=== PATIENT | male | born 1940 | race Caucasian/White ===

== ENCOUNTER 2018-06-17 12:37 | Emergency (ER) | payer OTHER ==
[~2018-06-17] VITALS: Ht 185.4 cm; Wt 68.9 kg
[~2018-06-17 12:37] MED LIST: ADVAIR 250-501 EACH INH; AMIODARONE HCL200 MG PO; CALCIUM 500+D1 EACH PO; CEFUROXIME250 MG PO; CENTRUM SILVER1 EAC3 PO; CIPRO500 MG PO; COUMADIN5 MG PO; IPRAT-ALBUT 0.5-3 ML INH; IPRATROPIU0.2 MG/1 M NEB; LEVAQUIN500 MG PO; LISINOPRIL10 MG PO; METOPROLOL SUCC50 MG PO; NORCO 10-325 T1 EACH; POTASSIUM GLUCO90 MG PO; PREDNISONE10 MG PO; SIMVASTATIN20 MG PO; TOPROL XL100 MG PO; TRAZODONE HCL50 MG PO; VASOTEC10 M1 PO; XARELTO20 MG PO; XOPENEX HFA15 GM INH
[2018-06-17] MEDS ORDERED: IBUPROFEN 600 MG TAB PO STA (13:07)
--- NOTE | 2018-06-17 14:14 | Diagnostic Imaging Report ---
Radiographs of the lumbar spine - 3 views HISTORY: Pain. Fall. COMPARISON: None available. FINDINGS: Bones: No acute displaced fracture. Mild scoliosis concave to the left centered at L3. Joints: Scattered degenerative change most pronounced at the lower lumbar spine. Soft tissues: The soft tissues appear unremarkable. IMPRESSION: Scattered degenerative change most pronounced at the lower lumbar spine. Signed by: Dr. Jose Cordova M.D. on 06/17/2018 2:11 PM
--- NOTE | 2018-06-17 14:18 | Diagnostic Imaging Report ---
EXAMINATION: Head and cervical spine CT without contrast. HISTORY: Status post fall, trauma, head and neck pain COMPARISON: None. TECHNIQUE: Multidetector axial images were obtained without contrast from the foramen magnum to the vertex and through the cervical spine. The images were reconstructed using brain and bone algorithms. Thin section brain images were reformatted into coronal and sagittal planes. Dose modulation, iterative reconstruction, and/or weight based adjustment of the mA/kV was utilized to reduce the radiation dose to as low as reasonably achievable. HEAD CT FINDINGS: Skull: No lytic or blastic lesions. No fractures. Parenchyma: A few scattered white matter hypodensities, most likely age appropriate minimal chronic microvascular ischemic changes. No mass, hemorrhage or CT evidence of acute vascular insult. Brain volume: Normal for age. Ventricles: No hydrocephalus or displacement. Arteries: No density suggestive of thrombus. Dural sinuses: No abnormal density. Extra-axial spaces: No abnormal density. Foramen magnum: No mass, Chiari malformation, or basilar invagination. Sella: No obvious mass. Paranasal/mastoid sinuses: Imaged portions unremarkable. CERVICAL SPINE CT FINDINGS: Alignment:Normal lordosis. Subtle right-sided curvature. Soft tissues: Normal. Vertebrae: Acute not significantly displaced transverse fracture line through the base of the dens extending to the right body of the C2 (type III). Degenerative changes: C1-C2: Degenerative changes without stenoses C2-C3: Uncovertebral and facet arthrosis without significant stenoses C3-C4: Disc osteophyte compresses formation, uncovertebral and facet arthrosis. Moderate spinal canal and foraminal stenoses worst on the right. C4-C5: Disc osteophyte complex formation, bilateral uncovertebral and facet arthrosis. Moderate spinal canal and severe left foraminal stenosis. C5-C6: Disc osteophyte compresses formation, uncovertebral and facet arthrosis. Moderately severe foraminal stenosis worst on the left. Moderately severe spinal canal stenosis C6-C7: Disc osteophyte complex formation, uncovertebral and facet arthroses. Mild spinal canal and moderate foraminal stenoses. C7-T1: Mild facet arthrosis is minimal right without stenosis Incidental findings: Prominent degenerative changes of the bilateral TMJs. IMPRESSION: Head CT: 1. No acute postraumatic intracranial hemorrhage. 2. Mild chronic microvascular ischemic changes. Cervical spine CT: 1. Acute nondisplaced fracture through the base of the dens extending to the right body of C2 (type III). 2. Chronic degenerative changes as described. Note: Acute post traumatic spinal cord, vascular or ligamentous injury cannot adequately be assessed with CT. The findings were discussed with the [facility] PUBLICITY DIRECTOR Britni Wray on 06/17/18 at 2:10 PM Signed by: Dr. Juanita King M.D. on 06/17/2018 2:14 PM
[2018-06-17 17:07] LABS: BASOPHILS # (AUTO) 0.1 (0.0-0.1); BASOPHILS % 1.4 % (0.0-1.0); EOSINOPHILS # (AUTO) 0.2 (0.0-0.4); EOSINOPHILS % 2.8 % (0.0-6.0); HEMATOCRIT 33.3 % (38.2-49.6); HEMOGLOBIN 10.4 g/dL (14.0-18.0); LYMPHOCYTES % 17.5 % (18.0-39.1); MEAN CORPUSCULAR HEMOGLOBIN 29.7 pg (28-32); MEAN CORPUSCULAR HGB CONC 31.2 g/dL (31-35); MEAN CORPUSCULAR VOLUME 95.1 fL (81-99); MONOCYTES # (AUTO) 0.6 (0.2-0.8); MONOCYTES % 10.3 % (4.4-11.3); NEUTROPHILS # (AUTO) 3.8 (2.1-6.9); NEUTROPHILS % 67.8 % (38.7-80.0); PLATELET COUNT 155 x10e3/uL (140-360); RED CELL DISTRIBUTION WIDTH 17.5 % (11.7-14.4)
[2018-06-17 17:20] LABS: INR 1.01; PROTHROMBIN TIME 14.2 seconds (11.9-14.5)
[2018-06-17 17:21] LABS: PARTIAL THROMBOPLASTIN TIME 34.9 seconds (23.8-35.5)
[2018-06-17 17:28] LABS: ANION GAP 14.9 mmol/L (8-16); CALCIUM 9.2 mg/dL (8.4-10.2); CREATININE, SERUM 1.22 mg/dL (0.72-1.25); POTASSIUM 3.9 mmol/L (3.5-5.1)
[2018-06-17 19:37] VITALS: BP 134/91
--- OUTSIDE RECORDS SUMMARY | 2018-06-24 12:21 | XMS REPORT | Continuity of Care Document ---
Author Author Lina card [facility] Interface Address Unknown Phone Unavailable Problems Problem Status Onset Date Classification Date Reported Comments Source Acute head trauma 02/06/2018 02/09/2018 [facility] Elevated INR 02/06/2018 02/09/2018 [facility] Accidental fall 02/06/2018 02/09/2018 [facility] FALL Active 02/06/2018 [facility] ATRIAL FIBRILLATION Active 01/08/2018 [facility] WATCHMAN Active 01/07/2018 [facility] PREADMIT/WATCHMAN/GA-DAISHA CLOSURE/ VIVIAN Active 01/03/2018 [facility] SOB Active 09/01/2017 [facility] ACUTE EXACERBATION OF CHRONIC OBSTRUCTIV Active 09/01/2017 [facility] CHF Active 08/04/2017 [facility] DX: AFIB Active 07/16/2017 [facility] PRE ADMIT/GENERAL ANESTHESIA/TAVR CASE/* Active 04/12/2017 [facility] AORTIC STENOSIS Active 04/12/2017 [facility] COPD WITH ACUTE EXACERBATION, HYPOXIA, A Active 04/07/2017 [facility] Z01.808 / I35.0 Active 03/20/2017 [facility] SEVERE AORTIC STENOSIS Active 03/13/2017 [facility] CCL/R Active 03/11/2017 [facility] PNEUMONIA, COPD WITH ACUTE EXACERBATION Active 09/27/2016 [facility] CHEST PAIN Active 10/09/2015 [facility] J44.1 - CHRONIC OBSTRUCTIVE PULMONARY Active 07/05/2015 [facility] Afib [facility] HT - Hypertension Active Problem 02/09[facility]F - Congestive heart failure Active Problem 02/28/2018 [facility] COPD Active Problem 02/28/2018 [facility] HT - Hypertension Active Problem 02/28/2018 [facility] Afib Active Problem 08/31/2017 [facility] [place] CHF - Congestive heart failure Active Problem 08/31/2017 [facility] [place] COPD Active Problem 08/31/2017 [facility] [place] HT - Hypertension Active Problem 08/31/2017 [facility] [place] Unspecified atrial fibrillation 01/17/2018 [facility] Chronic diastolic heart failure 01/17/2018 [facility] Presence of prosthetic heart valve 01/17/2018 [facility] Chronic obstructive pulmonary disease, unspecified 01/17/2018 [facility] Dependence on supplemental oxygen 01/17/2018 [facility] Encounter for examination for normal comparison and control in clinical research program 01/17/2018 [facility] Peripheral vascular disease, unspecified 01/17/2018 [facility] Occlusion and stenosis of unspecified carotid artery 01/17/2018 [facility] Hypertensive heart disease with heart failure 01/17/2018 [facility] Hyperlipidemia, unspecified 01/17/2018 [facility] Nicotine dependence, cigarettes, uncomplicated 01/17/2018 [facility] Gastro-esophageal reflux disease without esophagitis 01/17/2018 [facility] 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 01/17/2018 [facility] 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 01/17/2018 [facility] Presence of unspecified artificial knee joint 01/17/2018 [facility] PNEUMONIA, UNSPECIFIED ORGANISM Active [facility] CHRONIC OBSTRUCTIVE PULMONARY DISEASE W Active [place] HYPOXEMIA Active [facility] HEART FAILURE, UNSPECIFIED Active [facility] CHEST PAIN, UNSPECIFIED Active [facility] Medications Medication Details Route Status Patient Instructions Ordering Provider Order Date Source Vitamin K1 5 mg, Route: IVPB, ONCE, Dosing Weight 75, kg, Start date: 02/06/18 14:14:00 CDT, Stop date: 02/06/18 14:14:00 CDT Inactive 02/06/2018 [facility] Saline Flush 0.9% 10 mL, Route: IVP, Drug Form: INJ, Dosing Weight 75, kg, PRN, PRN Line Flush, Start date: 02/06/18 11:31:00 CDT, Duration: 30 day, Stop date: 03/08/18 11:30:00 CDTNotes: (Same as: BD Posiflush) Inactive 02/06/2018 [facility] tramadol hydrochloride 50 MG Oral Tablet 50 mg=1 tab, PO, Q6H, PRN Pain, X 10 day, # 40 tab, 0 Refill(s) Active 01/08/2018 [facility] Aspirin 81 MG Enteric Coated Tablet 81 mg=1 tab, PO, Daily, # 30 tab, 3 Refill(s), Pharmacy: [facility] [id number] Active 01/08/2018 [facility] warfarin 5 mg oral tablet 5 mg=1 tab, PO, Daily, # 30 tab, 1 Refill(s), Pharmacy: [facility] [id number] Active 01/08/2018 [facility] Warfarin 5 mg, 1 tab, Route: PO, Drug form: TAB, ONCE, Dosing Weight 75.455, kg, Start date: 01/08/18 17:15:00 CDT, Stop date: 01/08/18 17:15:00 CDTNotes: Nurse to ensure documentation of patient education per a nticoagulation policy. Avoid large intake of vitamin-K containing foods diet. WASTE: F/P - P Waste Black; E - P Waste Black (Same As: Coumadin) Inactive 01/08/2018 [facility] Centrum Silver Men's 1 tab, Route: PO, Drug Form: TAB, Dosing Weight 75.455, kg, Daily, Start date: 01/08/18 9:00:00 CDT, Duration: 30 day, Stop date: 02/06/18 9:00:00 CDTNotes: (Same as:Thera-M, Theragran-M) WASTE: F/P - Black; E - Municipal Trash Bin Give with food. Inactive 01/08/2018 [facility] Prednisone 10 mg, 1 tab, Route: PO, Drug form: TAB, Daily, Dosing Weight 75.455, kg, Start date: 01/08/18 9:00:00 CDT, Duration: 30 day, Stop date: 02/06/18 9:00:00 CDTNotes: (Same as: PredniSONE) Take with food. Inactive 01/08/2018 [facility] Amiodarone 200 mg, 1 tab, Route: PO, Drug form: TAB, Daily, Dosing Weight 75.455, kg, Start date: 01/08/18 9:00:00 CDT, Duration: 30 day, Stop date: 02/06/18 9:00:00 CDTNotes: (Same as: Cordarone) Inactive 01/08/2018 [facility] Aspirin 81 MG Enteric Coated Tablet 81 mg, 1 tab, Route: PO, Drug form: ECTAB, Daily, Dosing Weight 75.455, kg, Start date: 01/08/18 9:00:00 CDT, Duration: 30 day, Stop date: 02/06/18 9:00:00 CDTNotes: Do not crush or chew. (Same As: Ecotrin) Inactive 01/08/2018 [facility] Vitamin D3 2,000 IntlUnit, 1 tab, Route: PO, Drug form: TAB, Daily, Dosing Weight 75.455, kg, Start date: 01/08/18 9:00:00 CDT, Duration: 30 day, Stop date: 02/06/18 9:00:00 CDTNotes: (Same as: Vitamin D3) Inactive 01/08/2018 [facility] Lisinopril 40 mg, 2 tab, Route: PO, Drug form: TAB, Daily, Dosing Weight 75.455, kg, Start date: 01/08/18 9:00:00 CDT, Duration: 30 day, Stop date: 02/06/18 9:00:00 CDTNotes: (Same as: Prinivil, Zestril) Inactive 01/08/2018 [facility] tiotropium 0.018 MG/ACTUAT Inhalant Powder [Spiriva] 18 microgram, 1 inhalation, Route: INHALATION, Drug form: CAP, RDaily, Dosing Weight 75.455, kg, Start date: 01/08/18 8:00:00 CDT, Duration: 30 day, Stop date: 02/06/18 8:00:00 CDTNotes: (Same As: Spiriva) Inactive 01/08/2018 [facility] torsemide 20 mg, 1 tab, Route: PO, Drug form: TAB, Daily, Dosing Weight 75.455, kg, Priority: NOW, Start date: 01/08/18 5:33:00 CDT, Duration: 30 day, Stop date: 02/06/18 9:00:00 CDTNotes: (Same As: Demadex) Inactive 01/08/2018 [facility] 24 HR Metoprolol Tartrate 100 MG Extended Release Tablet [Toprol] 100 mg, 1 tab, Route: PO, Drug form: ERTAB, Daily, Priority: NOW, Start date: 01/08/18 5:33:00 CDT, Duration: 30 day, Stop date: 02/06/18 9:00:00 CDTNotes: (Same as: Toprol XL) May split tab, but do not crush. Inactive 01/08/2018 [facility] Simvastatin 20 mg, 1 tab, Route: PO, Drug form: TAB, Bedtime, Dosing Weight 75.455, kg, Start date: 01/07/18 21:00:00 CDT, Duration: 30 day, Stop date: 02/05/18 21:00:00 CDTNotes: (Same as: Zocor) No Longer Active 01/08/2018 [facility] heparin 5,000 unit, 1 mL, Route: SUB-Q, Drug form: INJ, Q12H, Dosing Weight 75.455, kg, Start date: 01/07/18 21:00:00 CDT, Duration: 30 day, Stop date: 02/06/18 9:00:00 CDTNotes: porcine heparin Inactive 01/08/2018 [facility] Tylenol 650 mg, 2 tab, Route: PO, Drug form: TAB, Q6H, Dosing Weight 75.455, kg, PRN Pain Score 1-3, Start date: 01/07/18 20:03:00 CDT, Duration: 30 day, Stop date: 02/06/18 20:02:00 CDTNotes: Do not exceed 4 gm/day. (Same as: Tylenol) No Longer Active 01/08/2018 [facility] Warfarin 5 mg, 1 tab, Route: PO, Drug form: TAB, ONCE, Dosing Weight 75.455, kg, Start date: 01/07/18 19:47:00 CDT, Stop date: 01/07/18 19:47:00 CDTNotes: Nurse to ensure documentation of patient education per a nticoagulation policy. Avoid large intake of vitamin-K containing foods diet. WASTE: F/P - P Waste Black; E - P Waste Black (Same As: Coumadin) Inactive 01/08/2018 [facility] rivaroxaban 20 mg, 1 tab, Route: PO, Drug form: TAB, QPM, Dosing Weight 75.455, kg, Start date: 01/07/18 17:00:00 CDT, Duration: 30 day, Stop date: 02/05/18 17:00:00 CDTNotes: (Same as: Xarelto) Administer with food Inactive 01/07/2018 [facility] Bupropion 150 mg, 1 tab, Route: PO, Drug form: ERTAB, BID, Dosing Weight 75.455, kg, Start date: 01/07/18 17:00:00 CDT, Duration: 30 day, Stop date: 02/06/18 9:00:00 CDTNotes: (Same as: Wellbutrin XL) "Do Not Crush" No Longer Active 01/07/2018 [facility] Symbicort 160/4.5 inhalation aerosol with adapter 2 inhalation, Route: INHALER, Drug Form: AERO/A, Dosing Weight 75.455, kg, RBID, Start date: 01/07/18 13:24:00 CDT, Duration: 30 day, Stop date: 02/06/18 8:00:00 CDTNotes: (Same as: Symbicort) WASTE: Aerosol - Return to Pharmacy No Longer Active 01/07/2018 [facility] Potassium Chloride 20 mEq, 1 tab, Route: PO, Drug form: ERTAB, PRN, Dosing Weight 75.455, kg, PRN Abnormal Lab Result, For NON-ICU Patients Only, Start date: 01/07/18 12:48:00 CDT, Duration: 30 day, Stop date: 02/06/18 12:47:00 CDTNotes: (Same as: K-Dur 20) "Do Not Crush" For patients unable to swallow tablet, dissolve in one half glass of water. Allow about 2 minutes for the tablets to disintegrate. Stir before giving to prepare slurry and administer. Please exclude Patients with feeding tube less than 14 Sami (Dobhoff, J-tube etc) and pediatric and patients. With food and full glass of water No Longer Active 01/07/2018 [facility] potassium phosphate 15 mmol, 5 mL, Route: IVPB, PRN, Dosing Weight 75.455, kg, PRN Abnormal Lab Result, For NON-ICU Patients Only., Start date: 01/07/18 12:48:00 CDT, Duration: 30 day, Stop date: 02/06/18 12:47:00 CDTNotes: (Same as: K Phosphate.) 1 mMol phoshate has 1.47 mEq potassium Infuse over 4 hours No Longer Active 01/07/2018 [facility] potassium phosphate-sodium phosphate 250 mg-280 mg-160 mg oral powder for reconstitution 2 pkt, Route: PO, Drug Form: PDR/REC, Dosing Weight 75.455, kg, PRN, PRN Abnormal Lab Result, For NON-ICU Patients Only, Start date: 01/07/18 12:48:00 CDT, Duration: 30 day, Stop date: 02/06/18 12:47:00 CDTNotes: (Same as: Phos-NaK) Each 1.5 gm pkt has 250mg phosphorous. Mix w/2.5oz water and stir. No Longer Active 01/07/2018 [facility] Magnesium Sulfate 2 gm, 50 mL, Route: IVPB, Drug form: INJ, PRN, Dosing Weight 75.455, kg, PRN Abnormal Lab Result, For NON-ICU Patients Only., Start date: 01/07/18 12:48:00 CDT, Duration: 30 day, Stop date: 02/06/18 12:47:00 CDTNotes: WASTE: F/P - Sink; E - Municipal Trash Bin No Longer Active 01/07/2018 [facility] Magnesium Oxide 800 mg, 2 tab, Route: PO, Drug form: TAB, PRN, Dosing Weight 75.455, kg, PRN Abnormal Lab Result, For NON-ICU Patients Only., Start date: 01/07/18 12:48:00 CDT, Duration: 30 day, Stop date: 02/06/18 12:47:00 CDTNotes: (Same as: Mag-Ox 400) Magnesium oxide [id number] elemental magnesium Dose=____mg magnesium oxide (___mg elemental magnesium) No Longer Active 01/07/2018 [facility] sodium phosphate 30 mmol, 10 mL, Route: IVPB, PRN, Dosing Weight 75.455, kg, PRN Abnormal Lab Result, For NON-ICU Patients Only., Start date: 01/07/18 12:48:00 CDT, Duration: 30 day, Stop date: 02/06/18 12:47:00 CDT No Longer Active 01/07/2018 [facility] Calcium Gluconate 3 gm, 30 mL, Route: IVPB, PRN, Dosing Weight 75.455, kg, PRN Abnormal Lab Result, For NON-ICU Patients Only., Start date: 01/07/18 12:48:00 CDT, Duration: 30 day, Stop date: 02/06/18 12:47:00 CDTNotes: WASTE: F/P - Sink; E - Municipal Trash Bin No Longer Active 01/07/2018 [facility] Albuterol 0.833 MG/ML / Ipratropium [place] 0.167 MG/ML Inhalant Solution [DuoNeb] 3 mL, Route: NEB, Drug Form: SOLN, Dosing Weight 75.455, kg, RQID, PRN Wheezing, Start date: 01/07/18 12:43:00 CDT, Duration: 30 day, Stop date: 02/06/18 12:42:00 CDTNotes: (Same as: Duoneb) No Longer Active 01/07/2018 [facility] ropinirole 0.25 mg, 1 tab, Route: PO, Drug form: TAB, Bedtime, Dosing Weight 75.455, kg, PRN Restlessness, Start date: 01/07/18 12:43:00 CDT, Duration: 30 day, Stop date: 02/06/18 12:42:00 CDTNotes: (Same as: Requip) No Longer Active 01/07/2018 [facility] Trazodone Hydrochloride 50 MG Oral Tablet 50 mg, 1 tab, Route: PO, Drug form: TAB, Bedtime, Dosing Weight 75.455, kg, PRN Insomnia, Start date: 01/07/18 12:43:00 CDT, Duration: 30 day, Stop date: 02/06/18 12:42:00 CDTNotes: (Same As: Desyrel) No Longer Active 01/07/2018 [facility] Naloxone 0.4 mg, 1 mL, Route: IVP, Drug form: INJ, Q2MIN, Dosing Weight 75.455, kg, PRN Narcotic Reversal, Start date: 01/07/18 9:30:00 CDT, Duration: 8 doses or times, Stop date: 01/07/18 17:00:00 CDTNotes: (Same as: Narcan) Inactive 01/07/2018 [facility] Ondansetron 4 mg, 2 mL, Route: IVP, Drug form: INJ, ONCE, Dosing Weight 75.455, kg, PRN Nausea & Vomiting, Start date: 01/07/18 9:30:00 CDTNotes: (Same as: Zofran) MEDICATION WASTE Product Size: 4 mg Product Wasted: ___ mg Inactive 01/07/2018 [facility] Flumazenil 0.2 mg, 2 mL, Route: IVP, Drug form: INJ, PRN, Dosing Weight 75.455, kg, PRN Benzodiazepine Reversal, Initial dose, Start date: 01/07/18 9:30:00 CDT, Duration: 30 day, Stop date: 02/06/18 9:29:00 CDT Notes: (Same as: Romazicon) Inactive 01/07/2018 [facility] Labetalol 10 mg, 2 mL, Route: IVP, Drug form: INJ, Q5Min, Dosing Weight 75.455, kg, PRN Elevated BP, Start date: 01/07/18 9:30:00 CDT, Duration: 5 doses or times, Stop date: 01/07/18 17:00:00 CDT Inactive 01/07/2018 [facility] Hydralazine 10 mg, 0.5 mL, Route: IVP, Drug form: INJ, Q20Min, Dosing Weight 75.455, kg, PRN Elevated BP, Start date: 01/07/18 9:30:00 CDT, Duration: 2 doses or times, Stop date: 01/07/18 17:00:00 CDTNotes: (Same as: Apresoline) Push over 5 minutes Inactive 01/07/2018 [facility] Fentanyl 25 microgram, 0.5 mL, Route: IVP, Drug form: INJ, Q5Min, Dosing Weight 75.455, kg, PRN Pain Score 4-6, Priority: Routine, Start date: 01/07/18 9:30:00 CDT, Duration: 4 doses or times, Stop date: 01/07/18 17:00:00 CDTNotes: (Same as: Sublimaze) Preservative free. Inactive 01/07/2018 [facility] pneumococcal capsular polysaccharide type 1 vaccine / pneumococcal capsular polysaccharide type 10A vaccine / pneumococcal capsular polysaccharide type 11A vaccine / pneumococcal capsular polysaccharide type 12F vaccine / pneumococcal capsular polysacchar 0.5 mL, Route: IM, Drug Form: INJ, ONCALL, Start date: 01/07/18 7:00:00 CDT, Duration: 1 doses or timesNotes: (Same as: Pneumovax 23) Refrigerate No Longer Active 01/07/2018 [facility] predniSONE 10 mg oral tablet 10 mg=1 tab, PO, Daily, # 30 tab, 3 Refill(s) Active 01/07/2018 [facility] Centrum Silver Men's 1 tab, PO, Daily, 0 Refill(s) Active 01/07/2018 [facility] torsemide 20 mg oral tablet 20 mg=1 tab, PO, Daily, # 30 tab, 1 Refill(s) Active 01/07/2018 [facility] buPROPion 150 mg/12 hours (SR) oral tablet, extended release 150 mg=1 tab, PO, BID, # 180 tab, 0 Refill(s) Active 01/07/2018 [facility] Cefazolin 2 gm, Route: IVPB, ONCALL, Dosing Weight 75.091, kg, Start date: 01/07/18 6:00:00 CDT, Duration: 1 doses or times, ABX Indication: Surgical ProphylaxisNotes: (Same As: AncSelma oquendozol) MEDICATIO N WASTE Product Size: 1000 mg Product Wasted: ___ mg Inactive 01/07/2018 [facility] Sodium Chloride 0.9% (Bolus) IV 250 mL, 250 ml/hr, Infuse Over: 1 hr, Route: IV, 250, Drug form: INJ, ONCALL, Priority: Routine, Dosing Weight 75.091 kg, Start date: 01/07/18 6:00:00 CDT, Duration: 1 doses or times Inactive 01/07/2018 [facility] Sodium Chloride 0.9% IV 750 mL 750 mL, Rate: 75 ml/hr, Infuse over: 10 hr, Route: IV, Dosing Weight 75.091 kg, Total Volume: 750, Start date: 01/07/18 5:54:00 CDT, Duration: 24 hr, Stop date: 01/08/18 5:53:00 CDT, 1.97, m2 Inactive 01/07/2018 [facility] Levofloxacin 750 MG Oral Tablet [Levaquin] 750 mg=1 tab, PO, Daily, X 5 day, # 5 tab, 0 Refill(s), Pharmacy: [facility] Active 09/02/2017 [facility] predniSONE 20 mg oral tablet See Special Instructions, PO, Daily, Day 1-4 - 40 mg (2 tab) daily Day 5-8 - 20 mg (1 tab) daily Day 9- 12 - 10 mg (1/2 tab), X 12 day, # 12 tab, 0 Refill(s), Pharmacy: [facility] Active 09/02/2017 [facility] Prednisone 60 mg, 3 tab, Route: PO, Drug form: TAB, Daily, Dosing Weight 75.091, kg, Start date: 09/02/17 9:00:00 VESSEL ORDINARY SEAMAN, Duration: 5 day, Stop date: 09/06/17 9:00:00 CSTNotes: Take with food. Inactive 09/02/2017 [facility] Azithromycin 500 mg, Route: IVPB, [id number], Dosing Weight 75.091, kg, Start date: 09/02/17 5:00:00 VESSEL ORDINARY SEAMAN, Duration: 3 day, Stop date: 09/04/17 5:00:00 VESSEL ORDINARY SEAMAN, ABX Indication: Non-PNA Respiratory Tract InfectionNotes: (Same As: Zithromax IV) Inactive 09/02/2017 [facility] Ceftriaxone 1 gm, Route: IV, [id number], Dosing Weight 75.091, kg, Start date: 09/02/17 4:00:00 VESSEL ORDINARY SEAMAN, Duration: 5 day, Stop date: 09/06/17 4:00:00 VESSEL ORDINARY SEAMAN, ABX Indication: Non-PNA Respiratory Tract InfectionNotes: (Same As: Rocephin). Use with 100 mL NS and infuse over 30 min MEDICATION WASTE Product Size: 1000 mg Product Wasted: ___ mg Inactive 09/02/2017 [facility] Albuterol 0.833 MG/ML / Ipratropium [place] 0.167 MG/ML Inhalant Solution [DuoNeb] 3 ml, Route: NEB, Drug Form: SOLN, Dosing Weight 75.091, kg, PRN, PRN Respiratory Protocol, Start date: 09/02/17 3:12:00 VESSEL ORDINARY SEAMAN, Duration: 30 day, Stop date: 10/02/17 3:11:00 CSTNotes: (Same as: Duoneb) Inactive 09/02/2017 [facility] Saline Flush 0.9% 10 mL, Route: IVP, Drug Form: INJ, Dosing Weight 71.818, kg, PRN, PRN Line Flush, Start date: 09/01/17 20:46:00 VESSEL ORDINARY SEAMAN, Duration: 30 day, Stop date: 10/01/17 20:45:00 CSTNotes: (Same as: BD Posiflush) No Longer Active 09/02/2017 [facility] rivaroxaban 20 mg, 1 tab, Route: PO, Drug form: TAB, QPM, Dosing Weight 71.818, kg, Start date: 08/12/17 17:00:00 VESSEL ORDINARY SEAMAN, Duration: 30 day, Stop date: 09/10/17 17:00:00 CSTNotes: (Same as: Xarelto) Administer with food Inactive 08/12/2017 [facility] simvastatin 20 mg oral tablet 20 mg=1 tab, PO, Bedtime, # 30 tab, 3 Refill(s) Active 08/12/2017 [facility] metoprolol 100 mg oral tablet, extended release 100 mg=1 tab, PO, Daily, # 30 tab, 3 Refill(s) Active 08/12/2017 [facility] lisinopril 20 mg oral tablet 40 mg=2 tab, PO, Daily, # 30 tab, 3 Refill(s) Active 08/12/2017 [facility] Symbicort 160/4.5 inhalation aerosol with adapter 2 inhalation, INHALER, RBID, # 3 ea, 3 Refill(s) Active 08/12/2017 [facility] aspirin 81 mg tablet, enteric coated 81 mg=1 tab, PO, Daily, # 100 tab, 3 Refill(s) Active 08/12/2017 [facility] AMIODarone 200 mg oral tablet 200 mg=1 tab, PO, Daily, # 30 tab, 3 Refill(s) Active 08/12/2017 [facility] tiotropium 0.018 MG/ACTUAT Inhalant Powder [Spiriva] 18 microgram=1 inhalation, INHALATION, Daily, # 30 cap, 0 Refill(s) Active 08/12/2017 [facility] rivaroxaban 20 mg oral tablet 20 mg=1 tab, PO, QPM, # 90 tab, 0 Refill(s) Active 08/12/2017 [facility] Albuterol 0.833 MG/ML / Ipratropium [place] 0.167 MG/ML Inhalant Solution [DuoNeb] 3 mL, NEB, QID, PRN Wheezing, # 90 mL, 0 Refill(s) Active 08/12/2017 [facility] Furosemide 40 MG Oral Tablet 40 mg=1 tab, PO, Daily, # 60 tab, 2 Refill(s) Active 08/12/2017 [facility] Sodium Chloride 0.9% (Bolus) IV 500 mL, 500 ml/hr, Infuse Over: 1 hr, Route: IV, 500, Drug form: INJ, ONCE, Priority: STAT, Dosing Weight 71.818 kg, Start date: 08/10/17 12:19:00 VESSEL ORDINARY SEAMAN, Stop date: 08/10/17 12:19:00 VESSEL ORDINARY SEAMAN Inactive 08/10/2017 [facility] tiotropium 0.018 MG/ACTUAT Inhalant Powder [Spiriva] 18 microgram, 1 inhalation, Route: INHALATION, Drug form: CAP, Daily, Dosing Weight 71.818, kg, Start date: 08/10/17 9:00:00 VESSEL ORDINARY SEAMAN, Duration: 30 day, Stop date: 09/08/17 9:00:00 CSTNotes: (Same As: Spiriva) No Longer Active 08/10/2017 [facility] heparin 5,000 unit, 1 mL, Route: SUB-Q, Drug form: INJ, Q8H, Dosing Weight 71.818, kg, Start date: 08/10/17 8:00:00 VESSEL ORDIN[employer] SEAMAN, Duration: 30 day, Stop date: 09/09/17 0:00:00 CSTNotes: porcine heparin No Longer Active 08/10/2017 [facility] Phenergan 12.5 mg, 0.5 mL, Route: IVPB, Drug form: INJ, ONCE, Dosing Weight 71.818, kg, PRN Nausea & Vomiting, Start date: 08/09/17 18:12:00 CSTNotes: Do not give IV push. (Same as: Phenergan) Inactive 08/10/2017 [facility] Phenergan 12.5 mg, 1 tab, Route: PO, Drug form: TAB, ONCE, Dosing Weight 71.818, kg, PRN Nausea & Vomiting, Start date: 08/09/17 16:19:00 CSTNotes: (Same as: Phenergan) Inactive 08/09/2017 [facility] multivitamin with iron 1 tab, Route: PO, Drug Form: TAB, Dosing Weight 71.818, kg, Daily, Start date: 08/09/17 10:30:00 [employer], Duration: 30 day, Stop date: 09/08/17 9:00:00 CSTNotes: Same as Iron/C/B12/FA/SA No Longer Active 08/09/2017 [facility] Acetazolamide 250 mg, 1 tab, Route: PO, Drug form: TAB, BID, Dosing Weight 71.818, kg, Start date: 08/08/17 17:00:00 [employer], Duration: 2 day, Stop date: 08/10/17 9:00:00 CSTNotes: (Same as: Diamox) No Longer Active 08/08/2017 [facility] Xarelto 20 mg, 1 tab, Route: PO, Drug form: TAB, QPM, Dosing Weight 71.818, kg, Start date: 08/08/17 17:00:00 [employer], Duration: 30 day, Stop date: 09/06/17 17:00:00 CSTNotes: (Same as: Xarelto) Administer with food Inactive 08/08/2017 [facility] tramadol hydrochloride 50 MG Oral Tablet 50 mg, 1 tab, Route: PO, Drug form: TAB, ONCE, Dosing Weight 71.818, kg, Start date: 08/08/17 8:03:00 [employer], Stop date: 08/08/17 8:03:00 CSTNotes: Not to exceed 400mg/day. (Same As: Ultram) Inactive 08/08/2017 [facility] Lasix 40 mg, 1 tab, Route: PO, Drug form: TAB, Daily, Dosing Weight 71.818, kg, Start date: 08/08/17 7:43:00 [employer], Duration: 30 day, Stop date: 09/06/17 9:00:00 CSTNotes: (Same as: Lasix) May cause GI upset. Give with food or milk. No Longer Active 08/08/2017 [facility] Acetaminophen 325 MG / Hydrocodone Bitartrate 10 MG Oral Tablet [[place] 10/325] 1 tab, Route: PO, Drug Form: TAB, Dosing Weight 71.818, kg, ONCE, Start date: 08/08/17 0:25:00 [employer], Stop date: 08/08/17 0:25:00 CSTNotes: Do not exceed 4gm/day of acetaminophen. (Same as: [place] 325/10) Inactive 08/08/2017 [facility] Lidocaine Hydrochloride 10 MG/ML Injectable Solution 10 mg, 1 ml, Route: SUB-Q, Drug Form: INJ, Dosing Weight 71.818, kg, ONCE, STAT, Start date: 08/07/17 14:36:00 [employer], Stop date: 08/07/17 14:36:00 CSTNotes: (Same as: Xylocaine) Inactive 08/07/2017 [facility] Albuterol 0.833 MG/ML / Ipratropium [place] 0.167 MG/ML Inhalant Solution [DuoNeb] 3 mL, Route: NEB, Drug Form: SOLN, Dosing Weight 71.818, kg, QID, PRN Wheezing, Start date: 08/07/17 11:39:00 [employer], Duration: 30 day, Stop date: 09/06/17 11:38:00 CSTNotes: (Same as: Duoneb) No Longer Active 08/07/2017 [facility] Lasix 40 mg, 4 mL, Route: IV, Drug form: INJ, ONCE, Dosing Weight 71.818, kg, Start date: 08/07/17 9:06:00 [employer], Stop date: 08/07/17 9:06:00 CSTNotes: (Same as: Lasix) Inactive 08/07/2017 [facility] Acetaminophen 325 MG / Hydrocodone Bitartrate 10 MG Oral Tablet [[place] 10/325] 0.5 tab, Route: PO, Drug Form: TAB, Dosing Weight 71.818, kg, ONCE, Start date: 08/06/17 22:16:00 [employer], Stop date: 08/06/17 22:16:00 CSTNotes: Do not exceed 4gm/day of acetaminophen. (Same as: [place] 325/10) Inactive 08/07/2017 [facility] Lasix 40 mg, 4 mL, Route: IV, Drug form: INJ, ONCE, Dosing Weight 71.818, kg, Start date: 08/06/17 7:54:00 [employer], Stop date: 08/06/17 7:54:00 CSTNotes: (Same as: Lasix) MEDICATION WASTE Product Size: 40 mg Product Wasted: ___ mg Inactive 08/06/2017 [facility] Albuterol 0.833 MG/ML / Ipratropium [place] 0.167 MG/ML Inhalant Solution [DuoNeb] 3 mL, Route: NEB, Drug Form: SOLN, Dosing Weight 71.818, kg, RQID, Start date: 08/06/17 7:53:00 [employer], Duration: 30 day, Stop date: 09/05/17 7:00:00 CSTNotes: (Same as: Duoneb) Inactive 08/06/2017 [facility] Lasix 40 mg, 4 mL, Route: IV, Drug form: INJ, Q6H, Dosing Weight 71.818, kg, Start date: 08/05/17 12:00:00 [employer], Duration: 2 doses or times, Stop date: 08/05/17 18:00:00 CSTNotes: (Same as: Lasix) MEDICATION WASTE Product Size: 40 mg Product Wasted: ___ mg Inactive 08/05/2017 [facility] Azithromycin 500 mg, 2 tab, Route: PO, Drug form: TAB, [id number], Dosing Weight 71.818, kg, Start date: 08/05/17 11:00:00 [employer], Duration: 3 day, Stop date: 08/07/17 11:00:00 [employer], ABX Indication: Other (specify in Comme nts)Notes: Take 1 hour before or 2 hours after meals. (Same As: Zithromax) No Longer Active 08/05/2017 [facility] Prednisone 40 mg, 2 tab, Route: PO, Drug form: TAB, Daily, Dosing Weight 71.818, kg, Start date: 08/05/17 10:05:00 [employer], Duration: 5 doses or times, Stop date: 08/09/17 9:00:00 CSTNotes: Take with food. No Longer Active 08/05/2017 [facility] Azithromycin 500 mg, Route: IVPB, Drug form: PDR/INJ, [id number], Dosing Weight 71.818, kg, Start date: 08/05/17 10:00:00 [employer], Duration: 3 day, Stop date: 08/07/17 10:00:00 [employer], ABX Indication: Other (specify in Com ments)Notes: (Same As: Zithromax IV) Inactive 08/05/2017 [facility] Nifedical XL 30 mg, 1 tab, Route: PO, Drug form: ERTAB, Daily, Dosing Weight 71.818, kg, Start date: 08/05/17 9:00:00 [employer], Stop date: 09/03/17 9:00:00 CSTNotes: (Same as: Adalat CC, Procardia XL) Give on empty s tomach. Take 1 hour before or 2 hours after meal; "Avoid grapefruit and grapefruit juice". Do not crush No Longer Active 08/05/2017 [facility] Amiodarone 200 mg, 1 tab, Route: PO, Drug form: TAB, Daily, Dosing Weight 71.818, kg, Start date: 08/05/17 9:00:00 [employer], Duration: 30 day, Stop date: 09/03/17 9:00:00 CSTNotes: (Same as: Cordarone) No Longer Active 08/05/2017 [facility] Lisinopril 40 mg, Route: PO, Drug form: TAB, Daily, Dosing Weight 71.818, kg, Start date: 08/05/17 9:00:00 [employer], Duration: 30 day, Stop date: 09/03/17 9:00:00 [employer] No Longer Active 08/05/2017 [facility] 24 HR Metoprolol Tartrate 100 MG Extended Release Tablet [Toprol] 100 mg, 1 tab, Route: PO, Drug form: ERTAB, Daily, Start date: 08/05/17 9:00:00 [employer], Duration: 30 day, Stop date: 09/03/17 9:00:00 CSTNotes: (Same as: Toprol XL) May split tab, but do not crush. No Longer Active 08/05/2017 [facility] NIFEdipine 30 mg oral tablet, extended release 30 mg, 1 tab, Route: PO, Drug form: ERTAB, Daily, Dosing Weight 71.818, kg, Start date: 08/05/17 9:00:00 [employer], Duration: 30 day, Stop date: 09/03/17 9:00:00 [employer] No Longer Active 08/05/2017 [facility] Lasix 40 mg, 4 mL, Route: IVP, Drug form: INJ, ONCE, Dosing Weight 71.818, kg, Start date: 08/05/17 9:00:00 [employer], Stop date: 08/05/17 9:00:00 CSTNotes: (Same as: Lasix) MEDICATION WASTE Product Size: 40 mg Product Wasted: _0_ mg Inactive 08/05/2017 [facility] Streptococcus pneumoniae serotype 1 capsular antigen diphtheria [id number] protein conjugate vaccine / Streptococcus pneumoniae serotype 14 capsular antigen diphtheria [id number] protein conjugate vaccine / Streptococcus pneumoniae serotype 18C capsular antigen d 0.5 mL, Route: IM, Drug Form: INJ, Daily, Start date: 08/05/17 9:00:00 [employer], Duration: 1 doses or times, Stop date: 08/05/17 9:00:00 CSTNotes: Shake well prior to use (Same as: Prevnar 13) Inactive 08/05/2017 [facility] Metoclopramide 10 MG Oral Tablet [Reglan] 10 mg, 1 tab, Route: PO, Drug form: TAB, ONCE, Dosing Weight 71.818, kg, Start date: 08/04/17 22:00:00 [employer], Stop date: 08/04/17 22:00:00 CSTNotes: (Same as: Reglan) Take 30 min before meals Inactive 08/05/2017 [facility] Simvastatin 20 mg, 1 tab, Route: PO, Drug form: TAB, Bedtime, Dosing Weight 71.818, kg, Start date: 08/04/17 21:00:00 [employer], Duration: 30 day, Stop date: 09/02/17 21:00:00 CSTNotes: (Same as: Zocor) No Longer Active 08/05/2017 [facility] Saline Flush 0.9% 10 ml, Route: IVP, Drug Form: INJ, Dosing Weight 71.818, kg, Q12H, Start date: 08/04/17 21:00:00 [employer], Duration: 30 day, Stop date: 09/03/17 9:00:00 CSTNotes: (Same as: BD Posiflush) No Longer Active 08/05/2017 [facility] sodium phosphate 30 mmol, 10 mL, Route: IVPB, PRN, Dosing Weight 71.818, kg, PRN Abnormal Lab Result, For NON-ICU Patients Only., Start date: 08/04/17 19:22:00 [employer], Duration: 30 day, Stop date: 09/03/17 19:21:00 [employer] No Longer Active 08/05/2017 [facility] Magnesium Sulfate 1 gm, 100 mL, Route: IVPB, Drug form: INJ, PRN, Dosing Weight 71.818, kg, PRN Abnormal Lab Result, For NON-ICU Patients Only., Start date: 08/04/17 19:22:00 [employer], Duration: 30 day, Stop date: 09/03/17 19:21:00 CSTNotes: WASTE: F/P - Sink; E - Municipal Trash Bin No Longer Active 08/05/2017 [facility] potassium phosphate 30 mmol, 10 mL, Route: IVPB, PRN, Dosing Weight 71.818, kg, PRN Abnormal Lab Result, For NON-ICU Patients Only., Start date: 08/04/17 19:22:00 [employer], Duration: 30 day, Stop date: 09/03/17 19:21:00 CSTN otes: (Same as: K Phosphate.) 1 mMol phoshate has 1.47 mEq potassium Infuse over 4 hours No Longer Active 08/05/2017 [facility] Potassium Chloride 20 mEq, 15 mL, Route: NJ, Drug form: LIQ, PRN, Dosing Weight 71.818, kg, PRN Abnormal Lab Result, For NON-ICU Patients Only, Start date: 08/04/17 19:22:00 [employer], Duration: 30 day, Stop date: 09/03/17 19:21:00 CSTNotes: (Same as: Potassium Chloride) No Longer Active 08/05/2017 [facility] potassium phosphate-sodium phosphate 250 mg-280 mg-160 mg oral powder for reconstitution 2 pkt, Route: PO, Drug Form: PDR/REC, Dosing Weight 71.818, kg, PRN, PRN Abnormal Lab Result, For NON-ICU Patients Only, Start date: 08/04/17 19:22:00 [employer], Duration: 30 day, Stop date: 09/03/17 19:21:00 CSTNotes: (Same as: Phos-NaK) Each 1.5 gm pkt has 250mg phosphorous. Mix w/2.5oz water and stir. No Longer Active 08/05/2017 [facility] Calcium Gluconate 3 gm, 30 mL, Route: IVPB, PRN, Dosing Weight 71.818, kg, PRN Abnormal Lab Result, For NON-ICU Patients Only., Start date: 08/04/17 19:22:00 [employer], Duration: 30 day, Stop date: 09/03/17 19:21:00 CSTNotes: WASTE: F/P - Sink; E - Municipal Trash Bin No Longer Active 08/05/2017 [facility] Magnesium Oxide 800 mg, 2 tab, Route: PO, Drug form: TAB, PRN, Dosing Weight 71.818, kg, PRN Abnormal Lab Result, For NON-ICU Patients Only., Start date: 08/04/17 19:22:00 [employer], Duration: 30 day, Stop date: 09/03/17 19:21:00 CSTNotes: (Same as: Mag-Ox 400) Magnesium oxide [id number] elemental magnesium Dose=____mg magnesium oxide (___mg elemental magnesium) No Longer Active 08/05/2017 [facility] ropinirole 0.25 mg, 1 tab, Route: PO, Drug form: TAB, Bedtime, Dosing Weight 71.818, kg, Start date: 08/04/17 18:00:00 [employer], Duration: 30 day, Stop date: 09/02/17 21:00:00 CSTNotes: (Same as: Requip) No Longer Active 08/05/2017 [facility] Docusate Sodium 50 MG / sennosides, PRISON 8.6 MG Oral Tablet 2 tab, Route: PO, Drug Form: TAB, Dosing Weight 71.818, kg, BID, Start date: 08/04/17 17:00:00 [employer], Duration: 30 day, Stop date: 09/03/17 9:00:00 CSTNotes: (Same as Senokot-S) Equiv. to Pascale-Colace. No Longer Active 08/04/2017 [facility] rivaroxaban 20 mg, 1 tab, Route: PO, Drug form: TAB, QPM, Dosing Weight 71.818, kg, Start date: 08/04/17 17:00:00 [employer], Duration: 30 day, Stop date: 09/02/17 17:00:00 CSTNotes: (Same as: Xarelto) Administer with food No Longer Active 08/04/2017 [facility] Lasix 40 mg, 4 mL, Route: IVP, Drug form: INJ, ONCE, Dosing Weight 71.818, kg, Start date: 08/04/17 17:00:00 [employer], Stop date: 08/04/17 17:00:00 CSTNotes: (Same as: Lasix) MEDICATION WASTE Product Size: 40 mg Product Wasted: ___ mg Inactive 08/04/2017 [facility] Albuterol 0.833 MG/ML / Ipratropium [place] 0.167 MG/ML Inhalant Solution [DuoNeb] 3 ml, Route: NEB, Drug Form: SOLN, Dosing Weight 71.818, kg, RTID, Start date: 08/04/17 15:12:00 [employer], Stop date: 09/03/17 20:00:00 CSTNotes: (Same as: Duoneb) No Longer Active 08/04/2017 [facility] NIFEdipine 30 mg oral tablet, extended release 30 mg, 1 tab, Route: PO, Drug form: ERTAB, Daily, Dosing Weight 71.818, kg, Start date: 08/04/17 13:15:00 [employer], Duration: 30 day, Stop date: 09/03/17 9:00:00 CSTNotes: (Same as: Adalat CC, Procardia XL) Give on empty stomach. Take 1 hour before or 2 hours after meal; "Avoid grapefruit and grapefruit juice". Do not crush No Longer Active 08/04/2017 [facility] Lisinopril 40 mg, 2 tab, Route: PO, Drug form: TAB, Daily, Dosing Weight 71.818, kg, Start date: 08/04/17 13:15:00 [employer], Duration: 30 day, Stop date: 09/03/17 9:00:00 CSTNotes: (Same as: Prinivil, Zestril) No Longer Active 08/04/2017 [facility] Acetaminophen 325 MG / Hydrocodone Bitartrate 10 MG Oral Tablet 0.5 tab, Route: PO, Drug Form: TAB, Dosing Weight 71.818, kg, Daily, PRN Pain Score 1-3, Start date: 08/04/17 13:08:00 [employer], Duration: 30 day, Stop date: 09/03/17 13:07:00 CSTNotes: Do not exceed 4gm/day of acetaminophen. (Same as: [place] 325/10) No Longer Active 08/04/2017 [facility] aspirin 81 mg tablet, enteric coated 81 mg, 1 tab, Route: PO, Drug form: ECTAB, Daily, Dosing Weight 71.818, kg, Start date: 08/04/17 13:08:00 [employer], Duration: 30 day, Stop date: 09/03/17 9:00:00 CSTNotes: Do not crush or chew. (Same As: Ecotrin) No Longer Active 08/04/2017 [facility] Symbicort 160/4.5 inhalation aerosol with adapter 2 inhalation, Route: INHALER, Drug Form: AERO/A, Dosing Weight 71.818, kg, RBID, Start date: 08/04/17 12:57:00 [employer], Duration: 30 day, Stop date: 09/03/17 8:00:00 CSTNotes: (Same as: Symbicort) WASTE: Aerosol - Return to Pharmacy No Longer Active 08/04/2017 [facility] Trazodone Hydrochloride 50 MG Oral Tablet 50 mg, 1 tab, Route: PO, Drug form: TAB, Bedtime, Dosing Weight 71.818, kg, PRN Insomnia, Start date: 08/04/17 12:57:00 [employer], Duration: 30 day, Stop date: 09/03/17 12:56:00 CSTNotes: (Same As: Desyrel) No Longer Active 08/04/2017 [facility] Saline Flush 0.9% 10 ml, Route: IVP, Drug Form: INJ, Dosing Weight 71.818, kg, PRN, PRN Line Flush, Start date: 08/04/17 12:53:00 [employer], Duration: 30 day, Stop date: 09/03/17 12:52:00 CSTNotes: (Same as: BD Posiflush) No Longer Active 08/04/2017 [facility] Acetaminophen 325 MG / Hydrocodone Bitartrate 10 MG Oral Tablet See Instructions, 0.5 tab PO Daily, 0 Refill(s) Active 08/04/2017 [facility] potassium gluconate 595 mg oral tablet PO, Daily, 1 tablet daily, 0 Refill(s) Active 08/04/2017 [facility] Vitamin D3 2,000 IntlUnit, PO, Daily, 0 Refill(s) Active 08/04/2017 [facility] Trazodone Hydrochloride 50 MG Oral Tablet 50 mg=1 tab, PO, Bedtime, PRN Insomnia, # 30 tab, 3 Refill(s) Active 04/18/2017 [facility] simvastatin 20 mg oral tablet 20 mg=1 tab, PO, Bedtime, # 30 tab, 3 Refill(s) Active 04/18/2017 [facility] rOPINIRole 0.25 mg oral tablet 0.25 mg=1 tab, PO, Bedtime, # 30 tab, 3 Refill(s) Active 04/18/2017 [facility] NIFEdipine 30 mg oral tablet, extended release 30 mg=1 tab, PO, Daily, # 30 tab, 3 Refill(s) Active 04/18/2017 [facility] metoprolol 100 mg oral tablet, extended release 100 mg=1 tab, PO, Daily, # 30 tab, 3 Refill(s) Active 04/18/2017 [facility] lisinopril 20 mg oral tablet 40 mg=2 tab, PO, Daily, # 30 tab, 3 Refill(s) Active 04/18/2017 [facility] levofloxacin 750 mg oral tablet 750 mg=1 tab, PO, [id number], # 14 tab, 0 Refill(s) Active 04/18/2017 [facility] edoxaban 60 mg oral tablet 60 mg=1 tab, PO, Daily, # 30 tab, 3 Refill(s) Active 04/18/2017 [facility] Vitamin D3 2000 intl units oral tablet 2,000 IntlUnit=1 tab, PO, Daily, # 100 tab, 3 Refill(s) Active 04/18/2017 [facility] Symbicort 160/4.5 inhalation aerosol with adapter 2 inhalation, INHALER, RBID, # 3 ea, 3 Refill(s) Active 04/18/2017 [facility] aspirin 81 mg tablet, enteric coated 81 mg=1 tab, PO, Daily, # 100 tab, 3 Refill(s) Active 04/18/2017 [facility] AMIODarone 200 mg oral tablet 200 mg=1 tab, PO, Daily, # 30 tab, 3 Refill(s) Active 04/18/2017 [facility] metoprolol 100 mg oral tablet, extended release 100 mg=1 tab, PO, Daily, 0 Refill(s) Inactive 04/18/2017 [facility] NIFEdipine 30 mg oral tablet, extended release 30 mg=1 tab, PO, Daily, 0 Refill(s) Inactive 04/18/2017 [facility] lisinopril 20 mg oral tablet 40 mg=2 tab, PO, Daily, 0 Refill(s) Inactive 04/18/2017 [facility] Vitamin D3 2000 intl units oral tablet 2,000 IntlUnit=1 tab, PO, Daily, 0 Refill(s) Inactive 04/18/2017 [facility] Symbicort 160/4.5 inhalation aerosol with adapter 2 inhalation, INHALER, RBID, 0 Refill(s) Inactive 04/18/2017 [facility] aspirin 81 mg tablet, enteric coated 81 mg=1 tab, PO, Daily, 0 Refill(s) Inactive 04/18/2017 [facility] edoxaban 60 mg oral tablet 60 mg=1 tab, PO, Daily, 0 Refill(s) Inactive 04/18/2017 [facility] Trazodone Hydrochloride 50 MG Oral Tablet 50 mg=1 tab, PO, Bedtime, PRN Insomnia, 0 Refill(s) Inactive 04/18/2017 [facility] levofloxacin 750 mg oral tablet 750 mg=1 tab, PO, [id number], 0 Refill(s) Inactive 04/18/2017 [facility] AMIODarone 200 mg oral tablet 200 mg=1 tab, PO, Daily, 0 Refill(s) Inactive 04/18/2017 [facility] rOPINIRole 0.25 mg oral tablet 0.25 mg=1 tab, PO, Bedtime, 0 Refill(s) Inactive 04/18/2017 [facility] simvastatin 20 mg oral tablet 20 mg=1 tab, PO, Bedtime, 0 Refill(s) Inactive 04/18/2017 [facility] Amiodarone 200 mg, 1 tab, Route: PO, Drug form: TAB, Daily, Dosing Weight 76.364, kg, Start date: 04/18/17 9:00:00 CDT, Duration: 30 day, Stop date: 05/17/17 9:00:00 CDTNotes: (Same as: Cordarone) Inactive 04/18/2017 [facility] Melatonin 3 mg, 1 tab, Route: PO, Drug form: TAB, ONCE, Dosing Weight 76.364, kg, Start date: 04/17/17 23:46:00 CDT, Stop date: 04/17/17 23:46:00 CDT, ..Notes: (Same as: Melatonin) Inactive 04/18/2017 [facility] Eliquis 5 mg, 1 tab, Route: PO, Drug form: TAB, Q12H, Dosing Weight 76.364, kg, Start date: 04/17/17 21:00:00 CDT, Duration: 30 day, Stop date: 05/17/17 9:00:00 CDTNotes: Same as: Eliquis Inactive 04/18/2017 [facility] NIFEdipine 30 mg oral tablet, extended release 30 mg, 1 tab, Route: PO, Drug form: ERTAB, Daily, Dosing Weight 76.364, kg, Start date: 04/17/17 20:45:00 CDT, Duration: 30 day, Stop date: 05/17/17 9:00:00 CDTNotes: (Same as: Adalat CC, Procardia XL) Give on empty stomach. Take 1 hour before or 2 hours after meal; "Avoid grapefruit and grapefruit juice". Do not crush No Longer Active 04/18/2017 [facility] Warfarin 5 mg, 1 tab, Route: PO, Drug form: TAB, Q5PM, Dosing Weight 76.364, kg, Start date: 04/17/17 17:00:00 CDT, Duration: 1 doses or times, Stop date: 04/17/17 17:00:00 CDTNotes: Nurse to ensure documentation of patient education per anticoagulation policy. Avoid large intake of vitamin-K containing foods diet. WASTE: F/P - P Waste Black; E - P Waste Black (Same As: Coumadin) Inactive 04/17/2017 [facility] INV edoxaban 60 mg TAB 60 mg, 1 tab, Route: PO, Drug form: TAB, Daily, Start date: 04/17/17 15:00:00 CDT, Duration: 30 day, Stop date: 05/17/17 9:00:00 CDT No Longer Active 04/17/2017 [facility] Levaquin 750 mg, 1 tab, Route: PO, Drug form: TAB, [id number], Dosing Weight 76.364, kg, Start date: 04/17/17 13:00:00 CDT, Duration: 14 day, Stop date: 04/30/17 13:00:00 CDT, ABX Indication: PneumoniaNotes: Do not give w/antacids, dairy pdt & minerals Take 1 hr before or 2 hr after dairy products No Longer Active 04/17/2017 [facility] cefepime 2 gm, Route: IVPB, Drug form: INJ, [id number], Dosing Weight 76.364, kg, (CrCl >/=50 ml/min, [employer]IAN infection or neutropenic fever), Start date: 04/17/17 10:00:00 CDT, Duration: 10 day, Stop date: 04/27/17 2:00:00 CDT, ABX Indication: PneumoniaNotes: (Same as: Maxipime) MEDICATION WASTE Product Size: 2000 mg Product Wasted: ___ mg Inactive 04/17/2017 [facility] Vitamin D3 2000 intl units oral tablet 2,000 IntlUnit, 1 tab, Route: PO, Drug form: TAB, Daily, Dosing Weight 76.364, kg, Start date: 04/17/17 9:00:00 CDT, Duration: 30 day, Stop date: 05/16/17 9:00:00 CDTNotes: (Same as: Vitamin D3) No Longer Active 04/17/2017 [facility] Lovenox 76.364 mg, 0.76 mL, Route: SUB-Q, Drug form: INJ, [id number], Dosing Weight 76.364, kg, Start date: 04/17/17 9:00:00 CDT, Duration: 30 day, Stop date: 05/16/17 21:00:00 CDTNotes: Nurse to ensure documentation of patient education per anticoagulation policy. (Same as: Lovenox) Inactive 04/17/2017 [facility] pantoprazole 40 mg, 1 tab, Route: PO, Drug form: ECTAB, Daily, Dosing Weight 76.364, kg, Start date: 04/17/17 9:00:00 CDT, Duration: 30 day, Stop date: 05/16/17 9:00:00 CDTNotes: Tablet should not be chewed or cr ushed. (Same as: Protonix) No Longer Active 04/17/2017 [facility] POLYETHYLENE GLYCOL 3350 17 gm, 1 pkt, Route: PO, Drug form: PWDR, Daily, Dosing Weight 76.364, kg, Start date: 04/17/17 9:00:00 CDT, Duration: 30 day, Stop date: 05/16/17 9:00:00 CDTNotes: Dissolve in 8 oz of water or juice. (Same as: Miralax) No Longer Active 04/17/2017 [facility] Lisinopril 40 mg, 2 tab, Route: PO, Drug form: TAB, Daily, Dosing Weight 76.364, kg, Start date: 04/17/17 9:00:00 CDT, Duration: 30 day, Stop date: 05/16/17 9:00:00 CDTNotes: (Same as: Prinivil, Zestril) No Longer Active 04/17/2017 [facility] Centrum Silver Men's 1 tab, Route: PO, Drug Form: TAB, Dosing Weight 76.364, kg, Daily, Start date: 04/17/17 9:00:00 CDT, Duration: 30 day, Stop date: 05/16/17 9:00:00 CDTNotes: (Same as:Thera-M, Theragran-M) WASTE: F/P - Black; E - Municipal Trash Bin Give with food. No Longer Active 04/17/2017 [facility] metoprolol extended release 100 mg, 1 tab, Route: PO, Drug form: ERTAB, Daily, Start date: 04/17/17 9:00:00 CDT, Duration: 30 day, Stop date: 05/16/17 9:00:00 CDTNotes: (Same as: Toprol XL) May split tab, but do not crush. No Longer Active 04/17/2017 [facility] metoprolol extended release 100 mg, 1 tab, Route: PO, Drug form: ERTAB, ONCE, Priority: NOW, Start date: 04/16/17 23:57:00 CDT, Stop date: 04/16/17 23:57:00 CDTNotes: (Same as: Toprol XL) May split tab, but do not crush. No Longer Active 04/17/2017 [facility] Tylenol 650 mg, 2 tab, Route: PO, Drug form: TAB, Q6H, Dosing Weight 76.364, kg, PRN Pain Score 1-3, Start date: 04/16/17 22:43:00 CDT, Duration: 30 day, Stop date: 05/16/17 22:42:00 CDTNotes: Do not exceed 4 gm/day. (Same as: Tylenol) No Longer Active 04/17/2017 [facility] Requip 0.25 mg, 1 tab, Route: PO, Drug form: TAB, Bedtime, Dosing Weight 76.364, kg, Start date: 04/16/17 21:00:00 CDT, Duration: 30 day, Stop date: 05/15/17 21:00:00 CDTNotes: (Same as: Requip) No Longer Active 04/17/2017 [facility] Docusate 100 mg, 1 cap, Route: PO, Drug form: CAP, Q12H, Dosing Weight 76.364, kg, Start date: 04/16/17 21:00:00 CDT, Duration: 30 day, Stop date: 05/16/17 9:00:00 CDTNotes: (Same as: Colace) (Do Not Crush) No Longer Active 04/17/2017 [facility] Simvastatin 20 mg, 1 tab, Route: PO, Drug form: TAB, Bedtime, Dosing Weight 76.364, kg, Start date: 04/16/17 21:00:00 CDT, Duration: 30 day, Stop date: 05/15/17 21:00:00 CDTNotes: (Same as: Zocor) No Longer Active 04/17/2017 [facility] heparin 5,000 unit, Route: SUB-Q, Q12H, Dosing Weight 76.364, kg, Start date: 04/16/17 21:00:00 CDT, Duration: 30 day, Stop date: 05/16/17 9:00:00 CDT Inactive 04/17/2017 [facility] Symbicort 160/4.5 inhalation aerosol with adapter 2 inhalation, Route: INHALER, Drug Form: AERO/A, Dosing Weight 76.364, kg, RBID, Start date: 04/16/17 20:00:00 CDT, Duration: 30 day, Stop date: 05/16/17 8:00:00 CDTNotes: (Same as: Symbicort) WASTE: Aerosol - Return to Pharmacy No Longer Active 04/17/2017 [facility] Warfarin 5 mg, 1 tab, Route: PO, Drug form: TAB, Q5PM, Dosing Weight 76.364, kg, Start date: 04/16/17 18:16:00 CDT, Duration: 1 doses or times, Stop date: 04/16/17 18:16:00 CDTNotes: Nurse to ensure documentation of patient education per anticoagulation policy. Avoid large intake of vitamin-K containing foods diet. WASTE: F/P - P Waste Black; E - P Waste Black (Same As: Coumadin) Inactive 04/16/2017 [facility] Amiodarone 200 mg, 1 tab, Route: PO, Drug form: TAB, BID, Dosing Weight 76.364, kg, Start date: 04/16/17 17:00:00 CDT, Duration: 30 day, Stop date: 05/16/17 9:00:00 CDTNotes: (Same as: Cordarone) No Longer Active 04/16/2017 [facility] Cefazolin 1 gm, Route: IVPB, Drug form: PDR/INJ, Q8H, Dosing Weight 76.364, kg, Start date: 04/16/17 16:00:00 CDT, Duration: 1 doses or times, Stop date: 04/16/17 16:00:00 CDT, ABX Indication: Surgical Prophylaxi sNotes: (Same As: Ancef Kefzol) MEDICATION WASTE Product Size: 1000 mg Product Wasted: ___ mg Inactive 04/16/2017 [facility] Blistex Lip [place] topical stick 1 appl, Route: TOP, 5X Day, Drug form: STIC, PRN Dry Lips, Start date: 04/16/17 14:49:00 CDT, Stop date: 05/16/17 14:48:00 CDT No Longer Active 04/16/2017 [facility] Trazodone Hydrochloride 50 MG Oral Tablet 50 mg, 1 tab, Route: PO, Drug form: TAB, Bedtime, Dosing Weight 76.364, kg, PRN Insomnia, Start date: 04/16/17 12:11:00 CDT, Duration: 30 day, Stop date: 05/16/17 12:10:00 CDTNotes: (Same As: Desyrel) No Longer Active 04/16/2017 [facility] aspirin 81 mg tablet, enteric coated 81 mg, 1 tab, Route: PO, Drug form: ECTAB, Daily, Dosing Weight 76.364, kg, Start date: 04/16/17 12:10:00 CDT, Duration: 30 day, Stop date: 05/16/17 9:00:00 CDTNotes: Do not crush or chew. (Same As: Ecotrin) No Longer Active 04/16/2017 [facility] sodium phosphate 45 mmol, 15 mL, Route: IVPB, PRN, Dosing Weight 76.364, kg, PRN Abnormal Lab Result, Start date: 04/16/17 12:09:00 CDT, Duration: 30 day, Stop date: 05/16/17 12:08:00 CDT, FOR ICU USE ONLY No Longer Active 04/16/2017 [facility] potassium phosphate 15 mmol, 5 mL, Route: IVPB, PRN, Dosing Weight 76.364, kg, PRN Abnormal Lab Result, Start date: 04/16/17 12:09:00 CDT, Duration: 30 day, Stop date: 05/16/17 12:08:00 CDT, FOR ICU USE ONLYNotes: (Same as: K Phosphate.) 1 mMol phoshate has 1.47 mEq potassium Infuse over 4 hours No Longer Active 04/16/2017 [facility] Potassium Chloride 20 mEq, 15 mL, Route: NJ, Drug form: LIQ, PRN, Dosing Weight 76.364, kg, PRN Abnormal Lab Result, Start date: 04/16/17 12:09:00 CDT, Duration: 30 day, Stop date: 05/16/17 12:08:00 CDT, FOR ICU USE ONLYNotes: (Same as: Potassium Chloride) No Longer Active 04/16/2017 [facility] potassium phosphate-sodium phosphate 250 mg-280 mg-160 mg oral powder for reconstitution 2 pkt, Route: PO, Drug Form: PDR/REC, Dosing Weight 76.364, kg, PRN, PRN Abnormal Lab Result, FOR ICU USE ONLY, Start date: 04/16/17 12:09:00 CDT, Duration: 30 day, Stop date: 05/16/17 12:08:00 CDTNotes: (Same as: Phos-NaK) Each 1.5 gm pkt has 250mg phosphorous. Mix w/2.5oz water and stir. No Longer Active 04/16/2017 [facility] Magnesium Sulfate 2 gm, 50 mL, Route: IVPB, Drug form: INJ, PRN, Dosing Weight 76.364, kg, PRN Abnormal Lab Result, Start date: 04/16/17 12:09:00 CDT, Duration: 30 day, Stop date: 05/16/17 12:08:00 CDT, FOR ICU USE ONLYNotes: WASTE: F/P - Sink; E - Municipal Trash Bin No Longer Active 04/16/2017 [facility] Magnesium Oxide 800 mg, 2 tab, Route: PO, Drug form: TAB, PRN, Dosing Weight 76.364, kg, PRN Abnormal Lab Result, FOR ICU USE ONLY, Start date: 04/16/17 12:09:00 CDT, Duration: 30 day, Stop date: 05/16/17 12:08:00 C DTNotes: (Same as: Mag-Ox 400) Magnesium oxide [id number] elemental magnesium Dose=____mg magnesium oxide (___mg elemental magnesium) No Longer Active 04/16/2017 [facility] Calcium Carbonate 500 MG Chewable Tablet 500 mg, 1 tab, Route: PO, Drug form: CHEWTAB, PRN, Dosing Weight 76.364, kg, PRN Abnormal Lab Result, FOR ICU USE ONLY, Start date: 04/16/17 12:09:00 CDT, Duration: 30 day, Stop date: 05/16/17 12:08:00 CDTNotes: (Same As: Nilson) Calcium Carbonate 500 sw=358 mg elemental calcium Dose= mg calcium carbonate ( mg elemental calcium) No Longer Active 04/16/2017 [facility] Calcium Gluconate 1 gm, 10 mL, Route: IVPB, PRN, Dosing Weight 76.364, kg, PRN Abnormal Lab Result, Start date: 04/16/17 12:09:00 CDT, Duration: 30 day, Stop date: 05/16/17 12:08:00 CDT, FOR ICU USE ONLYNotes: WASTE: F/P - Sink; E - Municipal Trash Bin No Longer Active 04/16/2017 [facility] Nicardipine 40 mg, 200 mL, Rate: Titrate, Start Dose: 5 mg/hr, Titration: 2mg every 15 minutes PRN, Goal(s): maintain MAP 75-85 mmHg, Max Dose: 15mg/hr, Route: IV, Dosing Weight 76.364 kg, Total Volume: 200, Start date: 04/16/17 10:31:00 CDT, Duration: 30 day, St...Notes: Same as: Cardene Concentration: (0.2 mg /1 ml ) No Longer Active 04/16/2017 [facility] Ondansetron 4 mg, 2 mL, Route: IVP, Drug form: INJ, Q8H, Dosing Weight 76.364, kg, PRN Nausea & Vomiting, Start date: 04/16/17 10:31:00 CDT, Duration: 30 day, Stop date: 05/16/17 10:30:00 CDTNotes: (Same as: Fili) MEDICATION WASTE Product Size: 4 mg Product Wasted: _0__ mg No Longer Active 04/16/2017 [facility] Acetaminophen 1,000 mg, 100 mL, Route: IVPB, Drug form: INJ, ONCE, Dosing Weight 76.364, kg, PRN Pain Score 1-3, Start date: 04/16/17 10:31:00 CDTNotes: Infuse over 15 minutes Do not exceed 4gm/day of acetaminoph en MEDICATION WASTE Product Size: 1000 mg Product Wasted: _0__ mg No Longer Active 04/16/2017 [facility] Sodium Chloride 0.9% (Bolus) IV 250 mL, 250 ml/hr, Infuse Over: 1 hr, Route: IV, 250, Drug form: INJ, ONCALL, Priority: Routine, Dosing Weight 79.091 kg, Start date: 04/16/17 6:00:00 CDT, Duration: 1 doses or times Inactive 04/16/2017 [facility] Exparel 20 mL, Route: InFILtration(local), Drug Form: INJ, Dosing Weight 79.091, kg, ONCALL, care information associate to labor delivery specialist, Start date: 04/16/17 6:00:00 CDT, Duration: 1 day, Stop date: 04/17/17 5:59:00 CDTNotes: (Same as: Exparel) NOT FOR IV use Postoperative analgesia: Infiltration (local): Dose is based on surgical site and volume required to cover the area (in general, the maximum total dose is 266 mg). Bunionectomy: 7 mL into the tissues surrounding the osteotomy and 1 mL into the subcutaneous tissue of the surgical site (total dose=8 mL [106 mg]) Hemorrhoidectomy: 30 mL (20 mL vial diluted with 10 mL NS) divided and administered as 6 injections of 5 mL each (total dose=30 mL [266 mg]) No Longer Active 04/16/2017 [facility] sodium chloride 0.9% INJ 250 mL 250 mL, Rate: call center dispatcher for use with blood product administration, Dosing Weight 79.091, kg, Route: IV, Total Volume: 250, Start Date: 04/16/17 5:46:00 CDT, Duration: 30 day, Stop date: 05/16/17 5:45:00 CDT, Replace Every: 24 hr No Longer Active 04/16/2017 [facility] sodium chloride 0.9% 1000 ml INJ 750 mL 750 mL, Rate: 75 ml/hr, Infuse over: 10 hr, Route: IV, Dosing Weight 79.091 kg, Total Volume: 750, Start date: 04/16/17 5:46:00 CDT, Duration: 24 hr, Stop date: 04/17/17 5:45:00 CDT No Longer Active 04/16/2017 [facility] 0.8 ML Enoxaparin sodium 100 MG/ML Prefilled Syringe [Lovenox] 80 mg, SUB-Q, Daily, Please stop the lovenox injections 3 days before your scheduled TAVR, X 7 day, # 7 ea, 0 Refill(s), Pharmacy: [facility] [id number] Active 04/11/2017 [facility] Amlodipine 5 mg, 1 tab, Route: PO, Drug form: TAB, Daily, Dosing Weight 79.091, kg, Start date: 04/11/17 9:00:00 CDT, Duration: 30 day, Stop date: 05/10/17 9:00:00 CDTNotes: (Same as: Norvasc) No Longer Active 04/11/2017 [facility] Enoxaparin 80 mg, 0.8 mL, Route: SUB-Q, Drug form: INJ, Q12H, Dosing Weight 79.091, kg, Start date: 04/10/17 22:00:00 CDT, Duration: 30 day, Stop date: 05/10/17 21:00:00 CDTNotes: Nurse to ensure documentation of patient education per anticoagulation policy. (Same as: Lovenox) Inactive 04/11/2017 [facility] heparin 5,000 unit, 1 mL, Route: SUB-Q, Drug form: INJ, Q12H, Dosing Weight 79.091, kg, Start date: 04/10/17 21:00:00 CDT, Duration: 30 day, Stop date: 05/10/17 9:00:00 CDTNotes: porcine heparin No Longer Active 04/11/2017 [facility] heparin additive 25,000 unit [14 unit/kg/hr] + Premix Diluent Dextrose 5% 500 mL 500 mL, Rate: 22.15 ml/hr, Infuse over: 22.6 hr, Route: IV, Dosing Weight 79.091 kg, Total Volume: 500 mL, Start date: 04/10/17 20:25:00 CDT, Duration: 30 day, Stop date: 05/10/17 20:24:00 CDT No Longer Active 04/11/2017 [facility] Amlodipine 5 mg, 1 tab, Route: PO, Drug form: TAB, Daily, Dosing Weight 79.091, kg, Start date: 04/10/17 10:19:00 CDT, Duration: 30 day, Stop date: 05/10/17 9:00:00 CDTNotes: (Same as: Norvasc) No Longer Active 04/10/2017 [facility] Trazodone Hydrochloride 50 MG Oral Tablet 50 mg, 1 tab, Route: PO, Drug form: TAB, Bedtime, Dosing Weight 81.818, kg, Start date: 04/09/17 21:00:00 CDT, Duration: 30 day, Stop date: 05/08/17 21:00:00 CDTNotes: (Same As: Desyrel) No Longer Active 04/10/2017 [facility] Simvastatin 20 mg, 1 tab, Route: PO, Drug form: TAB, Bedtime, Dosing Weight 81.818, kg, Start date: 04/09/17 21:00:00 CDT, Duration: 30 day, Stop date: 05/08/17 21:00:00 CDTNotes: (Same as: Zocor) No Longer Active 04/10/2017 [facility] Multiple Vitamins with Minerals oral tablet 1 tab, Route: PO, Drug Form: TAB, Dosing Weight 81.818, kg, Daily, Start date: 04/09/17 9:00:00 CDT, Duration: 30 day, Stop date: 05/08/17 9:00:00 CDTNotes: (Same as:Thera-M, Theragran-M) WASTE: F/P - Black; E - Municipal Trash Bin Give with food. No Longer Active 04/09/2017 [facility] Vitamin D3 2,000 IntlUnit, 2 tab, Route: PO, Drug form: TAB, Daily, Dosing Weight 81.818, kg, Start date: 04/09/17 9:00:00 CDT, Duration: 30 day, Stop date: 05/08/17 9:00:00 CDTNotes: Same as : Vitamin D3 No Longer Active 04/09/2017 [facility] metoprolol extended release 100 mg, 1 tab, Route: PO, Drug form: ERTAB, Daily, Start date: 04/09/17 9:00:00 CDT, Duration: 30 day, Stop date: 05/08/17 9:00:00 CDTNotes: (Same as: Toprol XL) May split tab, but do not crush. No Longer Active 04/09/2017 [facility] Lisinopril 40 mg, 2 tab, Route: PO, Drug form: TAB, Daily, Dosing Weight 81.818, kg, Start date: 04/09/17 9:00:00 CDT, Duration: 30 day, Stop date: 05/08/17 9:00:00 CDTNotes: (Same as: Prinivil Zestril) No Longer Active 04/09/2017 [facility] Vitamin D3 2000 intl units oral tablet 2,000 IntlUnit, 1 cap, Route: PO, Drug form: CAP, Daily, Dosing Weight 81.818, kg, Start date: 04/09/17 9:00:00 CDT, Stop date: 05/08/17 9:00:00 CDTNotes: Same as: Vitamin D3 No Longer Active 04/09/2017 [facility] Amiodarone 200 mg, 1 tab, Route: PO, Drug form: TAB, BID, Dosing Weight 81.818, kg, Start date: 04/09/17 9:00:00 CDT, Duration: 30 day, Stop date: 05/08/17 17:00:00 CDTNotes: (Same as: Cordarone) No Longer Active 04/09/2017 [facility] Lasix 40 mg, 4 mL, Route: IV, Drug form: INJ, ONCE, Dosing Weight 81.818, kg, Start date: 04/08/17 23:28:00 CDT, Stop date: 04/08/17 23:28:00 CDTNotes: (Same as: Lasix) MEDICATION WASTE Product Size: 40 mg Product Wasted: ___ mg No Longer Active 04/09/2017 [facility] Acetaminophen 325 MG / Hydrocodone Bitartrate 10 MG Oral Tablet [[place] 10/325] 1 tab, Route: PO, Drug Form: TAB, Dosing Weight 81.818, kg, Q8H, PRN Pain Score 6-10, Start date: 04/08/17 23:22:00 CDT, Duration: 30 day, Stop date: 05/08/17 23:21:00 CDTNotes: Do not exceed 4gm/day of acetaminophen. (Same as: [place] 325/10) No Longer Active 04/09/2017 [facility] Trazodone Hydrochloride 50 MG Oral Tablet 50 mg, 1 tab, Route: PO, Drug form: TAB, Bedtime, Dosing Weight 81.818, kg, Start date: 04/08/17 21:00:00 CDT, Duration: 30 day, Stop date: 05/07/17 21:00:00 CDTNotes: (Same As: Desyrel) Inactive 04/09/2017 [facility] Simvastatin 20 mg, 1 tab, Route: PO, Drug form: TAB, Bedtime, Dosing Weight 81.818, kg, Start date: 04/08/17 21:00:00 CDT, Duration: 30 day, Stop date: 05/07/17 21:00:00 CDTNotes: (Same as: Zocor) Inactive 04/09/2017 [facility] Miralax 17 gm, 1 pkt, Route: PO, Drug form: PWDR, Daily, Dosing Weight 81.818, kg, Start date: 04/08/17 18:30:00 CDT, Duration: 30 day, Stop date: 05/08/17 9:00:00 CDTNotes: Dissolve in 8 oz of water or juice. (Same as: Miralax) Inactive 04/08/2017 [facility] Bisacodyl 10 mg, 1 supp, Route: GA, Drug form: SUPP, Daily, Dosing Weight 81.818, kg, PRN Constipation, Start date: 04/08/17 18:22:00 CDT, Duration: 30 day, Stop date: 05/08/17 18:21:00 CDTNotes: (Same As: Dulcolax, Bisco-Lax) Inactive 04/08/2017 [facility] Amiodarone 200 mg, 1 tab, Route: PO, Drug form: TAB, BID, Dosing Weight 81.818, kg, Start date: 04/08/17 17:00:00 CDT, Duration: 30 day, Stop date: 05/08/17 9:00:00 CDTNotes: (Same as: Cordarone) Inactive 04/08/2017 [facility] Symbicort 160/4.5 inhalation aerosol with adapter 2 inhalation, Route: INHALER, Drug Form: AERO/A, Dosing Weight 81.818, kg, BID, Start date: 04/08/17 12:00:00 CDT, Duration: 30 day, Stop date: 05/08/17 9:00:00 CDTNotes: (Same as: Symbicort) WASTE: Aerosol - Return to Pharmacy Inactive 04/08/2017 [facility] aspirin 81 mg tablet, enteric coated 81 mg, 1 tab, Route: PO, Drug form: ECTAB, Daily, Dosing Weight 81.818, kg, Start date: 04/08/17 12:00:00 CDT, Duration: 30 day, Stop date: 05/08/17 9:00:00 CDTNotes: Do not crush or chew. (Same As: Ecotrin) Inactive 04/08/2017 [facility] Furosemide 20 MG Oral Tablet [Lasix] 20 mg, 1 tab, Route: PO, Drug form: TAB, Daily, Dosing Weight 81.818, kg, Start date: 04/08/17 9:00:00 CDT, Duration: 30 day, Stop date: 05/07/17 9:00:00 CDTNotes: (Same as: Lasix) May cause GI upset. Give with food or milk. Inactive 04/08/2017 [facility] Symbicort 160/4.5 inhalation aerosol with adapter 2 puff, Route: INHALER, Drug Form: AERO/A, Dosing Weight 81.818, kg, RBID, Start date: 04/08/17 8:00:00 CDT, Duration: 30 day, Stop date: 05/07/17 20:00:00 CDTNotes: (Same as: Symbicort) WASTE: Aerosol - Return to Pharmacy No Longer Active 04/08/2017 [facility] Azithromycin 500 mg, Route: IVPB, [id number], Dosing Weight 81.818, kg, Start date: 04/07/17 9:00:00 CDT, Duration: 30 day, Stop date: 05/06/17 9:00:00 CDT, ABX Indication: PneumoniaNotes: (Same As: Zithromax IV) No Longer Active 04/07/2017 [facility] Prednisone 40 mg, 2 tab, Route: PO, Drug form: TAB, Daily, Dosing Weight 81.818, kg, Start date: 04/07/17 9:00:00 CDT, Duration: 30 day, Stop date: 05/06/17 9:00:00 CDTNotes: Take with food. No Longer Active 04/07/2017 [facility] Docusate 100 mg, 1 cap, Route: PO, Drug form: CAP, BID, Dosing Weight 81.818, kg, Start date: 04/07/17 9:00:00 CDT, Duration: 30 day, Stop date: 05/06/17 17:00:00 CDTNotes: (Same as: Colace) (Do Not Crush) No Longer Active 04/07/2017 [facility] Mupirocin 0.02 MG/MG Topical Ointment 1 appl, Route: TOP, BID, Drug form: OINT, Start date: 04/07/17 9:00:00 CDT, Duration: 5 day, Stop date: 04/11/17 17:00:00 CDT No Longer Active 04/07/2017 [facility] Albuterol 0.833 MG/ML / Ipratropium [place] 0.167 MG/ML Inhalant Solution [DuoNeb] 3 mL, Route: INHALATION, Drug Form: SOLN, Dosing Weight 81.818, kg, RQID, PRN Respiratory Protocol, Start date: 04/07/17 7:51:00 CDT, Duration: 30 day, Stop date: 05/07/17 7:50:00 CDTNotes: (Same as: Duoneb) No Longer Active 04/07/2017 [facility] D5W 1,000 mL 1,000 mL, Rate: 100 ml/hr, Infuse over: 10 hr, Route: IV, Dosing Weight 81.818 kg, Total Volume: 1,000, Start date: 04/07/17 7:51:00 CDT, Duration: 30 day, Stop date: 05/07/17 7:50:00 CDT Inactive 04/07/2017 [facility] potassium gluconate 595 mg oral tablet 595 (99K), PO, Daily, 0 Refill(s) On Hold 04/07/2017 [facility] Trazodone Hydrochloride 50 MG Oral Tablet 50 mg=1 tab, PO, Bedtime, # 30 tab, 1 Refill(s) On Hold 04/07/2017 [facility] Morphine 2 mg, 1 mL, Route: IVP, Drug form: SOLN, Q4H, Dosing Weight 81.818, kg, PRN Pain Score 7-10, Start date: 04/07/17 6:19:00 CDT, Duration: 30 day, Stop date: 05/07/17 6:18:00 CDT No Longer Active 04/07/2017 [facility] Acetaminophen 325 MG / Hydrocodone Bitartrate 5 MG Oral Tablet 1 tab, Route: PO, Drug Form: TAB, Dosing Weight 81.818, kg, Q4H, PRN Pain Score 4-6, Start date: 04/07/17 6:19:00 CDT, Duration: 30 day, Stop date: 05/07/17 6:18:00 CDTNotes: (Same as: [place] 325/5) Do not exceed 4gm/day of acetaminophen. No Longer Active 04/07/2017 [facility] Ondansetron 4 mg, 2 mL, Route: IVP, Drug form: INJ, Q6H, Dosing Weight 81.818, kg, PRN Nausea & Vomiting, Start date: 04/07/17 6:19:00 CDT, Duration: 30 day, Stop date: 05/07/17 6:18:00 CDTNotes: (Same as: Fili) MEDICATION WASTE Product Size: 4 mg Product Wasted: ___ mg No Longer Active 04/07/2017 [facility] Acetaminophen 650 mg, 2 tab, Route: PO, Drug form: TAB, Q4H, Dosing Weight 81.818, kg, PRN Pain 1-3/Temp > 100.4 F, Start date: 04/07/17 6:19:00 CDT, Duration: 30 day, Stop date: 05/07/17 6:18:00 CDTNotes: Do not exceed 4 gm/day. (Same as: Tylenol) No Longer Active 04/07/2017 [facility] cefepime 1 gm, Route: IVPB, ONCE, Dosing Weight 81.818, kg, Priority: STAT, Start date: 04/07/17 5:12:00 CDT, Duration: 1 doses or times, Stop date: 04/07/17 5:12:00 CDT, ABX Indication: PneumoniaNotes: (Same As : Maxipime) MEDICATION WASTE Product Size: 1000 mg Product Wasted: ___ mg Inactive 04/07/2017 [facility] Lasix 20 mg, Route: IVP, Drug form: INJ, ONCE, Dosing Weight 81.818, kg, Priority: STAT, Start date: 04/07/17 4:09:00 CDT, Stop date: 04/07/17 4:09:00 CDT Inactive 04/07/2017 [facility] Aspirin 324 mg, Route: CHEW, Drug form: CHEWTAB, ONCE, Dosing Weight 81.818, kg, Priority: STAT, Start date: 04/07/17 4:06:00 CDT, Stop date: 04/07/17 4:06:00 CDT Inactive 04/07/2017 [facility] Nitroglycerin 0.02 MG/MG Topical Ointment 1 inch, Route: TOP, Drug Form: OINT, Dosing Weight 81.818, kg, ONCE, STAT, Start date: 04/07/17 4:06:00 CDT, Stop date: 04/07/17 4:06:00 CDT Inactive 04/07/2017 [facility] Albuterol 0.833 MG/ML / Ipratropium [place] 0.167 MG/ML Inhalant Solution [DuoNeb] 3 mL, Route: INHALATION, Dosing Weight 81.818, kg, ONCE, Start date: 04/07/17 3:24:00 CDT, Stop date: 04/07/17 3:24:00 CDT Inactive 04/07/2017 [facility] Albuterol 0.83 MG/ML Inhalant Solution 2.49 mg, Route: INHALATION, ONCE, Dosing Weight 81.818, kg, Start date: 04/07/17 3:23:00 CDT, Stop date: 04/07/17 3:23:00 CDT Inactive 04/07/2017 [facility] methylPREDNISolone SODium SUCCinate 125 mg, Route: IVP, ONCE, Dosing Weight 77.273, kg, Priority: STAT, Start date: 04/07/17 3:17:00 CDT, Stop date: 04/07/17 3:17:00 CDT Inactive 04/07/2017 [facility] Saline Flush 0.9% 10 mL, Route: IVP, Drug Form: INJ, Dosing Weight 77.273, kg, PRN, PRN Line Flush, Start date: 04/07/17 3:16:00 CDT, Duration: 30 day, Stop date: 05/07/17 3:15:00 CDTNotes: (Same as: BD Posiflush) No Longer Active 04/07/2017 [facility] Albuterol 0.83 MG/ML Inhalant Solution 2.5 mg, 3 mL, Route: INHALATION, ONCE, Dosing Weight 77.273, kg, Start date: 04/01/17 13:50:00 CDT, Stop date: 04/01/17 13:50:00 CDT Inactive 04/01/2017 [facility] iodixanol 150 mL, Route: IVP, Drug Form: SOLN, Dosing Weight 77.273, kg, ONCALL, STAT, Start date: 04/01/17 12:13:00 CDT, Duration: 1 doses or times, Stop date: 04/01/17 13:00:00 CDT, Dose=2.2ml/kg, Max gljd=812gr -- "To be infused by Radiology Staff ONLY"Notes: (Same as: Brando). WASTE: F/P - Black; E - Municipal Trash Bin Inactive 04/01/2017 [facility] Fentanyl 25 microgram, Route: IV, ONCE, Dosing Weight 77.273, kg, Start date: 04/01/17 10:39:00 CDT, Stop date: 04/01/17 10:39:00 CDT Inactive 04/01/2017 [facility] Acetaminophen 325 MG / Hydrocodone Bitartrate 10 MG Oral Tablet [[place] 10/325] 1 tab, PO, Q8H, PRN for pain, # 24 tab, 0 Refill(s) Active 04/01/2017 [facility] tramadol hydrochloride 50 MG Oral Tablet 50 mg=1 tab, PO, Q8H, PRN Pain, # 60 tab, 0 Refill(s) Active 04/01/2017 [facility] warfarin 2 mg oral tablet 2 mg=1 tab, PO, qWeek, Saturday, 0 Refill(s) Active 04/01/2017 [facility] Vitamin D3 2000 intl units oral capsule 2,000 IntlUnit=1 cap, PO, Daily, # 100 cap, 3 Refill(s) Active 04/01/2017 [facility] Symbicort 160/4.5 inhalation aerosol with adapter 2 puff, INHALER, BID, # 1 ea, 3 Refill(s) Active 04/01/2017 [facility] Potassium gluconate =1 tab, PO, Daily, 0 Refill(s) Inactive 04/01/2017 [facility] lisinopril 40 mg oral tablet 40 mg=1 tab, PO, Daily, # 30 tab, 0 Refill(s) Active 04/01/2017 [facility] AMIODarone 200 mg oral tablet 200 mg=1 tab, PO, BID, # 180 tab, 0 Refill(s) Active 04/01/2017 [facility] sodium chloride 0.9% 1000 ml INJ 1,000 mL 1,000 mL, Rate: 50 ml/hr, Infuse over: 20 hr, Route: IV, Dosing Weight 77.273 kg, Total Volume: 1,000, Start date: 04/01/17 6:02:00 CDT, Duration: 30 day, Stop date: 05/01/17 6:01:00 CDT Inactive 04/01/2017 [facility] Coumadin 5 mg, 1 tab, Route: PO, Drug form: TAB, QSat, Start date: 09/29/16 17:00:00 [employer], Duration: 30 day, Stop date: 10/27/16 17:00:00 CSTNotes: Nurse to ensure documentation of patient education per [facility] agulation policy. Avoid large intake of vitamin-K containing foods diet. WASTE: F/P - P Waste Black; E - P Waste Black (Same As: Coumadin) No Longer Active 09/29/2016 [facility] Azithromycin 500 mg, Route: IVPB, [id number], Dosing Weight 81.818, kg, Start date: 09/28/16 4:00:00 [employer], Duration: 30 day, Stop date: 10/27/16 4:00:00 CSTNotes: (Same As: Zithromax IV) No Longer Active 09/28/2016 [facility] Simvastatin 20 mg, 1 tab, Route: PO, Drug form: TAB, Bedtime, Dosing Weight 81.818, kg, Start date: 09/27/16 21:00:00 [employer], Duration: 30 day, Stop date: 10/26/16 21:00:00 CSTNotes: (Same as: Zocor) Inactive 09/28/2016 [facility] Warfarin 5 mg, 1 tab, Route: PO, Drug form: TAB, QWeekday, Dosing Weight 81.818, kg, Start date: 09/27/16 17:00:00 [employer], Duration: 30 day, Stop date: 10/26/16 17:00:00 CSTNotes: Nurse to ensure documentation of patient education per anticoagulation policy. Avoid large intake of vitamin-K containing foods diet. WASTE: F/P - P Waste Black; E - P Waste Black (Same As: Coumadin) Inactive 09/27/2016 [facility] Solu-Medrol 40 mg, 1 mL, Route: IVP, Drug form: INJ, Q8Hnow, Dosing Weight 81.818, kg, Start date: 09/27/16 10:00:00 [employer], Duration: 30 day, Stop date: 10/27/16 2:00:00 CSTNotes: (Same as:Solu-MEDROL, A-Methapred) Inactive 09/27/2016 [facility] Streptococcus pneumoniae serotype 1 capsular antigen diphtheria [id number] protein conjugate vaccine / Streptococcus pneumoniae serotype 14 capsular antigen diphtheria [id number] protein conjugate vaccine / Streptococcus pneumoniae serotype 18C capsular antigen d 0.5 mL, Route: IM, Drug Form: INJ, Daily, Start date: 09/27/16 9:00:00 [employer], Duration: 1 doses or times, Stop date: 09/27/16 9:00:00 CSTNotes: Lightly roll vial (DO NOT SHAKE) before administration. (Same as: Prevnar 13) Inactive 09/27/2016 [facility] budesonide-formoterol 160 mcg-4.5 mcg/inh inhalation aerosol with adapter 2 inhalation, Route: INHALATION, Drug Form: AERO/A, BID, Start date: 09/27/16 9:00:00 [employer], Duration: 30 day, Stop date: 10/26/16 17:00:00 CSTNotes: (Same as: Symbicort) WASTE: Aerosol - Return to Pharmacy Inactive 09/27/2016 [facility] Shashi Robles's 1 tab, Route: PO, Drug Form: TAB, Dosing Weight 81.818, kg, Daily, Start date: 09/27/16 9:00:00 [employer], Duration: 30 day, Stop date: 10/26/16 9:00:00 CSTNotes: (Same as:Thera-M, Theragran-M) WASTE: F/P - Black; E - Municipal Trash Bin Give with food. Inactive 09/27/2016 [facility] Lisinopril 10 mg, 2 tab, Route: PO, Drug form: TAB, Daily, Dosing Weight 81.818, kg, Start date: 09/27/16 9:00:00 [employer], Duration: 30 day, Stop date: 10/26/16 9:00:00 CSTNotes: (Same as: Prinivil, Zestril) Inactive 09/27/2016 [facility] metoprolol extended release 100 mg, 1 tab, Route: PO, Drug form: ERTAB, Daily, Start date: 09/27/16 9:00:00 [employer], Duration: 30 day, Stop date: 10/26/16 9:00:00 CSTNotes: (Same as: Toprol XL) May split tab, but do not crush. Inactive 09/27/2016 [facility] Advair Diskus 250 mcg-50 mcg inhalation powder 1 puff, Route: INHALATION, Drug Form: AERO, Dosing Weight 81.818, kg, Q12H, Start date: 09/27/16 9:00:00 [employer], Duration: 30 day, Stop date: 10/26/16 21:00:00 [employer] Inactive 09/27/2016 [facility] Albuterol 0.833 MG/ML / Ipratropium [place] 0.167 MG/ML Inhalant Solution [DuoNeb] 3 ml, Route: NEB, Drug Form: SOLN, Dosing Weight 81.818, kg, RQ6H, Start date: 09/27/16 8:00:00 [employer], Duration: 30 day, Stop date: 10/27/16 2:00:00 CSTNotes: (Same as: Duoneb) Inactive 09/27/2016 [facility] predniSONE 10 mg oral tablet 20 mg=2 tab, PO, Daily, 0 Refill(s) Active 09/27/2016 [facility] potassium gluconate 550 mg oral tablet See Instructions, 1 tab, 0 Refill(s) Inactive 09/27/2016 [facility] Amoxicillin 500 MG / Clavulanate 125 MG Oral Tablet PO, Q12H, 0 Refill(s) Active 09/27/2016 [facility] Rocephin 1 gm, Route: IVPB, [id number], Dosing Weight 81.818, kg, Start date: 09/27/16 5:00:00 [employer], Duration: 30 day, Stop date: 10/27/16 3:00:00 CSTNotes: (Same As: Rocephin). Use with 100 mL NS and infuse over 30 min MEDICATION WASTE Product Size: 1000 mg Product Wasted: ___ mg Inactive 09/27/2016 [facility] Azithromycin 500 mg, Route: PO, Drug form: TAB, ONCE, Dosing Weight 81.818, kg, Start date: 09/27/16 4:57:00 [employer], Stop date: 09/27/16 4:57:00 [employer] Inactive 09/27/2016 [facility] Acetaminophen 325 MG / Hydrocodone Bitartrate 5 MG Oral Tablet 1 tab, Route: PO, Drug Form: TAB, Dosing Weight 81.818, kg, Q4H, PRN Pain Score 4-6, Start date: 09/27/16 4:55:00 [employer], Duration: 30 day, Stop date: 10/27/16 4:54:00 CSTNotes: (Same as: [place] 325/5) Do not exceed 4gm/day of acetaminophen. Inactive 09/27/2016 [facility] Acetaminophen 650 mg, 2 tab, Route: PO, Drug form: TAB, Q4H, Dosing Weight 81.818, kg, PRN Pain 1-3/Temp > 100.4 F, Start date: 09/27/16 4:55:00 [employer], Duration: 30 day, Stop date: 10/27/16 4:54:00 CSTNotes: Do not exceed 4 gm/day. (Same as: Tylenol) Inactive 09/27/2016 [facility] Ipratropium 500 microgram, 2.5 mL, Route: NEB, Drug form: SOLN, RTID, Dosing Weight 81.818, kg, PRN Shortness of breath, Start date: 09/27/16 4:54:00 [employer], Duration: 30 day, Stop date: 10/27/16 4:53:00 CSTNotes: SEE RT DOCUMENTATION (Same as:Atrovent) Inactive 09/27/2016 [facility] Acetaminophen 325 MG / Hydrocodone Bitartrate 5 MG Oral Tablet 0.5 tab, Route: PO, Drug Form: TAB, Dosing Weight 81.818, kg, Daily, PRN Pain 1-3/Temp > 100.4 F, Start date: 09/27/16 4:53:00 [employer], Duration: 30 day, Stop date: 10/27/16 4:52:00 CSTNotes: (Same as: [place] 325/5) Do not exceed 4gm/day of acetaminophen. Inactive 09/27/2016 [facility] Diltiazem 10 mg, 2 mL, Route: IV, Drug form: INJ, ONCE, Dosing Weight 81.818, kg, Priority: STAT, Start date: 09/27/16 3:27:00 [employer], Stop date: 09/27/16 3:27:00 CSTNotes: (Same as: Cardizem) Inactive 09/27/2016 [facility] Xopenex 1.25 mg, 3 mL, Route: NEB, Drug form: SOLN, ONCE, Dosing Weight 81.818, kg, Priority: STAT, Start date: 09/27/16 2:31:00 [employer], Stop date: 09/27/16 2:31:00 CSTNotes: SEE RT DOCUMENTATION (Same as:Xopenex) Non-Formulary Inactive 09/27/2016 [facility] Ceftriaxone 1 gm, Route: IVPB, ONCE, Dosing Weight 81.818, kg, Priority: STAT, Start date: 09/27/16 2:13:00 [employer], Stop date: 09/27/16 2:13:00 CSTNotes: (Same As: Rocephin). Use with 100 mL NS and infuse over 30 min MEDICATION WASTE Product Size: 1000 mg Product Wasted: ___ mg Inactive 09/27/2016 [facility] Azithromycin 500 mg, Route: IVPB, ONCE, Dosing Weight 81.818, kg, Priority: STAT, Start date: 09/27/16 2:13:00 [employer], Stop date: 09/27/16 2:13:00 CSTNotes: (Same As: Zithromax IV) Inactive 09/27/2016 [facility] methylPREDNISolone SODium SUCCinate 125 mg, Route: IVP, ONCE, Dosing Weight 81.818, kg, Priority: STAT, Start date: 09/27/16 1:58:00 [employer], Stop date: 09/27/16 1:58:00 [employer] Inactive 09/27/2016 [facility] Sodium Chloride 0.154 MEQ/ML Injectable Solution 500 mL, Infuse Over: 1 hr, Route: IV, ONCE, Priority: STAT, Dosing Weight 81.818 kg, Start date: 09/27/16 1:42:00 [employer], Duration: 1 doses or times, Stop date: 09/27/16 1:42:00 [employer] Inactive 09/27/2016 [facility] Levalbuterol 1.25 mg, 3 mL, Route: NEB, Drug form: SOLN, ONCE, Dosing Weight 81.818, kg, Priority: Routine, Start date: 09/27/16 1:22:00 [employer], Stop date: 09/27/16 1:22:00 [employer], Substitute Allowed NoNotes: SEE RT DO CUMENTATION (Same as:Xopenex) Non-Formulary Inactive 09/27/2016 [facility] Albuterol 0.833 MG/ML / Ipratropium [place] 0.167 MG/ML Inhalant Solution [DuoNeb] 3 mL, Route: NEB, Dosing Weight 81.818, kg, ONCE, Start date: 09/27/16 1:20:00 [employer], Stop date: 09/27/16 1:20:00 [employer] Inactive 09/27/2016 [facility] Saline Flush 0.9% 10 mL, Route: IVP, Drug Form: INJ, Dosing Weight 81.818, kg, PRN, PRN Line Flush, Start date: 09/27/16 1:07:00 [employer], Duration: 30 day, Stop date: 10/27/16 1:06:00 CSTNotes: (Same as: BD Posiflush) Inactive 09/27/2016 [facility] ergocalciferol 50,000 IntlUnit, 1 cap, Route: PO, Drug form: CAP, Daily, Dosing Weight 83.182, kg, Start date: 10/11/15 9:00:00, Duration: 3 day, Stop date: 10/13/15 9:00:00Notes: (Same as: Vitamin D) "Do Not Crush" No Longer Active 10/11/2015 [facility] Simvastatin 20 mg, 1 tab, Route: PO, Drug form: TAB, Bedtime, Dosing Weight 83.182, kg, Start date: 10/10/15 21:00:00, Duration: 30 day, Stop date: 11/08/15 21:00:00Notes: (Same as: Zocor) Inactive 10/11/2015 [facility] Advair Diskus 250 mcg-50 mcg inhalation powder 1 puff, Route: INHALATION, Drug Form: AERO, Dosing Weight 83.182, kg, Q12H, Start date: 10/10/15 21:00:00, Duration: 30 day, Stop date: 11/09/15 9:00:00 Inactive 10/11/2015 [facility] Warfarin 5 mg, 1 tab, Route: PO, Drug form: TAB, QWeekday, Dosing Weight 83.182, kg, Start date: 10/10/15 17:00:00, Duration: 30 day, Stop date: 11/08/15 17:00:00Notes: Nurse to ensure documentation of patient e ducation per anticoagulation policy. Avoid large intake of vitamin-K containing foods diet. WASTE: F/P - P Waste Black; E - P Waste Black (Same As: Coumadin) Inactive 10/10/2015 [facility] Protonix 40 mg, 1 tab, Route: PO, Drug form: ECTAB, Before Dinner, Dosing Weight 83.182, kg, Start date: 10/10/15 16:30:00, Duration: 30 day, Stop date: 11/08/15 16:30:00Notes: Tablet should not be chewed or crushed. (Same as: Protonix) Inactive 10/10/2015 [facility] Nitroglycerin 0.4 MG Sublingual Tablet [Nitrostat] 0.4 mg, 1 tab, Route: SL, Drug form: TAB, Q5Min, Dosing Weight 83.182, kg, PRN Chest Pain, Start date: 10/10/15 14:28:00, Duration: 3 doses or times, Stop date: Limited # of times Inactive 10/10/2015 [facility] Metoprolol 5 mg, 5 mL, Route: IV, Drug form: INJ, Q2H, Dosing Weight 83.182, kg, PRN Tachycardia, Start date: 10/10/15 14:28:00, Duration: 30 day, Stop date: 11/09/15 14:27:00Notes: (Same as: Lopressor) Push over 2 minutes Inactive 10/10/2015 [facility] Hydralazine 10 mg, 0.5 mL, Route: IV, Drug form: INJ, Q4H, Dosing Weight 83.182, kg, PRN Hypertension, Start date: 10/10/15 14:27:00, Duration: 30 day, Stop date: 11/09/15 14:26:00Notes: (Same as: Apresoline) Push over 5 minutes Inactive 10/10/2015 [facility] docusate sodium 100 mg oral capsule 100 mg, 1 cap, Route: PO, Drug form: CAP, BID, Dosing Weight 83.182, kg, PRN Constipation, Start date: 10/10/15 10:31:00, Duration: 30 day, Stop date: 11/09/15 10:30:00Notes: (Same as: Colace) (Do Not Crush) Inactive 10/10/2015 [facility] budesonide-formoterol 160 mcg-4.5 mcg/inh inhalation aerosol with adapter 2 inhalation, Route: INHALATION, Drug Form: AERO/A, RBID, Start date: 10/10/15 10:00:00, Duration: 30 day, Stop date: 11/09/15 8:00:00Notes: (Same as: Symbicort) WASTE: Aerosol - Return to Pharmacy Inactive 10/10/2015 [facility] Theragran-M 1 tab, Route: PO, Drug Form: TAB, Dosing Weight 83.182, kg, Daily, Start date: 10/10/15 10:00:00, Duration: 30 day, Stop date: 11/09/15 9:00:00Notes: (Same as:Thera-M, Theragran-M) WASTE: F/P - Black; E - Municipal Trash Bin Give with food. Inactive 10/10/2015 [facility] metoprolol extended release 100 mg, 1 tab, Route: PO, Drug form: ERTAB, Daily, Start date: 10/10/15 10:00:00, Duration: 30 day, Stop date: 11/09/15 9:00:00Notes: (Same as: Toprol XL) May split tab, but do not crush. Inactive 10/10/2015 [facility] Lisinopril 10 mg, 1 tab, Route: PO, Drug form: TAB, Daily, Dosing Weight 83.182, kg, Start date: 10/10/15 10:00:00, Duration: 30 day, Stop date: 11/09/15 9:00:00Notes: (Same as: Prinivil, Zestril) Inactive 10/10/2015 [facility] Acetaminophen 325 MG / Hydrocodone Bitartrate 5 MG Oral Tablet 0.5 tab, Route: PO, Drug Form: TAB, Dosing Weight 83.182, kg, Daily, PRN Pain Score 1-3, Start date: 10/10/15 9:19:00, Duration: 30 day, Stop date: 11/09/15 9:18:00Notes: (Same as: [place] 325/5) Do not exceed 4gm/day of acetaminophen. Inactive 10/10/2015 [facility] Ipratropium 500 microgram, 2.5 mL, Route: NEB, Drug form: SOLN, TID, Dosing Weight 83.182, kg, PRN Shortness of breath, Start date: 10/10/15 9:19:00, Duration: 30 day, Stop date: 11/09/15 9:18:00Notes: SEE RT DO CUMENTATION (Same as:Atrovent) Inactive 10/10/2015 [facility] Aspirin 81 MG Enteric Coated Tablet 81 mg, 1 tab, Route: PO, Drug form: ECTAB, Daily, Dosing Weight 83.182, kg, Start date: 10/10/15 9:00:00, Duration: 30 day, Stop date: 11/08/15 9:00:00Notes: Do not crush or chew. (Same As: Ecotrin) Inactive 10/10/2015 [facility] Acetaminophen 325 MG / Hydrocodone Bitartrate 5 MG Oral Tablet 1/2tab, PO, Daily, PRN Pain 1-3/Temp > 100.4 F, 0 Refill(s) On Hold 10/10/2015 [facility] Saline Flush 0.9% 10 ml, Route: IVP, Drug Form: INJ, Dosing Weight 83.182, kg, Q12H, Start date: 10/09/15 21:00:00, Duration: 30 day, Stop date: 11/08/15 9:00:00Notes: (Same as: BD Posiflush) No Longer Active 10/10/2015 [facility] Saline Flush 0.9% 10 ml, Route: IVP, Drug Form: INJ, Dosing Weight 83.182, kg, PRN, PRN Line Flush, Start date: 10/09/15 19:28:00, Duration: 30 day, Stop date: 11/08/15 19:27:00Notes: (Same as: BD Posiflush) No Longer Active 10/10/2015 [facility] Nitroglycerin 0.4 mg, 1 tab, Route: SL, Drug form: TAB, Q5Min, Dosing Weight 83.182, kg, PRN Chest Pain, Start date: 10/09/15 19:28:00, Duration: 3 doses or times, Stop date: Limited # of timesNotes: (Same as:Mark zamorano, Nitrostat) "Do Not Crush" Sublingual tablet No Longer Active 10/10/2015 [facility] Morphine 2 mg, 1 mL, Route: IVP, Drug form: INJ, Q15Min, Dosing Weight 83.182, kg, PRN Chest Pain, Start date: 10/09/15 19:28:00, Duration: 2 doses or times, Stop date: Limited # of timesNotes: (Same as:MORPh ine Sulfate) No Longer Active 10/10/2015 [facility] Ondansetron 4 mg, 1 tab, Route: PO, Drug form: TAB, Q8H, Dosing Weight 83.182, kg, PRN Nausea & Vomiting, Start date: 10/09/15 19:28:00, Duration: 30 day, Stop date: 11/08/15 19:27:00Notes: (Same as: Zofran) No Longer Active 10/10/2015 [facility] Aspirin 325 mg, 1 tab, Route: PO, Drug form: TAB, ONCE, Dosing Weight 83.182, kg, Priority: STAT, Start date: 10/09/15 16:46:00, Stop date: 10/09/15 16:46:00Notes: Take with food. Inactive 10/09/2015 [facility] Prednisone 60 mg, 3 tab, Route: PO, Drug form: TAB, ONCE, Dosing Weight 83.182, kg, Priority: STAT, Start date: 10/09/15 15:42:00, Stop date: 10/09/15 15:42:00Notes: Take with food. Inactive 10/09/2015 [facility] Albuterol 0.833 MG/ML / Ipratropium [place] 0.167 MG/ML Inhalant Solution [DuoNeb] 3 mL, Route: INHALATION, Drug Form: SOLN, Dosing Weight 83.182, kg, ONCE, Start date: 10/09/15 15:42:00, Stop date: 10/09/15 15:42:00Notes: (Same as: Duoneb) Inactive 10/09/2015 [facility] warfarin 5 mg oral tablet 5 mg=1 tab, PO, Daily, DOES NOT TAKE ON SUNDAYS, # 30 tab, 0 Refill(s) On Hold 10/09/2015 [facility] Simvastatin 20 mg=1 tab, PO, Bedtime, # 30 tab, 0 Refill(s) On Hold 10/09/2015 [facility] metoprolol extended release 100 mg, PO, Daily, 0 Refill(s) On Hold 10/09/2015 [facility] lisinopril 10 mg oral tablet 10 mg=1 tab, PO, Daily, # 30 tab, 0 Refill(s) On Hold 10/09/2015 [facility] Ipratropium 500 microgram, NEB, TID, PRN Shortness of breath, 0 Refill(s) On Hold 10/09/2015 [facility] Centrum Silver Men's 1 tab, PO, Daily, 0 Refill(s) On Hold 10/09/2015 [facility] Advair Diskus 250 mcg-50 mcg inhalation powder 1 puff, INHALATION, Q12H, 0 Refill(s) On Hold 10/09/2015 [facility] Saline Flush 0.9% 10 mL, Route: IVP, Drug Form: INJ, kg, PRN, PRN Line Flush, Start date: 10/09/15 13:48:00, Duration: 30 day, Stop date: 11/08/15 13:47:00Notes: (Same as: BD Posiflush) No Longer Active 10/09/2015 [facility] Allergies, Adverse Reactions, Alerts Substance Category Reaction Severity Reaction type Status Date Reported Comments Source Immunizations Immunization Date Given Site Status Last Updated Comments Source pneumococcal 13-valent vaccine 08/08/2017 Left Deltoid completed [facility] pneumococcal 13-valent vaccine 08/08/2017 [facility] pneumococcal 13-valent vaccine 09/27/2016 Not Given [facility] Results Order Name Results Value Reference Range Date Interpretation Comments Source Abdomen/Pelvis wo IV contrast CT Abdomen/Pelvis wo IV contrast CT EXAM: CT ABDOMEN AND PELVIS WITHOUT CONTRAST DATE: 05/16/2018 10:23 AM CDT INDICATION: R10.9 abdomen pain - oral contrast only ; pelvic pain bilaterally for the past 3 months. History of right renal cysts. ADDITIONAL INFORMATION: None. COMPARISON: Liver ultrasound of 04/28/2018. Prior CTA of the chest, abdomen, and pelvis of 04/01/2017. Prior CT scan of the chest of 08/11/2017. TECHNIQUE: Volumetric CT acquisition of the abdomen and pelvis without intravenous contrast. Axial, coronal and sagittal reconstructions. IV contrast: None Oral contrast: 600 cc of oral Omnipaque 300 and water mixture. The patient cannot tolerate full 900 cc. DLP: 457 mGy-cm FINDINGS: Lines and tubes: Intracardiac pacing wires are seen in the right atrium and right ventricle. Lower thorax: Lung bases are clear. Small bilateral dependent pleural effusions are demonstrated. The left-sided pleural effusion is relatively stable. A right- sided pleural effusion is stable with a loculated component anteriorly. Foci of gas within the right pleural space are noted along the visualized. Curvilinear and linear airspace opacities are seen in the right lower lobe likely from a atelectasis and/or pneumonia which has improved from the prior CT exam. An element of scarring is not excluded. There are some fine reticulation of the lung markings in the right lower lung, likely from interstitial prominence. The heart is enlarged. Atherosclerotic calcifications are seen in the coronary arterial system. Mitral annular calcifications are present. Liver: A stable 1.0 cm simple right hepatic lobe cyst is seen on image 23 of series 2. Other tiny subcentimeter hypodensities seen within both hepatic lobes on the prior CT exam are not detectable without IV contrast. No other liver pathology is seen. Biliary tree: No intra- or extrahepatic biliary ductal dilation. Gallbladder: Surgically absent with clips in the gallbladder fossa. Pancreas: Atrophic and partially fatty replaced. No masses or cystic lesions are seen.. Spleen: A calcified granuloma is again seen in the spleen anteriorly. No other splenic pathology. Adrenals: There is stable thickening of the left adrenal gland. No right adrenal pathology is seen. No adrenal nodules are detected. Kidneys and ureters: Multiple simple fluid attenuation cysts are again seen within both kidneys. Some of these cysts have slightly increased in size while others have remained stable compared with the prior CT exam. The largest cyst in the right kidney measures 1.6 cm in maximal diameter. The largest cyst in the left kidney measures 1.8 cm in maximal diameter. Other small cysts are not visualized with lack of IV contrast. The kidneys are of normal size, shape, and density with no hydronephrosis, masses, or calculi on this noncontrast enhanced exam. The ureters are of normal course and caliber with no constricting or obstructing lesions. Bladder: Normal. Reproductive organs: The prostate gland is enlarged with mild mass effect on the base the urinary bladder. No discrete prostatic masses seen. Seminal vesicles are normal in appearance. Gastrointestinal tract: There is mild thickening of the distal esophageal martinez. The stomach is normal in appearance but is incompletely distended.. Moderate amount stool is seen within the colon with a moderately sized stool ball within the rectum. No abnormalities of the large and small bowel are demonstrated. The small intestine and colon are of normal course and caliber with no constricting or obstructing lesions, masses, or surrounding inflammatory changes. Moderate rectal feces is seen. There is mild thickening of the incompletely distended inferior rectal martinez, for example on image 142 of series 2 and image 66 of series 601. No discrete mass is seen. No other rectal or perirectal abnormalities are seen. Appendix: Normal Peritoneum and retroperitoneum: No free air is demonstrated. A small amount of simple ascites is seen within the abdomen and pelvis. No loculated fluid collections are seen.. Lymph nodes: A retrocaval enlarged 1.0 cm in short axis lymph node is seen on image 47 of series 2, new from the prior exam. An enlarged interaortocaval 1.0 cm in short axis lymph node is seen on image 84 series 2. An 8 mm lymph node is seen anterior to the pancreatic head-neck on image 47 of series 2, new from the prior CT exam. Small shotty retroperitoneal lymph nodes are present as well which are subcentimeter in short axis. Vasculature: Moderate to severe atherosclerotic vascular disease is again seen within the arterial structures of the abdomen and pelvis. Associated narrowing of multiple vessels, especially the external iliac and common femoral vessels are demonstrated. There is been slight progression of disease. Multiple calcified phleboliths are seen in the pelvis. 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 There is mild fusiform aneurysmal dilatation of the infrarenal abdominal aorta up to 2.6 cm, stable from the prior exam. No abnormalities of the unenhanced inferior vena cava and portal venous system are seen. Bones: Multilevel disc space narrowing and osteophyte formation are seen in the inferior thoracic and lumbar spine. Mild Schmorl's formation is seen at several levels as well. Mild multilevel facet joint osteophytic changes are seen in the lumbar spine. Soft tissues/abdominal wall: Normal. No hernias, masses, or fluid collections are seen. IMPRESSION: 1. No definitive CT explanation for the patient's bilateral pelvic pain. 2. New nonspecific retroperitoneal lymphadenopathy in the abdomen. A mildly prominent lymph node is also seen adjacent to the pancreas. No discrete lymph node masses are seen. 3. Small amount of simple ascites. No loculated or walled off fluid collections are seen. 4. Thickening of the mid to distal rectal martinez may be related to incomplete distention. However, superimposed pathology, including nonspecific proctitis or infiltrating disease are not excluded. No discrete mass is seen. Endoscopy may be performed for further evaluation of clinically warranted. 5. Moderate amount stool within the colon and rectum. Constipation is not excluded. 6. 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 There is also stable fusiform aneurysmal dilatation of the infrarenal abdominal aorta up to 2.6 cm in maximal diameter. 7. Severe atherosclerotic vascular disease with progression of disease with compared with the prior exam of 04/01/2017. 8. Chronic bilateral pleural effusions with the right pleural effusion loculated. Right-sided pneumothorax has resolved. Atelectasis, scarring, and/or pneumonia is seen in the right lower lobe. Mild nonspecific interstitial prominence is seen in the right lower lung as well. 9. Cardiomegaly. Intracardiac pacing wires are seen. 10. Mild cervical partial thickening of the distal esophageal martinez compatible with incomplete distention and/or nonspecific esophagitis. 11. Stable simple right hepatic lobe cyst. Other small hypodense lesions within the liver seen on the prior contrast-enhanced CT exam are not visualized. 12. Multiple bilateral renal cysts with simple fluid attenuation. Some of the cysts have increased in size. The right-sided cysts are confirmed to be simple on the prior ultrasound exam. 13. Nonspecific enlargement of the prostate gland, likely from benign prostatic hypertrophy, with mass effect upon the base of the urinary bladder. Correlation with serum PSA levels is recommended. 05/16/2018 - - Read by: Sredehar Wing MD Dictated Date/time: 05/16/18 11:10 Electronically Signed by: Sreedhar Wing MD 05/16/18 11:49 FINAL REPORT [facility] Liver US Liver US EXAM: US ABDOMEN COMPLETE DATE: 04/28/2018 8:27 AM CDT INDICATION: - R10.811 Right upper quadrant abdominal tenderness ADDITIONAL INFORMATION: None. COMPARISON: None. TECHNIQUE: Multiplanar grayscale, color Doppler and spectral Doppler ultrasound of the abdomen. FINDINGS: Liver: Craniocaudal length: 14.5 cm. Echogenicity: Mildly coarsened. Surface nodularity: Normal. Mass (size and location): There is a simple right hepatic 0.8 x 1.1 x 1.0 cm cyst. Pancreas: The body is unremarkable.. The head and tail are obscured. Portal vein: 0.9 cm with appropriate directional flow. . Normal waveform that is mildly pulsatile. Bile ducts: Common bile duct diameter: 0.5 cm. Intrahepatic ducts: Normal. Gallbladder: Surgically absent. Abdominal aorta and IVC: There is ectasia of the mid abdominal aorta measuring 2.4 x 2.4 cm. The distal portion measures 2.3 x 2.2 cm. There is atherosclerotic plaque. Right kidney. Measures 10.6 cm in length. Echotexture. Normal. Hydronephrosis. Normal. Cysts. 1. Simple superior pole 2.1 x 1.6 x 1.6 cm cyst. 2. Simple interpolar 1.8 x 1.5 x 1.6 cm cyst. 3. Superior pole 1.2 x 1.2 x 1.1 cm simple exophytic cyst. Ascites: There is a tiny amount of perihepatic ascites.. IMPRESSION: 1. Mildly coarsened appearing liver minimal perihepatic ascites that may suggest underlying hepatocellular disease. 2. Simple right hepatic small cyst. 3. Ectasia of the mid and distal abdominal aorta with atherosclerotic plaque. 4. Multiple right renal cortical cysts. 04/28/2018 - - Read by: Levar Foley MD Dictated Date/time: 04/28/18 09:32 Electronically Signed by: Levar Foley MD 04/28/18 09:54 FINAL REPORT [facility] Chest 2 views DX Chest 2 views DX EXAM: XR CHEST 2 VIEWS DATE: 04/28/2018 8:23 AM CDT INDICATION: - R10.811 Right upper quadrant abdominal tenderness ADDITIONAL INFORMATION: None. COMPARISON: Chest x-ray 02/06/[address] without 08/06/2017. TECHNIQUE: PA and lateral chest radiographs. Number of images: 2 FINDINGS: Lines and tubes and hardware: Subclavian 3-lead AICD. Right clavicular plate and screws with an underlying healed midclavicular fracture. There is a TAVR prosthetic valve and Watchman atrial device. Lungs and pleura: There is a mid left lung calcified 0.5 cm granuloma since 01/27/2009. There is increased interstitial left lower lung changes with stable blunting of left costophrenic angle. Right mid and lower lung patchy opacities with obscuration of the right hemidiaphragm and blunting of the right costophrenic angles. There is a mid right lung stable rounded opacity measuring 3.5 cm in diameter. The posterior costophrenic angles are also blunted. Hazy densities are seen within the right lung with decreased lung volumes compared to the left. These are unchanged. No pneumothorax. Heart and mediastinum: The heart size is mildly enlarged stable. for technique. The mediastinal contours are normal. Bones: No acute bony abnormality is identified. Healed mid right clavicular fracture. Soft Tissues: Unremarkable. IMPRESSION: 1. Mild interval increase in the left lower interstitial lung changes. 2. Stable right lower and midlung opacities with blunting of the right costophrenic angle that may represent singly or in combination, atelectasis, consolidation, and/or effusion. 3. Stable right midlung 3.5 cm in diameter opacity that corresponds to focal focal consolidation and/or chronic atelectasis that corresponds with findings on CT from 08/11/2017. 4. Hazy right lung that may be secondary to pulmonary edema or layering effusion. 5. Stable TAVR and Watchman device. 6. Line(s) and tube(s) as above. 04/28/2018 - - Read by: Levar Foley MD Dictated Date/time: 04/28/18 08:34 Electronically Signed by: Levar Foley MD 04/28/18 08:50 FINAL REPORT [facility] CARDIAC ENZYMES CK MB Index 1.8 0.0 - 2.5 02/06/2018 [facility] CARDIAC ENZYMES Total CK 82 unit/L 12 - 191 02/06/2018 [facility] CARDIAC ENZYMES CK MB 1.5 ng/mL 0.5 - 3.6 02/06/2018 [facility] CARDIAC ENZYMES Troponin-I null 0.00 - 0.40 02/06/2018 [facility] CHEM PANEL eGFR 43 mL/min/1.73m2 02/06/2018 Result Comment: The eGFR is calculated using the CKD-EPI formula. In most young, healthy individuals the eGFR will be >90 mL/min/1.73m2. The eGFR declines with age. An eGFR of 60-89 may be normal in some populations, particularly the elderly, for whom the CKD-EPI formula has not been extensively validated. Use of the eGFR is not recommended in the following populations: Individuals with unstable creatinine concentrations, including patients and those with serious co-morbid conditions. Patients with extremes in muscle mass or diet. The data above are obtained from the National Kidney Disease Education Program (NKDEP) which additionally recommends that when the eGFR is used in patients with extremes of body mass index for purposes of drug dosing, the eGFR should be multiplied by the estimated BMI. [facility] CHEM PANEL Bili Total 1.0 mg/dL 0.2 - 1.3 02/06/2018 [facility] CHEM PANEL Alk Phos 101 unit/L 39 - 136 02/06/2018 [facility] CHEM PANEL A/G Ratio 0.7 0.7 - 1.6 02/06/2018 [facility] CHEM PANEL Globulin 4.5 g/dL 2.7 - 4.2 02/06/2018 [facility] CHEM PANEL B/C Ratio 15 6 - 25 02/06/2018 [facility] CHEM PANEL AGAP 9.1 meq/L 10.0 - 20.0 02/06/2018 [facility] CHEM PANEL Sodium Lvl 140 meq/L 135 - 145 02/06/2018 [facility] CHEM PANEL Potassium Lvl 4.1 meq/L 3.5 - 5.1 02/06/2018 [facility] CHEM PANEL Chloride Lvl 104 meq/L 95 - 109 02/06/2018 [facility] CHEM PANEL CO2 31 meq/L 24 - 32 02/06/2018 [facility] CHEM PANEL ALT 17 unit/L 0 - 65 02/06/2018 [facility] CHEM PANEL Albumin Lvl 3.2 g/dL 3.5 - 5.0 02/06/2018 [facility] CHEM PANEL Calcium Lvl 8.9 mg/dL 8.5 - 10.5 02/06/2018 [facility] CHEM PANEL Total Protein 7.7 g/dL 6.4 - 8.4 02/06/2018 [facility] CHEM PANEL AST 24 unit/L 0 - 37 02/06/2018 [facility] CHEM PANEL Creatinine Lvl 1.51 mg/dL 0.50 - 1.40 02/06/2018 [facility] CHEM PANEL BUN 22 mg/dL 7 - 22 02/06/2018 [facility] CHEM PANEL Glucose Lvl 90 mg/dL 70 - 99 02/06/2018 [facility] HEMATOLOGY Eosinophils 5.6 % 0.0 - 4.0 02/06/2018 [facility] HEMATOLOGY Basophils 1.4 % 0.0 - 1.0 02/06/2018 [facility] HEMATOLOGY Monocytes # 0.7 K/CMM 0.0 - 0.8 02/06/2018 [facility] HEMATOLOGY Eosinophils # 0.3 K/CMM 0.0 - 0.5 02/06/2018 [facility] HEMATOLOGY Monocytes 12.1 % 2.0 - 12.0 02/06/2018 [facility] HEMATOLOGY Lymphocytes 24.8 % 20.0 - 40.0 02/06/2018 [facility] HEMATOLOGY Basophils # 0.1 K/CMM 0.0 - 0.2 02/06/2018 [facility] HEMATOLOGY Lymphocytes # 1.3 K/CMM 1.0 - 5.5 02/06/2018 [facility] HEMATOLOGY Segs-Bands # 3.0 K/CMM 1.5 - 8.1 02/06/2018 [facility] Segs 56.1 % 45.0 - 75.0 02/06/2018 [facility] PT 49.3 s 12.0 - 14.7 02/06/2018 [facility] INR 5.26 0.85 - 1.17 02/06/2018 Result Comment: Critical Result(s) called to elina damon at 02/06/2018 12:46 by prince. Read back OK. [facility] PTT 79.6 s 22.9 - 35.8 02/06/2018 [facility] MCHC 32.7 g/dL 32.0 - 36.0 02/06/2018 [facility] RBC 3.67 M/CMM 4.70 - 6.10 02/06/2018 [facility] WBC 5.4 K/CMM 3.7 - 10.4 02/06/2018 [facility] MCV 87.6 fL 80.0 - 94.0 02/06/2018 [facility] Hct 32.2 % 42.0 - 54.0 02/06/2018 [facility] Hgb 10.5 g/dL 14.0 - 18.0 02/06/2018 [facility] MCH 28.6 pg 27.0 - 31.0 02/06/2018 [facility] RDW 18.7 % 11.5 - 14.5 02/06/2018 [facility] Platelet 209 K/CMM 133 - 450 02/06/2018 [facility] MPV 7.6 fL 7.4 - 10.4 02/06/2018 [facility] Brain wo contrast CT Brain wo contrast CT Patient Name: RANJEET GIRON : 1940; Age: 77 years Male MR: [id number] Study: Brain wo contrast CT 02/06/2018 11:31 AM CDT Clinical Indication: - fall with elevated INR, no LOC. Pt states rolled out of bed two days ago, contusion to head noted. -LOC. Pt has abrasion to left elbow, large contusion noted to right upper arm. Pt states takes coumadin. Pt denies any pain. Pt AOX4. CT Radiation Dose DLP 982 mGy-cm COMPARISON: August 22, 2017 TECHNIQUE: CT images were obtained from the foramen magnum to the vertex without the use of intravenous contrast on a multidetector CT. Coronal and sagittal reconstructions were obtained. FINDINGS: BRAIN PARENCHYMA: There is generalized brain parenchymal atrophy related to the patient's age. Nonspecific periventricular white matter disease changes are noted. Atherosclerotic calcifications are present within the carotid siphons and distal vertebral arteries. There are no focal mass lesions on this noncontrast head CT. There is no mass effect, midline shift or edema. There are no intra-axial or extra-axial fluid collections. There is no intraventricular or intraparenchymal hemorrhage. There is no noncontrast CT evidence of a subacute stroke. The pineal, sellar, brainstem, cerebellum and skull base regions appear normal. VENTRICLES: The lateral ventricles, third and fourth ventricles appear normal. The basilar cisterns are normal. ORBITS, MASTOIDS AND PARANASAL SINUSES: The visualized orbits are normal. The visualized paranasal sinuses are normal. The mastoid air cells are clear. SKULL: There are no calvarial abnormalities seen. If there is further concern for intracranial pathology or acute stroke, MRI of the brain may be performed for complete assessment. IMPRESSION: Chronic age-related and small vessel ischemic changes without mass, hemorrhage or subacute stroke. SL: [id number] 02/06/2018 - - Read by: Get Rogel MD Dictated Date/time: 02/06/18 12:51 Electronically Signed by: Get Rogel MD 02/06/18 12:54 FINAL REPORT [facility] Spine cervical wo contrast CT Spine cervical wo contrast CT STUDY: Spine cervical wo contrast CT 02/06/2018 11:31 AM CDT Ordering Physician: Kirstin Barros MD Patient Name: RANJEET GIRON MR: [id number] : 1940; Age: 77 years y/o Male Clinical Indication: Fall with midline cervical pain. Comparison: None Technique: Multiple contiguous noncontrast CT images were obtained through the cervical spine. Coronal and sagittal reconstructions were prepared. DLP: 706.21 mGy-cm FINDINGS: ALIGNMENT AND GENERAL ASSESSMENT: * Mild loss of normal cervical adenosis may be secondary to positioning or muscle spasm. * Mild to moderate cervical spondylosis, facet arthrosis, and uncovertebral joint hypertrophy greatest in the mid and lower cervical spine manifest by multilevel intervertebral disc space narrowing, endplate sclerosis, marginal osteophyte formation, and subchondral cyst formation. Minimal degenerative grade 1 anterolisthesis of C6 on C7 and C7 on T1. * Mild to moderate degenerative change and pannus formation at the atlantodental joint mildly narrowing the foramen magnum inferiorly. * No acute fracture, dislocation, or suspicious focal osseous lesion. 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 DISK SPACES: 1. Moderate to severe spinal canal narrowing and moderate bilateral neural foraminal narrowing at C3-C4. 2. Moderate spinal canal narrowing and moderate left neural foraminal narrowing at C4-C5. 3. Moderate to severe spinal canal narrowing and moderate to severe bilateral neural foraminal narrowing at C5-C6. 4. Moderate spinal canal narrowing and moderate bilateral neural foraminal narrowing at C6-C7. PREVERTEBRAL SOFT TISSUES: The prevertebral soft tissue thickness is normal. Mild to moderate calcification of both carotid bifurcations. LUNG APICES: Mild pleural/peripheral scarring in the lung apices. IMPRESSION: 1. Mild to moderate cervical spinal spondylosis, facet arthrosis, and uncovertebral joint hypertrophy without acute fracture or dislocation. 2. Multilevel moderate to severe spinal canal narrowing and neural foraminal narrowing as above individually described. 3. Pleural/parenchyma scarring in both lung apices. 4. Mild to moderate bilateral carotid atherosclerosis. SL: [id number] 02/06/2018 - - Read by: Jeet Hubbard MD Dictated Date/time: 02/06/18 12:52 Electronically Signed by: Jeet Hubbard MD 02/06/18 13:01 FINAL REPORT [facility] Chest 1view DX Chest 1view DX Clinical Indication: - fall with elevated INR, no LOC Comparison: 01/08/18 FINDINGS: Single AP view of the chest is submitted for interpretation. There is mild interstitial pulmonary edema with mild subsegmental atelectasis in the right lung base with a small right pleural effusion. The lungs are otherwise clear. There are no pleural effusions. There is no visible pneumothorax. Cardiomediastinal contours are stable. ORIF of the mid right clavicle is noted. No gross bony normalities are identified. Left subclavian pacer wires appear unchanged in position compared to prior. IMPRESSION: 1. Mild interstitial pulmonary edema. 2. Mild subsegmental atelectasis in the right lung base with a small right pleural effusion. SL: [id number] 02/06/2018 - - Read by: Claudy Parker MD Dictated Date/time: 02/06/18 11:48 Electronically Signed by: Claudy Parker MD 02/06/18 11:52 FINAL REPORT [facility] HEMATOLOGY INR 1.30 0.85 - 1.17 01/08/2018 [facility] HEMATOLOGY PT 16.3 s 12.0 - 14.7 01/08/2018 [facility] CHEM PANEL Magnesium Lvl 1.9 mg/dL 1.8 - 2.4 01/08/2018 [facility] CHEM PANEL eGFR 61 mL/min/1.73m2 01/08/2018 Result Comment: The eGFR is calculated using the CKD-EPI formula. In most young, healthy individuals the eGFR will be >90 mL/min/1.73m2. The eGFR declines with age. An eGFR of 60-89 may be normal in some populations, particularly the elderly, for whom the CKD-EPI formula has not been extensively validated. Use of the eGFR is not recommended in the following populations: Individuals with unstable creatinine concentrations, including patients and those with serious co-morbid conditions. Patients with extremes in muscle mass or diet. The data above are obtained from the National Kidney Disease Education Program (NKDEP) which additionally recommends that when the eGFR is used in patients with extremes of body mass index for purposes of drug dosing, the eGFR should be multiplied by the estimated BMI. [facility] CHEM PANEL Bili Total 0.9 mg/dL 0.2 - 1.3 01/08/2018 [facility] CHEM PANEL CO2 28 meq/L 24 - 32 01/08/2018 [facility] CHEM PANEL Calcium Lvl 8.8 mg/dL 8.5 - 10.5 01/08/2018 [facility] CHEM PANEL Sodium Lvl 140 meq/L 135 - 145 01/08/2018 [facility] CHEM PANEL Potassium Lvl 4.3 meq/L 3.5 - 5.1 01/08/2018 [facility] CHEM PANEL Chloride Lvl 106 meq/L 95 - 109 01/08/2018 [facility] CHEM PANEL Alk Phos 107 unit/L 39 - 136 01/08/2018 [facility] CHEM PANEL ALT 15 unit/L 0 - 65 01/08/2018 [facility] CHEM PANEL AST 17 unit/L 0 - 37 01/08/2018 [facility] CHEM PANEL Albumin Lvl 2.8 g/dL 3.5 - 5.0 01/08/2018 [facility] CHEM PANEL Total Protein 6.8 g/dL 6.4 - 8.4 01/08/2018 [facility] CHEM PANEL BUN 17 mg/dL 7 - 22 01/08/2018 [facility] CHEM PANEL Glucose Lvl 91 mg/dL 70 - 99 01/08/2018 [facility] CHEM PANEL Creatinine Lvl 1.14 mg/dL 0.50 - 1.40 01/08/2018 [facility] CHEM PANEL AGAP 10.3 meq/L 10.0 - 20.0 01/08/2018 [facility] CHEM PANEL B/C Ratio 15 6 - 25 01/08/2018 [facility] CHEM PANEL Globulin 4.0 g/dL 2.7 - 4.2 01/08/2018 [facility] CHEM PANEL A/G Ratio 0.7 0.7 - 1.6 01/08/2018 [facility] CHEM PANEL Phosphorus 3.2 mg/dL 2.5 - 4.5 01/08/2018 [facility] HEMATOLOGY RBC 3.46 M/CMM 4.70 - 6.10 01/08/2018 [facility] HEMATOLOGY WBC 7.0 K/CMM 3.7 - 10.4 01/08/2018 [facility] HEMATOLOGY Hct 29.9 % 42.0 - 54.0 01/08/2018 [facility] HEMATOLOGY MCV 86.6 fL 80.0 - 94.0 01/08/2018 [facility] HEMATOLOGY RDW 17.8 % 11.5 - 14.5 01/08/2018 [facility] HEMATOLOGY Platelet 193 K/CMM 133 - 450 01/08/2018 [facility] HEMATOLOGY Hgb 9.8 g/dL 14.0 - 18.0 01/08/2018 [facility] HEMATOLOGY MCHC 32.8 g/dL 32.0 - 36.0 01/08/2018 [facility] HEMATOLOGY MCH 28.4 pg 27.0 - 31.0 01/08/2018 [facility] HEMATOLOGY MPV 8.0 fL 7.4 - 10.4 01/08/2018 [facility] HEMATOLOGY Lymphocytes # 1.3 K/CMM 1.0 - 5.5 01/08/2018 [facility] HEMATOLOGY Monocytes # 0.6 K/CMM 0.0 - 0.8 01/08/2018 [facility] HEMATOLOGY Segs-Bands # 4.7 K/CMM 1.5 - 8.1 01/08/2018 [facility] HEMATOLOGY Basophils 1.4 % 0.0 - 1.0 01/08/2018 [facility] HEMATOLOGY Eosinophils # 0.3 K/CMM 0.0 - 0.5 01/08/2018 [facility] HEMATOLOGY Basophils # 0.1 K/CMM 0.0 - 0.2 01/08/2018 [facility] HEMATOLOGY Eosinophils 3.8 % 0.0 - 4.0 01/08/2018 [facility] HEMATOLOGY Monocytes 8.9 % 2.0 - 12.0 01/08/2018 [facility] HEMATOLOGY Segs 66.9 % 45.0 - 75.0 01/08/2018 [facility] HEMATOLOGY Lymphocytes 19.0 % 20.0 - 40.0 01/08/2018 [facility] PARATHYROID PROFILE Ca Norm WB 1.11 mMol/L 1.05 - 1.25 01/08/2018 [facility] PARATHYROID PROFILE Ca Ion WB 1.14 mMol/L 1.05 - 1.25 01/08/2018 [facility] Chest 2 views DX Chest 2 views DX EXAM: XR CHEST 2 VIEWS DATE: 01/08/2018 3:00 AM CDT INDICATION: Chest pain - Status post PFO/ASD Closure FINDINGS: Comparison is made to 09/01/2017. Cardiomediastinal silhouette is unchanged with TAVR. New watchman device over the left atrial appendage. A 3-lead left subclavian ICD remains in place. Plates and screws transfix the right clavicle. A right pleural effusion extends from apex down laterally to the base and may be loculated. There is also small left pleural effusion. There are alveolar opacities throughout the right lung which could be due to any combination of asymmetric edema, atelectasis and/or pneumonia. There is platelike atelectasis in the left lower lobe. These findings are superimposed upon a background of architectural distortion created by emphysema. Note is made of a calcified granuloma in the left midlung. IMPRESSION: 1. New Watchman device over the left atrial appendage. 2. A right pleural effusion extension apex down laterally to the base and could be loculated. Small left pleural effusion. 3. Diffuse airspace disease throughout the right lung. 4. Emphysema. 01/08/2018 - - Read by: Tomeka Betancourt MD Dictated Date/time: 01/08/18 10:42 Electronically Signed by: Tomeka Betancourt MD 01/08/18 10:44 FINAL REPORT [facility] ELECTROLYTES AGAP 11.6 meq/L 10.0 - 20.0 01/07/2018 [facility] ELECTROLYTES eGFR 54 mL/min/1.73m2 01/07/2018 Result Comment: The eGFR is calculated using the CKD-EPI formula. In most young, healthy individuals the eGFR will be >90 mL/min/1.73m2. The eGFR declines with age. An eGFR of 60-89 may be normal in some populations, particularly the elderly, for whom the CKD-EPI formula has not been extensively validated. Use of the eGFR is not recommended in the following populations: Individuals with unstable creatinine concentrations, including patients and those with serious co-morbid conditions. Patients with extremes in muscle mass or diet. The data above are obtained from the National Kidney Disease Education Program (NKDEP) which additionally recommends that when the eGFR is used in patients with extremes of body mass index for purposes of drug dosing, the eGFR should be multiplied by the estimated BMI. [facility] ELECTROLYTES Potassium Lvl 3.6 meq/L 3.5 - 5.1 01/07/2018 [facility] ELECTROLYTES Calcium Lvl 8.6 mg/dL 8.5 - 10.5 01/07/2018 [facility] ELECTROLYTES Sodium Lvl 141 meq/L 135 - 145 01/07/2018 [facility] ELECTROLYTES Glucose Lvl 98 mg/dL 70 - 99 01/07/2018 [facility] ELECTROLYTES Creatinine Lvl 1.26 mg/dL 0.50 - 1.40 01/07/2018 [facility] ELECTROLYTES BUN 23 mg/dL 7 - 22 01/07/2018 [facility] ELECTROLYTES Chloride Lvl 106 meq/L 95 - 109 01/07/2018 [facility] ELECTROLYTES CO2 27 meq/L 24 - 32 01/07/2018 [facility] HEMATOLOGY WBC 5.7 K/CMM 3.7 - 10.4 01/07/2018 [facility] HEMATOLOGY Hgb 8.7 g/dL 14.0 - 18.0 01/07/2018 [facility] HEMATOLOGY RBC 3.08 M/CMM 4.70 - 6.10 01/07/2018 [facility] HEMATOLOGY RDW 17.8 % 11.5 - 14.5 01/07/2018 [facility] HEMATOLOGY Platelet 180 K/CMM 133 - 450 01/07/2018 [facility] HEMATOLOGY MCHC 32.4 g/dL 32.0 - 36.0 01/07/2018 [facility] HEMATOLOGY MCH 28.2 pg 27.0 - 31.0 01/07/2018 [facility] HEMATOLOGY MCV 87.1 fL 80.0 - 94.0 01/07/2018 [facility] HEMATOLOGY Hct 26.9 % 42.0 - 54.0 01/07/2018 [facility] HEMATOLOGY MPV 7.8 fL 7.4 - 10.4 01/07/2018 [facility] HEMATOLOGY Eosinophils 4.8 % 0.0 - 4.0 01/07/2018 [facility] HEMATOLOGY Basophils 2.1 % 0.0 - 1.0 01/07/2018 [facility] HEMATOLOGY Segs-Bands # 3.3 K/CMM 1.5 - 8.1 01/07/2018 [facility] HEMATOLOGY Lymphocytes # 1.4 K/CMM 1.0 - 5.5 01/07/2018 [facility] HEMATOLOGY Monocytes # 0.6 K/CMM 0.0 - 0.8 01/07/2018 [facility] HEMATOLOGY Eosinophils # 0.3 K/CMM 0.0 - 0.5 01/07/2018 [facility] HEMATOLOGY Basophils # 0.1 K/CMM 0.0 - 0.2 01/07/2018 [facility] HEMATOLOGY Segs 57.8 % 45.0 - 75.0 01/07/2018 [facility] HEMATOLOGY Monocytes 10.0 % 2.0 - 12.0 01/07/2018 [facility] HEMATOLOGY Lymphocytes 25.3 % 20.0 - 40.0 01/07/2018 [facility] HEMATOLOGY POC Activated Clotting Time 311 s 01/07/2018 [facility] HEMATOLOGY POC Activated Clotting Time 269 s 01/07/2018 [facility] BLOOD BANK RESULTS Antibody Scrn Negative (01/07/18 5:56 AM) 01/07/2018 [facility] BLOOD BANK RESULTS ABO/Rh A POS 01/07/2018 [facility] CHEM PANEL A/G Ratio 0.8 0.7 - 1.6 01/07/2018 [facility] CHEM PANEL Globulin 4.0 g/dL 2.7 - 4.2 01/07/2018 [facility] CHEM PANEL AGAP 11.9 meq/L 10.0 - 20.0 01/07/2018 [facility] CHEM PANEL B/C Ratio 17 6 - 25 01/07/2018 [facility] CHEM PANEL AST 20 unit/L 0 - 37 01/07/2018 [facility] CHEM PANEL ALT 16 unit/L 0 - 65 01/07/2018 [facility] CHEM PANEL Total Protein 7.2 g/dL 6.4 - 8.4 01/07/2018 [facility] CHEM PANEL Alk Phos 97 unit/L 39 - 136 01/07/2018 [facility] CHEM PANEL Albumin Lvl 3.2 g/dL 3.5 - 5.0 01/07/2018 [facility] CHEM PANEL Bili Total 0.7 mg/dL 0.2 - 1.3 01/07/2018 [facility] CHEM PANEL eGFR 47 mL/min/1.73m2 01/07/2018 Result Comment: The eGFR is calculated using the CKD-EPI formula. In most young, healthy individuals the eGFR will be >90 mL/min/1.73m2. The eGFR declines with age. An eGFR of 60-89 may be normal in some populations, particularly the elderly, for whom the CKD-EPI formula has not been extensively validated. Use of the eGFR is not recommended in the following populations: Individuals with unstable creatinine concentrations, including patients and those with serious co-morbid conditions. Patients with extremes in muscle mass or diet. The data above are obtained from the National Kidney Disease Education Program (NKDEP) which additionally recommends that when the eGFR is used in patients with extremes of body mass index for purposes of drug dosing, the eGFR should be multiplied by the estimated BMI. [facility] CHEM PANEL Sodium Lvl 141 meq/L 135 - 145 01/07/2018 [facility] CHEM PANEL CO2 30 meq/L 24 - 32 01/07/2018 [facility] CHEM PANEL Chloride Lvl 103 meq/L 95 - 109 01/07/2018 [facility] CHEM PANEL Potassium Lvl 3.9 meq/L 3.5 - 5.1 01/07/2018 [facility] CHEM PANEL Creatinine Lvl 1.41 mg/dL 0.50 - 1.40 01/07/2018 [facility] CHEM PANEL Calcium Lvl 9.4 mg/dL 8.5 - 10.5 01/07/2018 [facility] CHEM PANEL BUN 24 mg/dL 7 - 22 01/07/2018 [facility] CHEM PANEL Glucose Lvl 101 mg/dL 70 - 99 01/07/2018 [facility] HEMATOLOGY PTT 40.8 s 22.9 - 35.8 01/07/2018 [facility] HEMATOLOGY INR 1.65 0.85 - 1.17 01/07/2018 [facility] HEMATOLOGY PT 19.6 s 12.0 - 14.7 01/07/2018 [facility] HEMATOLOGY WBC 6.9 K/CMM 3.7 - 10.4 01/07/2018 [facility] HEMATOLOGY MCV 86.2 fL 80.0 - 94.0 01/07/2018 [facility] HEMATOLOGY MCH 28.2 pg 27.0 - 31.0 01/07/2018 [facility] HEMATOLOGY RBC 3.38 M/CMM 4.70 - 6.10 01/07/2018 [facility] HEMATOLOGY Hct 29.1 % 42.0 - 54.0 01/07/2018 [facility] HEMATOLOGY Hgb 9.5 g/dL 14.0 - 18.0 01/07/2018 [facility] HEMATOLOGY RDW 17.7 % 11.5 - 14.5 01/07/2018 [facility] HEMATOLOGY MPV 7.6 fL 7.4 - 10.4 01/07/2018 [facility] HEMATOLOGY MCHC 32.7 g/dL 32.0 - 36.0 01/07/2018 [facility] HEMATOLOGY Platelet 209 K/CMM 133 - 450 01/07/2018 [facility] HEMATOLOGY Segs-Bands # 4.0 K/CMM 1.5 - 8.1 01/07/2018 [facility] HEMATOLOGY Eosinophils # 0.3 K/CMM 0.0 - 0.5 01/07/2018 [facility] HEMATOLOGY Basophils # 0.1 K/CMM 0.0 - 0.2 01/07/2018 [facility] HEMATOLOGY Monocytes # 0.8 K/CMM 0.0 - 0.8 01/07/2018 [facility] HEMATOLOGY Lymphocytes # 1.7 K/CMM 1.0 - 5.5 01/07/2018 [facility] HEMATOLOGY Segs 58.3 % 45.0 - 75.0 01/07/2018 [facility] HEMATOLOGY Basophils 1.9 % 0.0 - 1.0 01/07/2018 [facility] HEMATOLOGY Eosinophils 4.0 % 0.0 - 4.0 01/07/2018 [facility] HEMATOLOGY Monocytes 10.9 % 2.0 - 12.0 01/07/2018 [facility] HEMATOLOGY Lymphocytes 24.9 % 20.0 - 40.0 01/07/2018 [facility] BLOOD BANK RESULTS RBC product Product available (01/07/18 5:54 AM) 01/07/2018 [facility] BLOOD BANK RESULTS FFP product Product available (01/07/18 5:54 AM) 01/07/2018 [facility] CARDIAC ENZYMES Total CK 39 unit/L - 09/02/2017 [facility] CARDIAC ENZYMES Troponin-I 0.02 ng/mL 0.00 - 0.40 09/02/2017 [facility] VIRAL - SEROLOGY Influ A Negative (09/01/17 10:42 PM) Negative 09/02/2017 [facility] VIRAL - SEROLOGY Influ B Negative (09/01/17 10:42 PM) Negative 09/02/2017 [facility] CARDIAC ENZYMES CK MB 1.6 ng/mL 0.5 - 3.6 09/02/2017 [facility] CARDIAC ENZYMES Total CK 48 unit/L 12 - 09/02/2017 [facility] CARDIAC ENZYMES BNP 561 pg/mL <=100 pg/mL 09/02/2017 [facility] CARDIAC ENZYMES Troponin-I null 0.00 - 0.40 09/02/2017 [facility] CARDIAC ENZYMES CK MB Index 3.3 0.0 - 2.5 09/02/2017 [facility] CHEM PANEL eGFR 66 mL/min/1.73m2 09/02/2017 Result Comment: The eGFR is calculated using the CKD-EPI formula. In most young, healthy individuals the eGFR will be >90 mL/min/1.73m2. The eGFR declines with age. An eGFR of 60-89 may be normal in some populations, particularly the elderly, for whom the CKD-EPI formula has not been extensively validated. Use of the eGFR is not recommended in the following populations: Individuals with unstable creatinine concentrations, including patients and those with serious co-morbid conditions. Patients with extremes in muscle mass or diet. The data above are obtained from the National Kidney Disease Education Program (NKDEP) which additionally recommends that when the eGFR is used in patients with extremes of body mass index for purposes of drug dosing, the eGFR should be multiplied by the estimated BMI. [facility] CHEM PANEL CO2 32 meq/L 24 - 32 09/02/2017 [facility] CHEM PANEL Calcium Lvl 8.5 mg/dL 8.5 - 10.5 09/02/2017 [facility] CHEM PANEL Sodium Lvl 138 meq/L 135 - 145 09/02/2017 [facility] CHEM PANEL Potassium Lvl 4.2 meq/L 3.5 - 5.1 09/02/2017 [facility] CHEM PANEL Chloride Lvl 101 meq/L 95 - 109 09/02/2017 [facility] CHEM PANEL A/G Ratio 0.7 0.7 - 1.6 09/02/2017 [facility] CHEM PANEL Albumin Lvl 2.8 g/dL 3.5 - 5.0 09/02/2017 [facility] CHEM PANEL Total Protein 6.9 g/dL 6.4 - 8.4 09/02/2017 [facility] CHEM PANEL Globulin 4.1 g/dL 2.7 - 4.2 09/02/2017 [facility] CHEM PANEL B/C Ratio 15 6 - 25 09/02/2017 [facility] CHEM PANEL Bili Total 0.7 mg/dL 0.2 - 1.3 09/02/2017 [facility] CHEM PANEL AGAP 9.2 meq/L 10.0 - 20.0 09/02/2017 [facility] CHEM PANEL Alk Phos 89 unit/L 39 - 136 09/02/2017 [facility] CHEM PANEL ALT 16 unit/L 0 - 65 09/02/2017 [facility] CHEM PANEL AST 16 unit/L 0 - 37 09/02/2017 [facility] CHEM PANEL Creatinine Lvl 1.07 mg/dL 0.50 - 1.40 09/02/2017 [facility] CHEM PANEL BUN 16 mg/dL 7 - 22 09/02/2017 [facility] CHEM PANEL Glucose Lvl 96 mg/dL 70 - 99 09/02/2017 [facility] HEMATOLOGY Platelet 225 K/CMM 133 - 450 09/02/2017 [facility] HEMATOLOGY MPV 7.9 fL 7.4 - 10.4 09/02/2017 [facility] HEMATOLOGY RBC 3.07 M/CMM 4.70 - 6.10 09/02/2017 [facility] WBC 8.6 K/CMM 3.7 - 10.4 09/02/2017 [facility] RDW 14.7 % 11.5 - 14.5 09/02/2017 [facility] Hct 28.8 % 42.0 - 54.0 09/02/2017 [facility] Hgb 9.8 g/dL 14.0 - 18.0 09/02/2017 [facility] MCHC 34.0 g/dL 32.0 - 36.0 09/02/2017 [facility] MCH 32.0 pg 27.0 - 31.0 09/02/2017 [facility] MCV 94.1 fL 80.0 - 94.0 09/02/2017 [facility] Segs 73.1 % 45.0 - 75.0 09/02/2017 [facility] Basophils # 0.1 K/CMM 0.0 - 0.2 09/02/2017 [facility] Eosinophils # 0.2 K/CMM 0.0 - 0.5 09/02/2017 [facility] Monocytes # 0.7 K/CMM 0.0 - 0.8 09/02/2017 [facility] Lymphocytes 15.0 % 20.0 - 40.0 09/02/2017 [facility] Monocytes 8.6 % 2.0 - 12.0 09/02/2017 [facility] Eosinophils 2.2 % 0.0 - 4.0 09/02/2017 [facility] Basophils 1.1 % 0.0 - 1.0 09/02/2017 [facility] Lymphocytes # 1.3 K/CMM 1.0 - 5.5 09/02/2017 [facility] Segs-Bands # 6.3 K/CMM 1.5 - 8.1 09/02/2017 [facility] Chest 1view DX Chest 1view DX Clinical Indication: - soa Comparison: August 28, 2017 FINDINGS: HEART: Mild cardiomegaly. PULMONARY VASCULATURE: Mild pulmonary vasculature congestion versus perihilar nonspecific airspace opacity. LUNGS: Lung volumes are maintained. There are no pneumothoraces noted. Costophrenic sulci: -Right costophrenic sulcus: Moderate right pleural effusion or thickening with associated compressive atelectasis. -Left costophrenic sulcus: The left costophrenic sulcus is sharp without evidence for pleural effusions or thickening. BONES: The visualized osseous structures are unremarkable. Internal fixation plate and screws transfix the right clavicle. Left side pacer with its leads over the right atrium, right ventricle, and left ventricle. IMPRESSION: 1. Mild cardiomegaly with mild pulmonary vascular congestion versus nonspecific airspace infiltrate. 2. Moderate right pleural effusion or thickening with associated compressive atelectasis.. SL: EARL 09/01/2017 - - Read by: Antonio Graham DO Dictated Date/time: 09/01/17 21:21 Electronically Signed by: Antonio Graham DO 09/01/17 21:24 FINAL REPORT [facility] Chest 2 views DX Chest 2 views DX Exam: Two-view chest x-ray Reason for Exam: follow up thoracentesis - Z95.4 Presence of other heart-valve replacement Comparison Exam: X-ray 08/21/[address] scan 08/11/2017 Discussion: Cardiac silhouette is at upper limits of normal for size. Bilateral pleural effusions have increased slightly when compared to most recent x-ray. Cardiac silhouette is at upper limits of normal for size. Airspace consolidation seen overlying the right lower lung. Stable subcentimeter pulmonary nodule seen overlying the lateral aspect of the left mid lung. Multi lead cardiac device is seen with the base overlying the lateral aspect of the left hemithorax. No appreciable evidence seen for pneumothorax. Patient is status post fracture and repair of the right clavicle. Impression: 1. Bilateral pleural effusions have increased slightly when compared to most recent x-ray. 08/28/2017 - - Read by: Anson Lopez MD Dictated Date/time: 08/29/17 10:19 Electronically Signed by: Anson Lopez MD 08/29/17 10:22 FINAL REPORT [facility] Brain wo contrast CT Brain wo contrast CT EXAM: CT BRAIN WITHOUT CONTRAST DATE: 08/22/2017 12:24 PM INDICATION: - R55 Syncope and collapse COMPARISON: CT of the brain dated 10/09/2015 TECHNIQUE: Routine axial CT images of the brain were obtained. Reformatted images in the sagittal and coronal plane were included. IV contrast: None. DLP: 607 mGy-cm FINDINGS: Non-contrast images of the head demonstrate no edema, hemorrhage, mass lesion or other acute intracranial abnormality. The brain has normal attenuation and riggs-white matter distinction. The ventricles and sulci are prominent as are result of volume loss. The paranasal sinuses, orbits and mastoids are unremarkable. There are atherosclerotic changes of the distal vertebral arteries and carotid siphons. IMPRESSION: No acute intracranial abnormality. Minimal age-related volume loss and atherosclerosis, unchanged. 08/22/2017 - - Read by: Jessica Marley Dictated Date/time: 08/22/17 15:28 Electronically Signed by: Jessica Marley 08/22/17 15:30 FINAL REPORT [facility] Chest 2 views DX Chest 2 views DX EXAM: XR CHEST 2 VIEWS DATE: 08/21/2017 10:15 AM [facility] INDICATION: - J90 Pleural effusion, not elsewhere classified COMPARISON: Prior chest x-ray of 08/12/[address] scan of the chest without contrast of 08/11/2017 TECHNIQUE: PA and lateral chest radiographs FINDINGS: Again demonstrated is a 4.5 x 3.9 x 5.6 cm mass in the right lower lobe which is grossly stable from the prior chest x-ray exam. A small right pleural effusion is present with a horizontal meniscus likely related to a chronic small loculated anterior pneumothorax as seen on the prior chest CT. A stable calcified 8 mm pulmonary nodule seen in the left upper lobe. Mediastinum is shifted slightly to the right likely from volume loss in the right lung related to scarring and the small pneumothorax. Cardiac silhouette is normal in size. A triple lead left chest wall cardiac defibrillator/pacemaker is seen with lead tips projected over the right atrium and right ventricle. The patient has undergone prior TAVR procedure. Atherosclerotic calcifications are seen in the aortic arch. Diffuse osteopenia is present. The patient is status post prior open reduction internal fixation of a mid right clavicular fracture with stable hardware in place. IMPRESSION: 1. No significant change in the right lower lobe mass by plain film radiography. 2. Small right pleural effusion with suspected chronic anterior loculated pneumothorax as seen on the prior chest CT. 3. Mild mediastinal shift to the right is likely from volume loss in the right lung as described above. 4. No other significant interval change. 5. If further evaluation of the above-mentioned findings is warranted, repeat CT scan the chest should be considered. 08/21/2017 - - Read by: Sreedhar Wing MD Dictated Date/time: 08/21/17 10:27 Electronically Signed by: Sreedhar Wing MD 08/21/17 10:36 FINAL REPORT [facility] CHEM PANEL eGFR 68 mL/min/1.73m2 08/12/2017 Result Comment: The eGFR is calculated using the CKD-EPI formula. In most young, healthy individuals the eGFR will be >90 mL/min/1.73m2. The eGFR declines with age. An eGFR of 60-89 may be normal in some populations, particularly the elderly, for whom the CKD-EPI formula has not been extensively validated. Use of the eGFR is not recommended in the following populations: Individuals with unstable creatinine concentrations, including patients and those with serious co-morbid conditions. Patients with extremes in muscle mass or diet. The data above are obtained from the National Kidney Disease Education Program (NKDEP) which additionally recommends that when the eGFR is used in patients with extremes of body mass index for purposes of drug dosing, the eGFR should be multiplied by the estimated BMI. [facility] CHEM PANEL Glucose Lvl 137 mg/dL 70 - 99 08/12/2017 [facility] CHEM PANEL BUN 30 mg/dL 7 - 22 08/12/2017 [facility] CHEM PANEL Creatinine Lvl 1.05 mg/dL 0.50 - 1.40 08/12/2017 [facility] CHEM PANEL Sodium Lvl 140 meq/L 135 - 145 08/12/2017 [facility] CHEM PANEL Chloride Lvl 105 meq/L 95 - 109 08/12/2017 [facility] CHEM PANEL Potassium Lvl 3.6 meq/L 3.5 - 5.1 08/12/2017 [facility] CHEM PANEL CO2 28 meq/L 24 - 32 08/12/2017 [facility] CHEM PANEL AGAP 10.6 meq/L 10.0 - 20.0 08/12/2017 [facility] CHEM PANEL Calcium Lvl 8.7 mg/dL 8.5 - 10.5 08/12/2017 [facility] CHEM PANEL Phosphorus 2.9 mg/dL 2.5 - 4.5 08/12/2017 [facility] CHEM PANEL Magnesium Lvl 2.0 mg/dL 1.8 - 2.4 08/12/2017 [facility] HEMATOLOGY RDW 14.6 % 11.5 - 14.5 08/12/2017 [facility] HEMATOLOGY MCHC 34.2 g/dL 32.0 - 36.0 08/12/2017 [facility] HEMATOLOGY MPV 8.5 fL 7.4 - 10.4 08/12/2017 [facility] HEMATOLOGY Platelet 162 K/CMM 133 - 450 08/12/2017 [facility] HEMATOLOGY WBC 7.5 K/CMM 3.7 - 10.4 08/12/2017 [facility] HEMATOLOGY MCH 31.7 pg 27.0 - 31.0 08/12/2017 [facility] HEMATOLOGY Hgb 11.6 g/dL 14.0 - 18.0 08/12/2017 [facility] HEMATOLOGY RBC 3.66 M/CMM 4.70 - 6.10 08/12/2017 [facility] HEMATOLOGY MCV 92.7 fL 80.0 - 94.0 08/12/2017 [facility] HEMATOLOGY Hct 34.0 % 42.0 - 54.0 08/12/2017 [facility] HEMATOLOGY Basophils 0.9 % 0.0 - 1.0 08/12/2017 [facility] HEMATOLOGY Lymphocytes # 1.5 K/CMM 1.0 - 5.5 08/12/2017 [facility] HEMATOLOGY Segs-Bands # 4.8 K/CMM 1.5 - 8.1 08/12/2017 [facility] HEMATOLOGY Basophils # 0.1 K/CMM 0.0 - 0.2 08/12/2017 [facility] HEMATOLOGY Monocytes # 0.7 K/CMM 0.0 - 0.8 08/12/2017 [facility] HEMATOLOGY Eosinophils # 0.4 K/CMM 0.0 - 0.5 08/12/2017 [facility] HEMATOLOGY Lymphocytes 20.0 % 20.0 - 40.0 08/12/2017 [facility] HEMATOLOGY Monocytes 9.8 % 2.0 - 12.0 08/12/2017 [facility] HEMATOLOGY Segs 64.4 % 45.0 - 75.0 08/12/2017 [facility] HEMATOLOGY Eosinophils 4.9 % 0.0 - 4.0 08/12/2017 [facility] PARATHYROID PROFILE Ca Norm WB 1.22 mMol/L 1.05 - 1.25 08/12/2017 [facility] PARATHYROID PROFILE Ca Ion WB 1.24 mMol/L 1.05 - 1.25 08/12/2017 [facility] Chest 1view DX Chest 1view DX EXAM: XR CHEST 1 VIEW DATE: 08/12/2017 8:55 AM [facility] INDICATION: - R pleural effusion COMPARISON: Semierect AP chest radiograph 08/11/2017. CT thorax 08/11/2017 was also reviewed. TECHNIQUE: AP chest FINDINGS: Lines, tubes and hardware: ORIF hardware in the right clavicle, left subclavian approach ICD/pacemaker, and TVR are unchanged. The right pleural space pigtail catheter has been removed. Lungs and pleura: The left lung is clear. The persistent small right-sided pleural effusion and airspace opacities in the right lung base are unchanged. The previously seen small right basilar pneumothorax is not well visualized on this exam. Heart and mediastinum: The cardiomediastinal silhouette is unchanged. Bones: No change from prior exam. IMPRESSION: Interval removal of pigtail catheter from the right pleural space. The previously seen right basilar pneumothorax is not well visualized on this exam. Small right-sided pleural effusion and airspace opacities in the right lower lung are grossly stable. Please refer to the previous CT thorax for further description. 08/12/2017 - - Read by: Dominick Cr MD Dictated Date/time: 08/12/17 10:11 Electronically Signed by: Dominick Cr MD 08/12/17 10:14 FINAL REPORT [facility] Chest wo contrast CT Chest wo contrast CT EXAM: CT CHEST WITHOUT CONTRAST DATE: 08/11/2017 3:00 PM [facility] INDICATION: Pleural effusion - follow up RLL nodules after thoracentesis TECHNIQUE: Volumetric CT acquisition of the chest without contrast. Axial, sagittal and coronal reconstructions. Axial MIP images included. IV contrast: None. DLP: 467 mGy-cm COMPARISON: AP chest radiograph performed earlier the same day at 9:49 AM as well as noncontrast CT thorax 08/06/2017. DISCUSSION: Lines and Tubes: Left subclavian approach cardiac device is present. The leads of this device terminate in the right atrium and right ventricle. There has been a prior TAVR. The previously seen pigtail catheter in the right pleural space is no longer present. Lower Neck: The visible portions or the lower neck and thyroid are unremarkable. Heart, Mediastinum, and Great Vessels: No cardiomegaly or pericardial effusion. Extensive atherosclerotic disease is coronary arteries. There is also extensive atherosclerotic disease in the aorta and the great vessels. The ascending aorta and pulmonary trunk are normal in caliber. Lymph Nodes: No axillary or internal mammary lymphadenopathy. Hilar lymph nodes are suboptimally evaluated due to absence of IV contrast. Multiple mediastinal lymph nodes are again seen. These lymph nodes are normal sized and unchanged from the prior exam. Lungs and airways and pleura: Small amounts of fluid and/or mucous are seen within the tracheal lumen and in the right mainstem bronchus. There is bronchial wall thickening in the right lower lobe. There is mild paraseptal emphysema at the lung apices. There is also mild to moderate centrilobular emphysema seen throughout both lungs with upper lobe predilection. There is a small anterior pneumothorax. The pleural effusion on the right side is much smaller than on the prior exam. Calcified pleural plaques are once again seen on the right side. Additionally this effusion demonstrates nondependent portions, likely due to loculation. There are now gas bubbles within this collection which may be due to infection and/or a bronchopleural fistula. There is minimal dependent subsegmental atelectasis in both lung bases. There are also high density consolidations in the right lung base (axial images 113 through 138) and also in the right middle lobe (axial images 60 through 99). Calcified granulomas are seen throughout both lungs. Multiple noncalcified nodules are also present as follows on axial series 2: Right upper lobe image 23, 27, 30, 61, 66 Right lower lobe image 100, 109 Left upper lobe image 20, 32, 35, 45, 48, 65, 73 Left lower lobe image 81 (pleural-based), 100, 134 The nodule on image 23 in the right upper lobe measures 4 minutes size and is irregularly shaped. The nodules in the right lower lobe measure 6 mm and are irregularly shaped. The nodule in the left upper lobe on image 20 measures 5 mm. The nodule in the left lower lobe measures 5 mm. The remainder of these nodules measure 2 to 3 mm in size. When compared to the prior exam, the nodules in the left lung are unchanged. The nodules in the right are better visualized. This may be due to to reexpansion of the lung status post drainage right-sided pleural effusion. Esophagus and Upper abdomen: There has been a prior cholecystectomy. Atherosclerotic disease is seen throughout the splenic artery. Calcified granulomas are present within the spleen. There is a 1 cm hypodense lesion in the left kidney, poorly visualized, that likely represents a cyst. No acute abnormalities. Bones and Soft Tissues: There is been prior ORIF of a right clavicular fracture. Degenerative changes are once again seen throughout the visualized spine. Subcutaneous soft tissues are grossly within normal limits. IMPRESSION: 1. Decreased size of the multiloculated right-sided pleural effusion status post thoracentesis. Scattered pleural calcifications on the right side are unchanged. There is also a small residual pneumothorax anteriorly status post removal of pigtail catheter. Small bubbles of gas within the residual pleural effusion which were not present on the previous exam. This may be post instrumentation. 2. Multiple pulmonary nodules, both calcified and noncalcified. The nodules in the left lung are unchanged from the prior examination. However the nodules in the right lung are better visualized, likely due to reexpansion of the lung status post thoracentesis. A follow-up CT scan in 6 months is recommended. 3. Hyperdense airspace consolidations in the right lung base and in the right middle lobe. These airspace consolidations are grossly unchanged and may represent chronic atelectasis. Additionally the increased attenuation can be seen with iodinated drug therapy such as amiodarone. This can be reassessed during the follow-up CT scan. 4. Bronchial wall thickening in the right lower lobe may be due to an infectious process. 5. Mild biapical paraseptal emphysema and moderate centrilobular emphysema throughout both lungs (upper lobe predilection). 6. Atherosclerotic disease of the aorta and all of the coronary arteries. 08/11/2017 - - Read by: Dominick Cr MD Dictated Date/time: 08/12/17 07:46 Electronically Signed by: Dominick Cr MD 08/12/17 09:46 FINAL REPORT [facility] CHEM PANEL Phosphorus 3.2 mg/dL 2.5 - 4.5 08/11/2017 [facility] CHEM PANEL Magnesium Lvl 2.1 mg/dL 1.8 - 2.4 08/11/2017 [facility] CHEM PANEL eGFR 69 mL/min/1.73m2 08/11/2017 Result Comment: The eGFR is calculated using the CKD-EPI formula. In most young, healthy individuals the eGFR will be >90 mL/min/1.73m2. The eGFR declines with age. An eGFR of 60-89 may be normal in some populations, particularly the elderly, for whom the CKD-EPI formula has not been extensively validated. Use of the eGFR is not recommended in the following populations: Individuals with unstable creatinine concentrations, including patients and those with serious co-morbid conditions. Patients with extremes in muscle mass or diet. The data above are obtained from the National Kidney Disease Education Program (NKDEP) which additionally recommends that when the eGFR is used in patients with extremes of body mass index for purposes of drug dosing, the eGFR should be multiplied by the estimated BMI. [facility] CHEM PANEL Calcium Lvl 8.9 mg/dL 8.5 - 10.5 08/11/2017 [facility] CHEM PANEL CO2 31 meq/L 24 - 32 08/11/2017 [facility] CHEM PANEL Potassium Lvl 3.8 meq/L 3.5 - 5.1 08/11/2017 [facility] CHEM PANEL Chloride Lvl 103 meq/L 95 - 109 08/11/2017 [facility] CHEM PANEL Sodium Lvl 140 meq/L 135 - 145 08/11/2017 [facility] CHEM PANEL Creatinine Lvl 1.03 mg/dL 0.50 - 1.40 08/11/2017 [facility] CHEM PANEL BUN 30 mg/dL 7 - 22 08/11/2017 [facility] CHEM PANEL Glucose Lvl 79 mg/dL 70 - 99 08/11/2017 [facility] CHEM PANEL AGAP 9.8 meq/L 10.0 - 20.0 08/11/2017 [facility] HEMATOLOGY MCV 94.4 fL 80.0 - 94.0 08/11/2017 [facility] HEMATOLOGY MCH 32.0 pg 27.0 - 31.0 08/11/2017 [facility] HEMATOLOGY MPV 8.6 fL 7.4 - 10.4 08/11/2017 [facility] HEMATOLOGY MCHC 33.9 g/dL 32.0 - 36.0 08/11/2017 [facility] HEMATOLOGY RDW 14.6 % 11.5 - 14.5 08/11/2017 [facility] HEMATOLOGY Platelet 162 K/CMM 133 - 450 08/11/2017 [facility] HEMATOLOGY Hct 35.4 % 42.0 - 54.0 08/11/2017 [facility] HEMATOLOGY WBC 7.5 K/CMM 3.7 - 10.4 08/11/2017 [facility] HEMATOLOGY RBC 3.75 M/CMM 4.70 - 6.10 08/11/2017 [facility] HEMATOLOGY Hgb 12.0 g/dL 14.0 - 18.0 08/11/2017 [facility] HEMATOLOGY Segs 66.9 % 45.0 - 75.0 08/11/2017 [facility] HEMATOLOGY Segs-Bands # 5.0 K/CMM 1.5 - 8.1 08/11/2017 [facility] HEMATOLOGY Monocytes 8.3 % 2.0 - 12.0 08/11/2017 [facility] HEMATOLOGY Basophils 0.6 % 0.0 - 1.0 08/11/2017 [facility] HEMATOLOGY Lymphocytes 20.7 % 20.0 - 40.0 08/11/2017 [facility] HEMATOLOGY Eosinophils 3.5 % 0.0 - 4.0 08/11/2017 [facility] HEMATOLOGY Lymphocytes # 1.5 K/CMM 1.0 - 5.5 08/11/2017 [facility] HEMATOLOGY Monocytes # 0.6 K/CMM 0.0 - 0.8 08/11/2017 [facility] HEMATOLOGY Eosinophils # 0.3 K/CMM 0.0 - 0.5 08/11/2017 [facility] Chest 1view DX Chest 1view DX EXAM: XR CHEST 1 VIEW DATE: 08/11/2017 9:35 AM [facility] [employer] [facility] INDICATION: right pleurisy - right chest tube. FINDINGS: Comparison is made to yesterday afternoon. The cardiomediastinal silhouette is unchanged with TAVR and 3-lead left subclavian ICD in place. Plates and screws transfix the right clavicle. A persistent small right pleural effusion has not significantly changed, with a right basal pleural pigtail drain in place. There is also a small right basilar pneumothorax. This is similar to prior. Alveolar opacities in the right lower lobe could be due to atelectasis, pneumonia and/or hemorrhage. The left lung is clear and well-expanded. IMPRESSION: No significant change. 08/11/2017 - - Read by: Tomeka Betancourt MD Dictated Date/time: 08/11/17 14:09 Electronically Signed by: Tomeka Betancourt MD 08/11/17 16:00 FINAL REPORT [facility] Chest 1view DX Chest 1view DX EXAM: XR CHEST 1 VIEW DATE: 08/10/2017 3:00 PM [facility] [employer] [facility] INDICATION: - right pneumothorax. FINDINGS: Comparison is made to August 10 at 9:04 AM. The cardiomediastinal silhouette, postoperative changes, life-support lines and tubes are stable. There is a small right basilar hydropneumothorax, not significantly changed. Right lower lobe opacities could be due to atelectasis, pneumonia or hemorrhage. Note is made of a calcified granuloma in the left midlung. IMPRESSION: No significant change. 08/10/2017 - - Read by: Tomeka Betancourt MD Dictated Date/time: 08/11/17 14:09 Electronically Signed by: Tomeka Betancourt MD 08/11/17 16:02 FINAL REPORT [facility] HEMATOLOGY INR 0.98 0.85 - 1.17 08/10/2017 [facility] HEMATOLOGY PT 13.0 s 12.0 - 14.7 08/10/2017 [facility] Chest 1view DX Chest 1view DX Chest one view, 08/10/2017 at 9:04 AM INDICATION: pneumothorax - right chest tube. FINDINGS: Comparison is made to August 09. The cardiomediastinal silhouette has not significantly changed with TAVR and 3- lead left subclavian ICD in place. Plates and screws transfix the right clavicle. There is a persistent small right basilar hydropneumothorax with right basal pleural drain in place. Patchy opacities in the right lower lobe could be due to atelectasis, pneumonia and/or hemorrhage. IMPRESSION: 1. Small right basilar hydropneumothorax with right basilar pleural pigtail drain. 2. Increased right lower lobe airspace opacities. 08/10/2017 - - Read by: Tomeka Betancourt MD Dictated Date/time: 08/10/17 13:14 Electronically Signed by: Tomeka Betancourt MD 08/10/17 15:33 FINAL REPORT [facility] CHEM PANEL Phosphorus 4.4 mg/dL 2.5 - 4.5 08/10/2017 [facility] CHEM PANEL Glucose Lvl 102 mg/dL 70 - 99 08/10/2017 [facility] CHEM PANEL BUN 46 mg/dL 7 - 22 08/10/2017 [facility] CHEM PANEL Creatinine Lvl 1.38 mg/dL 0.50 - 1.40 08/10/2017 [facility] CHEM PANEL Sodium Lvl 139 meq/L 135 - 145 08/10/2017 [facility] CHEM PANEL CO2 32 meq/L 24 - 32 08/10/2017 [facility] CHEM PANEL Calcium Lvl 8.8 mg/dL 8.5 - 10.5 08/10/2017 [facility] CHEM PANEL AGAP 11.1 meq/L 10.0 - 20.0 08/10/2017 [facility] CHEM PANEL eGFR 49 mL/min/1.73m2 08/10/2017 Result Comment: The eGFR is calculated using the CKD-EPI formula. In most young, healthy individuals the eGFR will be >90 mL/min/1.73m2. The eGFR declines with age. An eGFR of 60-89 may be normal in some populations, particularly the elderly, for whom the CKD-EPI formula has not been extensively validated. Use of the eGFR is not recommended in the following populations: Individuals with unstable creatinine concentrations, including patients and those with serious co-morbid conditions. Patients with extremes in muscle mass or diet. The data above are obtained from the National Kidney Disease Education Program (NKDEP) which additionally recommends that when the eGFR is used in patients with extremes of body mass index for purposes of drug dosing, the eGFR should be multiplied by the estimated BMI. [facility] CHEM PANEL Potassium Lvl 4.1 meq/L 3.5 - 5.1 08/10/2017 [facility] CHEM PANEL Chloride Lvl 100 meq/L 95 - 109 08/10/2017 [facility] CHEM PANEL Magnesium Lvl 2.4 mg/dL 1.8 - 2.4 08/10/2017 [facility] HEMATOLOGY MCV 94.0 fL 80.0 - 94.0 08/10/2017 [facility] HEMATOLOGY Hct 36.6 % 42.0 - 54.0 08/10/2017 [facility] HEMATOLOGY Hgb 12.4 g/dL 14.0 - 18.0 08/10/2017 [facility] HEMATOLOGY RBC 3.89 M/CMM 4.70 - 6.10 08/10/2017 [facility] HEMATOLOGY WBC 9.5 K/CMM 3.7 - 10.4 08/10/2017 [facility] HEMATOLOGY MCH 32.0 pg 27.0 - 31.0 08/10/2017 [facility] HEMATOLOGY Platelet 165 K/CMM 133 - 450 08/10/2017 [facility] HEMATOLOGY MCHC 34.0 g/dL 32.0 - 36.0 08/10/2017 [facility] HEMATOLOGY MPV 9.2 fL 7.4 - 10.4 08/10/2017 [facility] HEMATOLOGY RDW 14.2 % 11.5 - 14.5 08/10/2017 [facility] HEMATOLOGY Eosinophils 3.2 % 0.0 - 4.0 08/10/2017 [facility] HEMATOLOGY Segs-Bands # 6.9 K/CMM 1.5 - 8.1 08/10/2017 [facility] HEMATOLOGY Lymphocytes # 1.4 K/CMM 1.0 - 5.5 08/10/2017 [facility] HEMATOLOGY Basophils 0.9 % 0.0 - 1.0 08/10/2017 [facility] HEMATOLOGY Monocytes 8.4 % 2.0 - 12.0 08/10/2017 [facility] HEMATOLOGY Segs 72.7 % 45.0 - 75.0 08/10/2017 [facility] HEMATOLOGY Lymphocytes 14.8 % 20.0 - 40.0 08/10/2017 [facility] HEMATOLOGY Monocytes # 0.8 K/CMM 0.0 - 0.8 08/10/2017 [facility] HEMATOLOGY Basophils # 0.1 K/CMM 0.0 - 0.2 08/10/2017 [facility] HEMATOLOGY Eosinophils # 0.3 K/CMM 0.0 - 0.5 08/10/2017 [facility] Chest 1view DX Chest 1view DX EXAM: XR CHEST 1 VIEW DATE: 08/09/2017 2:45 PM [facility] [employer] INDICATION: - chest tube. FINDINGS: Comparison is made to August 09 at 11:47 AM. The cardiomediastinal silhouette is stable with a TAVR in place. There are aortic arch calcifications. A 3-lead left subclavian ICD is stable. Plates and screws transfix the right clavicle. There is a small right pleural effusion. There is a small right apical and basilar pneumothorax. A right basal pleural pigtail drain remains in place. A patchy right infrahilar opacity could be due to atelectasis and/or pneumonia. The left lung is clear. IMPRESSION: No significant change. 08/09/2017 - - Read by: Tomeka Betancourt MD Dictated Date/time: 08/09/17 18:24 Electronically Signed by: Tomeka Betancourt MD 08/09/17 18:25 FINAL REPORT [facility] Chest 1view DX Chest 1view DX EXAM: XR CHEST 1 VIEW DATE: 08/09/2017 at 1147 hours. INDICATION: right pleural effusion COMPARISON: Chest radiograph 08/08/2017 at 0400 hours. TECHNIQUE: AP chest FINDINGS: Lines, tubes and hardware: A cortical plate with screws projects over the right clavicle. A TAVR is again seen. An ICD is present in the left chest wall with a lead projecting over the right atrium and 2 leads projecting over the right ventricle. A right pigtail catheter projects over the inferior aspect of the right hemithorax. Lungs and pleura: A small apical pneumothorax is present. Subsegmental atelectasis is present in the right lung base. Focal airspace opacities in the right lower lung are unchanged. . A small right and left pleural effusion are again seen. Heart and mediastinum: The heart is enlarged and unchanged. Vascular calcifications are present at the aorta. Bones: No acute bony abnormality is identified. IMPRESSION: 1. Unchanged right hydropneumothorax. 2. Persistent small left pleural effusion. 3. Unchanged ill defined airspace opacities in the right lower lobe which may represent atelectatic lung versus consolidation. 08/09/2017 - - This report was dictated by a Golf Course Mechanic/Fellow. I have personally reviewed the images as well as the Resident's interpretation and agree with the findings. Read by: Kit Phillips MD Resident: Kit Phillips MD Dictated Date/time: 08/09/17 13:39 Electronically Signed by: Jono Juarez MD 08/09/17 15:29 FINAL REPORT [facility] HEMATOLOGY Basophils # 0.1 K/CMM 0.0 - 0.2 08/09/2017 [facility] CHEM PANEL Total Protein 6.0 g/dL 6.4 - 8.4 08/08/2017 [facility] CHEM PANEL LDH 265 unit/L 98 - 192 08/08/2017 [facility] Chest 1view DX Chest 1view DX EXAM: XR CHEST 1 VIEW DATE: 08/08/2017 3:00 AM [facility] [employer] INDICATION: pleural effusion - right pleural effusion s/p chest tube TECHNIQUE: AP chest DISCUSSION: Small right hydropneumothorax. Right basal pleural pigtail catheter remains in place. Mild patchy airspace opacities demonstrated in the lung bases. Patient is status post TAVR. There is ORIF of the right clavicle. Implantable cardiac defibrillator/pacemaker device remains in place. IMPRESSION: No significant change in small right hydropneumothorax. 08/08/2017 - - Read by: Hao Lombardi MD Dictated Date/time: 08/08/17 09:12 Electronically Signed by: Hao Lombardi MD 08/08/17 09:13 FINAL REPORT [facility] BODY FLUIDS Trig BF 13 mg/dL 08/07/2017 [facility] BODY FLUIDS Trig BF Type Pleural *NA* (08/07/17 4:29 PM) 08/07/2017 [facility] BODY FLUIDS Prot BF Type Pleural *NA* (08/07/17 4:29 PM) 08/07/2017 [facility] BODY FLUIDS Protein BF 3.2 g/dL 08/07/2017 [facility] BODY FLUIDS LDH BF Type Pleural *NA* (08/07/17 4:29 PM) 08/07/2017 [facility] BODY FLUIDS LDH BF 113 unit/L 08/07/2017 [facility] BODY FLUIDS Gluc BF Type Pleural *NA* (08/07/17 4:29 PM) 08/07/2017 [facility] BODY FLUIDS Glucose BF 102 mg/dL 08/07/2017 [facility] Chest 1 v for Placement DX Chest 1 v for Placement DX EXAM: XR CHEST 1 VIEW DATE: 08/07/2017 3:29 PM [facility] [employer] INDICATION: pleural effusion - s/p right chest tube placement COMPARISON: Semierect AP chest radiograph 08/06/2017 TECHNIQUE: AP chest FINDINGS: Lines, tubes and hardware: A pigtail catheter has been placed into the right pleural space. Surgical hardware in the right clavicle, left subclavian ICD, and TAVR are unchanged. Lungs and pleura: The right-sided pleural effusion has decreased markedly status post chest tube placement. There is also a tiny left-sided pleural effusion. Bibasilar subsegmental atelectasis is present. Heart and mediastinum: The the cardiac silhouette appears widened however this may be due to technique. Bones: No change from prior exam. IMPRESSION: Interval placement of pigtail catheter into the right pleural space with marked improvement in the right-sided pleural effusion. Persistent small left-sided pleural effusion. Bibasilar subsegmental atelectasis. 08/07/2017 - - Read by: Dominick Cr MD Dictated Date/time: 08/07/17 17:07 Electronically Signed by: Dominick Cr MD 08/07/17 17:10 FINAL REPORT [facility] PARATHYROID PROFILE Ca Norm WB 1.17 mMol/L 1.05 - 1.25 08/07/2017 [facility] PARATHYROID PROFILE Ca Ion WB 1.15 mMol/L 1.05 - 1.25 08/07/2017 [facility] Chest wo contrast CT Chest wo contrast CT EXAM: CT CHEST WITHOUT CONTRAST DATE: 08/06/2017 at 2156 hours. INDICATION: Pleural effusion TECHNIQUE: Volumetric CT acquisition of the chest without contrast. Axial, sagittal and coronal reconstructions. IV contrast: None. DLP: 1257 mGy-cm COMPARISON: CTA chest abdomen pelvis TAVR 04/01/2017 at 1256 hours, FINDINGS: Lines and Tubes: An ICD is present in the left chest wall with a lead present in the right atrium and the remaining 2 leads present in the right ventricle. A TAVR is also seen. A right clavicular cortical plate with screws is present. Lower Neck: The visible portions or the lower neck and thyroid are unremarkable. Heart and Great Vessels: The left atrium is enlarged. The ascending aorta measures 3.0 cm at the level of the main pulmonary artery. The descending aorta measures 2.6 cm at the level of the main pulmonary artery. The main pulmonary artery measures 2.9 cm. There are calcifications throughout the thoracic aorta and abundant calcifications throughout the left main, left anterior descending, left circumflex and right coronary arteries. The mitral annulus is calcified. Lymph Nodes: Again seen are numerous subcentimeter lymph nodes scattered throughout the mediastinum. Pleura: A large free-flowing and dependent right pleural effusion is again seen extending into the minor fissure. A small focal loculated effusion may be present anteriorly. Calcifications are identified in the right posterior pleura which may represent a sequela of a prior infection versus prior bloody effusion. A small dependent left pleural effusion is also seen. LUNGS: The right middle lobe bronchi terminate at an atelectatic or consolidated right middle lobe which is diminished in volume. The right middle lobe contains scattered calcifications. The right lower lobe contains volume loss and opacification at its most medial aspect. These opacified portions of the right middle lobe and right lower lobe demonstrate increased attenuation, finding which can be seen with iodinated drug therapy such as amiodarone, if correlates. No air bronchograms are identified in these opacified regions of the right middle lobe and right lower lobe. There is abundant centrilobular emphysema throughout the lungs with an upper lobe predilection. There is biapical paraseptal emphysema. An irregular nodule in the right apical lung measuring up to 6 mm is seen (series 2, image 27). An irregular nodule is also seen along the right superior lobe measuring 6 mm (series 2, image 37 through 39). A 2 mm pulmonary nodule is present at the peripheral aspect of the left upper lobe (series 6B, image 61). A small 3 mm pulmonary nodule abuts the right anterior chest wall (series 6B, image 73). A 7 mm calcified granuloma is present in the left lower lobe (series 6B, image 81). A small 2 mm pulmonary nodules present right upper lobe (series 2, image 83). A small 3 mm nodule in the left lower lobe is partially obscured by the dependent pleural effusion (series 2, image 90). A small left lower lobe pulmonary nodule measuring 3 mm is seen (series 2, image 120). Upper abdomen: Scattered vascular calcifications are identified in the splenic artery, hepatic artery and proximal portions of the celiac artery. Minimal scattered splenic calcifications are seen. The liver appears diffusely increased in density which may be a sequela of amiodarone use. Bones and Soft Tissues: Multilevel degenerative changes throughout the cervical and thoracic spine. Anterior marginal osteophytosis, vacuum phenomenon and Schmorl's nodes are seen. IMPRESSION: 1. Large right pleural effusion layering dependently from apex to base. Scattered pleural calcification on the right dorsally. Small left pleural effusion. 2. There are opacities in the right middle lobe and medial right lower lobe associated with volume loss, especially in the right middle lobe. Associated bronchi become occluded at the level of these opacities. These could represent regions of atelectasis/round atelectasis with or without superimposed infection. However, they need to be followed to ensure clearing and exclude underlying endobronchial lesions. The right middle lobe and right lower lobe should be reassessed once the right pleural effusion has resolved. 3. Abundant centrilobular emphysema. 4. Scattered bilateral pulmonary nodules measuring up to 6 mm. According to the Fleischner Society 2017 guidelines, in a high risk patient with a history of smoking, multiple nodules measuring up to 6-8 mm can be followed with a repeat chest CT at 3-6 months, then at 18-24 months. 5. Aortic, arterial, and abundant coronary artery calcifications. 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 08/06/2017 - - This report was dictated by a Golf Course Mechanic/Fellow. I have personally reviewed the images as well as the Resident's interpretation and agree with the findings. Read by: Kit Phillips MD Resident: iKt Phillips MD Dictated Date/time: 08/07/17 08:23 Electronically Signed by: Tomeka Betancourt MD 08/08/17 09:46 FINAL REPORT [facility] DRUG SCREEN U Amph Scr Negative *NA* (08/06/17 11:33 AM) Negative 08/06/2017 [facility] DRUG SCREEN U Benzodia Scr Negative *NA* (08/06/17 11:33 AM) Negative 08/06/2017 [facility] DRUG SCREEN U Daisy Scr Negative *NA* (08/06/17 11:33 AM) Negative 08/06/2017 [facility] DRUG SCREEN UDS Note See Note (08/06/17 11:33 AM) 08/06/2017 [facility] DRUG SCREEN U Cannab Scr Negative *NA* (08/06/17 11:33 AM) Negative 08/06/2017 [facility] DRUG SCREEN U Cocaine Scr Negative *NA* (08/06/17 11:33 AM) Negative 08/06/2017 [facility] DRUG SCREEN U Phencyc Scr Negative *NA* (08/06/17 11:33 AM) Negative 08/06/2017 [facility] DRUG SCREEN U Opiate Scr Positive *ABN* (08/06/17 11:33 AM) Negative 08/06/2017 [facility] LIPIDS VLDL 14 08/06/2017 [facility] LIPIDS LDL (Calculated) 71 mg/dL <=99 mg/dL 08/06/2017 [facility] LIPIDS HDL 73 mg/dL >=61 mg/dL 08/06/2017 [facility] LIPIDS Chol 158 mg/dL <=199 mg/dL 08/06/2017 [facility] LIPIDS Trig 68 mg/dL <=149 mg/dL 08/06/2017 [facility] LIPIDS CHD Risk 2.16 4.00 - 7.30 08/06/2017 [facility] SPECIAL CHEMISTRY Hgb A1C 5.1 % <=5.6 % 08/06/2017 [facility] PARATHYROID PROFILE Ca Norm WB 1.14 mMol/L 1.05 - 1.25 08/06/2017 [facility] PARATHYROID PROFILE Ca Ion WB 1.13 mMol/L 1.05 - 1.25 08/06/2017 [facility] Chest 1view DX Chest 1view DX EXAM: XR CHEST 1 VIEW DATE: 08/06/2017 3:00 AM VESSEL ORDINARY SEAMAN INDICATION: - Effusion. FINDINGS: Comparison is made to August 05. A moderately large right pleural effusion obscures the right mid to lower lung. It has decreased or redistributed from yesterday morning. There is also a very small left pleural effusion. Since the right middle lobe and right lower lobe are obscured by the right pleural effusion, they could be atelectatic with or without superimposed infection. The right upper lobe is clear. There is left infrahilar subsegmental atelectasis. The right-sided the heart is obscured. 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 IMPRESSION: 1. Moderately large right pleural effusion has decreased or redistributed. Very small left pleural effusion. 2. The right middle lobe and right lower lobe are completely obscured by the right pleural effusion. They could be collapsed with or without superimposed infection. 3. Left retrocardiac subsegmental atelectasis. 08/06/2017 - - Read by: Tomeka Betancourt MD Dictated Date/time: 08/06/17 09:10 Electronically Signed by: Tomeka Betancourt MD 08/06/17 09:12 FINAL REPORT [facility] Chest 1view DX Chest 1view DX EXAM: XR CHEST 1 VIEW DATE: 08/05/2017 6:46 AM VESSEL ORDINARY SEAMAN INDICATION: - follow up pleural effusion TECHNIQUE: AP chest DISCUSSION: Moderate to large right pleural effusion with worsening aeration of the right upper lobe apex. A small left pleural effusion blunts the left costophrenic sulcus. Life-support lines and devices are stable. Patient is status post TAVR. ORIF of the right clavicle. Hazy diffuse alveolar and interstitial opacities compatible with edema. IMPRESSION: No significant interval changes. 08/05/2017 - - Read by: Hao Lombardi MD Dictated Date/time: 08/05/17 08:30 Electronically Signed by: Hao Lombardi MD 08/05/17 08:32 FINAL REPORT [facility] CHEM PANEL Procalcitonin Lvl <0.05 ng/mL 0.00 - 0.10 08/04/2017 [facility] CHEM PANEL Phosphorus 2.9 mg/dL 2.5 - 4.5 04/18/2017 [facility] CHEM PANEL Magnesium Lvl 1.9 mg/dL 1.8 - 2.4 04/18/2017 [facility] CHEM PANEL eGFR 80 mL/min/1.73m2 04/18/2017 Result Comment: The eGFR is calculated using the CKD-EPI formula. In most young, healthy individuals the eGFR will be >90 mL/min/1.73m2. The eGFR declines with age. An eGFR of 60-89 may be normal in some populations, particularly the elderly, for whom the CKD-EPI formula has not been extensively validated. Use of the eGFR is not recommended in the following populations: Individuals with unstable creatinine concentrations, including patients and those with serious co-morbid conditions. Patients with extremes in muscle mass or diet. The data above are obtained from the National Kidney Disease Education Program (NKDEP) which additionally recommends that when the eGFR is used in patients with extremes of body mass index for purposes of drug dosing, the eGFR should be multiplied by the estimated BMI. [facility] CHEM PANEL AGAP 11.3 meq/L 10.0 - 20.0 04/18/2017 [facility] CHEM PANEL Calcium Lvl 8.9 mg/dL 8.5 - 10.5 04/18/2017 [facility] CHEM PANEL B/C Ratio 17 6 - 25 04/18/2017 [facility] CHEM PANEL CO2 25 meq/L 24 - 32 04/18/2017 [facility] CHEM PANEL Sodium Lvl 138 meq/L 135 - 145 04/18/2017 [facility] CHEM PANEL Potassium Lvl 4.3 meq/L 3.5 - 5.1 04/18/2017 [facility] CHEM PANEL Chloride Lvl 106 meq/L 95 - 109 04/18/2017 [facility] CHEM PANEL BUN 16 mg/dL 7 - 22 04/18/2017 [facility] CHEM PANEL Creatinine Lvl 0.92 mg/dL 0.50 - 1.40 04/18/2017 [facility] CHEM PANEL Glucose Lvl 117 mg/dL 70 - 99 04/18/2017 [facility] CHEM PANEL AST 18 unit/L 0 - 37 04/18/2017 [facility] CHEM PANEL Alk Phos 78 unit/L 39 - 136 04/18/2017 [facility] CHEM PANEL Bili Total 0.4 mg/dL 0.2 - 1.3 04/18/2017 [facility] CHEM PANEL A/G Ratio 0.7 0.7 - 1.6 04/18/2017 [facility] CHEM PANEL ALT 16 unit/L 0 - 65 04/18/2017 [facility] CHEM PANEL Total Protein 6.1 g/dL 6.4 - 8.4 04/18/2017 [facility] CHEM PANEL Albumin Lvl 2.5 g/dL 3.5 - 5.0 04/18/2017 [facility] CHEM PANEL Globulin 3.6 g/dL 2.7 - 4.2 04/18/2017 [facility] HEMATOLOGY Segs 73.4 % 45.0 - 75.0 04/18/2017 [facility] HEMATOLOGY Lymphocytes 14.5 % 20.0 - 40.0 04/18/2017 [facility] HEMATOLOGY Basophils # 0.1 K/CMM 0.0 - 0.2 04/18/2017 [facility] HEMATOLOGY Eosinophils 2.1 % 0.0 - 4.0 04/18/2017 [facility] HEMATOLOGY Monocytes 9.0 % 2.0 - 12.0 04/18/2017 [facility] HEMATOLOGY Lymphocytes # 1.2 K/CMM 1.0 - 5.5 04/18/2017 [facility] HEMATOLOGY Basophils 1.0 % 0.0 - 1.0 04/18/2017 [facility] HEMATOLOGY Segs-Bands # 5.9 K/CMM 1.5 - 8.1 04/18/2017 [facility] HEMATOLOGY Eosinophils # 0.2 K/CMM 0.0 - 0.5 04/18/2017 [facility] HEMATOLOGY Monocytes # 0.7 K/CMM 0.0 - 0.8 04/18/2017 [facility] HEMATOLOGY RBC 3.67 M/CMM 4.70 - 6.10 04/18/2017 [facility] HEMATOLOGY WBC 8.0 K/CMM 3.7 - 10.4 04/18/2017 [facility] HEMATOLOGY Platelet 165 K/CMM 133 - 450 04/18/2017 [facility] HEMATOLOGY MPV 8.4 fL 7.4 - 10.4 04/18/2017 [facility] HEMATOLOGY Hgb 12.0 g/dL 14.0 - 18.0 04/18/2017 [facility] HEMATOLOGY Hct 35.3 % 42.0 - 54.0 04/18/2017 [facility] HEMATOLOGY MCH 32.8 pg 27.0 - 31.0 04/18/2017 [facility] HEMATOLOGY MCV 96.1 fL 80.0 - 94.0 04/18/2017 [facility] HEMATOLOGY MCHC 34.1 g/dL 32.0 - 36.0 04/18/2017 [facility] HEMATOLOGY RDW 13.8 % 11.5 - 14.5 04/18/2017 [facility] HEMATOLOGY PTT 35.3 s 22.9 - 35.8 04/18/2017 [facility] HEMATOLOGY INR 1.52 0.85 - 1.17 04/18/2017 [facility] HEMATOLOGY PT 18.6 s 12.0 - 14.7 04/18/2017 [facility] PARATHYROID PROFILE Ca Norm WB 1.06 mMol/L 1.05 - 1.25 04/18/2017 [facility] PARATHYROID PROFILE Ca Ion WB 1.02 mMol/L 1.05 - 1.25 04/18/2017 [facility] Chest 1view DX Chest 1view DX EXAM: XR CHEST 1 VIEW DATE: 04/18/2017 3:00 AM CDT INDICATION: Shortness of Breath - pneumonia psuedomonal. FINDINGS: Comparison is made to April 16. The cardiomediastinal silhouette is stable with TAVR in place. A 3-lead left subclavian ICD is stable. Plates and screws transfix the right clavicle. A moderate right pleural effusion has increased. Since the right middle and right lower lobes are obscured, underlying atelectasis and/or pneumonia cannot be excluded. IMPRESSION: 1. A moderate right pleural effusion has increased. 2. The right middle and lower lobes are scattered by the right pleural effusion; therefore, underlying atelectasis and/or pneumonia cannot be excluded. 04/18/2017 - - Read by: Tomeka Betancourt MD Dictated Date/time: 04/18/17 09:59 Electronically Signed by: Tomeka Betancourt MD 04/18/17 10:00 FINAL REPORT [facility] CHEM PANEL Procalcitonin Lvl null 0.00 - 0.10 04/17/2017 [facility] CHEM PANEL Phosphorus 4.0 mg/dL 2.5 - 4.5 04/17/2017 [facility] CHEM PANEL Magnesium Lvl 2.1 mg/dL 1.8 - 2.4 04/17/2017 [facility] ELECTROLYTES Chloride Lvl 105 meq/L 95 - 109 04/17/2017 [facility] ELECTROLYTES Calcium Lvl 9.1 mg/dL 8.5 - 10.5 04/17/2017 [facility] ELECTROLYTES Potassium Lvl 4.1 meq/L 3.5 - 5.1 04/17/2017 [facility] ELECTROLYTES Creatinine Lvl 0.90 mg/dL 0.50 - 1.40 04/17/2017 [facility] ELECTROLYTES CO2 32 meq/L 24 - 32 04/17/2017 [facility] ELECTROLYTES Sodium Lvl 139 meq/L 135 - 145 04/17/2017 [facility] ELECTROLYTES eGFR 82 mL/min/1.73m2 04/17/2017 Result Comment: The eGFR is calculated using the CKD-EPI formula. In most young, healthy individuals the eGFR will be >90 mL/min/1.73m2. The eGFR declines with age. An eGFR of 60-89 may be normal in some populations, particularly the elderly, for whom the CKD-EPI formula has not been extensively validated. Use of the eGFR is not recommended in the following populations: Individuals with unstable creatinine concentrations, including patients and those with serious co-morbid conditions. Patients with extremes in muscle mass or diet. The data above are obtained from the National Kidney Disease Education Program (NKDEP) which additionally recommends that when the eGFR is used in patients with extremes of body mass index for purposes of drug dosing, the eGFR should be multiplied by the estimated BMI. [facility] ELECTROLYTES AGAP 6.1 meq/L 10.0 - 20.0 04/17/2017 [facility] ELECTROLYTES BUN 18 mg/dL 7 - 22 04/17/2017 [facility] ELECTROLYTES Glucose Lvl 88 mg/dL 70 - 99 04/17/2017 [facility] HEMATOLOGY PT 13.5 s 12.0 - 14.7 04/17/2017 [facility] HEMATOLOGY PTT 30.4 s 22.9 - 35.8 04/17/2017 [facility] HEMATOLOGY INR 1.01 0.85 - 1.17 04/17/2017 [facility] HEMATOLOGY MPV 8.3 fL 7.4 - 10.4 04/17/2017 [facility] HEMATOLOGY RDW 13.8 % 11.5 - 14.5 04/17/2017 [facility] HEMATOLOGY Platelet 184 K/CMM 133 - 450 04/17/2017 [facility] HEMATOLOGY MCV 96.5 fL 80.0 - 94.0 04/17/2017 [facility] HEMATOLOGY MCH 32.3 pg 27.0 - 31.0 04/17/2017 [facility] HEMATOLOGY MCHC 33.5 g/dL 32.0 - 36.0 04/17/2017 [facility] HEMATOLOGY Hgb 11.8 g/dL 14.0 - 18.0 04/17/2017 [facility] HEMATOLOGY Hct 35.1 % 42.0 - 54.0 04/17/2017 [facility] HEMATOLOGY WBC 7.9 K/CMM 3.7 - 10.4 04/17/2017 [facility] HEMATOLOGY RBC 3.64 M/CMM 4.70 - 6.10 04/17/2017 [facility] HEMATOLOGY Monocytes 10.3 % 2.0 - 12.0 04/17/2017 [facility] HEMATOLOGY Lymphocytes 12.6 % 20.0 - 40.0 04/17/2017 [facility] HEMATOLOGY Segs 73.2 % 45.0 - 75.0 04/17/2017 [facility] HEMATOLOGY Lymphocytes # 1.0 K/CMM 1.0 - 5.5 04/17/2017 [facility] HEMATOLOGY Monocytes # 0.8 K/CMM 0.0 - 0.8 04/17/2017 [facility] HEMATOLOGY Eosinophils # 0.2 K/CMM 0.0 - 0.5 04/17/2017 [facility] HEMATOLOGY Eosinophils 2.6 % 0.0 - 4.0 04/17/2017 [facility] HEMATOLOGY Basophils 1.3 % 0.0 - 1.0 04/17/2017 [facility] HEMATOLOGY Segs-Bands # 5.7 K/CMM 1.5 - 8.1 04/17/2017 [facility] HEMATOLOGY Basophils # 0.1 K/CMM 0.0 - 0.2 04/17/2017 [facility] CHEM PANEL Magnesium Lvl 1.5 mg/dL 1.8 - 2.4 04/16/2017 [facility] CHEM PANEL Phosphorus 3.9 mg/dL 2.5 - 4.5 04/16/2017 [facility] ELECTROLYTES AGAP 7.8 meq/L 10.0 - 20.0 04/16/2017 [facility] ELECTROLYTES Calcium Lvl 8.4 mg/dL 8.5 - 10.5 04/16/2017 [facility] ELECTROLYTES Chloride Lvl 107 meq/L 95 - 109 04/16/2017 [facility] ELECTROLYTES Creatinine Lvl 0.84 mg/dL 0.50 - 1.40 04/16/2017 [facility] ELECTROLYTES Sodium Lvl 140 meq/L 135 - 145 04/16/2017 [facility] ELECTROLYTES BUN 15 mg/dL 7 - 22 04/16/2017 [facility] ELECTROLYTES Glucose Lvl 91 mg/dL 70 - 99 04/16/2017 [facility] ELECTROLYTES Potassium Lvl 3.8 meq/L 3.5 - 5.1 04/16/2017 [facility] ELECTROLYTES CO2 29 meq/L 24 - 32 04/16/2017 [facility] ELECTROLYTES eGFR 84 mL/min/1.73m2 04/16/2017 Result Comment: The eGFR is calculated using the CKD-EPI formula. In most young, healthy individuals the eGFR will be >90 mL/min/1.73m2. The eGFR declines with age. An eGFR of 60-89 may be normal in some populations, particularly the elderly, for whom the CKD-EPI formula has not been extensively validated. Use of the eGFR is not recommended in the following populations: Individuals with unstable creatinine concentrations, including patients and those with serious co-morbid conditions. Patients with extremes in muscle mass or diet. The data above are obtained from the National Kidney Disease Education Program (NKDEP) which additionally recommends that when the eGFR is used in patients with extremes of body mass index for purposes of drug dosing, the eGFR should be multiplied by the estimated BMI. [facility] HEMATOLOGY PTT 35.4 s 22.9 - 35.8 04/16/2017 [facility] HEMATOLOGY PT 13.9 s 12.0 - 14.7 04/16/2017 [facility] HEMATOLOGY INR 1.05 0.85 - 1.17 04/16/2017 [facility] HEMATOLOGY Monocytes # 0.4 K/CMM 0.0 - 0.8 04/16/2017 [facility] HEMATOLOGY Basophils # 0.1 K/CMM 0.0 - 0.2 04/16/2017 [facility] HEMATOLOGY Eosinophils # 0.2 K/CMM 0.0 - 0.5 04/16/2017 [facility] HEMATOLOGY Lymphocytes # 0.8 K/CMM 1.0 - 5.5 04/16/2017 [facility] HEMATOLOGY Segs-Bands # 4.9 K/CMM 1.5 - 8.1 04/16/2017 [facility] HEMATOLOGY Basophils 1.2 % 0.0 - 1.0 04/16/2017 [facility] HEMATOLOGY Eosinophils 3.7 % 0.0 - 4.0 04/16/2017 [facility] HEMATOLOGY Monocytes 6.6 % 2.0 - 12.0 04/16/2017 [facility] HEMATOLOGY Lymphocytes 12.7 % 20.0 - 40.0 04/16/2017 [facility] HEMATOLOGY Segs 75.8 % 45.0 - 75.0 04/16/2017 [facility] HEMATOLOGY MPV 8.4 fL 7.4 - 10.4 04/16/2017 [facility] HEMATOLOGY Platelet 177 K/CMM 133 - 450 04/16/2017 [facility] HEMATOLOGY MCV 95.3 fL 80.0 - 94.0 04/16/2017 [facility] HEMATOLOGY RDW 14.0 % 11.5 - 14.5 04/16/2017 [facility] HEMATOLOGY MCHC 34.5 g/dL 32.0 - 36.0 04/16/2017 [facility] HEMATOLOGY MCH 32.9 pg 27.0 - 31.0 04/16/2017 [facility] HEMATOLOGY RBC 3.39 M/CMM 4.70 - 6.10 04/16/2017 [facility] HEMATOLOGY WBC 6.4 K/CMM 3.7 - 10.4 04/16/2017 [facility] HEMATOLOGY Hct 32.3 % 42.0 - 54.0 04/16/2017 [facility] HEMATOLOGY Hgb 11.1 g/dL 14.0 - 18.0 04/16/2017 [facility] PARATHYROID PROFILE Ca Ion WB 1.13 mMol/L 1.05 - 1.25 04/16/2017 [facility] PARATHYROID PROFILE Ca Norm WB 1.11 mMol/L 1.05 - 1.25 04/16/2017 [facility] Chest 1view DX Chest 1view DX EXAM: XR CHEST 1 VIEW DATE: 04/16/2017 10:31 AM CDT INDICATION: Arrhythmias - s/p TAVR. FINDINGS: Comparison is made to April 10. There is a new TAVR in place. The cardiomediastinal silhouette is otherwise stable with aortic calcification. A 3-lead left subclavian ICD remains in place. There is new perivascular blurring and interstitial prominence throughout the lungs consistent with interstitial pulmonary edema. There is a right retrocardiac opacity which may be due to a layering right pleural effusion and/or airspace opacity such as pneumonia or atelectasis. A right pleural effusion obscures the right base and layers posteriorly. Plates and screws transfix the right clavicle. IMPRESSION: 1. New interstitial pulmonary edema. 2. There is a right retrocardiac opacity which may be due to a layering right pleural effusion and/or airspace opacity such as pneumonia or atelectasis. 3. A right pleural effusion layers posteriorly. 04/16/2017 - - Read by: Tomeka Betancourt MD Dictated Date/time: 04/16/17 13:15 Electronically Signed by: Tomeka Betancourt MD 04/16/17 13:16 FINAL REPORT [facility] BLOOD BANK RESULTS Antibody Scrn Negative (04/16/17 5:48 AM) 04/16/2017 [facility] BLOOD BANK RESULTS ABO/Rh A POS 04/16/2017 [facility] CHEM PANEL B/C Ratio 19 6 - 25 04/16/2017 [facility] CHEM PANEL Globulin 3.7 g/dL 2.7 - 4.2 04/16/2017 [facility] CHEM PANEL A/G Ratio 0.8 0.7 - 1.6 04/16/2017 [facility] CHEM PANEL AST 20 unit/L 0 - 37 04/16/2017 [facility] CHEM PANEL Total Protein 6.8 g/dL 6.4 - 8.4 04/16/2017 [facility] CHEM PANEL Alk Phos 76 unit/L 39 - 136 04/16/2017 [facility] CHEM PANEL Bili Total 0.6 mg/dL 0.2 - 1.3 04/16/2017 [facility] CHEM PANEL Albumin Lvl 3.1 g/dL 3.5 - 5.0 04/16/2017 [facility] CHEM PANEL ALT 24 unit/L 0 - 65 04/16/2017 [facility] BLOOD BANK RESULTS FFP product Product available (04/16/17 5:46 AM) 04/16/2017 [facility] BLOOD BANK RESULTS RBC product Product available (04/16/17 5:46 AM) 04/16/2017 [facility] HEMATOLOGY PT 15.9 s 12.0 - 14.7 04/11/2017 [facility] HEMATOLOGY PTT 72.4 s 22.9 - 35.8 04/11/2017 [facility] HEMATOLOGY INR 1.24 0.85 - 1.17 04/11/2017 [facility] CHEM PANEL eGFR 82 mL/min/1.73m2 04/11/2017 Result Comment: The eGFR is calculated using the CKD-EPI formula. In most young, healthy individuals the eGFR will be >90 mL/min/1.73m2. The eGFR declines with age. An eGFR of 60-89 may be normal in some populations, particularly the elderly, for whom the CKD-EPI formula has not been extensively validated. Use of the eGFR is not recommended in the following populations: Individuals with unstable creatinine concentrations, including patients and those with serious co-morbid conditions. Patients with extremes in muscle mass or diet. The data above are obtained from the National Kidney Disease Education Program (NKDEP) which additionally recommends that when the eGFR is used in patients with extremes of body mass index for purposes of drug dosing, the eGFR should be multiplied by the estimated BMI. [facility] CHEM PANEL Potassium Lvl 4.2 meq/L 3.5 - 5.1 04/11/2017 [facility] CHEM PANEL CO2 31 meq/L 24 - 32 04/11/2017 [facility] CHEM PANEL Chloride Lvl 104 meq/L 95 - 109 04/11/2017 [facility] CHEM PANEL Sodium Lvl 142 meq/L 135 - 145 04/11/2017 [facility] CHEM PANEL Creatinine Lvl 0.88 mg/dL 0.50 - 1.40 04/11/2017 [facility] CHEM PANEL Calcium Lvl 8.5 mg/dL 8.5 - 10.5 04/11/2017 [facility] CHEM PANEL Glucose Lvl 76 mg/dL 70 - 99 04/11/2017 [facility] [facility] CHEM PANEL BUN 25 mg/dL 7 - 22 04/11/2017 [facility] CHEM PANEL AGAP 11.2 meq/L 10.0 - 20.0 04/11/2017 [facility] CHEM PANEL Phosphorus 4.0 mg/dL 2.5 - 4.5 04/11/2017 [facility] CHEM PANEL Magnesium Lvl 1.9 mg/dL 1.8 - 2.4 04/11/2017 [facility] HEMATOLOGY MPV 8.5 fL 7.4 - 10.4 04/11/2017 [facility] HEMATOLOGY RDW 13.8 % 11.5 - 14.5 04/11/2017 [facility] HEMATOLOGY MCHC 33.5 g/dL 32.0 - 36.0 04/11/2017 [facility] HEMATOLOGY Platelet 200 K/CMM 133 - 450 04/11/2017 [facility] HEMATOLOGY MCH 32.2 pg 27.0 - 31.0 04/11/2017 [facility] HEMATOLOGY MCV 96.0 fL 80.0 - 94.0 04/11/2017 [facility] HEMATOLOGY RBC 3.84 M/CMM 4.70 - 6.10 04/11/2017 [facility] HEMATOLOGY Hct 36.9 % 42.0 - 54.0 04/11/2017 [facility] HEMATOLOGY Hgb 12.4 g/dL 14.0 - 18.0 04/11/2017 [facility] HEMATOLOGY WBC 6.9 K/CMM 3.7 - 10.4 04/11/2017 [facility] HEMATOLOGY PT 16.8 s 12.0 - 14.7 04/11/2017 [facility] HEMATOLOGY PTT 63.6 s 22.9 - 35.8 04/11/2017 [facility] HEMATOLOGY INR 1.34 0.85 - 1.17 04/11/2017 [facility] HEMATOLOGY Eosinophils # 0.2 K/CMM 0.0 - 0.5 04/11/2017 [facility] HEMATOLOGY Basophils # 0.1 K/CMM 0.0 - 0.2 04/11/2017 [facility] HEMATOLOGY Monocytes # 0.6 K/CMM 0.0 - 0.8 04/11/2017 [facility] HEMATOLOGY Basophils 1.1 % 0.0 - 1.0 04/11/2017 [facility] HEMATOLOGY Eosinophils 3.4 % 0.0 - 4.0 04/11/2017 [facility] HEMATOLOGY Lymphocytes # 1.3 K/CMM 1.0 - 5.5 04/11/2017 [facility] HEMATOLOGY Segs-Bands # 4.6 K/CMM 1.5 - 8.1 04/11/2017 [facility] HEMATOLOGY Monocytes 9.4 % 2.0 - 12.0 04/11/2017 [facility] HEMATOLOGY Lymphocytes 18.6 % 20.0 - 40.0 04/11/2017 [facility] HEMATOLOGY Segs 67.5 % 45.0 - 75.0 04/11/2017 [facility] HEMATOLOGY Monocytes # 0.8 K/CMM 0.0 - 0.8 04/11/2017 [facility] HEMATOLOGY Eosinophils # 0.2 K/CMM 0.0 - 0.5 04/11/2017 [facility] HEMATOLOGY Basophils # 0.1 K/CMM 0.0 - 0.2 04/11/2017 [facility] HEMATOLOGY Monocytes 8.1 % 2.0 - 12.0 04/11/2017 [facility] HEMATOLOGY Eosinophils 2.0 % 0.0 - 4.0 04/11/2017 [facility] HEMATOLOGY Basophils 0.9 % 0.0 - 1.0 04/11/2017 [facility] HEMATOLOGY Segs-Bands # 7.3 K/CMM 1.5 - 8.1 04/11/2017 [facility] HEMATOLOGY Lymphocytes # 1.5 K/CMM 1.0 - 5.5 04/11/2017 [facility] HEMATOLOGY Segs 74.2 % 45.0 - 75.0 04/11/2017 [facility] HEMATOLOGY Lymphocytes 14.8 % 20.0 - 40.0 04/11/2017 [facility] HEMATOLOGY MPV 8.6 fL 7.4 - 10.4 04/11/2017 [facility] HEMATOLOGY Platelet 216 K/CMM 133 - 450 04/11/2017 [facility] HEMATOLOGY MCV 96.5 fL 80.0 - 94.0 04/11/2017 [facility] HEMATOLOGY Hct 38.9 % 42.0 - 54.0 04/11/2017 [facility] HEMATOLOGY MCH 33.0 pg 27.0 - 31.0 04/11/2017 [facility] HEMATOLOGY Hgb 13.3 g/dL 14.0 - 18.0 04/11/2017 [facility] HEMATOLOGY RBC 4.03 M/CMM 4.70 - 6.10 04/11/2017 [facility] HEMATOLOGY WBC 9.9 K/CMM 3.7 - 10.4 04/11/2017 [facility] HEMATOLOGY RDW 14.0 % 11.5 - 14.5 04/11/2017 [facility] HEMATOLOGY MCHC 34.2 g/dL 32.0 - 36.0 04/11/2017 [facility] HEMATOLOGY PTT 30.7 s 22.9 - 35.8 04/11/2017 [facility] HEMATOLOGY INR 1.39 0.85 - 1.17 04/11/2017 [facility] HEMATOLOGY PT 17.3 s 12.0 - 14.7 04/11/2017 [facility] CHEM PANEL Total Protein 6.9 g/dL 6.4 - 8.4 04/10/2017 [facility] CHEM PANEL LDH 411 unit/L 98 - 192 04/10/2017 [facility] CHEM PANEL Glucose Lvl 78 mg/dL 70 - 99 04/10/2017 [facility] BODY FLUIDS Prot BF Type Pleural *NA* (04/10/17 4:29 PM) 04/10/2017 [facility] BODY FLUIDS Protein BF 3.0 g/dL 04/10/2017 [facility] BODY FLUIDS LDH BF Type Pleural *NA* (04/10/17 4:29 PM) 04/10/2017 [facility] BODY FLUIDS LDH BF 98 unit/L 04/10/2017 [facility] BODY FLUIDS Gluc BF Type Pleural *NA* (04/10/17 4:29 PM) 04/10/2017 [facility] BODY FLUIDS Glucose BF 100 mg/dL 04/10/2017 [facility] BODY FLUIDS CellCnt BF Type Pleural (04/10/17 4:29 PM) 04/10/2017 [facility] BODY FLUIDS Meso BF Occasional (04/10/17 4:29 PM) 04/10/2017 [facility] BODY FLUIDS Segs BF 29 % 04/10/2017 [facility] BODY FLUIDS Macrophage BF 42 % 04/10/2017 [facility] BODY FLUIDS Lymph BF 29 % 04/10/2017 [facility] BODY FLUIDS RBC BF 133 /mm3 04/10/2017 [facility] BODY FLUIDS Clarity BF Slight Cloudy (04/10/17 4:29 PM) Clear 04/10/2017 [facility] BODY FLUIDS Color BF Yellow (04/10/17 4:29 PM) Colorless 04/10/2017 [facility] BODY FLUIDS WBC BF 138 /mm3 04/10/2017 [facility] BODY FLUIDS pH BF Type Pleural (04/10/17 4:29 PM) 04/10/2017 [facility] BODY FLUIDS pH BF 8.00 04/10/2017 [facility] Chest 1view DX Chest 1view DX EXAM: XR CHEST 1 VIEW DATE: 04/10/2017 4:51 PM CDT INDICATION: pleural effusion - s/p right thoracentesis COMPARISON: 04/09/2017 TECHNIQUE: AP chest, right. FINDINGS: Lines and tubes, and life support devices: Unchanged. Lungs and pleura: Persisting bilateral pleural effusions, right more than left. Right basilar opacity is unchanged. No new pulmonary or pleural based abnormality is identified. Heart and mediastinum: Unchanged. Bones and soft tissues: Unchanged. IMPRESSION: Slight interval improvement in the right pleural effusion. Otherwise, no significant interval change. 04/10/2017 - - Read by: Joby Croft Dictated Date/time: 04/11/17 05:30 Electronically Signed by: Joby Croft 04/11/17 05:32 FINAL REPORT [facility] CHEM PANEL Phosphorus 3.4 mg/dL 2.5 - 4.5 04/10/2017 [facility] CHEM PANEL Magnesium Lvl 2.1 mg/dL 1.8 - 2.4 04/10/2017 [facility] ELECTROLYTES AGAP 9.3 meq/L 10.0 - 20.0 04/10/2017 [facility] ELECTROLYTES eGFR 80 mL/min/1.73m2 04/10/2017 Result Comment: The eGFR is calculated using the CKD-EPI formula. In most young, healthy individuals the eGFR will be >90 mL/min/1.73m2. The eGFR declines with age. An eGFR of 60-89 may be normal in some populations, particularly the elderly, for whom the CKD-EPI formula has not been extensively validated. Use of the eGFR is not recommended in the following populations: Individuals with unstable creatinine concentrations, including patients and those with serious co-morbid conditions. Patients with extremes in muscle mass or diet. The data above are obtained from the National Kidney Disease Education Program (NKDEP) which additionally recommends that when the eGFR is used in patients with extremes of body mass index for purposes of drug dosing, the eGFR should be multiplied by the estimated BMI. [facility] ELECTROLYTES CO2 34 meq/L 24 - 32 04/10/2017 [facility] ELECTROLYTES Calcium Lvl 8.8 mg/dL 8.5 - 10.5 04/10/2017 [facility] ELECTROLYTES BUN 29 mg/dL 7 - 22 04/10/2017 [facility] ELECTROLYTES Sodium Lvl 143 meq/L 135 - 145 04/10/2017 [facility] ELECTROLYTES Creatinine Lvl 0.91 mg/dL 0.50 - 1.40 04/10/2017 [facility] ELECTROLYTES Potassium Lvl 4.3 meq/L 3.5 - 5.1 04/10/2017 [facility] ELECTROLYTES Chloride Lvl 104 meq/L 95 - 109 04/10/2017 [facility] ELECTROLYTES Glucose Lvl 81 mg/dL 70 - 99 04/10/2017 [facility] HEMATOLOGY MPV 8.2 fL 7.4 - 10.4 04/10/2017 [facility] HEMATOLOGY RBC 3.80 M/CMM 4.70 - 6.10 04/10/2017 [facility] HEMATOLOGY WBC 9.4 K/CMM 3.7 - 10.4 04/10/2017 [facility] HEMATOLOGY MCV 95.6 fL 80.0 - 94.0 04/10/2017 [facility] HEMATOLOGY Hct 36.4 % 42.0 - 54.0 04/10/2017 [facility] HEMATOLOGY Hgb 12.3 g/dL 14.0 - 18.0 04/10/2017 [facility] HEMATOLOGY RDW 14.4 % 11.5 - 14.5 04/10/2017 [facility] HEMATOLOGY MCHC 33.8 g/dL 32.0 - 36.0 04/10/2017 [facility] HEMATOLOGY MCH 32.4 pg 27.0 - 31.0 04/10/2017 [facility] HEMATOLOGY Platelet 210 K/CMM 133 - 450 04/10/2017 [facility] HEMATOLOGY Monocytes # 0.7 K/CMM 0.0 - 0.8 04/10/2017 [facility] HEMATOLOGY Eosinophils # 0.1 K/CMM 0.0 - 0.5 04/10/2017 [facility] HEMATOLOGY Segs-Bands # 7.2 K/CMM 1.5 - 8.1 04/10/2017 [facility] HEMATOLOGY Lymphocytes # 1.3 K/CMM 1.0 - 5.5 04/10/2017 [facility] HEMATOLOGY Eosinophils 0.9 % 0.0 - 4.0 04/10/2017 [facility] HEMATOLOGY Basophils 0.3 % 0.0 - 1.0 04/10/2017 [facility] HEMATOLOGY Monocytes 7.6 % 2.0 - 12.0 04/10/2017 [facility] HEMATOLOGY Lymphocytes 14.2 % 20.0 - 40.0 04/10/2017 [facility] HEMATOLOGY Segs 77.0 % 45.0 - 75.0 04/10/2017 [facility] CHEM PANEL Procalcitonin Lvl <0.05 ng/mL 0.00 - 0.10 04/10/2017 [facility] CHEM PANEL eGFR 71 mL/min/1.73m2 04/09/2017 Result Comment: The eGFR is calculated using the CKD-EPI formula. In most young, healthy individuals the eGFR will be >90 mL/min/1.73m2. The eGFR declines with age. An eGFR of 60-89 may be normal in some populations, particularly the elderly, for whom the CKD-EPI formula has not been extensively validated. Use of the eGFR is not recommended in the following populations: Individuals with unstable creatinine concentrations, including patients and those with serious co-morbid conditions. Patients with extremes in muscle mass or diet. The data above are obtained from the National Kidney Disease Education Program (NKDEP) which additionally recommends that when the eGFR is used in patients with extremes of body mass index for purposes of drug dosing, the eGFR should be multiplied by the estimated BMI. [facility] CHEM PANEL Chloride Lvl 101 meq/L 95 - 109 04/09/2017 [facility] CHEM PANEL Potassium Lvl 4.1 meq/L 3.5 - 5.1 04/09/2017 [facility] CHEM PANEL ALT 20 unit/L 0 - 65 04/09/2017 [facility] CHEM PANEL AST 15 unit/L 0 - 37 04/09/2017 [facility] CHEM PANEL Bili Total 0.5 mg/dL 0.2 - 1.3 04/09/2017 [facility] CHEM PANEL Alk Phos 79 unit/L 39 - 136 04/09/2017 [facility] CHEM PANEL B/C Ratio 29 6 - 25 04/09/2017 [facility] CHEM PANEL Calcium Lvl 9.0 mg/dL 8.5 - 10.5 04/09/2017 [facility] CHEM PANEL Total Protein 6.6 g/dL 6.4 - 8.4 04/09/2017 [facility] CHEM PANEL A/G Ratio 0.7 0.7 - 1.6 04/09/2017 [facility] CHEM PANEL Albumin Lvl 2.8 g/dL 3.5 - 5.0 04/09/2017 [facility] CHEM PANEL Globulin 3.8 g/dL 2.7 - 4.2 04/09/2017 [facility] CHEM PANEL Creatinine Lvl 1.01 mg/dL 0.50 - 1.40 04/09/2017 [facility] CHEM PANEL AGAP 10.1 meq/L 10.0 - 20.0 04/09/2017 [facility] CHEM PANEL Sodium Lvl 138 meq/L 135 - 145 04/09/2017 [facility] CHEM PANEL CO2 31 meq/L 24 - 32 04/09/2017 [facility] CHEM PANEL BUN 29 mg/dL 7 - 22 04/09/2017 [facility] HEMATOLOGY Basophils # 0.1 K/CMM 0.0 - 0.2 04/09/2017 [facility] HEMATOLOGY Toxic Gran slight 04/09/2017 [facility] HEMATOLOGY Anisocyte 1+ *ABN* (04/09/17 12:03 AM) None Seen 04/09/2017 [facility] LIPIDS LDL (Calculated) 73 mg/dL <=99 mg/dL 04/09/2017 [facility] LIPIDS VLDL 12 04/09/2017 [facility] LIPIDS Trig 58 mg/dL <=149 mg/dL 04/09/2017 [facility] LIPIDS HDL 74 mg/dL >=61 mg/dL 04/09/2017 [facility] LIPIDS Chol 159 mg/dL <=199 mg/dL 04/09/2017 [facility] LIPIDS CHD Risk 2.15 4.00 - 7.30 04/09/2017 [facility] Chest 2 views DX Chest 2 views DX EXAM: XR CHEST 2 VIEWS DATE: 04/09/2017 3:00 AM CDT INDICATION: - Eval for pleural effusion COMPARISON: Chest x-ray from 04/07/[address] chest on pelvis from 04/01/2017. TECHNIQUE: PA and lateral chest radiographs FINDINGS: Lines, tubes and hardware: Right clavicular hardware is present. There is a left-sided AICD with leads extending into the right ventricle. Lungs and pleura: There is a large right pleural effusion with adjacent opacities which may represent atelectasis or infection. There is a small left pleural effusion. Pulmonary vascularity is normal. Heart and mediastinum: Aortic atherosclerosis is seen. The mediastinal contours are normal. Bones: No acute bony abnormality is identified. IMPRESSION: 1. Stable moderate sized right-sided pleural effusion with adjacent opacities which may represent atelectasis or infection. 2. Stable sized small left pleural effusion. 04/09/2017 - - This report was dictated by a Golf Course Mechanic/Fellow. I have personally reviewed the images as well as the Resident's interpretation and agree with the findings. Read by: Davin Mccormick MD Resident: Davin Mccormick MD Dictated Date/time: 04/09/17 08:30 Electronically Signed by: Hao Lombardi MD 04/09/17 11:58 FINAL REPORT [facility] CHEM PANEL Glucose Lvl 123 mg/dL 70 - 99 04/08/2017 [facility] CHEM PANEL Total Protein 6.2 g/dL 6.4 - 8.4 04/08/2017 [facility] CHEM PANEL LDH 242 unit/L 98 - 192 04/08/2017 [facility] CHEM PANEL eGFR 82 mL/min/1.73m2 04/08/2017 Result Comment: The eGFR is calculated using the CKD-EPI formula. In most young, healthy individuals the eGFR will be >90 mL/min/1.73m2. The eGFR declines with age. An eGFR of 60-89 may be normal in some populations, particularly the elderly, for whom the CKD-EPI formula has not been extensively validated. Use of the eGFR is not recommended in the following populations: Individuals with unstable creatinine concentrations, including patients and those with serious co-morbid conditions. Patients with extremes in muscle mass or diet. The data above are obtained from the National Kidney Disease Education Program (NKDEP) which additionally recommends that when the eGFR is used in patients with extremes of body mass index for purposes of drug dosing, the eGFR should be multiplied by the estimated BMI. [facility] CHEM PANEL Creatinine Lvl 0.90 mg/dL 0.50 - 1.40 04/08/2017 [facility] CHEM PANEL Sodium Lvl 138 meq/L 135 - 145 04/08/2017 [facility] CHEM PANEL Potassium Lvl 4.1 meq/L 3.5 - 5.1 04/08/2017 [facility] CHEM PANEL Chloride Lvl 103 meq/L 95 - 109 04/08/2017 [facility] CHEM PANEL AGAP 7.1 meq/L 10.0 - 20.0 04/08/2017 [facility] CHEM PANEL B/C Ratio 20 6 - 25 04/08/2017 [facility] CHEM PANEL Total Protein 6.0 g/dL 6.4 - 8.4 04/08/2017 [facility] CHEM PANEL CO2 32 meq/L 24 - 32 04/08/2017 [facility] CHEM PANEL Calcium Lvl 8.5 mg/dL 8.5 - 10.5 04/08/2017 [facility] CHEM PANEL AST 13 unit/L 0 - 37 04/08/2017 [facility] CHEM PANEL Albumin Lvl 2.8 g/dL 3.5 - 5.0 04/08/2017 [facility] CHEM PANEL Globulin 3.2 g/dL 2.7 - 4.2 04/08/2017 [facility] CHEM PANEL A/G Ratio 0.9 0.7 - 1.6 04/08/2017 [facility] CHEM PANEL ALT 17 unit/L 0 - 65 04/08/2017 [facility] CHEM PANEL Alk Phos 78 unit/L 39 - 136 04/08/2017 [facility] CHEM PANEL Bili Total 1.1 mg/dL 0.2 - 1.3 04/08/2017 [facility] CHEM PANEL Glucose Lvl 125 mg/dL 70 - 99 04/08/2017 [facility] CHEM PANEL BUN 18 mg/dL 7 - 22 04/08/2017 [facility] HEMATOLOGY Hgb 12.8 g/dL 14.0 - 18.0 04/08/2017 [facility] HEMATOLOGY MCH 32.3 pg 27.0 - 31.0 04/08/2017 [facility] HEMATOLOGY MCV 96.0 fL 80.0 - 94.0 04/08/2017 [facility] HEMATOLOGY Hct 38.2 % 42.0 - 54.0 04/08/2017 [facility] HEMATOLOGY RBC 3.98 M/CMM 4.70 - 6.10 04/08/2017 [facility] HEMATOLOGY WBC 20.6 K/CMM 3.7 - 10.4 04/08/2017 [facility] HEMATOLOGY MPV 8.1 fL 7.4 - 10.4 04/08/2017 [facility] Platelet 221 K/CMM 133 - 450 04/08/2017 [facility] RDW 14.4 % 11.5 - 14.5 04/08/2017 [facility] MCHC 33.6 g/dL 32.0 - 36.0 04/08/2017 [facility] HEMATOLOGY PTT 43.4 s 22.9 - 35.8 04/08/2017 [facility] HEMATOLOGY INR 2.72 0.85 - 1.17 04/08/2017 [facility] HEMATOLOGY PT 29.3 s 12.0 - 14.7 04/08/2017 [facility] HEMATOLOGY Lymphocytes # 0.6 K/CMM 1.0 - 5.5 04/08/2017 [facility] Monocytes # 0.6 K/CMM 0.0 - 0.8 04/08/2017 [facility] HEMATOLOGY Segs 94.3 % 45.0 - 75.0 04/08/2017 [facility] HEMATOLOGY Lymphocytes 2.9 % 20.0 - 40.0 04/08/2017 [facility] HEMATOLOGY Basophils 0.1 % 0.0 - 1.0 04/08/2017 [facility] HEMATOLOGY Segs-Bands # 19.4 K/CMM 1.5 - 8.1 04/08/2017 [facility] HEMATOLOGY Monocytes 2.7 % 2.0 - 12.0 04/08/2017 [facility] CARDIAC ENZYMES Troponin-I 0.08 ng/mL 0.00 - 0.40 04/07/2017 [facility] CARDIAC ENZYMES Troponin-I 0.09 ng/mL 0.00 - 0.40 04/07/2017 [facility] HEMATOLOGY INR 3.13 0.85 - 1.17 04/07/2017 [facility] HEMATOLOGY PT 32.7 s 12.0 - 14.7 04/07/2017 [facility] CHEM PANEL Lactic Acid Lvl 0.9 mMol/L 0.5 - 2.2 04/07/2017 [facility] CARDIAC ENZYMES Total CK 84 unit/L 12 - 191 04/07/2017 [facility] CARDIAC ENZYMES CK MB 2.5 ng/mL 0.5 - 3.6 04/07/2017 [facility] CARDIAC ENZYMES Troponin-I 0.02 ng/mL 0.00 - 0.40 04/07/2017 [facility] CARDIAC ENZYMES BNP 608 pg/mL <=100 pg/mL 04/07/2017 [facility] CARDIAC ENZYMES CK MB Index 3.0 0.0 - 2.5 04/07/2017 [facility] CHEM PANEL eGFR 74 mL/min/1.73m2 04/07/2017 Result Comment: The eGFR is calculated using the CKD-EPI formula. In most young, healthy individuals the eGFR will be >90 mL/min/1.73m2. The eGFR declines with age. An eGFR of 60-89 may be normal in some populations, particularly the elderly, for whom the CKD-EPI formula has not been extensively validated. Use of the eGFR is not recommended in the following populations: Individuals with unstable creatinine concentrations, including patients and those with serious co-morbid conditions. Patients with extremes in muscle mass or diet. The data above are obtained from the National Kidney Disease Education Program (NKDEP) which additionally recommends that when the eGFR is used in patients with extremes of body mass index for purposes of drug dosing, the eGFR should be multiplied by the estimated BMI. [facility] CHEM PANEL Alk Phos 100 unit/L 39 - 136 04/07/2017 [facility] CHEM PANEL Bili Total 0.5 mg/dL 0.2 - 1.3 04/07/2017 [facility] CHEM PANEL AST 18 unit/L 0 - 37 04/07/2017 [facility] CHEM PANEL ALT 22 unit/L 0 - 65 04/07/2017 [facility] CHEM PANEL A/G Ratio 0.8 0.7 - 1.6 04/07/2017 [facility] CHEM PANEL Globulin 4.3 g/dL 2.7 - 4.2 04/07/2017 [facility] CHEM PANEL B/C Ratio 12 6 - 25 04/07/2017 [facility] CHEM PANEL AGAP 8.2 meq/L 10.0 - 20.0 04/07/2017 [facility] CHEM PANEL Sodium Lvl 138 meq/L 135 - 145 04/07/2017 [facility] CHEM PANEL Creatinine Lvl 0.97 mg/dL 0.50 - 1.40 04/07/2017 [facility] CHEM PANEL BUN 12 mg/dL 7 - 22 04/07/2017 [facility] CHEM PANEL Chloride Lvl 104 meq/L 95 - 109 04/07/2017 [facility] CHEM PANEL Total Protein 7.7 g/dL 6.4 - 8.4 04/07/2017 [facility] CHEM PANEL CO2 30 meq/L 24 - 32 04/07/2017 [facility] CHEM PANEL Albumin Lvl 3.4 g/dL 3.5 - 5.0 04/07/2017 [facility] CHEM PANEL Calcium Lvl 9.1 mg/dL 8.5 - 10.5 04/07/2017 [facility] CHEM PANEL Potassium Lvl 4.2 meq/L 3.5 - 5.1 04/07/2017 [facility] CHEM PANEL Glucose Lvl 117 mg/dL 70 - 99 04/07/2017 [facility] HEMATOLOGY MPV 7.9 fL 7.4 - 10.4 04/07/2017 [facility] HEMATOLOGY Platelet 256 K/CMM 133 - 450 04/07/2017 [facility] HEMATOLOGY RDW 14.4 % 11.5 - 14.5 04/07/2017 [facility] HEMATOLOGY MCHC 33.8 g/dL 32.0 - 36.0 04/07/2017 [facility] HEMATOLOGY MCH 32.6 pg 27.0 - 31.0 04/07/2017 [facility] HEMATOLOGY MCV 96.5 fL 80.0 - 94.0 04/07/2017 [facility] HEMATOLOGY Hct 41.8 % 42.0 - 54.0 04/07/2017 [facility] HEMATOLOGY Hgb 14.1 g/dL 14.0 - 18.0 04/07/2017 [facility] HEMATOLOGY RBC 4.33 M/CMM 4.70 - 6.10 04/07/2017 [facility] HEMATOLOGY WBC 11.9 K/CMM 3.7 - 10.4 04/07/2017 [facility] HEMATOLOGY PTT 46.2 s 22.9 - 35.8 04/07/2017 [facility] HEMATOLOGY PT 30.2 s 12.0 - 14.7 04/07/2017 [facility] HEMATOLOGY INR 2.83 0.85 - 1.17 04/07/2017 [facility] HEMATOLOGY Eosinophils 2.3 % 0.0 - 4.0 04/07/2017 [facility] HEMATOLOGY Monocytes 7.0 % 2.0 - 12.0 04/07/2017 [facility] Lymphocytes 23.0 % 20.0 - 40.0 04/07/2017 [facility] HEMATOLOGY Segs 66.6 % 45.0 - 75.0 04/07/2017 [facility] Basophils # 0.1 K/CMM 0.0 - 0.2 04/07/2017 [facility] Monocytes # 0.8 K/CMM 0.0 - 0.8 04/07/2017 [facility] Lymphocytes # 2.8 K/CMM 1.0 - 5.5 04/07/2017 [facility] Eosinophils # 0.3 K/CMM 0.0 - 0.5 04/07/2017 [facility] Segs-Bands # 8.0 K/CMM 1.5 - 8.1 04/07/2017 [facility] Basophils 1.1 % 0.0 - 1.0 04/07/2017 [facility] Chest 1view DX Chest 1view DX Clinical Indication: Respiratory distress. Comparison: Chest radiograph 12/17/2016 FINDINGS: Single frontal chest radiograph submitted. Cardiac silhouette mildly enlarged. Tortuous aorta. Left-sided automatic implantable cardiac defibrillator with leads extending into the heart. Moderate left mid to lower lung opacities increased since the prior study. Blunting of the left costophrenic angle. Mild pulmonary vascular congestion. Postsurgical changes with metallic hardware overlying the right clavicle. Degenerative changes within the spine visualized spine. IMPRESSION: Right mid to lower lung opacities, which represent consolidation, atelectasis and/or effusion. Mild pulmonary vascular congestion. SL: KPATEL-M 04/07/2017 - - Read by: Kadeem Mccormick MD Dictated Date/time: 04/07/17 05:30 Electronically Signed by: Kadeem Mccormick MD 04/07/17 05:32 FINAL REPORT [facility] Heart/coronary art TAVR CTA Heart/coronary art TAVR CTA EXAM: CARDIAC COMPUTED TOMOGRAPHY ANGIOGRAPHY DATE: April 01, 2017 INDICATION: Aortic stenosis. COMPARISON: None TECHNIQUE: Contrast imaging was performed on a [employer] [address] scanner utilizing a single breath hold. Retrospective ECG gating was performed. Images were reformatted at 0.5 mm intervals and sent to an independent workstation for interpretation. 90 ml of Visipaque 320 IV contrast was delivered via an 18 gauge IV catheter utilizing a power injector at 5 cc/sec and followed by 50 cc of normal saline bolus as a chaser. OVERALL STUDY QUALITY: Good FINDINGS: Aortic valve: Trileaflet, mildly and symmetrically calcified. Coronary Arteries: This patient has a co-dominant system with the origin of the coronary arteries being normal. Left main: Normal caliber vessel which bifurcates into the LAD and left circumflex arteries. The vessel is free of significant atheroma. LAD: Normal caliber vessel, which gives rise to at least one diagonal branch. The vessel appears to be tapering off towards the mid and distal segments. There is scattered, partially calcified atheroma, primarily involving the proximal and mid segments of the vessel, not resulting into a flow-limiting stenosis. LCx: Large caliber, codominant vessel, which gives rise to one large obtuse marginal branch. There are several, partially calcified atheroma, not resulting into a flow-limiting stenosis. RCA: Relatively small caliber, codominant vessel, which bifurcates into the PDA and posterolateral branches. While the midsegment of the vessel is not well seen due to the presence of artifacts induced by pacemaker leads, there appears to be a long total occlusion of the midsegment, by a soft plaque. The distal segment of the vessel is well seen, due to collateral flow, and appears of relatively large caliber, with partially calcified atheroma, not resulting into a flow-limiting stenosis. The vessel bifurcates normally into the PDA and posterolateral branches. Myocardium Appearance \\T\\ Function: All cardiac chambers appear dilated. Ejection Fraction: 48% EPD=781 cc MBV=068 cc SV=96 cc Lung roblero to the extent visualized in limited study: Please see radiologist interpretation for extra cardiac findings. IMPRESSION: Aortic valve disease. Coronary artery disease with total occlusion of the mid RCA and flow reconstitution of the distal RCA and its branches via collateral vessels. 04/01/2017 - - Read by: Jefe Major MD Dictated Date/time: 04/01/17 16:32 Electronically Signed by: Jefe Major MD 04/01/17 16:37 FINAL REPORT [facility] Chest/Abd/Pelvis TAVR CTA Chest/Abd/Pelvis TAVR CTA EXAM: CTA CHEST WITH AND WITHOUT CONTRAST EXAM: CTA ABDOMEN AND PELVIS WITH AND WITHOUT CONTRAST DATE: 04/01/2017 10:49 AM CDT INDICATION: Heart failure - TAVR workup ADDITIONAL INFORMATION: None. COMPARISON: None. TECHNIQUE: Volumetric CT acquisition of the chest, abdomen and pelvis during precontrast, arterial and venous phases. Axial, coronal and sagittal reconstructions. MIP reformats are created at the acquisition workstation. UT SECTION: FINDINGS: Aorta and proximal branches: There is no evidence of intramural or periaortic hematoma. The innominate, proximal subclavian, and common carotid arteries are normal in branching order and size. The celiac trunk, SMA, and HASMUKH are patent. Single renal arteries are present bilaterally both of which are patent. The infrarenal abdominal aorta is within normal limits. The iliac vessels and proximal femoral arteries are normal. The aorta contains extensive atherosclerotic plaque, and measures: 3.0 cm at the ascending aorta at the level of the pulmonary artery, 2.6 cm at the mid arch, 2.6 cm at the descending aorta at the level of the main pulmonary artery, 2.5 cm at the level of the aortic hiatus, 2.0 cm at the level of the renal arteries 2.2 cm just proximal to the iliac bifurcation Right pelvis: 0.8 cm at the mid right common iliac 0.9 cm at the right external iliac artery 0.7 cm at the right common femoral artery at the level of the femoral head Left pelvis: 1.5 cm at the mid left common iliac 1.0 cm at the left external iliac artery 0.8 cm left femoral artery at the level of the femoral head Lines/tubes: None. Heart and mediastinum: The thyroid gland is normal. There is mediastinal lymphadenopathy, best seen on image 134 series 4. Pleura: There is a large right pleural effusion. There is a small left pleural effusion. Lungs and Airways: There is dependent atelectasis at the lung bases. Additionally, there is mild focal consolidation at the right lung base. Clinical correlation is advised. ABDOMEN/PELVIS: Hepatobiliary: No focal hepatic lesions. No biliary ductal dilatation. Spleen: No splenomegaly. Pancreas: No focal masses or ductal dilatation. Adrenals: No adrenal nodules. Kidneys/Ureters: There are tiny cysts seen throughout both kidneys. Pelvic Organs/Bladder: Unremarkable. Peritoneum/Retroperitoneum: No free air or fluid. Lymph nodes: No lymphadenopathy. Vessels: Unremarkable. Patent main portal vein measuring up to 1.4 cm. GastrointestinaI Tract: No distention. BONES AND SOFT TISSUE: Unremarkable. IMPRESSION: Ectatic left common iliac artery, measuring 1.5 cm. Mediastinal lymphadenopathy. Consolidation at the lung bases. Bilateral pleural effusions, right greater than left. 04/01/2017 - - Read by: Emanuel Britt MD Dictated Date/time: 04/01/17 15:27 Electronically Signed by: Emanuel Britt MD 04/01/17 16:01 FINAL REPORT [facility] BLOOD BANK RESULTS Antibody Scrn Negative (04/01/17 6:32 AM) 04/01/2017 [facility] BLOOD BANK RESULTS ABO/Rh A POS 04/01/2017 [facility] CHEM PANEL Magnesium Lvl 1.8 mg/dL 1.8 - 2.4 04/01/2017 [facility] ELECTROLYTES AGAP 8.8 meq/L 10.0 - 20.0 04/01/2017 [facility] ELECTROLYTES eGFR 77 mL/min/1.73m2 04/01/2017 Result Comment: The eGFR is calculated using the CKD-EPI formula. In most young, healthy individuals the eGFR will be >90 mL/min/1.73m2. The eGFR declines with age. An eGFR of 60-89 may be normal in some populations, particularly the elderly, for whom the CKD-EPI formula has not been extensively validated. Use of the eGFR is not recommended in the following populations: Individuals with unstable creatinine concentrations, including patients and those with serious co-morbid conditions. Patients with extremes in muscle mass or diet. The data above are obtained from the National Kidney Disease Education Program (NKDEP) which additionally recommends that when the eGFR is used in patients with extremes of body mass index for purposes of drug dosing, the eGFR should be multiplied by the estimated BMI. [facility] ELECTROLYTES Potassium Lvl 3.8 meq/L 3.5 - 5.1 04/01/2017 [facility] ELECTROLYTES CO2 30 meq/L 24 - 32 04/01/2017 [facility] ELECTROLYTES Chloride Lvl 106 meq/L 95 - 109 04/01/2017 [facility] ELECTROLYTES Calcium Lvl 9.6 mg/dL 8.5 - 10.5 04/01/2017 [facility] ELECTROLYTES Creatinine Lvl 0.94 mg/dL 0.50 - 1.40 04/01/2017 [facility] ELECTROLYTES Sodium Lvl 141 meq/L 135 - 145 04/01/2017 [facility] ELECTROLYTES Glucose Lvl 93 mg/dL 70 - 99 04/01/2017 [facility] ELECTROLYTES BUN 11 mg/dL 7 - 22 04/01/2017 [facility] HEMATOLOGY RBC 4.19 M/CMM 4.70 - 6.10 04/01/2017 [facility] HEMATOLOGY WBC 7.6 K/CMM 3.7 - 10.4 04/01/2017 [facility] HEMATOLOGY MCV 95.6 fL 80.0 - 94.0 04/01/2017 [facility] HEMATOLOGY Hct 40.1 % 42.0 - 54.0 04/01/2017 [facility] HEMATOLOGY Hgb 13.7 g/dL 14.0 - 18.0 04/01/2017 [facility] HEMATOLOGY MCHC 34.2 g/dL 32.0 - 36.0 04/01/2017 [facility] HEMATOLOGY MCH 32.7 pg 27.0 - 31.0 04/01/2017 [facility] HEMATOLOGY Platelet 208 K/CMM 133 - 450 04/01/2017 [facility] HEMATOLOGY RDW 14.2 % 11.5 - 14.5 04/01/2017 [facility] HEMATOLOGY MPV 7.9 fL 7.4 - 10.4 04/01/2017 [facility] HEMATOLOGY Basophils # 0.1 K/CMM 0.0 - 0.2 04/01/2017 [facility] HEMATOLOGY Eosinophils # 0.1 K/CMM 0.0 - 0.5 04/01/2017 [facility] HEMATOLOGY Monocytes # 0.6 K/CMM 0.0 - 0.8 04/01/2017 [facility] HEMATOLOGY Lymphocytes # 1.6 K/CMM 1.0 - 5.5 04/01/2017 [facility] HEMATOLOGY Segs-Bands # 5.3 K/CMM 1.5 - 8.1 04/01/2017 [facility] HEMATOLOGY Basophils 1.0 % 0.0 - 1.0 04/01/2017 [facility] HEMATOLOGY Eosinophils 1.4 % 0.0 - 4.0 04/01/2017 [facility] HEMATOLOGY Monocytes 7.7 % 2.0 - 12.0 04/01/2017 [facility] HEMATOLOGY Lymphocytes 20.4 % 20.0 - 40.0 04/01/2017 [facility] HEMATOLOGY Segs 69.5 % 45.0 - 75.0 04/01/2017 [facility] HEMATOLOGY INR 1.07 0.85 - 1.17 04/01/2017 [facility] HEMATOLOGY PT 14.1 s 12.0 - 14.7 04/01/2017 [facility] HEMATOLOGY PTT 33.5 s 22.9 - 35.8 04/01/2017 [facility] Shoulder series DX Shoulder series DX EXAM: XR RIGHT SHOULDER 3 VIEWS DATE: 12/17/2016 11:05 AM CDT INDICATION: Pain in right shoulder COMPARISON: 01/27/2009 TECHNIQUE: 3 views of the shoulder FINDINGS: No acute fracture or malalignment is identified. Osteophytes about the acromioclavicular joint and glenoid rim are noted. Degenerative subcortical cystic change about the greater tuberosity. Old post internally fixated healed right clavicle fracture demonstrates satisfactory appearances without complication. Partially visible cardiac device leads. IMPRESSION: Mild acromioclavicular and glenohumeral arthrosis. No acute bony abnormality. 12/17/2016 - - This report was dictated by a Golf Course Mechanic/Fellow. I have personally reviewed the images as well as the Resident's interpretation and agree with the findings. Read by: Jared Anaya Resident: Jared Anaya (stan Dictated Date/time: 12/17/16 12:45 Electronically Signed by: Mario Sims MD 12/17/16 17:27 FINAL REPORT [facility] Chest 2 views DX Chest 2 views DX EXAM: XR CHEST 2 VIEWS DATE: 12/17/2016 11:06 AM CDT INDICATION: J20.9 Acute bronchitis, unspecified ADDITIONAL INFORMATION: None. COMPARISON: Chest x-ray 09/27/2016. TECHNIQUE: PA and lateral chest radiographs. Number of images: 2 FINDINGS: Lines and tubes: There is a left subclavian automatic implantable cardiac defibrillator that is stable. Lungs and pleura: There is stable blunting of the right costophrenic angle and opacification of the right lower lung. There is minimal blunting of the left costophrenic angle. There is a calcified granuloma measuring 0.6 cm overlying the 8th rib. A granuloma is stable since 10/09/2015 and 01/27/2009.. Heart and mediastinum: The heart size is the heart is mildly enlarged and stable. The mediastinal contours are normal. The aortic arch is calcified. Bones: Malleable plate and screws overlying a healed right clavicular fracture. Soft Tissues: Unremarkable. IMPRESSION: 1. Stable right lower lung opacification that may represent singly or in combination, atelectasis, effusion, and/or consolidation. 2. Stable minimal blunting of left costophrenic angle that may represent a small effusion. 12/17/2016 - - Read by: Levar Foley MD Dictated Date/time: 12/17/16 11:38 Electronically Signed by: Levar Foley MD 12/17/16 11:41 FINAL REPORT [facility] CARDIAC ENZYMES CK MB 4.3 ng/mL 0.5 - 3.6 09/27/2016 [facility] CARDIAC ENZYMES CK MB Index 3.5 0.0 - 2.5 09/27/2016 [facility] CARDIAC ENZYMES Total CK 124 unit/L 12 - 191 09/27/2016 [facility] CARDIAC ENZYMES Troponin-I 0.02 ng/mL 0.00 - 0.40 09/27/2016 [facility] URINE AND STOOL UA WBC 1 /HPF 0 - 5 09/27/2016 [facility] URINE AND STOOL UA Bili Negative *NA* (09/27/16 3:26 AM) Negative 09/27/2016 [facility] URINE AND STOOL UA Blood Negative (09/27/16 3:26 AM) Negative 09/27/2016 [facility] URINE AND STOOL UA Nitrite Negative (09/27/16 3:26 AM) Negative 09/27/2016 [facility] URINE AND STOOL UA Leuk Est Negative (09/27/16 3:26 AM) Negative 09/27/2016 [facility] URINE AND STOOL UA Ketones Trace mg/dL Negative mg/dL 09/27/2016 [facility] URINE AND STOOL UA Color Ltyellow 09/27/2016 [facility] URINE AND STOOL UA Urobilinogen <=1.0 mg/dL 0.1 - 1.0 09/27/2016 [facility] URINE AND STOOL UA RBC 4 /HPF 0 - 2 09/27/2016 [facility] URINE AND STOOL UA Bacteria Occasional /HPF None Seen /HPF 09/27/2016 [facility] URINE AND STOOL UA Mucus Few /LPF None Seen /LPF 09/27/2016 [facility] URINE AND STOOL UA Spec Grav 1.005 <=1.030 09/27/2016 [facility] URINE AND STOOL UA pH 5.0 5.0 - 8.0 09/27/2016 [facility] URINE AND STOOL UA Protein 30 mg/dL Negative mg/dL 09/27/2016 [facility] URINE AND STOOL UA Glucose Negative mg/dL Negative mg/dL 09/27/2016 [facility] URINE AND STOOL UA Turbidity Clear (09/27/16 3:26 AM) Clear 09/27/2016 [facility] URINE AND STOOL UA Sq Epi None Seen 09/27/2016 [facility] URINE AND STOOL UA Hyal Cast 3 /LPF 0 - 2 09/27/2016 [facility] CHEM PANEL Lactic Acid Lvl 1.1 mMol/L 0.5 - 2.2 09/27/2016 [facility] HEMATOLOGY PTT 48.5 s 22.9 - 35.8 09/27/2016 [facility] HEMATOLOGY INR 2.77 0.85 - 1.17 09/27/2016 [facility] HEMATOLOGY PT 29.7 s 12.0 - 14.7 09/27/2016 [facility] CARDIAC ENZYMES Total CK 110 unit/L 12 - 191 09/27/2016 [facility] CARDIAC ENZYMES CK MB 3.5 ng/mL 0.5 - 3.6 09/27/2016 [facility] CARDIAC ENZYMES Troponin-I 0.03 ng/mL 0.00 - 0.40 09/27/2016 [facility] CARDIAC ENZYMES BNP 237 pg/mL <=100 pg/mL 09/27/2016 [facility] CARDIAC ENZYMES CK MB Index 3.2 0.0 - 2.5 09/27/2016 [facility] CHEM PANEL eGFR 86 mL/min/1.73m2 09/27/2016 Result Comment: The eGFR is calculated using the CKD-EPI formula. In most young, healthy individuals the eGFR will be >90 mL/min/1.73m2. The eGFR declines with age. An eGFR of 60-89 may be normal in some populations, particularly the elderly, for whom the CKD-EPI formula has not been extensively validated. Use of the eGFR is not recommended in the following populations: Individuals with unstable creatinine concentrations, including patients and those with serious co-morbid conditions. Patients with extremes in muscle mass or diet. The data above are obtained from the National Kidney Disease Education Program (NKDEP) which additionally recommends that when the eGFR is used in patients with extremes of body mass index for purposes of drug dosing, the eGFR should be multiplied by the estimated BMI. [facility] CHEM PANEL Globulin 4.0 g/dL 2.7 - 4.2 09/27/2016 [facility] CHEM PANEL A/G Ratio 0.8 0.7 - 1.6 09/27/2016 [facility] CHEM PANEL Total Protein 7.4 g/dL 6.4 - 8.4 09/27/2016 [facility] CHEM PANEL Albumin Lvl 3.4 g/dL 3.5 - 5.0 09/27/2016 [facility] CHEM PANEL AGAP 12.3 meq/L 10.0 - 20.0 09/27/2016 [facility] CHEM PANEL B/C Ratio 17 6 - 25 09/27/2016 [facility] CHEM PANEL Bili Total 0.8 mg/dL 0.2 - 1.3 09/27/2016 [facility] CHEM PANEL AST 20 unit/L 0 - 37 09/27/2016 [facility] CHEM PANEL Alk Phos 103 unit/L 39 - 136 09/27/2016 [facility] CHEM PANEL ALT 20 unit/L 0 - 65 09/27/2016 [facility] CHEM PANEL Calcium Lvl 8.9 mg/dL 8.5 - 10.5 09/27/2016 [facility] CHEM PANEL CO2 28 meq/L 24 - 32 09/27/2016 [facility] CHEM PANEL Potassium Lvl 4.3 meq/L 3.5 - 5.1 09/27/2016 [facility] CHEM PANEL Chloride Lvl 102 meq/L 95 - 109 09/27/2016 [facility] CHEM PANEL Sodium Lvl 138 meq/L 135 - 145 09/27/2016 [facility] CHEM PANEL BUN 14 mg/dL 7 - 22 09/27/2016 [facility] CHEM PANEL Creatinine Lvl 0.81 mg/dL 0.50 - 1.40 09/27/2016 [facility] CHEM PANEL Glucose Lvl 110 mg/dL 70 - 99 09/27/2016 [facility] HEMATOLOGY Hct 40.6 % 42.0 - 54.0 09/27/2016 [facility] HEMATOLOGY MCV 96.6 fL 80.0 - 94.0 09/27/2016 [facility] HEMATOLOGY MCH 32.6 pg 27.0 - 31.0 09/27/2016 [facility] HEMATOLOGY MCHC 33.8 g/dL 32.0 - 36.0 09/27/2016 [facility] HEMATOLOGY RDW 14.5 % 11.5 - 14.5 09/27/2016 [facility] Platelet 162 K/CMM 133 - 450 09/27/2016 [facility] MPV 8.1 fL 7.4 - 10.4 09/27/2016 [facility] RBC 4.20 M/CMM 4.70 - 6.10 09/27/2016 [facility] WBC 6.4 K/CMM 3.7 - 10.4 09/27/2016 [facility] Hgb 13.7 g/dL 14.0 - 18.0 09/27/2016 [facility] Basophils 1.1 % 0.0 - 1.0 09/27/2016 [facility] Eosinophils 1.5 % 0.0 - 4.0 09/27/2016 [facility] Monocytes # 0.7 K/CMM 0.0 - 0.8 09/27/2016 [facility] Segs-Bands # 4.8 K/CMM 1.5 - 8.1 09/27/2016 [facility] Lymphocytes # 0.8 K/CMM 1.0 - 5.5 09/27/2016 [facility] Eosinophils # 0.1 K/CMM 0.0 - 0.5 09/27/2016 [facility] Monocytes 10.4 % 2.0 - 12.0 09/27/2016 [facility] Segs 74.7 % 45.0 - 75.0 09/27/2016 [facility] Lymphocytes 12.3 % 20.0 - 40.0 09/27/2016 [facility] Basophils # 0.1 K/CMM 0.0 - 0.2 09/27/2016 [facility] Chest 1view DX Chest 1view DX Study: Frontal chest x-ray compared to 10/09/2015. History: Chest pain. Comments: The trachea is midline. The cardiomediastinal silhouette is normal in size. Left chest wall pacemaker in place. Metallic hardware in the right clavicle again seen. No pneumothorax. Chronic increased interstitial markings. Small right pleural effusion/consolidation is new since the prior study. Impression: Small right pleural effusion/consolidation is new since the prior study 09/27/2016 - - Read by: Anabel Tucker MD Dictated Date/time: 09/27/16 01:24 Electronically Signed by: Anabel Tukcer MD 09/27/16 01:46 FINAL REPORT [facility] Elbow 3 views DX Elbow 3 views DX EXAM: XR ELBOW 3 VIEWS DATE: 06/20/2016 9:43 AM CDT INDICATION: Number of weeks since LMP: COMPARISON: None TECHNIQUE: AP, lateral and oblique radiographs of the elbow Laterality: Right FINDINGS: No acute fracture or malalignment is identified. No joint space narrowing, osteophytes, or cysts. There is no excessive joint fluid. Posterior elbow soft tissue thickening. IMPRESSION: 1. Posterior elbow soft tissue thickening, which may represent small olecranon bursa. 2. No bony abnormality. 06/20/2016 - - Read by: Evans Salgado MD Dictated Date/time: 06/20/16 11:23 Electronically Signed by: Evans Salgado MD 06/20/16 11:24 FINAL REPORT [facility] CARDIAC ENZYMES Troponin-I null 0.00 - 0.40 10/10/2015 [facility] CARDIAC ENZYMES Total CK 56 unit/L 12 - 191 10/10/2015 [facility] CARDIAC ENZYMES Total CK 58 unit/L 12 - 191 10/10/2015 [facility] CARDIAC ENZYMES Troponin-I null 0.00 - 0.40 10/10/2015 [facility] LIPIDS LDL (Calculated) 73 mg/dL <=99 mg/dL 10/10/2015 [facility] LIPIDS VLDL 12 10/10/2015 [facility] LIPIDS HDL 40 mg/dL >=61 mg/dL 10/10/2015 [facility] LIPIDS Chol 125 mg/dL <=199 mg/dL 10/10/2015 [facility] LIPIDS CHD Risk 3.12 4.00 - 7.30 10/10/2015 [facility] LIPIDS Trig 58 mg/dL <=149 mg/dL 10/10/2015 [facility] URINE AND STOOL UA Urobilinogen <=1.0 mg/dL 0.1 - 1.0 10/09/2015 [facility] URINE AND STOOL UA Mucus Few /LPF None Seen /LPF 10/09/2015 [facility] URINE AND STOOL UA RBC 1 /HPF 0 - 2 10/09/2015 [facility] URINE AND STOOL UA WBC null 0 - 5 10/09/2015 [facility] URINE AND STOOL UA Bili Negative *NA* (10/09/15 3:38 PM) Negative 10/09/2015 [facility] URINE AND STOOL UA Turbidity Clear (10/09/15 3:38 PM) Clear 10/09/2015 [facility] URINE AND STOOL UA Blood Negative (10/09/15 3:38 PM) Negative 10/09/2015 [facility] URINE AND STOOL UA Color Yellow *NA* (10/09/15 3:38 PM) Yellow 10/09/2015 [facility] URINE AND STOOL UA Nitrite Negative (10/09/15 3:38 PM) Negative 10/09/2015 [facility] URINE AND STOOL UA Ketones Negative mg/dL Negative mg/dL 10/09/2015 [facility] URINE AND STOOL UA Glucose Negative mg/dL Negative mg/dL 10/09/2015 [facility] URINE AND STOOL UA Leuk Est Negative (10/09/15 3:38 PM) Negative 10/09/2015 [facility] URINE AND STOOL UA Sq Epi Occasional /LPF Few /LPF 10/09/2015 [facility] URINE AND STOOL UA Protein 30 mg/dL Negative mg/dL 10/09/2015 [facility] URINE AND STOOL UA pH 7.0 5.0 - 8.0 10/09/2015 [facility] URINE AND STOOL UA Spec Grav 1.016 <=1.030 10/09/2015 [facility] VIRAL - SEROLOGY Influ A Negative (10/09/15 3:38 PM) Negative 10/09/2015 [facility] VIRAL - SEROLOGY Influ B Negative (10/09/15 3:38 PM) Negative 10/09/2015 [facility] CARDIAC ENZYMES CK MB Index 3.8 0.0 - 2.5 10/09/2015 [facility] CARDIAC ENZYMES BNP 217 pg/mL <=100 pg/mL 10/09/2015 [facility] CARDIAC ENZYMES Total CK 73 unit/L 12 - 191 10/09/2015 [facility] CARDIAC ENZYMES CK MB 2.8 ng/mL 0.5 - 3.6 10/09/2015 [facility] CARDIAC ENZYMES Troponin-I null 0.00 - 0.40 10/09/2015 [facility] CHEM PANEL eGFR 79 mL/min/1.73m2 10/09/2015 Result Comment: The eGFR is calculated using the CKD-EPI formula. In most young, healthy individuals the eGFR will be >90 mL/min/1.73m2. The eGFR declines with age. An eGFR of 60-89 may be normal in some populations, particularly the elderly, for whom the CKD-EPI formula has not been extensively validated. Use of the eGFR is not recommended in the following populations: Individuals with unstable creatinine concentrations, including patients and those with serious co-morbid conditions. Patients with extremes in muscle mass or diet. The data above are obtained from the National Kidney Disease Education Program (NKDEP) which additionally recommends that when the eGFR is used in patients with extremes of body mass index for purposes of drug dosing, the eGFR should be multiplied by the estimated BMI. [facility] CHEM PANEL Globulin 4.0 g/dL 2.0 - 4.0 10/09/2015 [facility] CHEM PANEL A/G Ratio 1.0 0.7 - 1.6 10/09/2015 [facility] CHEM PANEL B/C Ratio 13 6 - 25 10/09/2015 [facility] CHEM PANEL AGAP 8.9 meq/L 10.0 - 20.0 10/09/2015 [facility] CHEM PANEL AST 20 unit/L 0 - 37 10/09/2015 [facility] CHEM PANEL Alk Phos 93 unit/L 39 - 136 10/09/2015 [facility] CHEM PANEL Bili Total 0.9 mg/dL 0.2 - 1.3 10/09/2015 [facility] CHEM PANEL Total Protein 7.9 g/dL 6.4 - 8.4 10/09/2015 [facility] CHEM PANEL Albumin Lvl 3.9 g/dL 3.5 - 5.0 10/09/2015 [facility] CHEM PANEL ALT 27 unit/L 0 - 65 10/09/2015 [facility] CHEM PANEL CO2 31 meq/L 24 - 32 10/09/2015 [facility] CHEM PANEL Calcium Lvl 9.5 mg/dL 8.5 - 10.5 10/09/2015 [facility] CHEM PANEL BUN 12 mg/dL 7 - 22 10/09/2015 [facility] CHEM PANEL Creatinine Lvl 0.94 mg/dL 0.50 - 1.40 10/09/2015 [facility] CHEM PANEL Sodium Lvl 139 meq/L 135 - 145 10/09/2015 [facility] CHEM PANEL Potassium Lvl 3.9 meq/L 3.5 - 5.1 10/09/2015 [facility] CHEM PANEL Glucose Lvl 113 mg/dL 70 - 99 10/09/2015 [facility] CHEM PANEL Chloride Lvl 103 meq/L 95 - 109 10/09/2015 [facility] HEMATOLOGY Lymphocytes 22.0 % 20.0 - 40.0 10/09/2015 [facility] HEMATOLOGY Monocytes 6.7 % 2.0 - 12.0 10/09/2015 [facility] HEMATOLOGY Segs 70.3 % 45.0 - 75.0 10/09/2015 [facility] HEMATOLOGY Eosinophils 0.7 % 0.0 - 4.0 10/09/2015 [facility] Basophils 0.3 % 0.0 - 1.0 10/09/2015 [facility] Lymphocytes # 1.7 K/CMM 1.0 - 5.5 10/09/2015 [facility] Monocytes # 0.5 K/CMM 0.0 - 0.8 10/09/2015 [facility] Segs-Bands # 5.4 K/CMM 1.5 - 8.1 10/09/2015 [facility] Eosinophils # 0.1 K/CMM 0.0 - 0.5 10/09/2015 [facility] INR 2.16 0.85 - 1.17 10/09/2015 [facility] PT 24.4 s 12.0 - 14.7 10/09/2015 [facility] PTT 43.4 s 22.9 - 35.8 10/09/2015 [facility] Hgb 14.4 g/dL 14.0 - 18.0 10/09/2015 [facility] Hct 43.3 % 42.0 - 54.0 10/09/2015 [facility] MCHC 33.2 g/dL 32.0 - 36.0 10/09/2015 [facility] MCV 97.0 fL 80.0 - 94.0 10/09/2015 [facility] MCH 32.2 pg 27.0 - 31.0 10/09/2015 [facility] Platelet 201 K/CMM 133 - 450 10/09/2015 [facility] MPV 8.3 fL 7.4 - 10.4 10/09/2015 [facility] RDW 14.1 % 11.5 - 14.5 10/09/2015 [facility] WBC 7.7 K/CMM 3.7 - 10.4 10/09/2015 [facility] RBC 4.46 M/CMM 4.70 - 6.10 10/09/2015 [facility] Brain wo contrast CT Brain wo contrast CT CT head without IV contrast, Oct 09, 2015 05:27:06 PM CLINICAL HISTORY: Headache with Dizziness and Giddiness ; nausea and vomiting TECHNIQUE: Routine 5 mm thick axial images of the head were obtained without IV contrast. Coronal and sagittal reformations were created COMPARISON: None FINDINGS: No acute intracranial hemorrhage or secondary signs of increased intracranial pressure are noted. No evidence of territorial infarction is suggested. Ventricles and cisterns are normal in size and contour. Levin-white matter junction is normal. No focal mass or midline shift is suggested. Intracranial atherosclerotic calcific disease is present. Orbits are normal. Sinuses and air cells are clear. Calvarium is intact. IMPRESSION: No acute abnormality of the brain. SL: 14 10/09/2015 - - Read by: Leland Amor MD Dictated Date/time: 10/09/15 18:12 Electronically Signed by: Leland Amor MD 10/09/15 18:14 FINAL REPORT [facility] Chest 2 views DX Chest 2 views DX PA and LATERAL CHEST (2 views) HISTORY: Chest pain Comparison is made to 07/05/2000 1530 study of 01/27/2009 was also reviewed. FINDINGS: The lungs are clear. There is pulmonary hyperexpansion with flattened hemidiaphragms consistent with COPD. There is a small calcified granuloma in the left midlung. There is no evidence of an active or acute process within the chest. There are no pleural effusions. There is borderline cardiomegaly without overt failure. There are moderate atherosclerotic calcifications involving the thoracic aorta. There are postoperative changes involving the right clavicle. A bone plate and screws are noted. There are mild degenerative changes involving the thoracic spine. The regional skeleton is otherwise unremarkable. There is a left subclavian triple lead transvenous pacemaker/AICD. CONCLUSION: 1. No active disease. 2. Findings consistent with COPD. 3. Borderline cardiomegaly. 4. There is a left subclavian triple lead transvenous pacemaker/AICD. 5. Postoperative changes, right clavicle Coding: Chest 2 views CPT Code: 63547 SL: 13 Prasad Doran M.D. 10/09/2015 - - Read by: Prasad Doran MD Dictated Date/time: 10/09/15 14:22 Electronically Signed by: Prasad Doran MD 10/09/15 14:24 FINAL REPORT [facility] Chest 2 views DX Chest 2 views DX EXAM: XR CHEST TWO VIEWS DATE: 07/05/2015 COMPARISON EXAMS: 01/27/2009 CLINICAL INDICATION: Chronic obstructive pulmonary disease exacerbation. TECHNIQUE: PA and Lateral views DISCUSSION: PA and lateral chest x-rays reveal a stable calcified granuloma in the superior segment of the left lower lobe. No other focal lung parenchymal or pleural abnormalities are seen. Lungs are hyperinflated. Cardiac silhouette is normal in size. Hilar and pulmonary vascular structures are normal appearance. Atherotic calcified plaque formation is seen in the aortic arch. A 3-lead left chest wall cardiac pacemaker/defibrillator is in place with lead tips positioned over the expect location of the right atrium and right ventricle. Tracheal and mainstem bronchial shadows are normal in appearance. Patient is undergone prior open reduction internal fixation of a right midclavicular fracture with no evidence of hardware failure or loosening. IMPRESSION: 1. No acute cardiopulmonary abnormalities are seen. 2. Interval removal of single lead cardiac device and placement of left subclavian triple lead cardiac device, as described above. 3. Hyperinflation of the lungs compatible with stable COPD type changes. 4. Stable calcified granuloma in the left lower lobe. 07/05/2015 - - Read by: Sreedhar Wing MD Dictated Date/time: 07/05/15 11:26 Electronically Signed by: Sreedhar Wing MD 07/05/15 11:30 FINAL REPORT [facility] Vital Signs Vital Sign Value Date Comments Source Systolic (mm Hg) 114 02/25/2018 [facility] Diastolic (mm Hg) 82 02/25/2018 [facility] Respitory Rate 21 02/25/2018 [facility] Systolic (mm Hg) 115 02/25/2018 [facility] Diastolic (mm Hg) 64 02/25/2018 [facility] Respitory Rate 23 02/25/2018 [facility] Systolic (mm Hg) 112 02/25/2018 [facility] Diastolic (mm Hg) 57 02/25/2018 [facility] Respitory Rate 22 02/25/2018 [facility] BMI Calculated 18.91 02/25/2018 [facility] Weight 65 02/25/2018 [facility] Height 185.42 cm 02/25/2018 [facility] Respitory Rate 17 02/06/2018 [facility] Systolic (mm Hg) 131 02/06/2018 [facility] Diastolic (mm Hg) 71 02/06/2018 [facility] Systolic (mm Hg) 126 02/06/2018 [facility] Diastolic (mm Hg) 74 02/06/2018 [facility] Respitory Rate 12 02/06/2018 [facility] Respitory Rate 16 02/06/2018 [facility] Temperature Oral (F) 97.5 F 02/06/2018 [facility] Systolic (mm Hg) 146 02/06/2018 [facility] Diastolic (mm Hg) 67 02/06/2018 [facility] Heart Rate 78 02/06/2018 [facility] Weight 75 02/06/2018 [facility] Height 185.42 cm 02/06/2018 [facility] BMI Calculated 21.81 02/06/2018 [facility] Systolic (mm Hg) 138 01/08/2018 [facility] Diastolic (mm Hg) 63 01/08/2018 [facility] Respitory Rate 16 01/08/2018 [facility] Systolic (mm Hg) 144 01/08/2018 [facility] Diastolic (mm Hg) 69 01/08/2018 [facility] Respitory Rate 14 01/08/2018 [facility] Respitory Rate 20 01/08/2018 [facility] Systolic (mm Hg) 141 01/08/2018 [facility] Diastolic (mm Hg) 65 01/08/2018 [facility] Temperature Oral (F) 98 F 01/08/2018 [facility] Temperature Oral (F) 97.5 F 01/08/2018 [facility] Weight 75.455 01/07/2018 [facility] Height 185.42 cm 01/07/2018 [facility] BMI Calculated 21.95 01/07/2018 [facility] Temperature Oral (F) 97.3 F 09/02/2017 [facility] Respitory Rate 18 09/02/2017 [facility] Heart Rate 57 09/02/2017 [facility] Systolic (mm Hg) 121 09/02/2017 [facility] Diastolic (mm Hg) 56 09/02/2017 [facility] Respitory Rate 20 09/02/2017 [facility] Systolic (mm Hg) 149 09/02/2017 [facility] Diastolic (mm Hg) 52 09/02/2017 [facility] Temperature Oral (F) 98.3 F 09/02/2017 [facility] Heart Rate 61 09/02/2017 [facility] Respitory Rate 18 09/02/2017 [facility] Temperature Oral (F) 98.3 F 09/02/2017 [facility] Heart Rate 57 09/02/2017 [facility] Systolic (mm Hg) 155 09/02/2017 [facility] Diastolic (mm Hg) 56 09/02/2017 [facility] BMI Calculated 21.84 09/02/2017 [facility] Height 185.42 cm 09/02/2017 [facility] Weight 75.091 09/02/2017 [facility] Weight 68.182 09/02/2017 [facility] Height 185.42 cm 09/02/2017 [facility] BMI Calculated 19.83 09/02/2017 [facility] Systolic (mm Hg) 129 08/12/2017 [facility] Diastolic (mm Hg) 60 08/12/2017 [facility] Respitory Rate 20 08/12/2017 [facility] Respitory Rate 20 08/12/2017 [facility] Systolic (mm Hg) 116 08/12/2017 [facility] Diastolic (mm Hg) 57 08/12/2017 [facility] Systolic (mm Hg) 148 08/12/2017 [facility] Diastolic (mm Hg) 65 08/12/2017 [facility] Respitory Rate 20 08/12/2017 [facility] Temperature Oral (F) 98.0 F 08/12/2017 [facility] Temperature Oral (F) 97.2 F 08/12/2017 [facility] Temperature Oral (F) 97.0 F 08/11/2017 [facility] BMI Calculated 20.89 08/04/2017 [facility] Weight 71.818 08/04/2017 [facility] Height 185.42 cm 08/04/2017 [facility] Respitory Rate 25 04/18/2017 [facility] Systolic (mm Hg) 148 04/18/2017 [facility] Diastolic (mm Hg) 65 04/18/2017 [facility] Respitory Rate 22 04/18/2017 [facility] Systolic (mm Hg) 146 04/18/2017 [facility] Diastolic (mm Hg) 66 04/18/2017 [facility] Systolic (mm Hg) 138 04/18/2017 [facility] Diastolic (mm Hg) 64 04/18/2017 [facility] Respitory Rate 57 04/18/2017 [facility] Temperature Oral (F) 97.9 F 04/17/2017 [facility] Temperature Oral (F) 98.1 F 04/17/2017 [facility] Temperature Oral (F) 97.7 F 04/17/2017 [facility] Weight 76.364 04/16/2017 [facility] BMI Calculated 22.21 04/16/2017 [facility] Height 185.42 cm 04/16/2017 [facility] Respitory Rate 20 04/11/2017 [facility] Respitory Rate 27 04/11/2017 [facility] Systolic (mm Hg) 117 04/11/2017 [facility] Diastolic (mm Hg) 58 04/11/2017 [facility] Respitory Rate 26 04/11/2017 [facility] Systolic (mm Hg) 132 04/11/2017 [facility] Diastolic (mm Hg) 60 04/11/2017 [facility] Systolic (mm Hg) 132 04/11/2017 [facility] Diastolic (mm Hg) 60 04/11/2017 [facility] Temperature Oral (F) 97.2 F 04/11/2017 [facility] Temperature Oral (F) 97.4 F 04/11/2017 [facility] Temperature Oral (F) 98.1 F 04/11/2017 [facility] Heart Rate 60 04/09/2017 [facility] Heart Rate 61 04/09/2017 [facility] Heart Rate 77 04/09/2017 [facility] Height 185.42 cm 04/09/2017 [facility] BMI Calculated 23 04/09/2017 [facility] Weight 79.091 04/09/2017 [facility] Temperature Oral (F) 98.3 F 04/09/2017 [facility] Heart Rate 65 04/09/2017 [facility] Respitory Rate 18 04/09/2017 [facility] Systolic (mm Hg) 120 04/09/2017 [facility] Diastolic (mm Hg) 46 04/09/2017 [facility] Respitory Rate 18 04/08/2017 [facility] Heart Rate 64 04/08/2017 [facility] Temperature Oral (F) 98 F 04/08/2017 [facility] Respitory Rate 18 04/08/2017 [facility] Systolic (mm Hg) 138 04/08/2017 [facility] Diastolic (mm Hg) 58 04/08/2017 [facility] Temperature Oral (F) 97.8 F 04/08/2017 [facility] Heart Rate 65 04/08/2017 [facility] Systolic (mm Hg) 113 04/08/2017 [facility] Diastolic (mm Hg) 51 04/08/2017 [facility] BMI Calculated 23.8 04/07/2017 [facility] Weight 81.818 04/07/2017 [facility] Height 185.42 cm 04/07/2017 [facility] Systolic (mm Hg) 154 04/01/2017 [facility] Diastolic (mm Hg) 74 04/01/2017 [facility] Respitory Rate 17 04/01/2017 [facility] Respitory Rate 17 04/01/2017 [facility] Systolic (mm Hg) 161 04/01/2017 [facility] Diastolic (mm Hg) 75 04/01/2017 [facility] Respitory Rate 17 04/01/2017 [facility] Systolic (mm Hg) 151 04/01/2017 [facility] Diastolic (mm Hg) 72 04/01/2017 [facility] Weight 77.273 04/01/2017 [facility] BMI Calculated 23.1 04/01/2017 [facility] Height 182.88 cm 04/01/2017 [facility] Height 180.34 cm 03/21/2017 [facility] BMI Calculated 24.18 03/21/2017 [facility] Weight 78.636 03/21/2017 [facility] Respitory Rate 20 09/27/2016 [facility] Heart Rate 97 09/27/2016 [facility] Temperature Oral (F) 97.5 F 09/27/2016 [facility] Systolic (mm Hg) 136 09/27/2016 [facility] Diastolic (mm Hg) 69 09/27/2016 [facility] Respitory Rate 20 09/27/2016 [facility] Weight 81.81 09/27/2016 [facility] Systolic (mm Hg) 153 09/27/2016 [facility] Diastolic (mm Hg) 91 09/27/2016 [facility] Respitory Rate 16 09/27/2016 [facility] Temperature Oral (F) 97.3 F 09/27/2016 [facility] Heart Rate 108 09/27/2016 [facility] Temperature Oral (F) 98.2 F 09/27/2016 [facility] Heart Rate 99 09/27/2016 [facility] Systolic (mm Hg) 138 09/27/2016 [facility] Diastolic (mm Hg) 73 09/27/2016 [facility] Weight 81.818 09/27/2016 [facility] BMI Calculated 23.8 09/27/2016 [facility] Height 185.42 cm 09/27/2016 [facility] Heart Rate 62 10/10/2015 [facility] Respitory Rate 18 10/10/2015 [facility] Temperature Oral (F) 98.4 F 10/10/2015 [facility] Systolic (mm Hg) 154 10/10/2015 [facility] Diastolic (mm Hg) 83 10/10/2015 [facility] Respitory Rate 16 10/10/2015 [facility] Heart Rate 90 10/10/2015 [facility] Respitory Rate 18 10/10/2015 [facility] Systolic (mm Hg) 145 10/10/2015 [facility] Diastolic (mm Hg) 84 10/10/2015 [facility] Systolic (mm Hg) 186 10/10/2015 [facility] Diastolic (mm Hg) 107 10/10/2015 [facility] Temperature Oral (F) 98.5 F 10/10/2015 [facility] Heart Rate 126 10/10/2015 [facility] Temperature Oral (F) 98 F 10/10/2015 [facility] Weight 83.182 10/09/2015 [facility] BMI Calculated 24.19 10/09/2015 [facility] Height 185.42 cm 10/09/2015 [facility] Encounters Location Location Details Encounter Type Encounter Number Reason For Visit Attending Provider ADM Date DC Date Status Source [facility] [place] [facility] [id number] Shadi Izquierdo 07/05/2015 07/06/2015 [facility] OBS Observation Patient [id number] Enedina Medina 10/09/2015 10/10/2015 [facility] [place] [facility] [id number] Shadi Izquierdo 06/20/2016 06/21/2016 [facility] Observation [id number] 09/27/2016 09/27/2016 [facility] [place] [facility] [id number] El Chen 12/17/2016 12/18/2016 [facility] Outpatient [id number] Jarad Hamiltonoble 03/21/2017 03/22/2017 [facility] Bedded Outpatient [id number] Segundo Viveros 04/01/2017 04/01/2017 [facility] Inpatient [id number] Geeta Singleton 04/07/2017 04/09/2017 [facility] Inpatient [id number] Jarad Dhoble 04/09/2017 04/11/2017 [facility] Inpatient [id number] Jarad Dhoble 04/16/2017 04/18/2017 [facility] Inpatient [id number] Juan Ramon Lopez 08/04/2017 08/12/2017 [facility] [place] [facility] [id number] Shadi Izquierdo 08/21/2017 [facility]/22[facility] [place] [facility] [id number] Shadi Izquierdo 08/22/2017 08/23/2017 [facility] [place] [facility] [id number] Donald Hubert 08/28/2017 08/29/2017 [facility] Observation [id number] Henry Cordoba 09/02/2017 09/02/2017 [facility] Inpatient [id number] Jarad Dhoble 01/07/2018 01/09/2018 [facility] Emergency [id number] Kirstin Alcanter 02/06/2018 02/06/2018 [facility] Outpatient [id number] Jarad Dhoble 02/25/2018 02/26/2018 [facility] Procedures Procedure Code Date Perfomer Comments Source MVR - Mitral valve replacement [id number] 04/09/2017 [facility] [place] MVR - Mitral valve replacement [id number] 04/09/2017 [facility] MVR - Mitral valve replacement [id number] 04/09/2017 [facility] MVR - Mitral valve replacement [id number] 04/09/2017 [facility] Knee replacement [id number] [facility] Knee replacement [id number] [facility] Knee replacement [id number] [facility] AVR - Aortic valve replacement [id number] [facility] [place] Knee replacement [id number] [facility] [place] AVR - Aortic valve replacement [id number] [facility] AVR - Aortic valve replacement [id number] [facility] AVR - Aortic valve replacement [id number] [facility]
--- OUTSIDE RECORDS SUMMARY | 2018-06-24 12:22 | XMS REPORT | Summary of Care ---
Author Author [facility] Outpatient Imaging [facility] Outpatient [facility] Address Unknown Phone Unavailable Encounter HQ Liar_khalif(FIN) [id number] Date(s): 07/05/15 - 07/05/15 [facility] Outpatient Imaging [facility] [address] [facility], [address] [phone] Discharge Disposition: Home Attending Physician: Shadi Izquierdo MD Vital Signs No data available for this section Problem List No data available for this section Allergies, Adverse Reactions, Alerts No data available for this section Medications No data available for this section Results No data available for this section Immunizations No data available for this section Procedures No data available for this section Social History No data available for this section Assessment and Plan No data available for this section
--- OUTSIDE RECORDS SUMMARY | 2018-06-24 12:22 | XMS REPORT | Summary of Care ---
Author Author [facility] Organization [facility] Address Unknown Phone Unavailable Encounter HQ Luis Miguel(SARAHY) [phone] Date(s): 04/07/17 - 04/08/17 [facility] [address] [place] [address]- Discharge Disposition: Other Healthcare Facility Attending Physician: Geeta Singleton MD Admitting Physician: Geeta Singleton MD Vital Signs 1 2 3 Most recent to oldest [Reference Range]: 185.42 cm (04/07/17 3:14 AM) Height 98.3 DegF (04/08/17 8:00 PM) 98 DegF (04/08/17 3:00 PM) 97.8 DegF (04/08/17 11:00 AM) Temperature Oral [96.4-99.1 DegF] 120/46 mmHg (04/08/17 8:00 PM) 138/58 mmHg (04/08/17 3:00 PM) 113/51 mmHg (04/08/17 11:00 AM) Blood Pressure [90-140/60-90 mmHg] 18 BRMIN (04/08/17 8:00 PM) 18 BRMIN (04/08/17 6:45 PM) 18 BRMIN (04/08/17 3:00 PM) Respiratory Rate [14-20 BRMIN] 65 bpm (04/08/17 8:00 PM) 64 bpm (04/08/17 3:00 PM) 65 bpm (04/08/17 11:00 AM) Peripheral Pulse Rate [60-100 bpm] 81.818 kg (04/07/17 3:14 AM) Weight 23.8 m2 (04/07/17 3:14 AM) Body Mass Index Problem List Condition Effective Dates Status Health Status Informant Afib(Confirmed) Active CHF - Congestive Active heart failure(Confirmed) COPD(Confirmed) Active HT - Active Hypertension(Confirm ed) Allergies, Adverse Reactions, Alerts Substance Reaction Severity Status NKDA Active Medications acetaminophen 650 mg, 2 tab, Route: PO, Drug form: TAB, Q4H, Dosing Weight 81.818, kg, PRN Andrade n 1-3/Temp > 100.4 F, Start date: 04/07/17 6:19:00 CDT, Duration: 30 day, Stop date: 05/07/17 6:18:00 CDT Notes: Do not exceed 4 gm/day. (Same as: Tylenol) Start Date: 04/07/17 Stop Date: 04/08/17 Status: Discontinued acetaminophen-hydrocodone 325 mg-5 mg oral tablet 1 tab, Route: PO, Drug Form: TAB, Dosing Weight 81.818, kg, Q4H, PRN Pain Score 4-6, Start date: 04/07/17 6:19:00 CDT, Duration: 30 day, Stop date: 05/07/17 6:1 8:00 CDT Notes: (Same as: Cambria 325/5) Do not exceed 4gm/day of acetaminophen. Start Date: 04/07/17 Stop Date: 04/08/17 Status: Discontinued albuterol 0.083% inhalation solution 2.49 mg, Route: INHALATION, ONCE, Dosing Weight 81.818, kg, Start date: 04/07/17 3:23:00 CDT, Stop date: 04/07/17 3:23:00 CDT Start Date: 04/07/17 Stop Date: 04/07/17 Status: Completed AMIODarone 200 mg, 1 tab, Route: PO, Drug form: TAB, BID, Dosing Weight 81.818, kg, Start d ate: 04/08/17 17:00:00 CDT, Duration: 30 day, Stop date: 05/08/17 9:00:00 CDT Notes: (Same as: Cordarone) Start Date: 04/08/17 Stop Date: 04/08/17 Status: Discontinued aspirin 324 mg, Route: CHEW, Drug form: CHEWTAB, ONCE, Dosing Weight 81.818, kg, Priorit y: STAT, Start date: 04/07/17 4:06:00 CDT, Stop date: 04/07/17 4:06:00 CDT Start Date: 04/07/17 Stop Date: 04/07/17 Status: Completed aspirin 81 mg tablet, enteric coated 81 mg, 1 tab, Route: PO, Drug form: ECTAB, Daily, Dosing Weight 81.818, kg, Star t date: 04/08/17 12:00:00 CDT, Duration: 30 day, Stop date: 05/08/17 9:00:00 CDT Notes: Do not crush or chew.(Same As: Ecotrin) Start Date: 04/08/17 Stop Date: 04/08/17 Status: Discontinued azithromycin + sodium chloride 0.9% INJ 250 mL 500 mg, Route: IVPB, [id number], Dosing Weight 81.818, kg, Start date: 04/07/17 9:0 0:00 CDT, Duration: 30 day, Stop date: 05/06/17 9:00:00 CDT, ABX Indication: Pne umonia Notes: (Same As: Zithromax IV) Start Date: 04/07/17 Stop Date: 04/08/17 Status: Discontinued bisacodyl 10 mg, 1 supp, Route: NC, Drug form: SUPP, Daily, Dosing Weight 81.818, kg, PRN Constipation, Start date: 04/08/17 18:22:00 CDT, Duration: 30 day, Stop date: 18:21:00 CDT Notes: (Same As: Dulcolax, Bisco-Lax) Start Date: 04/08/17 Stop Date: 04/08/17 Status: Discontinued cefepime + sodium chloride 0.9% INJ 100 mL 1 gm, Route: IVPB, ONCE, Dosing Weight 81.818, kg, Priority: STAT, Start date: 0 04/07/17 5:12:00 CDT, Duration: 1 doses or times, Stop date: 04/07/17 5:12:00 CDT , ABX Indication: Pneumonia Notes: (Same As: Maxipime) MEDICATION WASTE Product Size: 1000 mgProduc t Wasted: ___ mg Start Date: 04/07/17 Stop Date: 04/07/17 Status: Completed D5W 1,000 mL 1,000 mL, Rate: 100 ml/hr, Infuse over: 10 hr, Route: IV, Dosing Weight 81.818 k g, Total Volume: 1,000, Start date: 04/07/17 7:51:00 CDT, Duration: 30 day, Stop date: 05/07/17 7:50:00 CDT Start Date: 04/07/17 Stop Date: 04/07/17 Status: Discontinued docusate 100 mg, 1 cap, Route: PO, Drug form: CAP, BID, Dosing Weight 81.818, kg, Start d ate: 04/07/17 9:00:00 CDT, Duration: 30 day, Stop date: 05/06/17 17:00:00 CDT Notes: (Same as: Colace) (Do Not Crush) Start Date: 04/07/17 Stop Date: 04/08/17 Status: Discontinued DuoNeb inhalation solution 3 mL, Route: INHALATION, Drug Form: SOLN, Dosing Weight 81.818, kg, RQID, PRN Re spiratory Protocol, Start date: 04/07/17 7:51:00 CDT, Duration: 30 day, Stop onel e: 05/07/17 7:50:00 CDT Notes: (Same as: Duoneb) Start Date: 04/07/17 Stop Date: 04/08/17 Status: Discontinued DuoNeb inhalation solution 3 mL, Route: INHALATION, Dosing Weight 81.818, kg, ONCE, Start date: 04/07/17 3: 24:00 CDT, Stop date: 04/07/17 3:24:00 CDT Start Date: 04/07/17 Stop Date: 04/07/17 Status: Completed Lasix 20 mg, Route: IVP, Drug form: INJ, ONCE, Dosing Weight 81.818, kg, Priority: STA T, Start date: 04/07/17 4:09:00 CDT, Stop date: 04/07/17 4:09:00 CDT Start Date: 04/07/17 Stop Date: 04/07/17 Status: Completed Lasix 20 mg oral tablet 20 mg, 1 tab, Route: PO, Drug form: TAB, Daily, Dosing Weight 81.818, kg, Start date: 04/08/17 9:00:00 CDT, Duration: 30 day, Stop date: 05/07/17 9:00:00 CDT Notes: (Same as: Lasix) May cause GI upset. Give with food or milk. Start Date: 04/08/17 Stop Date: 04/08/17 Status: Discontinued methylPREDNISolone SODium SUCCinate 125 mg, Route: IVP, ONCE, Dosing Weight 77.273, kg, Priority: STAT, Start date: 04/07/17 3:17:00 CDT, Stop date: 04/07/17 3:17:00 CDT Start Date: 04/07/17 Stop Date: 04/07/17 Status: Completed metoprolol extended release 100 mg, 1 tab, Route: PO, Drug form: ERTAB, Daily, Start date: 04/09/17 9:00:00 CDT, Duration: 30 day, Stop date: 05/08/17 9:00:00 CDT Notes: (Same as: Toprol XL) May split tab, but do not crush. Start Date: 04/09/17 Stop Date: 04/08/17 Status: Canceled MiraLax 17 gm, 1 pkt, Route: PO, Drug form: PWDR, Daily, Dosing Weight 81.818, kg, Start date: 04/08/17 18:30:00 CDT, Duration: 30 day, Stop date: 05/08/17 9:00:00 CDT Notes: Dissolve in 8 oz of water or juice.(Same as: Miralax) Start Date: 04/08/17 Stop Date: 04/08/17 Status: Discontinued morphine Sulfate 2 mg, 1 mL, Route: IVP, Drug form: SOLN, Q4H, Dosing Weight 81.818, kg, PRN Pain Score 7-10, Start date: 04/07/17 6:19:00 CDT, Duration: 30 day, Stop date: 04/10 05/26 6:18:00 CDT Start Date: 04/07/17 Stop Date: 04/08/17 Status: Discontinued Multiple Vitamins with Minerals oral tablet 1 tab, Route: PO, Drug Form: TAB, Dosing Weight 81.818, kg, Daily, Start date: 0 04/09/17 9:00:00 CDT, Duration: 30 day, Stop date: 05/08/17 9:00:00 CDT Notes: (Same as:Thera-M, Theragran-M)WASTE: F/P - Black; E - Municipal Trash Bin Give with food. Start Date: 04/09/17 Stop Date: 04/08/17 Status: Canceled mupirocin topical 2% ointment 1 appl, Route: TOP, BID, Drug form: OINT, Start date: 04/07/17 9:00:00 CDT, Dura tion: 5 day, Stop date: 04/11/17 17:00:00 CDT Start Date: 04/07/17 Stop Date: 04/08/17 Status: Discontinued nitroglycerin 2% ointment 1 inch, Route: TOP, Drug Form: OINT, Dosing Weight 81.818, kg, ONCE, STAT, Start date: 04/07/17 4:06:00 CDT, Stop date: 04/07/17 4:06:00 CDT Start Date: 04/07/17 Stop Date: 04/07/17 Status: Completed ondansetron 4 mg, 2 mL, Route: IVP, Drug form: INJ, Q6H, Dosing Weight 81.818, kg, PRN Nause a & Vomiting, Start date: 04/07/17 6:19:00 CDT, Duration: 30 day, Stop date: 05/07/17 6:18:00 CDT Notes: (Same as: Fili) MEDICATION WASTE Product Size: 4 mgProduct Was desmond: ___ mg Start Date: 04/07/17 Stop Date: 04/08/17 Status: Discontinued potassium gluconate 595 mg oral tablet 595 (99K), PO, Daily, 0 Refill(s) Start Date: 04/07/17 Status: Suspended predniSONE 40 mg, 2 tab, Route: PO, Drug form: TAB, Daily, Dosing Weight 81.818, kg, Start date: 04/07/17 9:00:00 CDT, Duration: 30 day, Stop date: 05/06/17 9:00:00 CDT Notes: Take with food. Start Date: 04/07/17 Stop Date: 04/08/17 Status: Discontinued Saline Flush 0.9% 10 mL, Route: IVP, Drug Form: INJ, Dosing Weight 77.273, kg, PRN, PRN Line Flush , Start date: 04/07/17 3:16:00 CDT, Duration: 30 day, Stop date: 05/07/17 3:15:0 0 CDT Notes: (Same as: BD Posiflush) Start Date: 04/07/17 Stop Date: 04/08/17 Status: Discontinued simvastatin 20 mg, 1 tab, Route: PO, Drug form: TAB, Bedtime, Dosing Weight 81.818, kg, Star t date: 04/08/17 21:00:00 CDT, Duration: 30 day, Stop date: 05/07/17 21:00:00 CD T Notes: (Same as: Zocor) Start Date: 04/08/17 Stop Date: 04/08/17 Status: Discontinued Symbicort 160/4.5 inhalation aerosol with adapter 2 inhalation, Route: INHALER, Drug Form: AERO/A, Dosing Weight 81.818, kg, BID, Start date: 04/08/17 12:00:00 CDT, Duration: 30 day, Stop date: 05/08/17 9:00:00 CDT Notes: (Same as: Symbicort)WASTE: Aerosol - Return to Pharmacy Start Date: 04/08/17 Stop Date: 04/08/17 Status: Discontinued trazodone 50 mg oral tablet 50 mg, 1 tab, Route: PO, Drug form: TAB, Bedtime, Dosing Weight 81.818, kg, Star t date: 04/08/17 21:00:00 CDT, Duration: 30 day, Stop date: 05/07/17 21:00:00 CD T Notes: (Same As: Светлана) Start Date: 04/08/17 Stop Date: 04/08/17 Status: Discontinued trazodone 50 mg oral tablet 50 mg=1 tab, PO, Bedtime, # 30 tab, 1 Refill(s) Start Date: 04/07/17 Status: Suspended Vitamin D3 2,000 IntlUnit, 2 tab, Route: PO, Drug form: TAB, Daily, Dosing Weight 81.818, k g, Start date: 04/09/17 9:00:00 CDT, Duration: 30 day, Stop date: 05/08/17 9:00: 00 CDT Notes: Same as : Vitamin D3 Start Date: 04/09/17 Stop Date: 04/08/17 Status: Canceled Results ELECTROLYTES 1 2 3 Most recent to oldest [Reference Range]: 138 mEq/L (04/08/17 4:53 AM) 138 mEq/L (04/07/17 3:19 AM) Sodium Lvl [135-145 mEq/L] 4.1 mEq/L (04/08/17 4:53 AM) 4.2 mEq/L (04/07/17 3:19 AM) Potassium Lvl [3.5-5.1 mEq/L] 103 mEq/L (04/08/17 4:53 AM) 104 mEq/L (04/07/17 3:19 AM) Chloride Lvl [95-109 mEq/L] 32 mEq/L (04/08/17 4:53 AM) 30 mEq/L (04/07/17 3:19 AM) CO2 [24-32 mEq/L] 7.1 mEq/L *LOW* (04/08/17 4:53 AM) 8.2 mEq/L *LOW* (04/07/17 3:19 AM) AGAP [10.0-20.0 mEq/L] CHEM PANEL 1 2 3 Most recent to oldest [Reference Range]: 0.90 mg/dL (04/08/17 4:53 AM) 0.97 mg/dL (04/07/17 3:19 AM) Creatinine Lvl [0.50-1.40 mg/dL] 82 mL/min/1.73m2 1 *NA* (04/08/17 4:53 AM) 74 mL/min/1.73m2 2 *NA* (04/07/17 3:19 AM) eGFR 18 mg/dL (04/08/17 4:53 AM) 12 mg/dL (04/07/17 3:19 AM) BUN [7-22 mg/dL] 20 (04/08/17 4:53 AM) 12 (04/07/17 3:19 AM) B/C Ratio [6-25] 123 mg/dL *HI* (04/08/17 11:54 AM) 125 mg/dL *HI* (04/08/17 4:53 AM) 117 mg/dL *HI* (04/07/17 3:19 AM) Glucose Lvl [70-99 mg/dL] 6.2 g/dL *LOW* (04/08/17 11:54 AM) 6.0 g/dL *LOW* (04/08/17 4:53 AM) 7.7 g/dL (04/07/17 3:19 AM) Total Protein [6.4-8.4 g/dL] 2.8 g/dL *LOW* (04/08/17 4:53 AM) 3.4 g/dL *LOW* (04/07/17 3:19 AM) Albumin Lvl [3.5-5.0 g/dL] 3.2 g/dL (04/08/17 4:53 AM) 4.3 g/dL *HI* (04/07/17 3:19 AM) Globulin [2.7-4.2 g/dL] 0.9 (04/08/17 4:53 AM) 0.8 (04/07/17 3:19 AM) A/G Ratio [0.7-1.6] 8.5 mg/dL (04/08/17 4:53 AM) 9.1 mg/dL (04/07/17 3:19 AM) Calcium Lvl [8.5-10.5 mg/dL] 17 unit/L (04/08/17 4:53 AM) 22 unit/L (04/07/17 3:19 AM) ALT [0-65 unit/L] 13 unit/L (04/08/17 4:53 AM) 18 unit/L (04/07/17 3:19 AM) AST [0-37 unit/L] 78 unit/L (04/08/17 4:53 AM) 100 unit/L (04/07/17 3:19 AM) Alk Phos [39-136 unit/L] 242 unit/L *HI* (04/08/17 11:54 AM) LDH [98-192 unit/L] 1.1 mg/dL (04/08/17 4:53 AM) 0.5 mg/dL (04/07/17 3:19 AM) Bili Total [0.2-1.3 mg/dL] 0.9 mMol/L (04/07/17 6:25 AM) Lactic Acid Lvl [0.5-2.2 mMol/L] 1Result Comment: The eGFR is calculated using the [...] from the National Kidney Disease Education Program ( NKDEP) which additionally recommends that when the eGFR is used in patients with extremes of body mass index for purposes of drug dosing, the eGFR should be mul tiplied by the estimated BMI. 2Result Comment: The eGFR is calculated using the [...] from the National Kidney Disease Education Program ( NKDEP) which additionally recommends that when the eGFR is used in patients with extremes of body mass index for purposes of drug dosing, the eGFR should be mul tiplied by the estimated BMI. CARDIAC ENZYMES 1 2 3 Most recent to oldest [Reference Range]: 84 unit/L (04/07/17 3:19 AM) Total CK [12-191 unit/L] 2.5 ng/mL (04/07/17 3:19 AM) CK MB [0.5-3.6 ng/mL] 3.0 *HI* (04/07/17 3:19 AM) CK MB Index [0.0-2.5] 0.08 ng/mL (04/07/17 5:03 PM) 0.09 ng/mL (04/07/17 11:18 AM) 0.02 ng/mL (04/07/17 3:19 AM) Troponin-I [0.00-0.40 ng/mL] 608 pg/mL *HI* (04/07/17 3:19 AM) BNP [<=100 pg/mL] HEMATOLOGY 1 2 3 Most recent to oldest [Reference Range]: 20.6 K/CMM *HI* (04/08/17 4:53 AM) 11.9 K/CMM *HI* (04/07/17 3:19 AM) WBC [3.7-10.4 K/CMM] 3.98 M/CMM *LOW* (04/08/17 4:53 AM) 4.33 M/CMM *LOW* (04/07/17 3:19 AM) RBC [4.70-6.10 M/CMM] 12.8 g/dL *LOW* (04/08/17 4:53 AM) 14.1 g/dL (04/07/17 3:19 AM) Hgb [14.0-18.0 g/dL] 38.2 % *LOW* (04/08/17 4:53 AM) 41.8 % *LOW* (04/07/17 3:19 AM) Hct [42.0-54.0 %] 96.0 fL *HI* (04/08/17 4:53 AM) 96.5 fL *HI* (04/07/17 3:19 AM) MCV [80.0-94.0 fL] 32.3 pg *HI* (04/08/17 4:53 AM) 32.6 pg *HI* (04/07/17 3:19 AM) MCH [27.0-31.0 pg] 33.6 g/dL (04/08/17 4:53 AM) 33.8 g/dL (04/07/17 3:19 AM) MCHC [32.0-36.0 g/dL] 14.4 % (04/08/17 4:53 AM) 14.4 % (04/07/17 3:19 AM) RDW [11.5-14.5 %] 221 K/CMM (04/08/17 4:53 AM) 256 K/CMM (04/07/17 3:19 AM) Platelet [133-450 K/CMM] 8.1 fL (04/08/17 4:53 AM) 7.9 fL (04/07/17 3:19 AM) MPV [7.4-10.4 fL] 94.3 % *HI* (04/08/17 4:53 AM) 66.6 % (04/07/17 3:19 AM) Segs [45.0-75.0 %] 2.9 % *LOW* (04/08/17 4:53 AM) 23.0 % (04/07/17 3:19 AM) Lymphocytes [20.0-40.0 %] 2.7 % (04/08/17 4:53 AM) 7.0 % (04/07/17 3:19 AM) Monocytes [2.0-12.0 %] 2.3 % (04/07/17 3:19 AM) Eosinophils [0.0-4.0 %] 0.1 % (04/08/17 4:53 AM) 1.1 % *HI* (04/07/17 3:19 AM) Basophils [0.0-1.0 %] 19.4 K/CMM *HI* (04/08/17 4:53 AM) 8.0 K/CMM (04/07/17 3:19 AM) Segs-Bands # [1.5-8.1 K/CMM] 0.6 K/CMM *LOW* (04/08/17 4:53 AM) 2.8 K/CMM (04/07/17 3:19 AM) Lymphocytes # [1.0-5.5 K/CMM] 0.6 K/CMM (04/08/17 4:53 AM) 0.8 K/CMM (04/07/17 3:19 AM) Monocytes # [0.0-0.8 K/CMM] 0.3 K/CMM (04/07/17 3:19 AM) Eosinophils # [0.0-0.5 K/CMM] 0.1 K/CMM (04/07/17 3:19 AM) Basophils # [0.0-0.2 K/CMM] 29.3 seconds *HI* (04/08/17 4:53 AM) 32.7 seconds *HI* (04/07/17 11:18 AM) 30.2 seconds *HI* (04/07/17 3:19 AM) PT [12.0-14.7 seconds] 2.72 *HI* (04/08/17 4:53 AM) 3.13 *HI* (04/07/17 11:18 AM) 2.83 *HI* (04/07/17 3:19 AM) INR [0.85-1.17] 43.4 seconds *HI* (04/08/17 4:53 AM) 46.2 seconds *HI* (04/07/17 3:19 AM) PTT [22.9-35.8 seconds] Immunizations Not Given Vaccine Date Status Refusal Reason pneumococcal 13-valent vaccine 09/27/16 Not Given Patient Refuses Procedures Procedure Date Related Diagnosis Body Site Knee replacement Social History Social History Type Response Substance Abuse Use: None. Alcohol Current, Type Beer. Frequency: 1-2 times per month. Previous treatment: None. Alcohol use interferes with work or home: No. Drinks more than intended: No. Others hurt by drinking: No. Ready to change: No. Household alcohol concerns: No. Smoking Status Current every day smoker; Type: Cigarettes; Exposure to Tobacco Smoke None; Cigarette Smoking Last 365 Days No; Reg Smoking Cessation Counseling No Assessment and Plan Extracted from: Title: Progress Note * Author: Geeta Singleton MD Date: 04/08/17 Impression and Plan SOB- Multifactorial as below Acute Hypoxic Respiratory Failure (resolved) COPD Exacerbation Mild Acute on Chronic Systolic/Diastolic heart failure Acute Pulmonary Edema/Right Pleural Effusion Severe Aortic Stenosis Hx of paroxysmal Afib Leukocytosis-secondary to steroids Plan: -Consulted Cardioloy -Pulmonary on board, Steroids/Abx, thoracenteis when IN R<2. -Daily Labs -Start Low dose Lasix -Patient [employer] Line[employer] requesting transfer to [facility]. -Resume home meds (hold coumadin) Patient seen by Geeta Singleton MD Internal Medicine Hospitalist Extracted from: Title: Discharge Summary * Author: Geeta Singleton MD Date: 04/08/17 Discharge Information Discharge Summary Information Discharge Plan Discharge Summary Plan Discharge Status: improved. Discharge disposition: discharge to home [facility]. Prescriptions: continue same medications. Course Progressing as expected.
--- OUTSIDE RECORDS SUMMARY | 2018-06-24 12:22 | XMS REPORT | Summary of Care ---
Author Author [facility] Outpatient Imaging [facility] Address Unknown Phone Unavailable Encounter CATHERINE Bolanos(FIN) [id number] Date(s): 12/17/16 - 12/17/16 [facility] [address], [address] [place] [phone] Discharge Disposition: Home or Self Care Attending Physician: El Chen MD Vital Signs No data available for this section Problem List Condition Effective Dates Status Health Status Informant Afib(Confirmed) Active CHF - Congestive Active heart failure(Confirmed) COPD(Confirmed) Active HT - Active Hypertension(Confirm ed) Allergies, Adverse Reactions, Alerts Substance Reaction Severity Status NKDA Active Medications No data available for this section Results No data available for this section Immunizations Not Given Vaccine Date Status Refusal [...] Smoking Cessation Counseling No Assessment and Plan No data available for this section
--- OUTSIDE RECORDS SUMMARY | 2018-06-24 12:22 | XMS REPORT | Summary of Care ---
Author Author [facility] Outpatient Imaging [facility] Outpatient Imaging [facility] Address Unknown Phone Unavailable Encounter HQ Luis_khalif(SARAHY) [id number] Date(s): 06/20/16 - 06/20/16 [facility] Imaging [facility] [address], [address] [place], [place] [address] [phone] Discharge Disposition: Home or Self Care Attending Physician: Shadi Izquierdo MD Vital Signs [...] No data available for this section Procedures Procedure Date Related Diagnosis Body Site [...]
--- OUTSIDE RECORDS SUMMARY | 2018-06-24 12:22 | XMS REPORT | Summary of Care ---
Author Author [facility] Organization [facility] Address Unknown Phone Unavailable Encounter HQ Luis Miguel(SARAHY) [id number] Date(s): 03/21/17 - 03/21/17 [facility] [address] [place] [address]- [phone] Discharge Disposition: Home or Self Care Attending Physician: Jarad Lopez MD Referring Physician: Jarad Lopez MD Vital Signs Most recent to 1 oldest [Reference Range]: Height 180.34 cm (03/21/17 11:49 AM) Weight 78.636 kg (03/21/17 11:49 AM) Body Mass Index 24.18 m2 (03/21/17 11:49 AM) Problem List Condition Effective Dates Status Health [...]
--- OUTSIDE RECORDS SUMMARY | 2018-06-24 12:22 | XMS REPORT | Summary of Care ---
Author Author [facility] Organization [facility] Address Unknown Phone Unavailable Encounter HQ Luis Miguel(SARAHY) [id number] Date(s): 09/27/16 - 09/27/16 [facility] [address] [place] [address]- Discharge Disposition: Left Against Medical Advise Vital Signs 1 2 3 Most recent to oldest [Reference Range]: 185.42 cm (09/27/16 12:53 AM) Height 97.5 DegF (09/27/16 8:00 AM) 97.3 DegF (09/27/16 6:07 AM) 98.2 DegF (09/27/16 4:20 AM) Temperature Oral [96.4-99.1 DegF] 136/69 mmHg (09/27/16 8:00 AM) 153/91 mmHg *HI* (09/27/16 6:07 AM) 138/73 mmHg (09/27/16 4:20 AM) Blood Pressure [90-140/60-90 mmHg] 20 BRMIN (09/27/16 8:00 AM) 20 BRMIN (09/27/16 7:22 AM) 16 BRMIN (09/27/16 6:07 AM) Respiratory Rate [14-20 BRMIN] 97 bpm (09/27/16 8:00 AM) 108 bpm *HI* (09/27/16 6:07 AM) 99 bpm (09/27/16 4:20 AM) Peripheral Pulse Rate [60-100 bpm] 81.81 kg (09/27/16 6:26 AM) 81.818 kg (09/27/16 12:53 AM) Weight 23.8 m2 (09/27/16 12:53 AM) Body Mass Index Problem List Condition Effective Dates Status Health Status Informant Afib(Confirmed) Active CHF - Congestive Active heart failure(Confirmed) COPD(Confirmed) Active HT - Active Hypertension(Confirm ed) Allergies, Adverse Reactions, Alerts Substance Reaction Severity Status NKDA Active Medications acetaminophen 650 mg, 2 tab, Route: PO, Drug form: TAB, Q4H, Dosing Weight 81.818, kg, PRN Andrade n 1-3/Temp > 100.4 F, Start date: 09/27/16 4:55:00 CAN PILER, Duration: 30 day, Stop date: 10/27/16 4:54:00 CAN PILER Notes: Do not exceed 4 gm/day. (Same as: Tylenol) Start Date: 09/27/16 Stop Date: 09/27/16 Status: Discontinued acetaminophen-hydrocodone 325 mg-5 mg oral tablet 1 tab, Route: PO, Drug Form: TAB, Dosing Weight 81.818, kg, Q4H, PRN Pain Score 4-6, Start date: 09/27/16 4:55:00 CAN PILER, Duration: 30 day, Stop date: 10/27/16 4:5 4:00 CAN PILER Notes: (Same as: [place] 325/5) Do not exceed 4gm/day of acetaminophen. Start Date: 09/27/16 Stop Date: 09/27/16 Status: Discontinued acetaminophen-hydrocodone 325 mg-5 mg oral tablet 0.5 tab, Route: PO, Drug Form: TAB, Dosing Weight 81.818, kg, Daily, PRN Pain 1- 3/Temp > 100.4 F, Start date: 09/27/16 4:53:00 CAN PILER, Duration: 30 day, Stop date: 10/27/16 4:52:00 CAN PILER Notes: (Same as: [place] 325/5) Do not exceed 4gm/day of acetaminophen. Start Date: 09/27/16 Stop Date: 09/27/16 Status: Discontinued Advair Diskus 250 mcg-50 mcg inhalation powder 1 puff, Route: INHALATION, Drug Form: AERO, Dosing Weight 81.818, kg, Q12H, Star t date: 09/27/16 9:00:00 CAN PILER, Duration: 30 day, Stop date: 10/26/16 21:00:00 CAN PILER Start Date: 09/27/16 Stop Date: 09/27/16 Status: Deleted amoxicillin-clavulanate 500 mg-125 mg oral tablet PO, Q12H, 0 Refill(s) Start Date: 09/27/16 Status: Ordered azithromycin 500 mg, Route: PO, Drug form: TAB, ONCE, Dosing Weight 81.818, kg, Start date: 0 09/27/16 4:57:00 CAN PILER, Stop date: 09/27/16 4:57:00 CAN PILER Start Date: 09/27/16 Stop Date: 09/27/16 Status: Discontinued azithromycin + sodium chloride 0.9% INJ 250 mL 500 mg, Route: IVPB, [id number], Dosing Weight 81.818, kg, Start date: 09/28/16 4:0 0:00 CAN PILER, Duration: 30 day, Stop date: 10/27/16 4:00:00 CAN PILER Notes: (Same As: Zithromax IV) Start Date: 09/28/16 Stop Date: 09/27/16 Status: Canceled azithromycin + sodium chloride 0.9% INJ 250 mL 500 mg, Route: IVPB, ONCE, Dosing Weight 81.818, kg, Priority: STAT, Start date: 09/27/16 2:13:00 CAN PILER, Stop date: 09/27/16 2:13:00 CAN PILER Notes: (Same As: Zithromax IV) Start Date: 09/27/16 Stop Date: 09/27/16 Status: Completed budesonide-formoterol 160 mcg-4.5 mcg/inh inhalation aerosol with adapter 2 inhalation, Route: INHALATION, Drug Form: AERO/A, BID, Start date: 09/27/16 9: 00:00 CAN PILER, Duration: 30 day, Stop date: 10/26/16 17:00:00 CAN PILER Notes: (Same as: Symbicort)WASTE: Aerosol - Return to Pharmacy Start Date: 09/27/16 Stop Date: 09/27/16 Status: Discontinued cefTRIAXone + sodium chloride 0.9% INJ 100 mL 1 gm, Route: IVPB, ONCE, Dosing Weight 81.818, kg, Priority: STAT, Start date: 0 09/27/16 2:13:00 CAN PILER, Stop date: 09/27/16 2:13:00 CAN PILER Notes: (Same As: Rocephin).Use with 100 mL NS and infuse over 30 min MEDICA TION WASTE Product Size: 1000 mgProduct Wasted: ___ mg Start Date: 09/27/16 Stop Date: 09/27/16 Status: Completed Centrum Silver Men's 1 tab, Route: PO, Drug Form: TAB, Dosing Weight 81.818, kg, Daily, Start date: 0 09/27/16 9:00:00 CAN PILER, Duration: 30 day, Stop date: 10/26/16 9:00:00 CAN PILER Notes: (Same as:Thera-M, Theragran-M)WASTE: F/P - Black; E - Municipal Trash Bin Give with food. Start Date: 09/27/16 Stop Date: 09/27/16 Status: Discontinued Coumadin 5 mg, 1 tab, Route: PO, Drug form: TAB, QSat, Start date: 09/29/16 17:00:00 CAN PILER, Duration: 30 day, Stop date: 10/27/16 17:00:00 CAN PILER Notes: Nurse to ensure documentation of patient education per anticoagulation po licy.Avoid large intake of vitamin-K containing foods diet.WASTE: F/P - P Waste Black; E - P Waste Black(Same As: Coumadin) Start Date: 09/29/16 Stop Date: 09/27/16 Status: Canceled diltiazem 10 mg, 2 mL, Route: IV, Drug form: INJ, ONCE, Dosing Weight 81.818, kg, Priority : STAT, Start date: 09/27/16 3:27:00 CAN PILER, Stop date: 09/27/16 3:27:00 CAN PILER Notes: (Same as: Cardizem) Start Date: 09/27/16 Stop Date: 09/27/16 Status: Completed DuoNeb inhalation solution 3 mL, Route: NEB, Dosing Weight 81.818, kg, ONCE, Start date: 09/27/16 1:20:[address], Stop date: 09/27/16 1:20:00 CAN PILER Start Date: 09/27/16 Stop Date: 09/27/16 Status: Completed DuoNeb inhalation solution 3 ml, Route: NEB, Drug Form: SOLN, Dosing Weight 81.818, kg, RQ6H, Start date: 0 09/27/16 8:00:00 CAN PILER, Duration: 30 day, Stop date: 10/27/16 2:00:00 CAN PILER Notes: (Same as: Duoneb) Start Date: 09/27/16 Stop Date: 09/27/16 Status: Discontinued ipratropium 500 microgram, 2.5 mL, Route: NEB, Drug form: SOLN, RTID, Dosing Weight 81.818, kg, PRN Shortness of breath, Start date: 09/27/16 4:54:00 CAN PILER, Duration: 30 day, Stop date: 10/27/16 4:53:00 CAN PILER Notes: SEE RT DOCUMENTATION(Same as:Atrovent) Start Date: 09/27/16 Stop Date: 09/27/16 Status: Discontinued levalbuterol 1.25 mg, 3 mL, Route: NEB, Drug form: SOLN, ONCE, Dosing Weight 81.818, kg, Prio rity: Routine, Start date: 09/27/16 1:22:00 CAN PILER, Stop date: 09/27/16 1:22:00 CAN PILER , Substitute Allowed No Notes: SEE RT DOCUMENTATION (Same as:Xopenex)Non-Formulary Start Date: 09/27/16 Stop Date: 09/27/16 Status: Completed levalbuterol 1.25 mg, 3 mL, Route: NEB, Drug form: SOLN, ONCE, Dosing Weight 81.818, kg, Prio rity: Routine, Start date: 09/27/16 1:22:00 CAN PILER, Stop date: 09/27/16 1:22:00 CAN PILER , Substitute Allowed No Notes: SEE RT DOCUMENTATION (Same as:Xopenex)Non-Formulary Start Date: 09/27/16 Stop Date: 09/27/16 Status: Completed lisinopril 10 mg, 2 tab, Route: PO, Drug form: TAB, Daily, Dosing Weight 81.818, kg, Start date: 09/27/16 9:00:00 CAN PILER, Duration: 30 day, Stop date: 10/26/16 9:00:00 CAN PILER Notes: (Same as: Prinivil, Zestril) Start Date: 09/27/16 Stop Date: 09/27/16 Status: Discontinued methylPREDNISolone SODium SUCCinate 125 mg, Route: IVP, ONCE, Dosing Weight 81.818, kg, Priority: STAT, Start date: 09/27/16 1:58:00 CAN PILER, Stop date: 09/27/16 1:58:00 CAN PILER Start Date: 09/27/16 Stop Date: 09/27/16 Status: Completed metoprolol extended release 100 mg, 1 tab, Route: PO, Drug form: ERTAB, Daily, Start date: 09/27/16 9:00:00 CAN PILER, Duration: 30 day, Stop date: 10/26/16 9:00:00 CAN PILER Notes: (Same as: Toprol XL) May split tab, but do not crush. Start Date: 09/27/16 Stop Date: 09/27/16 Status: Discontinued pneumococcal 13-valent vaccine 0.5 mL, Route: IM, Drug Form: INJ, Daily, Start date: 09/27/16 9:00:00 CAN PILER, Dura tion: 1 doses or times, Stop date: 09/27/16 9:00:00 CAN PILER Notes: Lightly roll vial (DO NOT SHAKE) before administration. (Same as: Prevna r 13) Start Date: 09/27/16 Stop Date: 09/27/16 Status: Completed potassium gluconate 550 mg oral tablet See Instructions, 1 tab, 0 Refill(s) Start Date: 09/27/16 Stop Date: 09/27/16 Status: Deleted predniSONE 10 mg oral tablet 20 mg=2 tab, PO, Daily, 0 Refill(s) Start Date: 09/27/16 Status: Ordered Rocephin + sodium chloride 0.9% INJ 100 mL 1 gm, Route: IVPB, [id number], Dosing Weight 81.818, kg, Start date: 09/27/16 5:00: 00 CAN PILER, Duration: 30 day, Stop date: 10/27/16 3:00:00 CAN PILER Notes: (Same As: Rocephin).Use with 100 mL NS and infuse over 30 min MEDICA TION WASTE Product Size: 1000 mgProduct Wasted: ___ mg Start Date: 09/27/16 Stop Date: 09/27/16 Status: Discontinued Saline Flush 0.9% 10 mL, Route: IVP, Drug Form: INJ, Dosing Weight 81.818, kg, PRN, PRN Line Flush , Start date: 09/27/16 1:07:00 CAN PILER, Duration: 30 day, Stop date: 10/27/16 1:06:0 0 CAN PILER Notes: (Same as: BD Posiflush) Start Date: 09/27/16 Stop Date: 09/27/16 Status: Discontinued simvastatin 20 mg, 1 tab, Route: PO, Drug form: TAB, Bedtime, Dosing Weight 81.818, kg, Star t date: 09/27/16 21:00:00 CAN PILER, Duration: 30 day, Stop date: 10/26/16 21:00:00 CS T Notes: (Same as: Zocor) Start Date: 09/27/16 Stop Date: 09/27/16 Status: Canceled Sodium Chloride 0.9% (Bolus) IV 500 mL, Infuse Over: 1 hr, Route: IV, ONCE, Priority: STAT, Dosing Weight 81.818 kg, Start date: 09/27/16 1:42:00 CAN PILER, Duration: 1 doses or times, Stop date: 1:42:00 CAN PILER Start Date: 09/27/16 Stop Date: 09/27/16 Status: Completed Solu-MEDROL 40 mg, 1 mL, Route: IVP, Drug form: INJ, Q8Hnow, Dosing Weight 81.818, kg, Start date: 09/27/16 10:00:00 CAN PILER, Duration: 30 day, Stop date: 10/27/16 2:00:00 CAN PILER Notes: (Same as:Solu-MEDROL, A-Methapred) Start Date: 09/27/16 Stop Date: 09/27/16 Status: Discontinued warfarin 5 mg, 1 tab, Route: PO, Drug form: TAB, QWeekday, Dosing Weight 81.818, kg, Star t date: 09/27/16 17:00:00 CAN PILER, Duration: 30 day, Stop date: 10/26/16 17:00:00 CS T Notes: Nurse to ensure documentation of patient education per anticoagulation po licy.Avoid large intake of vitamin-K containing foods diet.WASTE: F/P - P Waste Black; E - P Waste Black(Same As: Coumadin) Start Date: 09/27/16 Stop Date: 09/27/16 Status: Canceled Xopenex 1.25 mg, 3 mL, Route: NEB, Drug form: SOLN, ONCE, Dosing Weight 81.818, kg, Prio rity: STAT, Start date: 09/27/16 2:31:00 CAN PILER, Stop date: 09/27/16 2:31:00 CAN PILER Notes: SEE RT DOCUMENTATION (Same as:Xopenex)Non-Formulary Start Date: 09/27/16 Stop Date: 09/27/16 Status: Completed Results ELECTROLYTES Most recent to 1 2 oldest [Reference Range]: Sodium Lvl [135-145 138 mEq/L mEq/L] (09/27/16 1:29 AM) Potassium Lvl 4.3 mEq/L [3.5-5.1 mEq/L] (09/27/16 1:29 AM) Chloride Lvl [95-109 102 mEq/L mEq/L] (09/27/16 1:29 AM) CO2 [24-32 mEq/L] 28 mEq/L (09/27/16 1:29 AM) AGAP [10.0-20.0 12.3 mEq/L mEq/L] (09/27/16 1:29 AM) CHEM PANEL Most recent to 1 2 oldest [Reference Range]: Creatinine Lvl 0.81 mg/dL [0.50-1.40 mg/dL] (09/27/16 1:29 AM) eGFR 86 mL/min/1.73m2 1 *NA* (09/27/16 1:29 AM) BUN [7-22 mg/dL] 14 mg/dL (09/27/16 1:29 AM) B/C Ratio [6-25] 17 (09/27/16 1:29 AM) Glucose Lvl [70-99 110 mg/dL mg/dL] *HI* (09/27/16 1:29 AM) Total Protein 7.4 g/dL [6.4-8.4 g/dL] (09/27/16 1:29 AM) Albumin Lvl [3.5-5.0 3.4 g/dL g/dL] *LOW* (09/27/16 1:29 AM) Globulin [2.7-4.2 4.0 g/dL g/dL] (09/27/16 1:29 AM) A/G Ratio [0.7-1.6] 0.8 (09/27/16 1:29 AM) Calcium Lvl 8.9 mg/dL [8.5-10.5 mg/dL] (09/27/16 1:29 AM) ALT [0-65 unit/L] 20 unit/L (09/27/16 1:29 AM) AST [0-37 unit/L] 20 unit/L (09/27/16 1:29 AM) Alk Phos [39-136 103 unit/L unit/L] (09/27/16 1:29 AM) Bili Total [0.2-1.3 0.8 mg/dL mg/dL] (09/27/16 1:29 AM) Lactic Acid Lvl 1.1 mMol/L [0.5-2.2 mMol/L] (09/27/16 2:40 AM) 1Result Comment: The eGFR is calculated using [...] tiplied by the estimated BMI. CARDIAC ENZYMES Most recent to 1 2 oldest [Reference Range]: Total CK [12-191 124 unit/L 110 unit/L unit/L] (09/27/16 7:53 AM) (09/27/16 1:29 AM) CK MB [0.5-3.6 4.3 ng/mL 3.5 ng/mL ng/mL] *HI* (09/27/16 1:29 AM) (09/27/16 7:53 AM) CK MB Index 3.5 3.2 [0.0-2.5] *HI* *HI* (09/27/16 7:53 AM) (09/27/16 1:29 AM) Troponin-I 0.02 ng/mL 0.03 ng/mL [0.00-0.40 ng/mL] (09/27/16 7:53 AM) (09/27/16 1:29 AM) BNP [<=100 pg/mL] 237 pg/mL *HI* (09/27/16 1:29 AM) URINE AND STOOL Most recent to 1 2 oldest [Reference Range]: UA Turbidity [Clear] Clear (09/27/16 3:26 AM) UA Color Ltyellow *NA* (09/27/16 3:26 AM) UA pH [5.0-8.0] 5.0 (09/27/16 3:26 AM) UA Spec Grav 1.005 [<=1.030] (09/27/16 3:26 AM) UA Glucose [Negative Negative mg/dL mg/dL] *NA* (09/27/16 3:26 AM) UA Blood [Negative] Negative (09/27/16 3:26 AM) UA Ketones [Negative Trace mg/dL mg/dL] *ABN* (09/27/16 3:26 AM) UA Protein [Negative 30 mg/dL mg/dL] *ABN* (09/27/16 3:26 AM) UA Urobilinogen <=1.0 mg/dL [0.1-1.0 mg/dL] *NA* (09/27/16 3:26 AM) UA Bili [Negative] Negative *NA* (09/27/16 3:26 AM) UA Leuk Est Negative [Negative] (09/27/16 3:26 AM) UA Nitrite Negative [Negative] (09/27/16 3:26 AM) UA WBC [0-5 /HPF] 1 /HPF (09/27/16 3:26 AM) UA RBC [0-2 /HPF] 4 /HPF *HI* (09/27/16 3:26 AM) UA Bacteria [None Occasional /HPF Seen /HPF] *NA* (09/27/16 3:26 AM) UA Sq Epi None Seen *NA* (09/27/16 3:26 AM) UA Hyal Cast [0-2 3 /LPF /LPF] *HI* (09/27/16 3:26 AM) UA Mucus [None Seen Few /LPF /LPF] *NA* (09/27/16 3:26 AM) HEMATOLOGY Most recent to 1 2 oldest [Reference Range]: WBC [3.7-10.4 K/CMM] 6.4 K/CMM (09/27/16 1:29 AM) RBC [4.70-6.10 4.20 M/CMM M/CMM] *LOW* (09/27/16 1:29 AM) Hgb [14.0-18.0 g/dL] 13.7 g/dL *LOW* (09/27/16 1:29 AM) Hct [42.0-54.0 %] 40.6 % *LOW* (09/27/16 1:29 AM) MCV [80.0-94.0 fL] 96.6 fL *HI* (09/27/16 1:29 AM) MCH [27.0-31.0 pg] 32.6 pg *HI* (09/27/16 1:29 AM) MCHC [32.0-36.0 33.8 g/dL g/dL] (09/27/16 1:29 AM) RDW [11.5-14.5 %] 14.5 % (09/27/16 1:29 AM) Platelet [133-450 162 K/CMM K/CMM] (09/27/16 1:29 AM) MPV [7.4-10.4 fL] 8.1 fL (09/27/16 1:29 AM) Segs [45.0-75.0 %] 74.7 % (09/27/16 1:29 AM) Lymphocytes 12.3 % [20.0-40.0 %] *LOW* (09/27/16 1:29 AM) Monocytes [2.0-12.0 10.4 % %] (09/27/16 1:29 AM) Eosinophils [0.0-4.0 1.5 % %] (09/27/16 1:29 AM) Basophils [0.0-1.0 1.1 % %] *HI* (09/27/16 1:29 AM) Segs-Bands # 4.8 K/CMM [1.5-8.1 K/CMM] (09/27/16 1:29 AM) Lymphocytes # 0.8 K/CMM [1.0-5.5 K/CMM] *LOW* (09/27/16 1:29 AM) Monocytes # [0.0-0.8 0.7 K/CMM K/CMM] (09/27/16 1:29 AM) Eosinophils # 0.1 K/CMM [0.0-0.5 K/CMM] (09/27/16 1:29 AM) Basophils # [0.0-0.2 0.1 K/CMM K/CMM] (09/27/16 1:29 AM) PT [12.0-14.7 29.7 seconds seconds] *HI* (09/27/16 2:13 AM) INR [0.85-1.17] 2.77 *HI* (09/27/16 2:13 AM) PTT [22.9-35.8 48.5 seconds seconds] *HI* (09/27/16 2:13 AM) Immunizations Not Given Vaccine Date Status Refusal [...] No Assessment and Plan Extracted from: Title: History and Physical Author: Antolin Barnett DO Date: 09/27/16 Assessment/Plan COPD with acute exacerbation Ordered: Admit/Condition Admit/Condition Pneumonia Ordered: Admit/Condition Admit/Condition Orders: acetaminophen, 650 mg, 2 tab, Route: PO, Drug form: TAB, Q4H, Dosing Weight 81.818, kg, PRN Pain 1-3/Temp > 100.4 F, Start date: 09/27/16 4:55:00 CAN PILER, Duration: 30 day, Stop date: 10/27/16 4:54:00 CAN PILER acetaminophen-hydrocodone 325 mg-5 mg oral tablet, 1 tab, Route: PO, Drug Form: TAB, Dosing Weight 81.818, kg, Q4H, PRN Pain Score 4-6, Start date: 09/27/16 4:55:00 CAN PILER, Duration: 30 day, Stop date: 10/27/16 4:54:00 CAN PILER acetaminophen-hydrocodone 325 mg-5 mg oral tablet, Route: PO, Drug Form: TAB, Dosing Weight 81.818, kg, Daily, PRN Pain 1-3/Temp > 100.4 F, Start date: 09/27/16 4:53:00 CAN PILER, Duration: 30 day, Stop date: 10/27/16 4:52:00 CAN PILER DuoNeb inhalation solution, 3 ml, Route: NEB, Drug Form: SOLN, Dosing Weight 81.818, kg, Q6H, Start date: 09/27/16 6:00:00 CAN PILER, Duration: 30 day, Stop date: 10/27/16 0:00:00 CAN PILER azithromycin, 500 mg, Route: PO, Drug form: TAB, ONCE, Dosing Weight 81.818, kg, Start date: 09/27/16 4:57:00 CAN PILER, Stop date: 09/27/16 4:57:00 CAN PILER Rocephin + sodium chloride 0.9% INJ 100 mL, 1 gm, Route: IVPB, [id number], Dosing Weight 81.818, kg, Start date: 09/27/16 5:00:00 CAN PILER, Duration: 30 day, Stop date: 10/26/16 5:00:00 CAN PILER Advair Diskus 250 mcg-50 mcg inhalation powder, 1 puff, Route: INHALATION, Drug Form: AERO, Dosing Weight 81.818, kg, Q12H, Start date: 09/27/16 9:00:00 CAN PILER, Duration: 30 day, Stop date: 10/26/16 21:00:00 CAN PILER ipratropium, 500 microgram, Route: NEB, TID, Dosing Weight 81.818, kg, PRN Shortness of breath, Start date: 09/27/16 4:54:00 CAN PILER, Duration: 30 day, Stop date: 10/27/16 4:53:00 CAN PILER lisinopril, 10 mg, 2 tab, Route: PO, Drug form: TAB, Daily, Dosing Weight 81.818, kg, Start date: 09/27/16 9:00:00 CAN PILER, Duration: 30 day, Stop date: 10/26/16 9:00:00 CAN PILER Solu-MEDROL, 40 mg, Route: IVP, Drug form: INJ, Q8H, Dosing Weight 81.818, kg, Start date: 09/27/16 8:00:00 CAN PILER, Duration: 30 day, Stop date: 10/27/16 0:00:00 CAN PILER metoprolol extended release, 100 mg, 1 tab, Route: PO, Drug form: ERTAB, Daily, Start date: 09/27/16 9:00:00 CAN PILER, Duration: 30 day, Stop date: 10/26/16 9:00:00 CAN PILER Centrum Silver Men's, 1 tab, Route: PO, Drug Form: TAB, Dosing Weight 81.818, kg, Daily, Start date: 09/27/16 9:00:00 CAN PILER, Duration: 30 day, Stop date: 10/26/16 9:00:00 CAN PILER simvastatin, 20 mg, 1 tab, Route: PO, Drug form: TAB, Bedtime, Dosing Weight 81.818, kg, Start date: 09/27/16 21:00:00 CAN PILER, Duration: 30 day, Stop date: 10/26/16 21:00:00 CAN PILER warfarin, 5 mg, Route: PO, Drug form: TAB, Daily, Dosing Weight 81.818, kg, Start date: 09/27/16 9:00:00 CAN PILER, Duration: 30 day, Stop date: 10/26/16 9:00:00 CAN PILER Ambulation Up with Assistance CDM Admission Acute Care Post ED Diet Heart Healthy Provide Education AC4 Patient Education AC4 Telemetry (e.g. Acute Care Floor) Vital Signs
--- OUTSIDE RECORDS SUMMARY | 2018-06-24 12:22 | XMS REPORT | Summary of Care ---
Author Author [facility] Organization [facility] Address Unknown Phone Unavailable Encounter CATHERINE Bolanos(SARAHY) [id number] Date(s): 04/01/17 - 04/01/17 [facility] [address] [facility] provided by [facility] [place] [address]- Discharge Disposition: Home or Self Care Attending Physician: Segundo Viveros MD Admitting Physician: Segundo Viveros MD Referring Physician: Segundo Viveros MD Vital Signs 1 2 3 Most recent to oldest [Reference Range]: 182.88 cm (04/01/17 6:01 AM) Height 154/74 mmHg *HI* (04/01/17 12:45 PM) 161/75 mmHg *HI* (04/01/17 12:15 PM) 151/72 mmHg *HI* (04/01/17 11:45 AM) Blood Pressure [90-140/60-90 mmHg] 17 BRMIN (04/01/17 12:45 PM) 17 BRMIN (04/01/17 12:15 PM) 17 BRMIN (04/01/17 11:45 AM) Respiratory Rate [14-20 BRMIN] 77.273 kg (04/01/17 6:01 AM) Weight 23.1 m2 (04/01/17 6:01 AM) Body Mass Index Problem List Condition Effective Dates Status Health Status Informant Afib(Confirmed) Active CHF - Congestive Active heart failure(Confirmed) COPD(Confirmed) Active HT - Active Hypertension(Confirm ed) Allergies, Adverse Reactions, Alerts Substance Reaction Severity Status NKDA Active Medications albuterol 0.083% inhalation solution 2.5 mg, 3 mL, Route: INHALATION, ONCE, Dosing Weight 77.273, kg, Start date: 13:50:00 CDT, Stop date: 04/01/17 13:50:00 CDT Start Date: 04/01/17 Stop Date: 04/01/17 Status: Completed AMIODarone 200 mg oral tablet 200 mg=1 tab, PO, BID, # 180 tab, 0 Refill(s) Start Date: 04/01/17 Status: Ordered fentaNYL 25 microgram, Route: IV, ONCE, Dosing Weight 77.273, kg, Start date: 04/01/17 10 :39:00 CDT, Stop date: 04/01/17 10:39:00 CDT Start Date: 04/01/17 Stop Date: 04/01/17 Status: Completed lisinopril 40 mg oral tablet 40 mg=1 tab, PO, Daily, # 30 tab, 0 Refill(s) Start Date: 04/01/17 Status: Ordered Adrian 10/325 oral tablet 1 tab, PO, Q8H, PRN for pain, # 24 tab, 0 Refill(s) Start Date: 04/01/17 Stop Date: 04/07/17 Status: Ordered potassium gluconate =1 tab, PO, Daily, 0 Refill(s) Start Date: 04/01/17 Stop Date: 04/01/17 Status: Discontinued sodium chloride 0.9% 1000 ml INJ 1,000 mL 1,000 mL, Rate: 50 ml/hr, Infuse over: 20 hr, Route: IV, Dosing Weight 77.273 kg , Total Volume: 1,000, Start date: 04/01/17 6:02:00 CDT, Duration: 30 day, Stop date: 05/01/17 6:01:00 CDT Start Date: 04/01/17 Stop Date: 04/01/17 Status: Discontinued Symbicort 160/4.5 inhalation aerosol with adapter 2 puff, INHALER, BID, # 1 ea, 3 Refill(s) Start Date: 04/01/17 Status: Ordered tramadol 50 mg oral tablet 50 mg=1 tab, PO, Q8H, PRN Pain, # 60 tab, 0 Refill(s) Start Date: 04/01/17 Stop Date: 04/21/17 Status: Ordered Visipaque 320mg/ml 150 mL, Route: IVP, Drug Form: SOLN, Dosing Weight 77.273, kg, ONCALL, STAT, Sta rt date: 04/01/17 12:13:00 CDT, Duration: 1 doses or times, Stop date: 04/01/17 13:00:00 CDT, Dose=2.2ml/kg, Max [id number] -- "To be infused by Radiology Staf f ONLY" Notes: (Same as: Brando).WASTE: F/P - Black; E - Municipal Trash Bin Start Date: 04/01/17 Stop Date: 04/01/17 Status: Completed Vitamin D3 2000 intl units oral capsule 2,000 IntlUnit=1 cap, PO, Daily, # 100 cap, 3 Refill(s) Start Date: 04/01/17 Status: Ordered warfarin 2 mg oral tablet 2 mg=1 tab, PO, qWeek, Saturday, 0 Refill(s) Start Date: 04/01/17 Status: Ordered Results BLOOD BANK RESULTS Most recent to 1 oldest [Reference Range]: ABO/Rh A POS *Unknown* (04/01/17 6:32 AM) Antibody Scrn Negative (04/01/17 6:32 AM) ELECTROLYTES Most recent to 1 oldest [Reference Range]: Sodium Lvl [135-145 141 mEq/L mEq/L] (04/01/17 6:32 AM) Potassium Lvl 3.8 mEq/L [3.5-5.1 mEq/L] (04/01/17 6:32 AM) Chloride Lvl [95-109 106 mEq/L mEq/L] (04/01/17 6:32 AM) CO2 [24-32 mEq/L] 30 mEq/L (04/01/17 6:32 AM) AGAP [10.0-20.0 8.8 mEq/L mEq/L] *LOW* (04/01/17 6:32 AM) CHEM PANEL Most recent to 1 oldest [Reference Range]: Creatinine Lvl 0.94 mg/dL [0.50-1.40 mg/dL] (04/01/17 6:32 AM) eGFR 77 mL/min/1.73m2 1 *NA* (04/01/17 6:32 AM) BUN [7-22 mg/dL] 11 mg/dL (04/01/17 6:32 AM) Glucose Lvl [70-99 93 mg/dL mg/dL] (04/01/17 6:32 AM) Calcium Lvl 9.6 mg/dL [8.5-10.5 mg/dL] (04/01/17 6:32 AM) Magnesium Lvl 1.8 mg/dL [1.8-2.4 mg/dL] (04/01/17 6:32 AM) 1Result Comment: The eGFR is calculated [...] be mul tiplied by the estimated BMI. HEMATOLOGY Most recent to 1 oldest [Reference Range]: WBC [3.7-10.4 K/CMM] 7.6 K/CMM (04/01/17 6:32 AM) RBC [4.70-6.10 4.19 M/CMM M/CMM] *LOW* (04/01/17 6:32 AM) Hgb [14.0-18.0 g/dL] 13.7 g/dL *LOW* (04/01/17 6:32 AM) Hct [42.0-54.0 %] 40.1 % *LOW* (04/01/17 6:32 AM) MCV [80.0-94.0 fL] 95.6 fL *HI* (04/01/17 6:32 AM) MCH [27.0-31.0 pg] 32.7 pg *HI* (04/01/17 6:32 AM) MCHC [32.0-36.0 34.2 g/dL g/dL] (04/01/17 6:32 AM) RDW [11.5-14.5 %] 14.2 % (04/01/17 6:32 AM) Platelet [133-450 208 K/CMM K/CMM] (04/01/17 6:32 AM) MPV [7.4-10.4 fL] 7.9 fL (04/01/17 6:32 AM) Segs [45.0-75.0 %] 69.5 % (04/01/17 6:32 AM) Lymphocytes 20.4 % [20.0-40.0 %] (04/01/17 6:32 AM) Monocytes [2.0-12.0 7.7 % %] (04/01/17 6:32 AM) Eosinophils [0.0-4.0 1.4 % %] (04/01/17 6:32 AM) Basophils [0.0-1.0 1.0 % %] (04/01/17 6:32 AM) Segs-Bands # 5.3 K/CMM [1.5-8.1 K/CMM] (04/01/17 6:32 AM) Lymphocytes # 1.6 K/CMM [1.0-5.5 K/CMM] (04/01/17 6:32 AM) Monocytes # [0.0-0.8 0.6 K/CMM K/CMM] (04/01/17 6:32 AM) Eosinophils # 0.1 K/CMM [0.0-0.5 K/CMM] (04/01/17 6:32 AM) Basophils # [0.0-0.2 0.1 K/CMM K/CMM] (04/01/17 6:32 AM) PT [12.0-14.7 14.1 seconds seconds] (04/01/17 6:32 AM) INR [0.85-1.17] 1.07 (04/01/17 6:32 AM) PTT [22.9-35.8 33.5 seconds seconds] (04/01/17 6:32 AM) Immunizations Not Given Vaccine Date Status [...]
--- OUTSIDE RECORDS SUMMARY | 2018-06-24 12:22 | XMS REPORT | Summary of Care ---
Author Author [facility] Organization [facility] Address Unknown Phone Unavailable Encounter HQ Luis Miguel(SARAHY) [phone] Date(s): 10/09/15 - 10/10/15 [facility] [id number] [place] [address]- Discharge Disposition: Against Medical Advise Attending Physician: Enedina Medina MD Admitting Physician: Enedina Medina MD Vital Signs 1 2 3 Most recent to oldest [Reference Range]: 185.42 cm (10/09/15 1:52 PM) Height 98.4 DegF (10/10/15 11:18 AM) 98.5 DegF (10/10/15 7:11 AM) 98 DegF (10/10/15 4:05 AM) Temperature Oral [96.4-99.1 DegF] 154/83 mmHg *HI* (10/10/15 11:18 AM) 145/84 mmHg *HI* (10/10/15 8:51 AM) 186/107 mmHg *HI* (10/10/15 7:11 AM) Blood Pressure [90-140/60-90 mmHg] 18 BRMIN (10/10/15 11:18 AM) 16 BRMIN (10/10/15 9:50 AM) 18 BRMIN (10/10/15 8:51 AM) Respiratory Rate [14-20 BRMIN] 62 bpm (10/10/15 11:18 AM) 90 bpm (10/10/15 8:51 AM) 126 bpm *HI* (10/10/15 7:11 AM) Peripheral Pulse Rate [60-100 bpm] 83.182 kg (10/09/15 1:52 PM) Weight 24.19 m2 (10/09/15 1:52 PM) Body Mass Index Problem List Condition Effective Dates Status Health Status Informant Afib(Confirmed) Active CHF - Congestive Active heart failure(Confirmed) COPD(Confirmed) Active HT - Active Hypertension(Confirm ed) Allergies, Adverse Reactions, Alerts Substance Reaction Severity Status NKDA Active Medications acetaminophen-hydrocodone 325 mg-5 mg oral tablet 0.5 tab, Route: PO, Drug Form: TAB, Dosing Weight 83.182, kg, Daily, PRN Pain Sc ore 1-3, Start date: 10/10/15 9:19:00, Duration: 30 day, Stop date: 11/09/15 9:1 8:00 Notes: (Same as: [place] 325/5) Do not exceed 4gm/day of acetaminophen. Start Date: 10/10/15 Stop Date: 10/10/15 Status: Discontinued acetaminophen-hydrocodone 325 mg-5 mg oral tablet 1/2tab, PO, Daily, PRN Pain 1-3/Temp > 100.4 F, 0 Refill(s) Start Date: 10/10/15 Status: Suspended Advair Diskus 250 mcg-50 mcg inhalation powder 1 puff, INHALATION, Q12H, 0 Refill(s) Start Date: 10/09/15 Status: Suspended Advair Diskus 250 mcg-50 mcg inhalation powder 1 puff, Route: INHALATION, Drug Form: AERO, Dosing Weight 83.182, kg, Q12H, Star t date: 10/10/15 21:00:00, Duration: 30 day, Stop date: 11/09/15 9:00:00 Start Date: 10/10/15 Stop Date: 10/10/15 Status: Deleted aspirin 325 mg, 1 tab, Route: PO, Drug form: TAB, ONCE, Dosing Weight 83.182, kg, Priori ty: STAT, Start date: 10/09/15 16:46:00, Stop date: 10/09/15 16:46:00 Notes: Take with food. Start Date: 10/09/15 Stop Date: 10/09/15 Status: Completed aspirin 81 mg tablet, enteric coated 81 mg, 1 tab, Route: PO, Drug form: ECTAB, Daily, Dosing Weight 83.182, kg, Star t date: 10/10/15 9:00:00, Duration: 30 day, Stop date: 11/08/15 9:00:00 Notes: Do not crush or chew.(Same As: Ecotrin) Start Date: 10/10/15 Stop Date: 10/10/15 Status: Discontinued budesonide-formoterol 160 mcg-4.5 mcg/inh inhalation aerosol with adapter 2 inhalation, Route: INHALATION, Drug Form: AERO/A, RBID, Start date: 10/10/15 1 0:00:00, Duration: 30 day, Stop date: 11/09/15 8:00:00 Notes: (Same as: Symbicort)WASTE: Aerosol - Return to Pharmacy Start Date: 10/10/15 Stop Date: 10/10/15 Status: Discontinued Centrum Silver Men's 1 tab, PO, Daily, 0 Refill(s) Start Date: 10/09/15 Status: Suspended docusate sodium 100 mg oral capsule 100 mg, 1 cap, Route: PO, Drug form: CAP, BID, Dosing Weight 83.182, kg, PRN Con stipation, Start date: 10/10/15 10:31:00, Duration: 30 day, Stop date: 11/09/15 10:30:00 Notes: (Same as: Colace) (Do Not Crush) Start Date: 10/10/15 Stop Date: 10/10/15 Status: Discontinued DuoNeb inhalation solution 3 mL, Route: INHALATION, Drug Form: SOLN, Dosing Weight 83.182, kg, ONCE, Start date: 10/09/15 15:42:00, Stop date: 10/09/15 15:42:00 Notes: (Same as: Duoneb) Start Date: 10/09/15 Stop Date: 10/09/15 Status: Completed ergocalciferol 50,000 IntlUnit, 1 cap, Route: PO, Drug form: CAP, Daily, Dosing Weight 83.182, kg, Start date: 10/11/15 9:00:00, Duration: 3 day, Stop date: 10/13/15 9:00:00 Notes: (Same as: Vitamin D) "Do Not Crush" Start Date: 10/11/15 Stop Date: 10/10/15 Status: Canceled hydrALAZINE 10 mg, 0.5 mL, Route: IV, Drug form: INJ, Q4H, Dosing Weight 83.182, kg, PRN Hyp ertension, Start date: 10/10/15 14:27:00, Duration: 30 day, Stop date: 11/09/15 14:26:00 Notes: (Same as: Apresoline)Push over 5 minutes Start Date: 10/10/15 Stop Date: 10/10/15 Status: Discontinued ipratropium 500 microgram, NEB, TID, PRN Shortness of breath, 0 Refill(s) Start Date: 10/09/15 Status: Suspended ipratropium 500 microgram, 2.5 mL, Route: NEB, Drug form: SOLN, TID, Dosing Weight 83.182, k g, PRN Shortness of breath, Start date: 10/10/15 9:19:00, Duration: 30 day, Stop date: 11/09/15 9:18:00 Notes: SEE RT DOCUMENTATION(Same as:Atrovent) Start Date: 10/10/15 Stop Date: 10/10/15 Status: Discontinued lisinopril 10 mg, 1 tab, Route: PO, Drug form: TAB, Daily, Dosing Weight 83.182, kg, Start date: 10/10/15 10:00:00, Duration: 30 day, Stop date: 11/09/15 9:00:00 Notes: (Same as: Prinivil, Zestril) Start Date: 10/10/15 Stop Date: 10/10/15 Status: Discontinued lisinopril 10 mg oral tablet 10 mg=1 tab, PO, Daily, # 30 tab, 0 Refill(s) Start Date: 10/09/15 Status: Suspended metoprolol 5 mg/5 ml INJ 5 mg, 5 mL, Route: IV, Drug form: INJ, Q2H, Dosing Weight 83.182, kg, PRN Tachyc ardia, Start date: 10/10/15 14:28:00, Duration: 30 day, Stop date: 11/09/15 14:2 7:00 Notes: (Same as: Lopressor)Push over 2 minutes Start Date: 10/10/15 Stop Date: 10/10/15 Status: Discontinued metoprolol extended release 100 mg, PO, Daily, 0 Refill(s) Start Date: 10/09/15 Status: Suspended metoprolol extended release 100 mg, 1 tab, Route: PO, Drug form: ERTAB, Daily, Start date: 10/10/15 10:00:00 , Duration: 30 day, Stop date: 11/09/15 9:00:00 Notes: (Same as: Toprol XL) May split tab, but do not crush. Start Date: 10/10/15 Stop Date: 10/10/15 Status: Discontinued morphine Sulfate 2 mg, 1 mL, Route: IVP, Drug form: INJ, Q15Min, Dosing Weight 83.182, kg, PRN Ch est Pain, Start date: 10/09/15 19:28:00, Duration: 2 doses or times, Stop date: Limited # of times Notes: (Same as:MORPhine Sulfate) Start Date: 10/09/15 Stop Date: 10/10/15 Status: Discontinued nitroglycerin SL Tab 0.4 mg, 1 tab, Route: SL, Drug form: TAB, Q5Min, Dosing Weight 83.182, kg, PRN C hest Pain, Start date: 10/09/15 19:28:00, Duration: 3 doses or times, Stop date: Limited # of times Notes: (Same as:Nitroquick, Nitrostat)"Do Not Crush" Sublingual tablet Start Date: 10/09/15 Stop Date: 10/10/15 Status: Discontinued Nitrostat 0.4 mg sublingual tablet 0.4 mg, 1 tab, Route: SL, Drug form: TAB, Q5Min, Dosing Weight 83.182, kg, PRN C hest Pain, Start date: 10/10/15 14:28:00, Duration: 3 doses or times, Stop date: Limited # of times Start Date: 10/10/15 Stop Date: 10/10/15 Status: Deleted Nitrostat 0.4 mg sublingual tablet 0.4 mg, 1 tab, Route: SL, Drug form: TAB, Q5Min, Dosing Weight 83.182, kg, PRN C hest Pain, Start date: 10/10/15 14:28:00, Duration: 3 doses or times, Stop date: Limited # of times Start Date: 10/10/15 Stop Date: 10/10/15 Status: Deleted Nitrostat 0.4 mg sublingual tablet 0.4 mg, 1 tab, Route: SL, Drug form: TAB, Q5Min, Dosing Weight 83.182, kg, PRN C hest Pain, Start date: 10/10/15 14:28:00, Duration: 3 doses or times, Stop date: Limited # of times Start Date: 10/10/15 Stop Date: 10/10/15 Status: Deleted Nitrostat 0.4 mg sublingual tablet 0.4 mg, 1 tab, Route: SL, Drug form: TAB, Q5Min, Dosing Weight 83.182, kg, PRN C hest Pain, Start date: 10/10/15 14:28:00, Duration: 3 doses or times, Stop date: Limited # of times Start Date: 10/10/15 Stop Date: 10/10/15 Status: Deleted Nitrostat 0.4 mg sublingual tablet 0.4 mg, 1 tab, Route: SL, Drug form: TAB, Q5Min, Dosing Weight 83.182, kg, PRN C hest Pain, Start date: 10/10/15 14:28:00, Duration: 3 doses or times, Stop date: Limited # of times Start Date: 10/10/15 Stop Date: 10/10/15 Status: Deleted Nitrostat 0.4 mg sublingual tablet 0.4 mg, 1 tab, Route: SL, Drug form: TAB, Q5Min, Dosing Weight 83.182, kg, PRN C hest Pain, Start date: 10/10/15 14:28:00, Duration: 3 doses or times, Stop date: Limited # of times Start Date: 10/10/15 Stop Date: 10/10/15 Status: Deleted ondansetron 4 mg, 1 tab, Route: PO, Drug form: TAB, Q8H, Dosing Weight 83.182, kg, PRN Nause a & Vomiting, Start date: 10/09/15 19:28:00, Duration: 30 day, Stop date: 11/08/15 19:27:00 Notes: (Same as: Fili) Start Date: 10/09/15 Stop Date: 10/10/15 Status: Discontinued predniSONE 60 mg, 3 tab, Route: PO, Drug form: TAB, ONCE, Dosing Weight 83.182, kg, Priorit y: STAT, Start date: 10/09/15 15:42:00, Stop date: 10/09/15 15:42:00 Notes: Take with food. Start Date: 10/09/15 Stop Date: 10/09/15 Status: Completed Protonix 40 mg, 1 tab, Route: PO, Drug form: ECTAB, Before Dinner, Dosing Weight 83.182, kg, Start date: 10/10/15 16:30:00, Duration: 30 day, Stop date: 11/08/15 16:30:0 0 Notes: Tablet should not be chewed or crushed.(Same as: Protonix) Start Date: 10/10/15 Stop Date: 10/10/15 Status: Discontinued Saline Flush 0.9% 10 ml, Route: IVP, Drug Form: INJ, Dosing Weight 83.182, kg, PRN, PRN Line Flush , Start date: 10/09/15 19:28:00, Duration: 30 day, Stop date: 11/08/15 19:27:00 Notes: (Same as: BD Posiflush) Start Date: 10/09/15 Stop Date: 10/10/15 Status: Discontinued Saline Flush 0.9% 10 ml, Route: IVP, Drug Form: INJ, Dosing Weight 83.182, kg, Q12H, Start date: 0 10/09/15 21:00:00, Duration: 30 day, Stop date: 11/08/15 9:00:00 Notes: (Same as: BD Posiflush) Start Date: 10/09/15 Stop Date: 10/10/15 Status: Discontinued Saline Flush 0.9% 10 mL, Route: IVP, Drug Form: INJ, kg, PRN, PRN Line Flush, Start date: 10/09/15 13:48:00, Duration: 30 day, Stop date: 11/08/15 13:47:00 Notes: (Same as: BD Posiflush) Start Date: 10/09/15 Stop Date: 10/10/15 Status: Discontinued simvastatin 20 mg=1 tab, PO, Bedtime, # 30 tab, 0 Refill(s) Start Date: 10/09/15 Stop Date: 11/08/15 Status: Suspended simvastatin 20 mg, 1 tab, Route: PO, Drug form: TAB, Bedtime, Dosing Weight 83.182, kg, Star t date: 10/10/15 21:00:00, Duration: 30 day, Stop date: 11/08/15 21:00:00 Notes: (Same as: Zocor) Start Date: 10/10/15 Stop Date: 10/10/15 Status: Canceled Theragran-M 1 tab, Route: PO, Drug Form: TAB, Dosing Weight 83.182, kg, Daily, Start date: 0 10/10/15 10:00:00, Duration: 30 day, Stop date: 11/09/15 9:00:00 Notes: (Same as:Thera-M, Theragran-M)WASTE: F/P - Black; E - Municipal Trash Bin Give with food. Start Date: 10/10/15 Stop Date: 10/10/15 Status: Discontinued warfarin 5 mg, 1 tab, Route: PO, Drug form: TAB, QWeekday, Dosing Weight 83.182, kg, Star t date: 10/10/15 17:00:00, Duration: 30 day, Stop date: 11/08/15 17:00:00 Notes: Nurse to ensure documentation of patient education per anticoagulation po licy.Avoid large intake of vitamin-K containing foods diet.WASTE: F/P - P Waste Black; E - P Waste Black(Same As: Coumadin) Start Date: 10/10/15 Stop Date: 10/10/15 Status: Discontinued warfarin 5 mg oral tablet 5 mg=1 tab, PO, Daily, DOES NOT TAKE ON SUNDAYS, # 30 tab, 0 Refill(s) Start Date: 10/09/15 Status: Suspended Results ELECTROLYTES 1 2 3 Most recent to oldest [Reference Range]: 139 mEq/L (10/09/15 2:05 PM) Sodium Lvl [135-145 mEq/L] 3.9 mEq/L (10/09/15 2:05 PM) Potassium Lvl [3.5-5.1 mEq/L] 103 mEq/L (10/09/15 2:05 PM) Chloride Lvl [95-109 mEq/L] 31 mEq/L (10/09/15 2:05 PM) CO2 [24-32 mEq/L] 8.9 mEq/L *LOW* (10/09/15 2:05 PM) AGAP [10.0-20.0 mEq/L] CHEM PANEL 1 2 3 Most recent to oldest [Reference Range]: 0.94 mg/dL (10/09/15 2:05 PM) Creatinine Lvl [0.50-1.40 mg/dL] 79 mL/min/1.73m2 1 *NA* (10/09/15 2:05 PM) eGFR 12 mg/dL (10/09/15 2:05 PM) BUN [7-22 mg/dL] 13 (10/09/15 2:05 PM) B/C Ratio [6-25] 113 mg/dL *HI* (10/09/15 2:05 PM) Glucose Lvl [70-99 mg/dL] 7.9 g/dL (10/09/15 2:05 PM) Total Protein [6.4-8.4 g/dL] 3.9 g/dL (10/09/15 2:05 PM) Albumin Lvl [3.5-5.0 g/dL] 4.0 g/dL (10/09/15 2:05 PM) Globulin [2.0-4.0 g/dL] 1.0 (10/09/15 2:05 PM) A/G Ratio [0.7-1.6] 9.5 mg/dL (10/09/15 2:05 PM) Calcium Lvl [8.5-10.5 mg/dL] 27 unit/L (10/09/15 2:05 PM) ALT [0-65 unit/L] 20 unit/L (10/09/15 2:05 PM) AST [0-37 unit/L] 93 unit/L (10/09/15 2:05 PM) Alk Phos [39-136 unit/L] 0.9 mg/dL (10/09/15 2:05 PM) Bili Total [0.2-1.3 mg/dL] 1Result Comment: The eGFR is calculated using [...] 3 Most recent to oldest [Reference Range]: 56 unit/L (10/10/15 2:39 AM) 58 unit/L (10/09/15 8:48 PM) 73 unit/L (10/09/15 2:05 PM) Total CK [12-191 unit/L] 2.8 ng/mL (10/09/15 2:05 PM) CK MB [0.5-3.6 ng/mL] 3.8 *HI* (10/09/15 2:05 PM) CK MB Index [0.0-2.5] <0.02 ng/mL (10/10/15 2:39 AM) <0.02 ng/mL (10/09/15 8:48 PM) <0.02 ng/mL (10/09/15 2:05 PM) Troponin-I [0.00-0.40 ng/mL] 217 pg/mL *HI* (10/09/15 2:05 PM) BNP [<=100 pg/mL] LIPIDS 1 2 3 Most recent to oldest [Reference Range]: 3.12 *LOW* (10/09/15 8:48 PM) CHD Risk [4.00-7.30] 125 mg/dL (10/09/15 8:48 PM) Chol [<=199 mg/dL] 58 mg/dL (10/09/15 8:48 PM) Trig [<=149 mg/dL] 40 mg/dL *LOW* (10/09/15 8:48 PM) HDL [>=61 mg/dL] 73 mg/dL (10/09/15 8:48 PM) LDL (Calculated) [<=99 mg/dL] 12 *NA* (10/09/15 8:48 PM) VLDL URINE AND STOOL 1 2 3 Most recent to oldest [Reference Range]: Clear (10/09/15 3:38 PM) UA Turbidity [Clear] Yellow *NA* (10/09/15 3:38 PM) UA Color [Yellow] 7.0 (10/09/15 3:38 PM) UA pH [5.0-8.0] 1.016 (10/09/15 3:38 PM) UA Spec Grav [<=1.030] Negative mg/dL *NA* (10/09/15 3:38 PM) UA Glucose [Negative mg/dL] Negative (10/09/15 3:38 PM) UA Blood [Negative] Negative mg/dL *NA* (10/09/15 3:38 PM) UA Ketones [Negative mg/dL] 30 mg/dL *ABN* (10/09/15 3:38 PM) UA Protein [Negative mg/dL] <=1.0 mg/dL *NA* (10/09/15 3:38 PM) UA Urobilinogen [0.1-1.0 mg/dL] Negative *NA* (10/09/15 3:38 PM) UA Bili [Negative] Negative (10/09/15 3:38 PM) UA Leuk Est [Negative] Negative (10/09/15 3:38 PM) UA Nitrite [Negative] <1 /HPF (10/09/15 3:38 PM) UA WBC [0-5 /HPF] 1 /HPF (10/09/15 3:38 PM) UA RBC [0-2 /HPF] Occasional /LPF *NA* (10/09/15 3:38 PM) UA Sq Epi [Few /LPF] Few /LPF *NA* (10/09/15 3:38 PM) UA Mucus [None Seen /LPF] HEMATOLOGY 1 2 3 Most recent to oldest [Reference Range]: 7.7 K/CMM (10/09/15 2:05 PM) WBC [3.7-10.4 K/CMM] 4.46 M/CMM *LOW* (10/09/15 2:05 PM) RBC [4.70-6.10 M/CMM] 14.4 g/dL (10/09/15 2:05 PM) Hgb [14.0-18.0 g/dL] 43.3 % (10/09/15 2:05 PM) Hct [42.0-54.0 %] 97.0 fL *HI* (10/09/15 2:05 PM) MCV [80.0-94.0 fL] 32.2 pg *HI* (10/09/15 2:05 PM) MCH [27.0-31.0 pg] 33.2 g/dL (10/09/15 2:05 PM) MCHC [32.0-36.0 g/dL] 14.1 % (10/09/15 2:05 PM) RDW [11.5-14.5 %] 201 K/CMM (10/09/15 2:05 PM) Platelet [133-450 K/CMM] 8.3 fL (10/09/15 2:05 PM) MPV [7.4-10.4 fL] 70.3 % (10/09/15 2:05 PM) Segs [45.0-75.0 %] 22.0 % (10/09/15 2:05 PM) Lymphocytes [20.0-40.0 %] 6.7 % (10/09/15 2:05 PM) Monocytes [2.0-12.0 %] 0.7 % (10/09/15 2:05 PM) Eosinophils [0.0-4.0 %] 0.3 % (10/09/15 2:05 PM) Basophils [0.0-1.0 %] 5.4 K/CMM (10/09/15 2:05 PM) Segs-Bands # [1.5-8.1 K/CMM] 1.7 K/CMM (10/09/15 2:05 PM) Lymphocytes # [1.0-5.5 K/CMM] 0.5 K/CMM (10/09/15 2:05 PM) Monocytes # [0.0-0.8 K/CMM] 0.1 K/CMM (10/09/15 2:05 PM) Eosinophils # [0.0-0.5 K/CMM] 24.4 seconds *HI* (10/09/15 2:05 PM) PT [12.0-14.7 seconds] 2.16 *HI* (10/09/15 2:05 PM) INR [0.85-1.17] 43.4 seconds *HI* (10/09/15 2:05 PM) PTT [22.9-35.8 seconds] VIRAL - SEROLOGY 1 2 3 Most recent to oldest [Reference Range]: Negative (10/09/15 3:38 PM) Influ A [Negative] Negative (10/09/15 3:38 PM) Influ B [Negative] Immunizations No data available for this section [...]
--- OUTSIDE RECORDS SUMMARY | 2018-06-24 12:22 | XMS REPORT | Summary of Care ---
Author Author [facility] Organization [facility] Address Unknown Phone Unavailable Encounter CATHERINE Bolanos(SARAHY) [id number] Date(s): 04/08/17 - 04/11/17 [facility] [address] [employer] provided by [facility] [place] [address]- Discharge Disposition: Home or Self Care Attending Physician: Idris Barber MD Admitting Physician: Jarad Lopez MD Referring Physician: Geeta Singleton MD Vital Signs 1 2 3 Most recent to oldest [Reference Range]: 185.42 cm (04/09/17 12:17 AM) Height 76.091 kg (04/11/17 5:21 AM) 78.381 kg (04/08/17 9:47 PM) Current Weight 97.2 DegF (04/11/17 7:43 AM) 97.4 DegF (04/11/17 4:00 AM) 98.1 DegF (04/10/17 11:38 PM) Temperature Oral [96.4-99.1 DegF] 117/58 mmHg (04/11/17 11:00 AM) 132/60 mmHg (04/11/17 10:00 AM) 132/60 mmHg (04/11/17 9:00 AM) Blood Pressure [90-140/60-90 mmHg] 20 BRMIN (04/11/17 12:00 PM) 27 BRMIN *HI* (04/11/17 11:00 AM) 26 BRMIN *HI* (04/11/17 10:00 AM) Respiratory Rate [14-20 BRMIN] 60 bpm (04/09/17 3:05 PM) 61 bpm (04/09/17 2:02 PM) 77 bpm (04/09/17 11:45 AM) Peripheral Pulse Rate [60-100 bpm] 79.091 kg (04/09/17 12:17 AM) Weight 23 m2 (04/09/17 12:17 AM) Body Mass Index Problem List Condition Effective Dates Status Health Status Informant Afib(Confirmed) Active CHF - Congestive Active heart failure(Confirmed) COPD(Confirmed) Active HT - Active Hypertension(Confirm ed) Allergies, Adverse Reactions, Alerts Substance Reaction Severity Status NKDA Active Medications AMIODarone 200 mg, 1 tab, Route: PO, Drug form: TAB, BID, Dosing Weight 81.818, kg, Start d ate: 04/09/17 9:00:00 CDT, Duration: 30 day, Stop date: 05/08/17 17:00:00 CDT Notes: (Same as: Cordarone) Start Date: 04/09/17 Stop Date: 04/11/17 Status: Discontinued amLODIPine 5 mg, 1 tab, Route: PO, Drug form: TAB, Daily, Dosing Weight 79.091, kg, Start d ate: 04/11/17 9:00:00 CDT, Duration: 30 day, Stop date: 05/10/17 9:00:00 CDT Notes: (Same as: Norvasc) Start Date: 04/11/17 Stop Date: 04/10/17 Status: Canceled amLODIPine 5 mg, 1 tab, Route: PO, Drug form: TAB, Daily, Dosing Weight 79.091, kg, Start d ate: 04/10/17 10:19:00 CDT, Duration: 30 day, Stop date: 05/10/17 9:00:00 CDT Notes: (Same as: Norvasc) Start Date: 04/10/17 Stop Date: 04/11/17 Status: Discontinued enoxaparin 80 mg, 0.8 mL, Route: SUB-Q, Drug form: INJ, Q12H, Dosing Weight 79.091, kg, Sta rt date: 04/10/17 22:00:00 CDT, Duration: 30 day, Stop date: 05/10/17 21:00:00 C DT Notes: Nurse to ensure documentation of patient education per anticoagulation po licy. (Same as: Lovenox) Start Date: 04/10/17 Stop Date: 04/10/17 Status: Canceled heparin 5,000 unit, 1 mL, Route: SUB-Q, Drug form: INJ, Q12H, Dosing Weight 79.091, kg, Start date: 04/10/17 21:00:00 CDT, Duration: 30 day, Stop date: 05/10/17 9:00:00 CDT Notes: porcine heparin Start Date: 04/10/17 Stop Date: 04/11/17 Status: Discontinued heparin additive 25,000 unit [14 unit/kg/hr] + Premix Diluent Dextrose 5% 500 mL 500 mL, Rate: 22.15 ml/hr, Infuse over: 22.6 hr, Route: IV, Dosing Weight 79.091 kg, Total Volume: 500 mL, Start date: 04/10/17 20:25:00 CDT, Duration: 30 day, Stop date: 05/10/17 20:24:00 CDT Start Date: 04/10/17 Stop Date: 04/11/17 Status: Discontinued Lasix 40 mg, 4 mL, Route: IV, Drug form: INJ, ONCE, Dosing Weight 81.818, kg, Start da te: 04/08/17 23:28:00 CDT, Stop date: 04/08/17 23:28:00 CDT Notes: (Same as: Lasix) MEDICATION WASTE Product Size: 40 mgProduct Was desmond: ___ mg Start Date: 04/08/17 Stop Date: 04/09/17 Status: Completed lisinopril 40 mg, 2 tab, Route: PO, Drug form: TAB, Daily, Dosing Weight 81.818, kg, Start date: 04/09/17 9:00:00 CDT, Duration: 30 day, Stop date: 05/08/17 9:00:00 CDT Notes: (Same as: Prinivil, Zestril) Start Date: 04/09/17 Stop Date: 04/11/17 Status: Discontinued Lovenox 80 mg/0.8 mL subcutaneous solution 80 mg, SUB-Q, Daily, Please stop the lovenox injections 3 days before your sched uled TAVR, X 7 day, # 7 ea, 0 Refill(s), Pharmacy: [facility] [id number] Start Date: 04/11/17 Stop Date: 04/18/17 Status: Ordered metoprolol extended release 100 mg, 1 tab, Route: PO, Drug form: ERTAB, Daily, Start date: 04/09/17 9:00:00 CDT, Duration: 30 day, Stop date: 05/08/17 9:00:00 CDT Notes: (Same as: Toprol XL) May split tab, but do not crush. Start Date: 04/09/17 Stop Date: 04/11/17 Status: Discontinued Hesperus 10/325 oral tablet 1 tab, Route: PO, Drug Form: TAB, Dosing Weight 81.818, kg, Q8H, PRN Pain Score 6-10, Start date: 04/08/17 23:22:00 CDT, Duration: 30 day, Stop date: 05/08/17 2 3:21:00 CDT Notes: Do not exceed 4gm/day of acetaminophen. (Same as: Hes[place]us 325/10) Start Date: 04/08/17 Stop Date: 04/11/17 Status: Discontinued simvastatin 20 mg, 1 tab, Route: PO, Drug form: TAB, Bedtime, Dosing Weight 81.818, kg, Star t date: 04/09/17 21:00:00 CDT, Duration: 30 day, Stop date: 05/08/17 21:00:00 CD T Notes: (Same as: Zocor) Start Date: 04/09/17 Stop Date: 04/11/17 Status: Discontinued Symbicort 160/4.5 inhalation aerosol with adapter 2 puff, Route: INHALER, Drug Form: AERO/A, Dosing Weight 81.818, kg, RBID, Start date: 04/08/17 8:00:00 CDT, Duration: 30 day, Stop date: 05/07/17 20:00:00 CDT Notes: (Same as: Symbicort)WASTE: Aerosol - Return to Pharmacy Start Date: 04/08/17 Stop Date: 04/11/17 Status: Discontinued trazodone 50 mg oral tablet 50 mg, 1 tab, Route: PO, Drug form: TAB, Bedtime, Dosing Weight 81.818, kg, Star t date: 04/09/17 21:00:00 CDT, Duration: 30 day, Stop date: 05/08/17 21:00:00 CD T Notes: (Same As: Desyrel) Start Date: 04/09/17 Stop Date: 04/11/17 Status: Discontinued Vitamin D3 2000 intl units oral tablet 2,000 IntlUnit, 1 cap, Route: PO, Drug form: CAP, Daily, Dosing Weight 81.818, k g, Start date: 04/09/17 9:00:00 CDT, Stop date: 05/08/17 9:00:00 CDT Notes: Same as: Vitamin D3 Start Date: 04/09/17 Stop Date: 04/11/17 Status: Discontinued Results ELECTROLYTES 1 2 3 Most recent to oldest [Reference Range]: 142 mEq/L (04/11/17 3:15 AM) 143 mEq/L (04/10/17 3:41 AM) 138 mEq/L (04/09/17 12:03 AM) Sodium Lvl [135-145 mEq/L] 4.2 mEq/L (04/11/17 3:15 AM) 4.3 mEq/L (04/10/17 3:41 AM) 4.1 mEq/L (04/09/17 12:03 AM) Potassium Lvl [3.5-5.1 mEq/L] 104 mEq/L (04/11/17 3:15 AM) 104 mEq/L (04/10/17 3:41 AM) 101 mEq/L (04/09/17 12:03 AM) Chloride Lvl [95-109 mEq/L] 31 mEq/L (04/11/17 3:15 AM) 34 mEq/L *HI* (04/10/17 3:41 AM) 31 mEq/L (04/09/17 12:03 AM) CO2 [24-32 mEq/L] 11.2 mEq/L (04/11/17 3:15 AM) 9.3 mEq/L *LOW* (04/10/17 3:41 AM) 10.1 mEq/L (04/09/17 12:03 AM) AGAP [10.0-20.0 mEq/L] CHEM PANEL 1 2 3 Most recent to oldest [Reference Range]: 0.88 mg/dL (04/11/17 3:15 AM) 0.91 mg/dL (04/10/17 3:41 AM) 1.01 mg/dL (04/09/17 12:03 AM) Creatinine Lvl [0.50-1.40 mg/dL] 82 mL/min/1.73m2 1 *NA* (04/11/17 3:15 AM) 80 mL/min/1.73m2 2 *NA* (04/10/17 3:41 AM) 71 mL/min/1.73m2 3 *NA* (04/09/17 12:03 AM) eGFR 25 mg/dL *HI* (04/11/17 3:15 AM) 29 mg/dL *HI* (04/10/17 3:41 AM) 29 mg/dL *HI* (04/09/17 12:03 AM) BUN [7-22 mg/dL] 29 *HI* (04/09/17 12:03 AM) B/C Ratio [6-25] 76 mg/dL (04/11/17 3:15 AM) 78 mg/dL (04/10/17 5:12 PM) 81 mg/dL (04/10/17 3:41 AM) Glucose Lvl [70-99 mg/dL] 6.9 g/dL (04/10/17 5:12 PM) 6.6 g/dL (04/09/17 12:03 AM) Total Protein [6.4-8.4 g/dL] 2.8 g/dL *LOW* (04/09/17 12:03 AM) Albumin Lvl [3.5-5.0 g/dL] 3.8 g/dL (04/09/17 12:03 AM) Globulin [2.7-4.2 g/dL] 0.7 (04/09/17 12:03 AM) A/G Ratio [0.7-1.6] 8.5 mg/dL (04/11/17 3:15 AM) 8.8 mg/dL (04/10/17 3:41 AM) 9.0 mg/dL (04/09/17 12:03 AM) Calcium Lvl [8.5-10.5 mg/dL] 4.0 mg/dL (04/11/17 3:15 AM) 3.4 mg/dL (04/10/17 3:41 AM) Phosphorus [2.5-4.5 mg/dL] 1.9 mg/dL (04/11/17 3:15 AM) 2.1 mg/dL (04/10/17 3:41 AM) Magnesium Lvl [1.8-2.4 mg/dL] 20 unit/L (04/09/17 12:03 AM) ALT [0-65 unit/L] 15 unit/L (04/09/17 12:03 AM) AST [0-37 unit/L] 79 unit/L (04/09/17 12:03 AM) Alk Phos [39-136 unit/L] 411 unit/L *HI* (04/10/17 5:12 PM) LDH [98-192 unit/L] 0.5 mg/dL (04/09/17 12:03 AM) Bili Total [0.2-1.3 mg/dL] <0.05 ng/mL (04/09/17 9:01 PM) Procalcitonin Lvl [0.00-0.10 ng/mL] 1Result Comment: The eGFR is calculated using [...] be mul tiplied by the estimated BMI. 3Result Comment: The eGFR is calculated using the [...] be mul tiplied by the estimated BMI. LIPIDS 1 2 3 Most recent to oldest [Reference Range]: 2.15 *LOW* (04/09/17 12:03 AM) CHD Risk [4.00-7.30] 159 mg/dL (04/09/17 12:03 AM) Chol [<=199 mg/dL] 58 mg/dL (04/09/17 12:03 AM) Trig [<=149 mg/dL] 74 mg/dL (04/09/17 12:03 AM) HDL [>=61 mg/dL] 73 mg/dL (04/09/17 12:03 AM) LDL (Calculated) [<=99 mg/dL] 12 *NA* (04/09/17 12:03 AM) VLDL BODY FLUIDS 1 2 3 Most recent to oldest [Reference Range]: 100 mg/dL *NA* (04/10/17 4:29 PM) Glucose BF Pleural *NA* (04/10/17 4:29 PM) Gluc BF Type 8.00 *NA* (04/10/17 4:29 PM) pH BF Pleural (04/10/17 4:29 PM) pH BF Type Pleural *NA* (04/10/17 4:29 PM) Prot BF Type Pleural *NA* (04/10/17 4:29 PM) LDH BF Type 3.0 g/dL *NA* (04/10/17 4:29 PM) Protein BF 98 unit/L *NA* (04/10/17 4:29 PM) LDH BF Yellow (04/10/17 4:29 PM) Color BF [Colorless] Slight Cloudy (04/10/17 4:29 PM) Clarity BF [Clear] 133 /mm3 *NA* (04/10/17 4:29 PM) RBC BF 138 /mm3 *NA* (04/10/17 4:29 PM) WBC BF 29 % *NA* (04/10/17 4:29 PM) Segs BF 29 % *NA* (04/10/17 4:29 PM) Lymph BF 42 % *NA* (04/10/17 4:29 PM) Macrophage BF Occasional (04/10/17 4:29 PM) Meso BF Pleural (04/10/17 4:29 PM) CellCnt BF Type HEMATOLOGY 1 2 3 Most recent to oldest [Reference Range]: 6.9 K/CMM (04/11/17 3:15 AM) 9.9 K/CMM (04/10/17 9:09 PM) 9.4 K/CMM (04/10/17 3:41 AM) WBC [3.7-10.4 K/CMM] 3.84 M/CMM *LOW* (04/11/17 3:15 AM) 4.03 M/CMM *LOW* (04/10/17 9:09 PM) 3.80 M/CMM *LOW* (04/10/17 3:41 AM) RBC [4.70-6.10 M/CMM] 12.4 g/dL *LOW* (04/11/17 3:15 AM) 13.3 g/dL *LOW* (04/10/17 9:09 PM) 12.3 g/dL *LOW* (04/10/17 3:41 AM) Hgb [14.0-18.0 g/dL] 36.9 % *LOW* (04/11/17 3:15 AM) 38.9 % *LOW* (04/10/17 9:09 PM) 36.4 % *LOW* (04/10/17 3:41 AM) Hct [42.0-54.0 %] 96.0 fL *HI* (04/11/17 3:15 AM) 96.5 fL *HI* (04/10/17 9:09 PM) 95.6 fL *HI* (04/10/17 3:41 AM) MCV [80.0-94.0 fL] 32.2 pg *HI* (04/11/17 3:15 AM) 33.0 pg *HI* (04/10/17 9:09 PM) 32.4 pg *HI* (04/10/17 3:41 AM) MCH [27.0-31.0 pg] 33.5 g/dL (04/11/17 3:15 AM) 34.2 g/dL (04/10/17 9:09 PM) 33.8 g/dL (04/10/17 3:41 AM) MCHC [32.0-36.0 g/dL] 13.8 % (04/11/17 3:15 AM) 14.0 % (04/10/17 9:09 PM) 14.4 % (04/10/17 3:41 AM) RDW [11.5-14.5 %] 200 K/CMM (04/11/17 3:15 AM) 216 K/CMM (04/10/17 9:09 PM) 210 K/CMM (04/10/17 3:41 AM) Platelet [133-450 K/CMM] 8.5 fL (04/11/17 3:15 AM) 8.6 fL (04/10/17 9:09 PM) 8.2 fL (04/10/17 3:41 AM) MPV [7.4-10.4 fL] 67.5 % (04/11/17 3:15 AM) 74.2 % (04/10/17 9:09 PM) 77.0 % *HI* (04/10/17 3:41 AM) Segs [45.0-75.0 %] 18.6 % *LOW* (04/11/17 3:15 AM) 14.8 % *LOW* (04/10/17 9:09 PM) 14.2 % *LOW* (04/10/17 3:41 AM) Lymphocytes [20.0-40.0 %] 9.4 % (04/11/17 3:15 AM) 8.1 % (04/10/17 9:09 PM) 7.6 % (04/10/17 3:41 AM) Monocytes [2.0-12.0 %] 3.4 % (04/11/17 3:15 AM) 2.0 % (04/10/17 9:09 PM) 0.9 % (04/10/17 3:41 AM) Eosinophils [0.0-4.0 %] 1.1 % *HI* (04/11/17 3:15 AM) 0.9 % (04/10/17 9:09 PM) 0.3 % (04/10/17 3:41 AM) Basophils [0.0-1.0 %] 4.6 K/CMM (04/11/17 3:15 AM) 7.3 K/CMM (04/10/17 9:09 PM) 7.2 K/CMM (04/10/17 3:41 AM) Segs-Bands # [1.5-8.1 K/CMM] 1.3 K/CMM (04/11/17 3:15 AM) 1.5 K/CMM (04/10/17 9:09 PM) 1.3 K/CMM (04/10/17 3:41 AM) Lymphocytes # [1.0-5.5 K/CMM] 0.6 K/CMM (04/11/17 3:15 AM) 0.8 K/CMM (04/10/17 9:09 PM) 0.7 K/CMM (04/10/17 3:41 AM) Monocytes # [0.0-0.8 K/CMM] 0.2 K/CMM (04/11/17 3:15 AM) 0.2 K/CMM (04/10/17 9:09 PM) 0.1 K/CMM (04/10/17 3:41 AM) Eosinophils # [0.0-0.5 K/CMM] 0.1 K/CMM (04/11/17 3:15 AM) 0.1 K/CMM (04/10/17 9:09 PM) 0.1 K/CMM (04/09/17 12:03 AM) Basophils # [0.0-0.2 K/CMM] 1+ *ABN* (04/09/17 12:03 AM) Anisocyte [None Seen] slight *NA* (04/09/17 12:03 AM) Toxic Gran 15.9 seconds *HI* (04/11/17 10:20 AM) 16.8 seconds *HI* (04/11/17 3:15 AM) 17.3 seconds *HI* (04/10/17 9:09 PM) PT [12.0-14.7 seconds] 1.24 *HI* (04/11/17 10:20 AM) 1.34 *HI* (04/11/17 3:15 AM) 1.39 *HI* (04/10/17 9:09 PM) INR [0.85-1.17] 72.4 seconds *HI* (04/11/17 10:20 AM) 63.6 seconds *HI* (04/11/17 3:15 AM) 30.7 seconds (04/10/17 9:09 PM) PTT [22.9-35.8 seconds] Immunizations Not Given Vaccine [...] No Assessment and Plan Extracted from: Title: CCU Discharge Summary Author: Juice Boyd MD Date: 04/11/17 ADMISSION DATE: 04/08/2017 DISCHARGE DATE: 04/11/2017 ADMISSION DIAGNOSIS: Acute on Chronic Systolic Congestive Heart Failure Exacerbation, Sever Aortic Stenosis, Parosymal Atrial Fibrillation, Bening Essential Hypertension, COPD. DISCHARGE DIAGNOSIS: Acute on Chronic Systolic Congestive Heart Failure Exacerbation, Sever Aortic Stenosis, Parosymal Atrial Fibrillation, Bening Essential Hypertension, COPD. ATTENDING PHYSICIAN: Idris Barber MD SERVICE: CCU INPATIENT CONSULTS: CV Surgery SURGERY/PROCEDURES: Pulmonary Function Test: Spirometry: Spirometry demonstrates mixed, severe obstructive and restrictive disease, as seen by the reduced FEV1/FVC=53%, the contour of the expiratory limb of the flow/volume loop, and the FEV1=1.09 L, which is 32 % of predicted. Positive bronchodilator response. Body plethysmography: Mildly decreased total lung capacity, 70% of predicted, with mild air trapping. Diffusing Capacity: Severly reduced diffusion capacity, 27% of predicted. Conclusion: Mixed, severe obstructive and restrictive disease, with severly reduced diffusion capacity. Throacentesis 04/10/2017: Transudative Effusion by Lights Criteria. 1000 cc's of serous fluid obtained HISTORY AND HOSPITAL COURSE: Mr. Jordan is a 76 year male with PMHx of paroxysmal A-fib (on Amiodarone, off coumadin for planned TAVR tmw), HTN, COPD (On home 3L O2 3-4 hours at night only), HFrEF (30% per ECHO in 11/2015) who was transferred from [facility] for TAVR. On 04/01, he underwent a RHC+LHC which reveled a severe aortic stenosis, coronary arteries were mainly patent with mild stenoses. Patient was admitted to [facility] for SOB, yellowish productive cough, and wheezing on 04/08/2017 and subsequently was put on BiPAP for dropping SPO2 to 90 with improvement. He was also given IV Lasix and weaned to NC. Chest x-ray there showed right sided pleural effusion , now s/p thoracentesis with removal of 1L pleural fluid that was found to be transudative likely from acute decompensated herat failure. He had his TAVR work-up completed, a pulmonary function test was peformed and was presented at TAVR conference. On the day of discharge he was transitioned to lovenox a 1 mg/kg to be taken while he is off of warfarin for his A. fib. He was instructed to stop taking the lovenox 72 hours before his TAVR. He expressed understanding. PHYSICAL EXAM: General: Awake and alert, resting comfortably HEENT: NC/AT, no scleral icterus, moist mucus membranes, PERRL Neck: Supple, NT, No LAD Cardio: Regular rate and rhythm, midsystolic murmurs greatest in right parasternal area with radiation to carotids, +s1s2, no gallops. Extremities with good peripheral pulsations. No JVD Pulm: NC in place. Coarse breath sounds to ascultation bilaterally, wheezes in upper airways, crackles in RLL Abdomen: Normal bowel sounds, soft, non-tender, non-distended Extremities: No edema. No deformities/amputations Skin: Warm and well perfused, no rashes Neuro: Alert and oriented, no focal deficits DISCHARGE CONDITION: Stable DISPOSITION: Discharged to home DISCHARGE MEDICATIONS: See Medicine Reconciliation. New Medications: Lovenox 80 mg qd subq. ACTIVITY: Activity as tolerated. SPECIAL INSTRUCTIONS: Notify doctor or return to ED if fever greater than 101, increased pain, signs of infection or inability to tolerate oral intake, bleeding or shortness of breath FOLLOW UP: 1) Come back on April 16 for your TAVR. All of the above instructions were discussed in detail with the patient. All questions were addressed to his satisfaction Extracted from: Title: CV Surgery Consult Author: Monie Bailey MD Date: 04/11/17 Ms. Jordan is a 76 yo female with PMH severe , HTN, dCHF, HLD, A fib, PVD, carotid stenosis, PPM, COPD, current smoker, GERD, bilateral pleural effusions, s/p thoracentesis, ectatic LCI, small AAA and STS score of 4.8%. Her TTE reveals an TIANNA of 0.61 cm2, and a mean gradient of [address] scan reveals an aortic annular area of 506.4 mm2. She was presented at our multidisciplinary heart valve conference and was personally examined by myself and Dr. Kit Dover. We believe the patient is high risk operable for open aortic valve replacement due to pulmonary status and comorbidities. Her risk for mortality is >15%. Thus, we will proceed with Commercial TAVR using a 26 mm S3, planned left transfemoral approach via percutaneous/surgical access. The STS score risk calculation was discussed with the patient. I spent more than 50 minutes evaluating the patient with more than 50% of the time spent counseling and coordinating care. Extracted from: Title: PCCM progress note Author: Jonny Chi MD Date: 04/11/17 Patient: RANJEET JORDAN Age: 76 years Sex: Male : 1940 Associated Diagnoses: None Author: Jonny Chi MD Basic Information Stay Summary: Mr. Jordan is a 76 year male with PMHx of paroxysmal A-fib (on Amiodarone, off coumadin for planned TAVR tmw), HTN, COPD (On home 3L O2 3-4 hours at night only), HFrEF (30% per ECHO in 11/2015) who was transferred from [facility] for TAVR. On 04/01, he underwent a RHC+LHC which reveled a severe aortic stenosis, coronary arteries were mainly patent with mild stenoses. Patient was admitted to [facility] for SOB, yellowish productive cough, and wheezing and subsequently was put on BiPAP for dropping SPO2 to 90 with improvement. He was also given IV Lasix and weaned to NC. Chest x-ray there showed right sided pleural effusion (Thoracentesis wasn't done for supratheraputic INR). He was given cefepime and azithro, prednisone x 3 days . He quit smoking 2 weeks ago. Upon arrival VS are WNL and SPO2 around 94% on 4L. Chief Complaint SOB History of Present Illness Patient reports he was admitted 1-2 months ago for a pneumonia in the right side of his chest. Never been intubated or admitted for COPD. S/p thoracentesis 1L on 04/10, transudative effusion Feels better in breathing and back/chest pain Started on heparin gtt Review of Systems Constitutional: No fever, No chills. Eye: No double vision, No visual disturbances. Ear/Nose/Mouth/Throat: No nasal congestion, No sore throat. Respiratory: Shortness of breath, Cough, Sputum production, No hemoptysis. Cardiovascular: No chest pain, No peripheral edema. Gastrointestinal: Constipation, No nausea, No vomiting, No diarrhea. Genitourinary: No dysuria, No change in urine stream. Musculoskeletal: No back pain, No joint pain. Integumentary: No rash, No pruritus, No breakdown. Neurologic: Alert and oriented X4, No headache. Health Status Allergies: Allergies (1) ActiveReaction NKDANone Documented Current medications: Medications (10) Active Scheduled: (8) AMIODarone 200 mg TAB 200 mg 1 tab, PO, BID amLODIPine 5 mg TAB 5 mg 1 tab, PO, Daily Budesonide/Formoterol 160-4.5 microgram 6gm AERO/A inh 2 puff, INHALER, RBID cholecalciferol 2000 IU Cap (Vitamin D3) 2,000 IntlUnit 1 cap, PO, Daily lisinopril 20 mg TAB 40 mg 2 tab, PO, Daily metoprolol succinate 100 mg ERT 100 mg 1 tab, PO, Daily simvastatin 20 mg TAB 20 mg 1 tab, PO, Bedtime trazodone 50 mg TAB 50 mg 1 tab, PO, Bedtime Continuous: (1) heparin 25,000 unit/500 mL D5W PREMIX 25,000 unit [14 unit/kg/hr] + Premix Diluent Dextrose 5% 500 500 mL, IV, 22.15 ml/hr PRN: (1) acetaminophen-hydrocodone 325 mg-10 mg TAB 1 tab, PO, Q8H Problem list: All Problems Afib / SNOMED CT [id number] / Confirmed CHF - Congestive heart failure / SNOMED CT 191859351 / Confirmed COPD / SNOMED CT 64402146 / Confirmed HT - Hypertension / SNOMED CT 130464829 / Confirmed Physical Examination VS/Measurements Measurements from flowsheet : Measurements 04/09/2017 00:18 Heparin Dosing Weight (kg) 79.09 04/09/2017 00:17 Height 185.42 cm Height Collection Method Stated Weight 79.091 kg Dosing Weight Difference Percent -3.333 % Dosing Weight Collection Method Measured Body Surface Area 2.0183 m2 Body Mass Index 23 m2 , Vital Signs (last 24 hrs) Last Charted Temp Oral97.2 DegF (APR 11 07:43) Heart Rate Pegoru25 bpm (APR 11 06:00) Resp Rate 16 BRMIN (APR 11 06:00) MKT505 mmHg (APR 11 06:00) DBPL 56mmHg (APR 11 06:00) FtY229 % (APR 11 06:00) General: Alert and oriented, No acute distress. Eye: Pupils are equal, round and reactive to light, Extraocular movements are intact. HENT: Normal hearing, Oral mucosa is moist. Neck: Supple, Non-tender, No jugular venous distention. Respiratory: Decreased BS bilaterally at bases, more decreased on Right side. Has end expiratory prolongation with mild wheezing. RR=20 with no distress. Cardiovascular: Normal rate, Regular rhythm, Systolic murmur, Normal peripheral perfusion. Gastrointestinal: Soft, Non-tender, Non-distended. Musculoskeletal Normal range of motion. Normal strength. No tenderness. No deformity. Integumentary: Warm, Dry. Neurologic: Alert, Oriented, Normal motor function, No focal deficits, Cranial Nerves II-XII are grossly intact. Cognition and Speech: Oriented, Speech clear and coherent. Psychiatric: Cooperative, Appropriate mood & affect. Review / Management Results review: Labs (Last four charted values) WBC 6.9(APR 11)9.9(APR 10)9.4(APR 10)H 21.7(APR 09) Hgb L 12.4(APR 11)L 13.3(APR 10)L 12.3(APR 10)L 13.4(APR 09) Hct L 36.9(APR 11)L 38.9(APR 10)L 36.4(APR 10)L 39.0(APR 09) Plt 200(APR 11)216(APR 10)210(APR 10)222(APR 09) Na 142(APR 11)143(APR 10)138(APR 09) K 4.2(APR 11)4.3(APR 10)4.1(APR 09) CO2 31(APR 11)H 34(APR 10)31(APR 09) Cl 104(APR 11)104(APR 10)101(APR 09) Cr 0.88(APR 11)0.91(APR 10)1.01(APR 09) BUN H 25(APR 11)H 29(APR 10)H 29(APR 09) Glucose Random 76(APR 11)78(APR 10)81(APR 10)H 119(APR 09) Mg 1.9(APR 11)2.1(APR 10) Phos 4.0(APR 11)3.4(APR 10) Ca 8.5(APR 11)8.8(APR 10)9.0(APR 09) PT H 16.8(APR 11)H 17.3(APR 10)H 17.7(APR 10)H 18.3(APR 10) INR H 1.34(APR 11)H 1.39(APR 10)H 1.43(APR 10)H 1.49(APR 10) PTT H 63.6(APR 11)30.7(APR 10)33.3(APR 10)35.0(APR 09). Impression and Plan Problem List: Shortness of breath Acute on chronic Hypoxic Respiratory Failure COPD Exacerbation Acute on Chronic Systolic/Diastolic heart failure Right Pleural Effusion Severe Aortic Stenosis Hx of paroxysmal Afib Leukocytosis Assessment and Plan: 76 yo M with R pleural effusion. Unclear etiology as unilateral though most likely related to CHF. The size seems to be decreasing from prior imaging. s/p thoracentesis, transudative so may be secondary to CHF. However given large size and unilaterality, risk factors, will have to worry about other causes. F/u final cultures and cytology Neuro: - Stable mentation, monitor CV: - Volume compnesated -Acute on chronic systolic heart failure with severe on metoprolol, linsinopril -On amiodarone for p a fib, coumadin on hold bridging. Could switch to lovenox for bridging till saturday -Would stop amlodipine, BP well controlled -Plan for TAVR next saturday Resp: - R pleural effusion - s/p thoracentesis transudative with some mesothelial cells -Likely related to CHF -Would follow up cytology -IF worsens, then may need repeat tap as currently volume status looks compensated GI/Nutrition: - Regular po intake Renal/Electrolytes: - Cr stable, monitor with volume status and diuresis Endo: - ssi, sugars controlled Heme/Onc: - Leukocytosis, resolving, likely related to steroids. monitor ID: - Get sputum culture -May have parapneumonic effusion Has received 2 days azithro and 1 day cefepime -No antibiotics for now Prophylaxis: - DVT on heparin gtt, would switch to therpeautic lovenox for bridging ease - GI no indication Vascular/ Access: PIV Code status: FULL [facility] Addendum [facility] Pulmonary & Critical Care Medicine Attending by Edgar, Teaching Attestation & Critical Care Progress Note Hawk MAURO I saw, evaluated, and participated in the care of the patient with the fellow physician on Dr. Jonny hCi on the date of this note. I concur with the assessment and plan in 04/12/2017 their note dated 04/11/2017. I have extensively reviewed the patient's available history, 00:09 information, labs and imaging. My appropriate corrections, additions, and emphasized points if appropriate are below. okay for discharge from Pulm perspective. 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 Anticoagulation per Cardiology Extracted from: Title: CCU H&P Author: Teja Brooks Date: 04/08/17 Miguel HERNANDEZ Patient: RANJEET JORDAN Age: 76 years Sex: Male : 1940 Associated Diagnoses: None Author: Teja Brooks Basic Information Time Seen Admit information Referral source Advance directive History of Present Illness Mr. Jordan is a 76 year male with PMHx of paroxysmal A-fib (on Amiodarone, off coumadin for planned TAVR tmw), HTN, COPD (On home 3L O2 3-4 hours at night only), HFrEF (30% per ECHO in 11/2015) who was transferred from [facility] for TAVR. On 04/01, he underwent a RHC+LHC which reveled a severe aortic stenosis, coronary srteries where mainly patent with mild stenoses. Patient was admitted to [facility] for SOB, yellowish productive cough, and wheezing and subsequently was put on BiPAP for dropping SPO2 to 90 with improvement. He was also given IV Lasix and weaned to NC. Chest x-ray there showed right sided pleural effusion (Thoracentesis wasn't done for supratheraputic INT). Today patient is complaining of mild SOB. He denies chest pain, cough, fever, chills, nausea, vomiting. He quit smoking 2 weeks ago, his both parents had CABG. Upon arrival VS are WNL and SPO2 around 94% on 4L. Patient denied any history of anginal pain, syncopal attacks, or CHF exacerbations. Review of Systems Constitutional: No fever, No chills, No sweats. Ear/Nose/Mouth/Throat: No nasal congestion, No sore throat. Respiratory: Shortness of breath, No cough, No hemoptysis. Cardiovascular: No chest pain, No palpitations. Gastrointestinal: No nausea, No vomiting, No diarrhea, No constipation, No heartburn. Health Status Allergies: Allergic Reactions (All) Severity Not Documented NKDA- No reactions were documented., Allergies (1) ActiveReaction NKDANone Documented Current medications: (Selected) Inpatient Medications Ordered AMIODarone: 200 mg, 1 tab, PO, BID Lasix: 40 mg, 4 mL, IV, ONCE Hesperus 10/325 oral tablet: 1 tab, PO, Q8H, PRN: Pain Score 6-10 Symbicort 160/4.5 inhalation aerosol with adapter: 2 puff, INHALER, RBID Vitamin D3 2000 intl units oral tablet: 2,000 IntlUnit, 1 tab, PO, Daily lisinopril: 40 mg, 2 tab, PO, Daily metoprolol extended release: 100 mg, 1 tab, PO, Daily simvastatin: 20 mg, 1 tab, PO, Bedtime trazodone 50 mg oral tablet: 50 mg, 1 tab, PO, Bedtime Prescriptions Suspended aspirin 81 mg tablet, enteric coated: 81 mg, 1 tab, PO, Daily, 90 tab, 3 Refill(s) Documented Medications Suspended AMIODarone 200 mg oral tablet: 200 mg, 1 tab, PO, BID, 180 tab, 0 Refill(s) Centrum Silver Men's: 1 tab, PO, Daily, 0 Refill(s) Hesperus 10/325 oral tablet: 1 tab, PO, Q8H, for 6 day, PRN: for pain, 24 tab, 0 Refill(s) Symbicort 160/4.5 inhalation aerosol with adapter: 2 puff, INHALER, BID, 1 ea, 3 Refill(s) Vitamin D3 2000 intl units oral capsule: 2,000 IntlUnit, 1 cap, PO, Daily, 100 cap, 3 Refill(s) lisinopril 40 mg oral tablet: 40 mg, 1 tab, PO, Daily, 30 tab, 0 Refill(s) metoprolol extended release: 100 mg, PO, Daily, 0 Refill(s) potassium gluconate 595 mg oral tablet: 595 (99K), PO, Daily, 0 Refill(s) simvastatin: 20 mg, 1 tab, PO, Bedtime, for 30 day, 30 tab, 0 Refill(s) tramadol 50 mg oral tablet: 50 mg, 1 tab, PO, Q8H, for 20 day, PRN: Pain, 60 tab, 0 Refill(s) trazodone 50 mg oral tablet: 50 mg, 1 tab, PO, Bedtime, 30 tab, 1 Refill(s) warfarin 2 mg oral tablet: 2 mg, 1 tab, PO, qWeek, Saturday, 0 Refill(s) warfarin 5 mg oral tablet: 5 mg, 1 tab, PO, Daily, DOES NOT TAKE ON SUNDAYS, tab, 0 Refill(s) Problem list: Active Problems (4) Afib CHF - Congestive heart failure COPD HT - Hypertension Physical Examination Intake and Output No I & O Data Available VS/Measurements Vital Signs (last 24 hrs) Last Charted Temp OralL 94DegF (APR 08:45) Heart Rate [id number] bpm (APR 08:45) Resp Rate 20 BRMIN (APR 08:) MOY215 mmHg (APR 08:) DBP62 mmHg (APR 08:) LfA958 % (APR 08:) Gen: A&OX3, NAD Eyes: No Jaundice, EOMI HEENT: NC/AT, MMM, Neck is supple Card: RRR, harsh systolic murmur best eard at left lower sternal edge. Pulm: decreased breath sounds on the right side, moderate wheezing on left side. GI: ND/NT, +BS, no organomegaly Ext: No edema or redness Neuro: CN grossly intact, no focal signs. Review / Management Results review: No qualifying data available. Lines and Tubes: Lines, Tubes, and Drains: 04/08/2017 22:23 Peripheral Lines: Antecubital Right 20 gauge Over the needle catheter . Impression and Plan Mr. Jordan is a 76 year male with PMHx of paroxysmal A-fib (on Amiodarone, off coumadin for planned TAVR tmw), HTN, COPD, HFrEF (30% per ECHO in 11/2015) who was transferred from [facility] for TAVR. [CVS] #Aortic Stenosis: -Stage C2 (Severe + decreased EF). -Severe given Mean gradiant >40 mmHg, and ASA <1.0 cm2. -NPO after midnight for TAVR. -Will get ECHO. -Avoid Nitrates and -ve Inotropes (CCB and BBs). #Paroxysmal A-fib: -On Amiodarone and Metoprolol. Will continue. -Off Coumadin now for TAVR. -Will get en EKG. #CHF: -Severe is the most likely cause for mild-moderate exacerbation -Chest x-ray shwoing right sided pleural effusions. -Careful diuresis given severe . #HTN: -BP WNL. -Continue Metoprolol. [Pulm] #COPD: -Will restart home Symbicort. -Keep on 2-4L NC to keep SPO2 above 92%. -Will give 40 mg IV Lasix now for volume overload evidence on lung exam and get a chest x-ray. -Unlikely a COPD picture so will avoid sterodis and ABx for now. [ID] -Leukocytosis likely due to steroids at OSH. -Afebrile. -Monitor WBC and temps. [GI] -Heart Helathy diet but NPO after midnight for TAVR. Diet: Heart Helathy diet. Dispo: Likely home after TAVR. DVT prophylaxis: None for now. Code: Full code. ' Teja Brooks MD PGY2, Internal Medicine. CCU/CIMU Daily Patient Safety Checklist Yes No CAD/CHF/PCI Requirements: 1. ASA WA/CAD/PCI/CABG 2. AMY Inhibitor or ARB CHF/DIABETES 3. Beta Justina POST WA/CHF/PCI 4. Statin CAD/PCI/CABG 5. DAPT post PCI? na 6. Renal Protection Fluid Protocol Post-PCI? na Mechanical Ventilation: 1. Restraints assessed/reordered? na 2. PUD ppx? na Blood Stream Infection Prevention: 1. Central Line necessity addressed? _ vasoactive agents, _ TPN, _loss of venous access CAUTI Prevention: 1. Hyman necessity addressed? _ complete bedrest, _ urinary retention,_ DVT Prevention: 1. VTE Advisor Completed on admission and DVT ppx? x Nutrition: 1. Enteral Feeding within 48hr? x Blood Glucose Control: 1. 60mg/dl < BG< 200mg/dl? x Discharge Plannin. PT/OT? x 2. Cardiac Rehab? x 3. Case Management/Social Work Consult? x Diagnosis 428.21Acute systolic heart failure. Addendum ATTENDING ADDENDUM by Sunil, I have seen and examined the patient. Furthermore, I have reviewed the Idris MAURO resident's/fellow's note dated today, and I agree with the assessment and plan. I have on personally reviewed the laboratory results, radiology results, and tracings. 04/09/2017 Dr. Idris Barber MD 22:57 #[id number]
--- OUTSIDE RECORDS SUMMARY | 2018-06-24 12:23 | XMS REPORT | Summary of Care ---
Author Author [facility] Outpatient Imaging [facility] Outpatient Imaging [facility] Address Unknown Phone Unavailable Encounter CATHERINE Bolanos(FIN) [id number] Date(s): 08/22/17 - 08/22/17 [facility] [address] [facility], [address] [place] [phone] Discharge Disposition: Home or Self Care Attending [...] No data available for this section Immunizations Given and Recorded Vaccine Date Status Refusal Reason pneumococcal 13-valent vaccine 08/08/17 Given Not Given Vaccine Date Status Refusal Reason pneumococcal 13-valent vaccine 09/27/16 Not Given Patient Refuses Procedures Procedure Date Related Diagnosis Body Site MVR - Mitral valve replacement 04/09/17 AVR - Aortic valve replacement Knee replacement Social History Social History Type Response Substance Abuse Use: None. Alcohol Current, Type Beer. Frequency: 1-2 times per month. Previous treatment: None. Alcohol use interferes with work or home: No. Drinks more than intended: No. Others hurt by drinking: No. Ready to change: No. Household alcohol concerns: No. Smoking Status Ready to change: Yes; Concerns about tobacco use in household: Yes; Exposure to Tobacco Smoke None; Cigarette Smoking Last 365 Days Yes; Reg Smoking Cessation Counseling Yes; Former smoker; Type: Cigarettes1 1Per patient, quit in April 2017 Assessment and Plan No data available for this section
--- OUTSIDE RECORDS SUMMARY | 2018-06-24 12:23 | XMS REPORT | Summary of Care ---
Author Author [facility] Outpatient Imaging [facility] Outpatient Imaging [facility] Address Unknown Phone Unavailable Encounter CATHERINE Bolanos(FIN) [id number] Date(s): 08/21/17 - 08/21/17 [facility] [address] [facility], [address] [place] [phone] Discharge Disposition: Home or Self Care Attending [...]
--- OUTSIDE RECORDS SUMMARY | 2018-06-24 12:23 | XMS REPORT | Summary of Care ---
Author Author [facility] [place] Organization [facility] [place] Address Unknown Phone Unavailable Encounter CATHERINE Bolanos(SARAHY) [id number] Date(s): 08/28/17 - 08/28/17 [facility] Outpatient [facility] [place] [address] [place] [phone] Discharge Disposition: Home or Self Care Attending Physician: Donald Gaspar MD Vital Signs No data available for [...]
--- OUTSIDE RECORDS SUMMARY | 2018-06-24 12:23 | XMS REPORT | Summary of Care ---
Author Author [facility] Organization [facility] Address Unknown Phone Unavailable Encounter HQ Luis Miguel(FIN) [id number] Date(s): 02/06/18 - 02/06/18 [facility] [address] [place] [address] Encounter Diagnosis Acute head trauma (Discharge Diagnosis) - 02/06/18 Elevated INR (Discharge Diagnosis) - 02/06/18 Accidental fall (Discharge Diagnosis) - 02/06/18 Discharge Disposition: Home or Self Care Attending Physician: Kirstin Barros MD Vital Signs 1 2 3 Most recent to oldest [Reference Range]: 185.42 cm (02/06/18 10:32 AM) Height 97.5 DegF (02/06/18 10:32 AM) Temperature Oral [96.4-99.1 DegF] 131/71 mmHg (02/06/18 3:01 PM) 126/74 mmHg (02/06/18 2:04 PM) 146/67 mmHg *HI* (02/06/18 10:32 AM) Blood Pressure [90-140/60-90 mmHg] 17 BRMIN (02/06/18 3:01 PM) 12 BRMIN *LOW* (02/06/18 2:04 PM) 16 BRMIN (02/06/18 12:32 PM) Respiratory Rate [14-20 BRMIN] 78 bpm (02/06/18 10:32 AM) Peripheral Pulse Rate [60-100 bpm] 75 kg (02/06/18 10:32 AM) Weight 21.81 m2 (02/06/18 10:32 AM) Body Mass Index Problem List Condition Effective Dates Status Health Status Informant Afib(Confirmed) Active CHF - Congestive Active heart failure(Confirmed) COPD(Confirmed) Active HT - Active Hypertension(Confirm ed) Allergies, Adverse Reactions, Alerts Substance Reaction Severity Status NKDA Active Medications Saline Flush 0.9% 10 mL, Route: IVP, Drug Form: INJ, Dosing Weight 75, kg, PRN, PRN Line Flush, St art date: 02/06/18 11:31:00 CDT, Duration: 30 day, Stop date: 03/08/18 11:30:00 CDT Notes: (Same as: BD Posiflush) Start Date: 02/06/18 Stop Date: 02/06/18 Status: Discontinued Vitamin K1 5 mg, Route: IVPB, ONCE, Dosing Weight 75, kg, Start date: 02/06/18 14:14:00 CDT , Stop date: 02/06/18 14:14:00 CDT Start Date: 02/06/18 Stop Date: 02/06/18 Status: Completed Results ELECTROLYTES Most recent to 1 oldest [Reference Range]: Sodium Lvl [135-145 140 mEq/L mEq/L] (02/06/18 12:16 PM) Potassium Lvl 4.1 mEq/L [3.5-5.1 mEq/L] (02/06/18 12:16 PM) Chloride Lvl [95-109 104 mEq/L mEq/L] (02/06/18 12:16 PM) CO2 [24-32 mEq/L] 31 mEq/L (02/06/18 12:16 PM) AGAP [10.0-20.0 9.1 mEq/L mEq/L] *LOW* (02/06/18 12:16 PM) CHEM PANEL Most recent to 1 oldest [Reference Range]: Creatinine Lvl 1.51 mg/dL [0.50-1.40 mg/dL] *HI* (02/06/18 12:16 PM) eGFR 43 mL/min/1.73m2 1 *NA* (02/06/18 12:16 PM) BUN [7-22 mg/dL] 22 mg/dL (02/06/18 12:16 PM) B/C Ratio [6-25] 15 (02/06/18 12:16 PM) Glucose Lvl [70-99 90 mg/dL mg/dL] (02/06/18 12:16 PM) Total Protein 7.7 g/dL [6.4-8.4 g/dL] (02/06/18 12:16 PM) Albumin Lvl [3.5-5.0 3.2 g/dL g/dL] *LOW* (02/06/18 12:16 PM) Globulin [2.7-4.2 4.5 g/dL g/dL] *HI* (02/06/18 12:16 PM) A/G Ratio [0.7-1.6] 0.7 (02/06/18 12:16 PM) Calcium Lvl 8.9 mg/dL [8.5-10.5 mg/dL] (02/06/18 12:16 PM) ALT [0-65 unit/L] 17 unit/L (02/06/18 12:16 PM) AST [0-37 unit/L] 24 unit/L (02/06/18 12:16 PM) Alk Phos [39-136 101 unit/L unit/L] (02/06/18 12:16 PM) Bili Total [0.2-1.3 1.0 mg/dL mg/dL] (02/06/18 12:16 PM) 1Result Comment: The eGFR is calculated using [...] BMI. CARDIAC ENZYMES Most recent to 1 oldest [Reference Range]: Total CK [12-191 82 unit/L unit/L] (02/06/18 12:16 PM) CK MB [0.5-3.6 1.5 ng/mL ng/mL] (02/06/18 12:16 PM) CK MB Index 1.8 [0.0-2.5] (02/06/18 12:16 PM) Troponin-I <0.02 ng/mL [0.00-0.40 ng/mL] (02/06/18 12:16 PM) HEMATOLOGY Most recent to 1 oldest [Reference Range]: WBC [3.7-10.4 K/CMM] 5.4 K/CMM (02/06/18 12:16 PM) RBC [4.70-6.10 3.67 M/CMM M/CMM] *LOW* (02/06/18 12:16 PM) Hgb [14.0-18.0 g/dL] 10.5 g/dL *LOW* (02/06/18 12:16 PM) Hct [42.0-54.0 %] 32.2 % *LOW* (02/06/18 12:16 PM) MCV [80.0-94.0 fL] 87.6 fL (02/06/18 12:16 PM) MCH [27.0-31.0 pg] 28.6 pg (02/06/18 12:16 PM) MCHC [32.0-36.0 32.7 g/dL g/dL] (02/06/18 12:16 PM) RDW [11.5-14.5 %] 18.7 % *HI* (02/06/18 12:16 PM) MPV [7.4-10.4 fL] 7.6 fL (02/06/18 12:16 PM) Platelet [133-450 209 K/CMM K/CMM] (02/06/18 12:16 PM) Segs [45.0-75.0 %] 56.1 % (02/06/18 12:16 PM) Lymphocytes 24.8 % [20.0-40.0 %] (02/06/18 12:16 PM) Monocytes [2.0-12.0 12.1 % %] *HI* (02/06/18 12:16 PM) Eosinophils [0.0-4.0 5.6 % %] *HI* (02/06/18 12:16 PM) Basophils [0.0-1.0 1.4 % %] *HI* (02/06/18 12:16 PM) Segs-Bands # 3.0 K/CMM [1.5-8.1 K/CMM] (02/06/18 12:16 PM) Lymphocytes # 1.3 K/CMM [1.0-5.5 K/CMM] (02/06/18 12:16 PM) Monocytes # [0.0-0.8 0.7 K/CMM K/CMM] (02/06/18 12:16 PM) Eosinophils # 0.3 K/CMM [0.0-0.5 K/CMM] (02/06/18 12:16 PM) Basophils # [0.0-0.2 0.1 K/CMM K/CMM] (02/06/18 12:16 PM) PT [12.0-14.7 49.3 seconds seconds] *HI* (02/06/18 12:16 PM) INR [0.85-1.17] 5.26 1 *CRIT* (02/06/18 12:16 PM) PTT [22.9-35.8 79.6 seconds seconds] *HI* (02/06/18 12:16 PM) 1Result Comment: Critical Result(s) called to elina damon at 02/06/2018 12:46 by prince. Read back OK. Immunizations Given and Recorded Vaccine Date Status Refusal Reason pneumococcal 13-valent vaccine 08/08/17 Given Not Given Vaccine Date Status Refusal Reason pneumococcal 13-valent vaccine 09/27/16 Not Given Patient Refuses Procedures Procedure Date Related Diagnosis Body Site Status MVR - Mitral valve replacement 04/09/17 Completed AVR - Aortic valve replacement Completed Knee replacement Completed Social History Social History Type Response Substance Abuse Use: None. Alcohol Current, Type Beer. Frequency: 1-2 times per month. Previous treatment: None. Alcohol use interferes with work or home: No. Drinks more than intended: No. Others hurt by drinking: No. Ready to change: No. Household alcohol concerns: No. Smoking Status Former smoker; Type: Cigarettes; Ready to change: Yes; Concerns about tobacco use in household: Yes; Exposure to Tobacco Smoke None; Cigarette Smoking Last 365 Days Yes; Reg Smoking Cessation Counseling Yes1 entered on: 02/06/18 1Per patient, quit in April 2017 Assessment and Plan No data available for this section
--- OUTSIDE RECORDS SUMMARY | 2018-06-24 12:23 | XMS REPORT | Summary of Care ---
Author Author [facility] Organization [facility] Address Unknown Phone Unavailable Encounter CATHERINE Bolanos(SARAHY) [id number] Date(s): 04/16/17 - 04/18/17 [facility] [address] [employer] provided by [facility] [place] [address]- Discharge Disposition: Home or Self Care Attending Physician: Kai Bell MD Admitting Physician: Jarad Lopez MD Referring Physician: Jarad Lopez MD Vital Signs 1 2 3 Most recent to oldest [Reference Range]: 185.42 cm (04/16/17 5:46 AM) Height 97.9 DegF (04/17/17 4:00 PM) 98.1 DegF (04/17/17 12:00 PM) 97.7 DegF (04/17/17 8:00 AM) Temperature Oral [96.4-99.1 DegF] 148/65 mmHg *HI* (04/18/17 12:00 PM) 146/66 mmHg *HI* (04/18/17 11:00 AM) 138/64 mmHg (04/18/17 10:00 AM) Blood Pressure [90-140/60-90 mmHg] 25 BRMIN *HI* (04/18/17 12:00 PM) 22 BRMIN *HI* (04/18/17 11:00 AM) 57 BRMIN *HI* (04/18/17 10:00 AM) Respiratory Rate [14-20 BRMIN] 76.364 kg (04/16/17 5:46 AM) Weight 22.21 m2 (04/16/17 5:46 AM) Body Mass Index Problem List Condition Effective Dates Status Health Status Informant Afib(Confirmed) Active CHF - Congestive Active heart failure(Confirmed) COPD(Confirmed) Active HT - Active Hypertension(Confirm ed) Allergies, Adverse Reactions, Alerts Substance Reaction Severity Status NKDA Active Medications acetaminophen 1,000 mg, 100 mL, Route: IVPB, Drug form: INJ, ONCE, Dosing Weight 76.364, kg, P RN Pain Score 1-3, Start date: 04/16/17 10:31:00 CDT Notes: Infuse over 15 minutesDo not exceed 4gm/day of acetaminophen MEDICAT ION WASTE Product Size: 1000 mgProduct Wasted: _0__ mg Start Date: 04/16/17 Stop Date: 04/18/17 Status: Discontinued AMIODarone 200 mg, 1 tab, Route: PO, Drug form: TAB, BID, Dosing Weight 76.364, kg, Start d ate: 04/16/17 17:00:00 CDT, Duration: 30 day, Stop date: 05/16/17 9:00:00 CDT Notes: (Same as: Cordarone) Start Date: 04/16/17 Stop Date: 04/17/17 Status: Discontinued AMIODarone 200 mg, 1 tab, Route: PO, Drug form: TAB, Daily, Dosing Weight 76.364, kg, Start date: 04/18/17 9:00:00 CDT, Duration: 30 day, Stop date: 05/17/17 9:00:00 CDT Notes: (Same as: Cordarone) Start Date: 04/18/17 Stop Date: 04/18/17 Status: Discontinued AMIODarone 200 mg oral tablet 200 mg=1 tab, PO, Daily, 0 Refill(s) Start Date: 04/18/17 Stop Date: 04/18/17 Status: Deleted AMIODarone 200 mg oral tablet 200 mg=1 tab, PO, Daily, # 30 tab, 3 Refill(s) Start Date: 04/18/17 Status: Ordered aspirin 81 mg tablet, enteric coated 81 mg=1 tab, PO, Daily, 0 Refill(s) Start Date: 04/18/17 Stop Date: 04/18/17 Status: Deleted aspirin 81 mg tablet, enteric coated 81 mg, 1 tab, Route: PO, Drug form: ECTAB, Daily, Dosing Weight 76.364, kg, Star t date: 04/16/17 12:10:00 CDT, Duration: 30 day, Stop date: 05/16/17 9:00:00 CDT Notes: Do not crush or chew.(Same As: Ecotrin) Start Date: 04/16/17 Stop Date: 04/18/17 Status: Discontinued aspirin 81 mg tablet, enteric coated 81 mg=1 tab, PO, Daily, # 100 tab, 3 Refill(s) Start Date: 04/18/17 Status: Ordered Blistex Lip Badger topical stick 1 appl, Route: TOP, 5X Day, Drug form: STIC, PRN Dry Lips, Start date: 04/16/17 14:49:00 CDT, Stop date: 05/16/17 14:48:00 CDT Start Date: 04/16/17 Stop Date: 04/18/17 Status: Discontinued calcium carbonate 500 mg (200 mg elemental calcium) oral tablet 500 mg, 1 tab, Route: PO, Drug form: CHEWTAB, PRN, Dosing Weight 76.364, kg, PRN Abnormal Lab Result, FOR ICU USE ONLY, Start date: 04/16/17 12:09:00 CDT, Durat ion: 30 day, Stop date: 05/16/17 12:08:00 CDT Notes: (Same As: Tums)Calcium Carbonate 500 pf=536 mg elemental calcium Dose=_ mg calcium carbonate ( mg elemental calcium) Start Date: 04/16/17 Stop Date: 04/18/17 Status: Discontinued calcium carbonate 500 mg (200 mg elemental calcium) oral tablet 1,000 mg, 2 tab, Route: PO, Drug form: CHEWTAB, PRN, Dosing Weight 76.364, kg, P RN Abnormal Lab Result, FOR ICU USE ONLY, Start date: 04/16/17 12:09:00 CDT, Dur ation: 30 day, Stop date: 05/16/17 12:08:00 CDT Notes: (Same As: Tums)Calcium Carbonate 500 tq=760 mg elemental calcium Dose=_ mg calcium carbonate ( mg elemental calcium) Start Date: 04/16/17 Stop Date: 04/18/17 Status: Discontinued calcium gluconate + sodium chloride 0.9% INJ 50 mL 1 gm, 10 mL, Route: IVPB, PRN, Dosing Weight 76.364, kg, PRN Abnormal Lab Result , Start date: 04/16/17 12:09:00 CDT, Duration: 30 day, Stop date: 05/16/17 12:08 :00 CDT, FOR ICU USE ONLY Notes: WASTE: F/P - Sink; E - Municipal Trash Bin Start Date: 04/16/17 Stop Date: 04/18/17 Status: Discontinued ceFAZolin (SCIP) 1 gm, Route: IVPB, Drug form: PDR/INJ, Q8H, Dosing Weight 76.364, kg, Start date : 04/16/17 16:00:00 CDT, Duration: 1 doses or times, Stop date: 04/16/17 16:00:0 0 CDT, ABX Indication: Surgical Prophylaxis Notes: (Same As: Kai Shah) MEDICATION WASTE Product Size: 1000 mgP roduct Wasted: ___ mg Start Date: 04/16/17 Stop Date: 04/16/17 Status: Completed cefepime 2 gm, Route: IVPB, Drug form: INJ, [id number], Dosing Weight 76.364, kg, (CrCl >/=50 ml/min, CAN PUSHER infection or neutropenic fever), Start date: 04/17/17 10:00:00 CDT, Duration: 10 day, Stop date: 04/27/17 2:00:00 CDT, ABX Indication: Pneumonia Notes: (Same as: Maxipime) MEDICATION WASTE Product Size: 2000 mgProduc t Wasted: ___ mg Start Date: 04/17/17 Stop Date: 04/17/17 Status: Discontinued Centrum Silver Men's 1 tab, Route: PO, Drug Form: TAB, Dosing Weight 76.364, kg, Daily, Start date: 0 04/17/17 9:00:00 CDT, Duration: 30 day, Stop date: 05/16/17 9:00:00 CDT Notes: (Same as:Thera-M, Theragran-M)WASTE: F/P - Black; E - Municipal Trash Bin Give with food. Start Date: 04/17/17 Stop Date: 04/18/17 Status: Discontinued docusate 100 mg, 1 cap, Route: PO, Drug form: CAP, Q12H, Dosing Weight 76.364, kg, Start date: 04/16/17 21:00:00 CDT, Duration: 30 day, Stop date: 05/16/17 9:00:00 CDT Notes: (Same as: Colace) (Do Not Crush) Start Date: 04/16/17 Stop Date: 04/18/17 Status: Discontinued edoxaban 60 mg oral tablet 60 mg=1 tab, PO, Daily, 0 Refill(s) Start Date: 04/18/17 Stop Date: 04/18/17 Status: Deleted edoxaban 60 mg oral tablet 60 mg=1 tab, PO, Daily, # 30 tab, 3 Refill(s) Start Date: 04/18/17 Status: Ordered Eliquis 5 mg, 1 tab, Route: PO, Drug form: TAB, Q12H, Dosing Weight 76.364, kg, Start da te: 04/17/17 21:00:00 CDT, Duration: 30 day, Stop date: 05/17/17 9:00:00 CDT Notes: Same as: Eliquis Start Date: 04/17/17 Stop Date: 04/17/17 Status: Canceled Exparel 20 mL, Route: InFILtration(local), Drug Form: INJ, Dosing Weight 79.091, kg, ONC ALL, 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, Start date: 04/16/17 6:00:00 CDT, Duration: 1 day, Sto p date: 04/17/17 5:59:00 CDT Notes: (Same as: Exparel) NOT FOR IV use Postoperative analgesia: Infi ltration (local): Dose is based on surgical site and volume required to cover th e area (in general, the maximum total dose is 266 mg).Bunionectomy: 7 mL into th e tissues surrounding the osteotomy and 1 mL into the subcutaneous tissue of the surgical site (total dose=8 mL [106 mg])Hemorrhoidectomy: 30 mL (20 mL vial dil uted with 10 mL NS) divided and administered as 6 injections of 5 mL each (total dose=30 mL [266 mg]) Start Date: 04/16/17 Stop Date: 04/18/17 Status: Discontinued heparin 5,000 unit, Route: SUB-Q, Q12H, Dosing Weight 76.364, kg, Start date: 04/16/17 2 1:00:00 CDT, Duration: 30 day, Stop date: 05/16/17 9:00:00 CDT Start Date: 04/16/17 Stop Date: 04/16/17 Status: Canceled INV edoxaban 60 mg TAB 60 mg, 1 tab, Route: PO, Drug form: TAB, Daily, Start date: 04/17/17 15:00:00 CD T, Duration: 30 day, Stop date: 05/17/17 9:00:00 CDT Start Date: 04/17/17 Stop Date: 04/18/17 Status: Discontinued Levaquin 750 mg, 1 tab, Route: PO, Drug form: TAB, [id number], Dosing Weight 76.364, kg, Sta rt date: 04/17/17 13:00:00 CDT, Duration: 14 day, Stop date: 04/30/17 13:00:00 C DT, ABX Indication: Pneumonia Notes: Do not give w/antacids, dairy pdt & mineralsTake 1 hr before or 2 hr after dairy products Start Date: 04/17/17 Stop Date: 04/18/17 Status: Discontinued levofloxacin 750 mg oral tablet 750 mg=1 tab, PO, [id number], 0 Refill(s) Start Date: 04/18/17 Stop Date: 04/18/17 Status: Deleted levofloxacin 750 mg oral tablet 750 mg=1 tab, PO, [id number], # 14 tab, 0 Refill(s) Start Date: 04/18/17 Stop Date: 04/30/17 Status: Ordered lisinopril 40 mg, 2 tab, Route: PO, Drug form: TAB, Daily, Dosing Weight 76.364, kg, Start date: 04/17/17 9:00:00 CDT, Duration: 30 day, Stop date: 05/16/17 9:00:00 CDT Notes: (Same as: Alma Weathers) Start Date: 04/17/17 Stop Date: 04/18/17 Status: Discontinued lisinopril 20 mg oral tablet 40 mg=2 tab, PO, Daily, 0 Refill(s) Start Date: 04/18/17 Stop Date: 04/18/17 Status: Deleted lisinopril 20 mg oral tablet 40 mg=2 tab, PO, Daily, # 30 tab, 3 Refill(s) Start Date: 04/18/17 Status: Ordered Lovenox 76.364 mg, 0.76 mL, Route: SUB-Q, Drug form: INJ, [id number], Dosing Weight 76.364 , kg, Start date: 04/17/17 9:00:00 CDT, Duration: 30 day, Stop date: 05/16/17 21 :00:00 CDT Notes: Nurse to ensure documentation of patient education per anticoagulation po licy. (Same as: Lovenox) Start Date: 04/17/17 Stop Date: 04/17/17 Status: Discontinued magnesium oxide 800 mg, 2 tab, Route: PO, Drug form: TAB, PRN, Dosing Weight 76.364, kg, PRN Abn ormal Lab Result, FOR ICU USE ONLY, Start date: 04/16/17 12:09:00 CDT, Duration: 30 day, Stop date: 05/16/17 12:08:00 CDT Notes: (Same as: Mag-Ox 400)Magnesium oxide [id number] elemental magnesiumDose= ____mg magnesium oxide (___mg elemental magnesium) Start Date: 04/16/17 Stop Date: 04/18/17 Status: Discontinued magnesium sulfate 2 gm, 50 mL, Route: IVPB, Drug form: INJ, PRN, Dosing Weight 76.364, kg, PRN Abn ormal Lab Result, Start date: 04/16/17 12:09:00 CDT, Duration: 30 day, Stop date : 05/16/17 12:08:00 CDT, FOR ICU USE ONLY Notes: WASTE: F/P - Sink; E - Municipal Trash Bin Start Date: 04/16/17 Stop Date: 04/18/17 Status: Discontinued melatonin 3 mg, 1 tab, Route: PO, Drug form: TAB, ONCE, Dosing Weight 76.364, kg, Start da te: 04/17/17 23:46:00 CDT, Stop date: 04/17/17 23:46:00 CDT, .. Notes: (Same as: Melatonin) Start Date: 04/17/17 Stop Date: 04/17/17 Status: Completed metoprolol 100 mg oral tablet, extended release 100 mg=1 tab, PO, Daily, 0 Refill(s) Start Date: 04/18/17 Stop Date: 04/18/17 Status: Deleted metoprolol 100 mg oral tablet, extended release 100 mg=1 tab, PO, Daily, # 30 tab, 3 Refill(s) Start Date: 04/18/17 Status: Ordered metoprolol extended release 100 mg, 1 tab, Route: PO, Drug form: ERTAB, ONCE, Priority: NOW, Start date: 04/25 23:57:00 CDT, Stop date: 04/16/17 23:57:00 CDT Notes: (Same as: Toprol XL) May split tab, but do not crush. Start Date: 04/16/17 Stop Date: 04/17/17 Status: Completed metoprolol extended release 100 mg, 1 tab, Route: PO, Drug form: ERTAB, Daily, Start date: 04/17/17 9:00:00 CDT, Duration: 30 day, Stop date: 05/16/17 9:00:00 CDT Notes: (Same as: Toprol XL) May split tab, but do not crush. Start Date: 04/17/17 Stop Date: 04/18/17 Status: Discontinued niCARdipine 40 mg/ NS 200 ml IV Soln (premix) 40 mg 40 mg, 200 mL, Rate: Titrate, Start Dose: 5 mg/hr, Titration: 2mg every 15 minut es PRN, Goal(s): maintain MAP 75-85 mmHg, Max Dose: 15mg/hr, Route: IV, Dosing W eight 76.364 kg, Total Volume: 200, Start date: 04/16/17 10:31:00 CDT, Duration: 30 day, St... Notes: Same as: CardeneConcentration: (0.2 mg /1 ml ) Start Date: 04/16/17 Stop Date: 04/17/17 Status: Discontinued NIFEdipine 30 mg oral tablet, extended release 30 mg=1 tab, PO, Daily, 0 Refill(s) Start Date: 04/18/17 Stop Date: 04/18/17 Status: Deleted NIFEdipine 30 mg oral tablet, extended release 30 mg, 1 tab, Route: PO, Drug form: ERTAB, Daily, Dosing Weight 76.364, kg, Star t date: 04/17/17 20:45:00 CDT, Duration: 30 day, Stop date: 05/17/17 9:00:00 CDT Notes: (Same as: Adalat CC, Procardia XL) Give on empty stomach. Take 1 hour be fore or 2 hours after meal; "Avoid grapefruit and grapefruit juice". Do not cru sh Start Date: 04/17/17 Stop Date: 04/18/17 Status: Discontinued NIFEdipine 30 mg oral tablet, extended release 30 mg=1 tab, PO, Daily, # 30 tab, 3 Refill(s) Start Date: 04/18/17 Status: Ordered ondansetron 4 mg, 2 mL, Route: IVP, Drug form: INJ, Q8H, Dosing Weight 76.364, kg, PRN Nause a & Vomiting, Start date: 04/16/17 10:31:00 CDT, Duration: 30 day, Stop date: 05/16/17 10:30:00 CDT Notes: (Same as: Zofran) MEDICATION WASTE Product Size: 4 mgProduct Was desmond: _0__ mg Start Date: 04/16/17 Stop Date: 04/18/17 Status: Discontinued pantoprazole 40 mg, 1 tab, Route: PO, Drug form: ECTAB, Daily, Dosing Weight 76.364, kg, Star t date: 04/17/17 9:00:00 CDT, Duration: 30 day, Stop date: 05/16/17 9:00:00 CDT Notes: Tablet should not be chewed or crushed.(Same as: Protonix) Start Date: 04/17/17 Stop Date: 04/18/17 Status: Discontinued polyethylene glycol 3350 17 gm, 1 pkt, Route: PO, Drug form: PWDR, Daily, Dosing Weight 76.364, kg, Start date: 04/17/17 9:00:00 CDT, Duration: 30 day, Stop date: 05/16/17 9:00:00 CDT Notes: Dissolve in 8 oz of water or juice.(Same as: Miralax) Start Date: 04/17/17 Stop Date: 04/18/17 Status: Discontinued potassium chloride 20 mEq, 15 mL, Route: NJ, Drug form: LIQ, PRN, Dosing Weight 76.364, kg, PRN Abn ormal Lab Result, Start date: 04/16/17 12:09:00 CDT, Duration: 30 day, Stop date : 05/16/17 12:08:00 CDT, FOR ICU USE ONLY Notes: (Same as: Potassium Chloride) Start Date: 04/16/17 Stop Date: 04/18/17 Status: Discontinued potassium chloride 10 mEq, 50 mL, Route: IVPB, Drug form: INJ, PRN, Dosing Weight 76.364, kg, PRN A bnormal Lab Result, Via peripheral line, Start date: 04/16/17 12:09:00 CDT, Dura tion: 30 day, Stop date: 05/16/17 12:08:00 CDT, FOR ICU USE ONLY Notes: (Same as: KCL) Infuse over 2 hours. Start Date: 04/16/17 Stop Date: 04/18/17 Status: Discontinued potassium chloride 20 mEq, 1 tab, Route: PO, Drug form: ERTAB, PRN, Dosing Weight 76.364, kg, PRN A bnormal Lab Result, Start date: 04/16/17 12:09:00 CDT, Duration: 30 day, Stop da te: 05/16/17 12:08:00 CDT, FOR ICU USE ONLY Notes: (Same as: K-Dur 20)"Do Not Crush" With food and full glass of water Start Date: 04/16/17 Stop Date: 04/18/17 Status: Discontinued potassium chloride 20 mEq, 100 mL, Route: IVPB, Drug form: INJ, PRN, Dosing Weight 76.364, kg, PRN Abnormal Lab Result, Via central line, Start date: 04/16/17 12:09:00 CDT, Durati on: 30 day, Stop date: 05/16/17 12:08:00 CDT, FOR ICU USE ONLY Notes: (Same as: KCL) Infuse no faster than 10 mEq/hr if given peripherally. Start Date: 04/16/17 Stop Date: 04/18/17 Status: Discontinued potassium phosphate + sodium chloride 0.9% INJ 250 mL 15 mmol, 5 mL, Route: IVPB, PRN, Dosing Weight 76.364, kg, PRN Abnormal Lab Resu lt, Start date: 04/16/17 12:09:00 CDT, Duration: 30 day, Stop date: 05/16/17 12: 08:00 CDT, FOR ICU USE ONLY Notes: (Same as: K Phosphate.) 1 mMol phoshate has 1.47 mEq potassium Infuse o reuben 4 hours Start Date: 04/16/17 Stop Date: 04/18/17 Status: Discontinued potassium phosphate + sodium chloride 0.9% INJ 250 mL 30 mmol, 10 mL, Route: IVPB, PRN, Dosing Weight 76.364, kg, PRN Abnormal Lab Res ult, Start date: 04/16/17 12:09:00 CDT, Duration: 30 day, Stop date: 05/16/17 12 :08:00 CDT, FOR ICU USE ONLY Notes: (Same as: K Phosphate.) 1 mMol phoshate has 1.47 mEq potassium Infuse o reuben 4 hours Start Date: 04/16/17 Stop Date: 04/18/17 Status: Discontinued potassium phosphate + sodium chloride 0.9% INJ 250 mL 45 mmol, 15 mL, Route: IVPB, PRN, Dosing Weight 76.364, kg, PRN Abnormal Lab Res ult, Start date: 04/16/17 12:09:00 CDT, Duration: 30 day, Stop date: 05/16/17 12 :08:00 CDT, FOR ICU USE ONLY Notes: (Same as: K Phosphate.) 1 mMol phoshate has 1.47 mEq potassium Infuse o reuben 4 hours Start Date: 04/16/17 Stop Date: 04/18/17 Status: Discontinued potassium phosphate-sodium phosphate 250 mg-280 mg-160 mg oral powder for recons titution 2 pkt, Route: PO, Drug Form: PDR/REC, Dosing Weight 76.364, kg, PRN, PRN Abnorma l Lab Result, FOR ICU USE ONLY, Start date: 04/16/17 12:09:00 CDT, Duration: 30 day, Stop date: 05/16/17 12:08:00 CDT Notes: (Same as: Phos-NaK) Each 1.5 gm pkt has 250mg phosphorous. Mix w/2.5oz w ater and stir. Start Date: 04/16/17 Stop Date: 04/18/17 Status: Discontinued Requip 0.25 mg, 1 tab, Route: PO, Drug form: TAB, Bedtime, Dosing Weight 76.364, kg, St art date: 04/16/17 21:00:00 CDT, Duration: 30 day, Stop date: 05/15/17 21:00:00 CDT Notes: (Same as: Requip) Start Date: 04/16/17 Stop Date: 04/18/17 Status: Discontinued rOPINIRole 0.25 mg oral tablet 0.25 mg=1 tab, PO, Bedtime, # 30 tab, 3 Refill(s) Start Date: 04/18/17 Status: Ordered rOPINIRole 0.25 mg oral tablet 0.25 mg=1 tab, PO, Bedtime, 0 Refill(s) Start Date: 04/18/17 Stop Date: 04/18/17 Status: Deleted simvastatin 20 mg, 1 tab, Route: PO, Drug form: TAB, Bedtime, Dosing Weight 76.364, kg, Star t date: 04/16/17 21:00:00 CDT, Duration: 30 day, Stop date: 05/15/17 21:00:00 CD T Notes: (Same as: Zocor) Start Date: 04/16/17 Stop Date: 04/18/17 Status: Discontinued simvastatin 20 mg oral tablet 20 mg=1 tab, PO, Bedtime, # 30 tab, 3 Refill(s) Start Date: 04/18/17 Status: Ordered simvastatin 20 mg oral tablet 20 mg=1 tab, PO, Bedtime, 0 Refill(s) Start Date: 04/18/17 Stop Date: 04/18/17 Status: Deleted Sodium Chloride 0.9% (Bolus) IV 250 mL, 250 ml/hr, Infuse Over: 1 hr, Route: IV, 250, Drug form: INJ, ONCALL, Pr iority: Routine, Dosing Weight 79.091 kg, Start date: 04/16/17 6:00:00 CDT, Dura tion: 1 doses or times Start Date: 04/16/17 Stop Date: 04/16/17 Status: Completed sodium chloride 0.9% 1000 ml INJ 750 mL 750 mL, Rate: 75 ml/hr, Infuse over: 10 hr, Route: IV, Dosing Weight 79.091 kg, Total Volume: 750, Start date: 04/16/17 5:46:00 CDT, Duration: 24 hr, Stop date: 04/17/17 5:45:00 CDT Start Date: 04/16/17 Stop Date: 04/17/17 Status: Completed sodium chloride 0.9% INJ 250 mL 250 mL, Rate: scallop dredger for use with blood product administration, Dosing Weight 7 9.091, kg, Route: IV, Total Volume: 250, Start Date: 04/16/17 5:46:00 CDT, Durat ion: 30 day, Stop date: 05/16/17 5:45:00 CDT, Replace Every: 24 hr Start Date: 04/16/17 Stop Date: 04/18/17 Status: Discontinued sodium phosphate + sodium chloride 0.9% INJ 250 mL 45 mmol, 15 mL, Route: IVPB, PRN, Dosing Weight 76.364, kg, PRN Abnormal Lab Res ult, Start date: 04/16/17 12:09:00 CDT, Duration: 30 day, Stop date: 05/16/17 12 :08:00 CDT, FOR ICU USE ONLY Start Date: 04/16/17 Stop Date: 04/18/17 Status: Discontinued sodium phosphate + sodium chloride 0.9% INJ 250 mL 30 mmol, 10 mL, Route: IVPB, PRN, Dosing Weight 76.364, kg, PRN Abnormal Lab Res ult, Start date: 04/16/17 12:09:00 CDT, Duration: 30 day, Stop date: 05/16/17 12 :08:00 CDT, FOR ICU USE ONLY Start Date: 04/16/17 Stop Date: 04/18/17 Status: Discontinued sodium phosphate + sodium chloride 0.9% INJ 250 mL 15 mmol, 5 mL, Route: IVPB, PRN, Dosing Weight 76.364, kg, PRN Abnormal Lab Resu lt, Start date: 04/16/17 12:09:00 CDT, Duration: 30 day, Stop date: 05/16/17 12: 08:00 CDT, FOR ICU USE ONLY Start Date: 04/16/17 Stop Date: 04/18/17 Status: Discontinued Symbicort 160/4.5 inhalation aerosol with adapter 2 inhalation, INHALER, RBID, 0 Refill(s) Start Date: 04/18/17 Stop Date: 04/18/17 Status: Deleted Symbicort 160/4.5 inhalation aerosol with adapter 2 inhalation, Route: INHALER, Drug Form: AERO/A, Dosing Weight 76.364, kg, RBID, Start date: 04/16/17 20:00:00 CDT, Duration: 30 day, Stop date: 05/16/17 8:00:00 CDT Notes: (Same as: Symbicort)WASTE: Aerosol - Return to Pharmacy Start Date: 04/16/17 Stop Date: 04/18/17 Status: Discontinued Symbicort 160/4.5 inhalation aerosol with adapter 2 inhalation, INHALER, RBID, # 3 ea, 3 Refill(s) Start Date: 04/18/17 Status: Ordered trazodone 50 mg oral tablet 50 mg=1 tab, PO, Bedtime, PRN Insomnia, # 30 tab, 3 Refill(s) Start Date: 04/18/17 Status: Ordered trazodone 50 mg oral tablet 50 mg=1 tab, PO, Bedtime, PRN Insomnia, 0 Refill(s) Start Date: 04/18/17 Stop Date: 04/18/17 Status: Deleted trazodone 50 mg oral tablet 50 mg, 1 tab, Route: PO, Drug form: TAB, Bedtime, Dosing Weight 76.364, kg, PRN Insomnia, Start date: 04/16/17 12:11:00 CDT, Duration: 30 day, Stop date: 12:10:00 CDT Notes: (Same As: Desyrel) Start Date: 04/16/17 Stop Date: 04/18/17 Status: Discontinued Tylenol 650 mg, 2 tab, Route: PO, Drug form: TAB, Q6H, Dosing Weight 76.364, kg, PRN Andrade n Score 1-3, Start date: 04/16/17 22:43:00 CDT, Duration: 30 day, Stop date: 03/25 22:42:00 CDT Notes: Do not exceed 4 gm/day. (Same as: Tylenol) Start Date: 04/16/17 Stop Date: 04/18/17 Status: Discontinued Vitamin D3 2000 intl units oral tablet 2,000 IntlUnit=1 tab, PO, Daily, 0 Refill(s) Start Date: 04/18/17 Stop Date: 04/18/17 Status: Deleted Vitamin D3 2000 intl units oral tablet 2,000 IntlUnit, 1 tab, Route: PO, Drug form: TAB, Daily, Dosing Weight 76.364, k g, Start date: 04/17/17 9:00:00 CDT, Duration: 30 day, Stop date: 05/16/17 9:00: 00 CDT Notes: (Same as: Vitamin D3) Start Date: 04/17/17 Stop Date: 04/18/17 Status: Discontinued Vitamin D3 2000 intl units oral tablet 2,000 IntlUnit=1 tab, PO, Daily, # 100 tab, 3 Refill(s) Start Date: 04/18/17 Status: Ordered warfarin 5 mg, 1 tab, Route: PO, Drug form: TAB, Q5PM, Dosing Weight 76.364, kg, Start da te: 04/16/17 18:16:00 CDT, Duration: 1 doses or times, Stop date: 04/16/17 18:16 :00 CDT Notes: Nurse to ensure documentation of patient education per anticoagulation po licy.Avoid large intake of vitamin-K containing foods diet.WASTE: F/P - P Waste Black; E - P Waste Black(Same As: Coumadin) Start Date: 04/16/17 Stop Date: 04/16/17 Status: Completed warfarin 5 mg, 1 tab, Route: PO, Drug form: TAB, Q5PM, Dosing Weight 76.364, kg, Start da te: 04/17/17 17:00:00 CDT, Duration: 1 doses or times, Stop date: 04/17/17 17:00 :00 CDT Notes: Nurse to ensure documentation of patient education per anticoagulation po licy.Avoid large intake of vitamin-K containing foods diet.WASTE: F/P - P Waste Black; E - P Waste Black(Same As: Coumadin) Start Date: 04/17/17 Stop Date: 04/17/17 Status: Canceled Results BLOOD BANK RESULTS 1 2 3 Most recent to oldest [Reference Range]: A POS *Unknown* (04/16/17 5:48 AM) ABO/Rh Negative (04/16/17 5:48 AM) Antibody Scrn Product available (04/16/17 5:46 AM) FFP product Product available (04/16/17 5:46 AM) RBC product ELECTROLYTES 1 2 3 Most recent to oldest [Reference Range]: 138 mEq/L (04/18/17 12:20 AM) 139 mEq/L (04/17/17 3:54 AM) 140 mEq/L (04/16/17 12:03 PM) Sodium Lvl [135-145 mEq/L] 4.3 mEq/L (04/18/17 12:20 AM) 4.1 mEq/L (04/17/17 3:54 AM) 3.8 mEq/L (04/16/17 12:03 PM) Potassium Lvl [3.5-5.1 mEq/L] 106 mEq/L (04/18/17 12:20 AM) 105 mEq/L (04/17/17 3:54 AM) 107 mEq/L (04/16/17 12:03 PM) Chloride Lvl [95-109 mEq/L] 25 mEq/L (04/18/17 12:20 AM) 32 mEq/L (04/17/17 3:54 AM) 29 mEq/L (04/16/17 12:03 PM) CO2 [24-32 mEq/L] 11.3 mEq/L (04/18/17:20 AM) 6.1 mEq/L *LOW* (04/17/17 3:54 AM) 7.8 mEq/L *LOW* (04/16/17 12:03 PM) AGAP [10.0-20.0 mEq/L] CHEM PANEL 1 2 3 Most recent to oldest [Reference Range]: 0.92 mg/dL (04/18/17 12:20 AM) 0.90 mg/dL (04/17/17 3:54 AM) 0.84 mg/dL (04/16/17 12:03 PM) Creatinine Lvl [0.50-1.40 mg/dL] 80 mL/min/1.73m2 1 *NA* (04/18/17 12:20 AM) 82 mL/min/1.73m2 2 *NA* (04/17/17 3:54 AM) 84 mL/min/1.73m2 3 *NA* (04/16/17 12:03 PM) eGFR 16 mg/dL (04/18/17 12:20 AM) 18 mg/dL (04/17/17 3:54 AM) 15 mg/dL (04/16/17 12:03 PM) BUN [7-22 mg/dL] 17 (04/18/17 12:20 AM) 19 (04/16/17 5:48 AM) B/C Ratio [6-25] 117 mg/dL *HI* (04/18/17 12:20 AM) 88 mg/dL (04/17/17 3:54 AM) 91 mg/dL (04/16/17 12:03 PM) Glucose Lvl [70-99 mg/dL] 6.1 g/dL *LOW* (04/18/17 12:20 AM) 6.8 g/dL (04/16/17 5:48 AM) Total Protein [6.4-8.4 g/dL] 2.5 g/dL *LOW* (04/18/17 12:20 AM) 3.1 g/dL *LOW* (04/16/17 5:48 AM) Albumin Lvl [3.5-5.0 g/dL] 3.6 g/dL (04/18/17 12:20 AM) 3.7 g/dL (04/16/17 5:48 AM) Globulin [2.7-4.2 g/dL] 0.7 (04/18/17 12:20 AM) 0.8 (04/16/17 5:48 AM) A/G Ratio [0.7-1.6] 8.9 mg/dL (04/18/17 12:20 AM) 9.1 mg/dL (04/17/17 3:54 AM) 8.4 mg/dL *LOW* (04/16/17 12:03 PM) Calcium Lvl [8.5-10.5 mg/dL] 2.9 mg/dL (04/18/17 12:20 AM) 4.0 mg/dL (04/17/17 3:54 AM) 3.9 mg/dL (04/16/17 12:03 PM) Phosphorus [2.5-4.5 mg/dL] 1.9 mg/dL (04/18/17 12:20 AM) 2.1 mg/dL (04/17/17 3:54 AM) 1.5 mg/dL *LOW* (04/16/17 12:03 PM) Magnesium Lvl [1.8-2.4 mg/dL] 16 unit/L (04/18/17 12:20 AM) 24 unit/L (04/16/17 5:48 AM) ALT [0-65 unit/L] 18 unit/L (04/18/17 12:20 AM) 20 unit/L (04/16/17 5:48 AM) AST [0-37 unit/L] 78 unit/L (04/18/17 12:20 AM) 76 unit/L (04/16/17 5:48 AM) Alk Phos [39-136 unit/L] 0.4 mg/dL (04/18/17 12:20 AM) 0.6 mg/dL (04/16/17 5:48 AM) Bili Total [0.2-1.3 mg/dL] <0.05 ng/mL (04/17/17 11:20 AM) Procalcitonin Lvl [0.00-0.10 ng/mL] 1Result Comment: The [...] be mul tiplied by the estimated BMI. PARATHYROID PROFILE 1 2 3 Most recent to oldest [Reference Range]: 1.02 mMol/L *LOW* (04/18/17 12:20 AM) 1.13 mMol/L (04/16/17 12:03 PM) Ca Ion WB [1.05-1.25 mMol/L] 1.06 mMol/L (04/18/17 12:20 AM) 1.11 mMol/L (04/16/17 12:03 PM) Ca Norm WB [1.05-1.25 mMol/L] HEMATOLOGY 1 2 3 Most recent to oldest [Reference Range]: 8.0 K/CMM (04/18/17 12:20 AM) 7.9 K/CMM (04/17/17 3:54 AM) 6.4 K/CMM (04/16/17 12:03 PM) WBC [3.7-10.4 K/CMM] 3.67 M/CMM *LOW* (04/18/17 12:20 AM) 3.64 M/CMM *LOW* (04/17/17 3:54 AM) 3.39 M/CMM *LOW* (04/16/17 12:03 PM) RBC [4.70-6.10 M/CMM] 12.0 g/dL *LOW* (04/18/17 12:20 AM) 11.8 g/dL *LOW* (04/17/17 3:54 AM) 11.1 g/dL *LOW* (04/16/17 12:03 PM) Hgb [14.0-18.0 g/dL] 35.3 % *LOW* (04/18/17 12:20 AM) 35.1 % *LOW* (04/17/17 3:54 AM) 32.3 % *LOW* (04/16/17 12:03 PM) Hct [42.0-54.0 %] 96.1 fL *HI* (04/18/17 12:20 AM) 96.5 fL *HI* (04/17/17 3:54 AM) 95.3 fL *HI* (04/16/17 12:03 PM) MCV [80.0-94.0 fL] 32.8 pg *HI* (04/18/17 12:20 AM) 32.3 pg *HI* (04/17/17 3:54 AM) 32.9 pg *HI* (04/16/17 12:03 PM) MCH [27.0-31.0 pg] 34.1 g/dL (04/18/17 12:20 AM) 33.5 g/dL (04/17/17 3:54 AM) 34.5 g/dL (04/16/17 12:03 PM) MCHC [32.0-36.0 g/dL] 13.8 % (04/18/17 12:20 AM) 13.8 % (04/17/17 3:54 AM) 14.0 % (04/16/17 12:03 PM) RDW [11.5-14.5 %] 165 K/CMM (04/18/17 12:20 AM) 184 K/CMM (04/17/17 3:54 AM) 177 K/CMM (04/16/17 12:03 PM) Platelet [133-450 K/CMM] 8.4 fL (04/18/17 12:20 AM) 8.3 fL (04/17/17 3:54 AM) 8.4 fL (04/16/17 12:03 PM) MPV [7.4-10.4 fL] 73.4 % (04/18/17 12:20 AM) 73.2 % (04/17/17 3:54 AM) 75.8 % *HI* (04/16/17 12:03 PM) Segs [45.0-75.0 %] 14.5 % *LOW* (04/18/17 12:20 AM) 12.6 % *LOW* (04/17/17 3:54 AM) 12.7 % *LOW* (04/16/17 12:03 PM) Lymphocytes [20.0-40.0 %] 9.0 % (04/18/17 12:20 AM) 10.3 % (04/17/17 3:54 AM) 6.6 % (04/16/17 12:03 PM) Monocytes [2.0-12.0 %] 2.1 % (04/18/17 12:20 AM) 2.6 % (04/17/17 3:54 AM) 3.7 % (04/16/17 12:03 PM) Eosinophils [0.0-4.0 %] 1.0 % (04/18/17 12:20 AM) 1.3 % *HI* (04/17/17 3:54 AM) 1.2 % *HI* (04/16/17 12:03 PM) Basophils [0.0-1.0 %] 5.9 K/CMM (04/18/17 12:20 AM) 5.7 K/CMM (04/17/17 3:54 AM) 4.9 K/CMM (04/16/17 12:03 PM) Segs-Bands # [1.5-8.1 K/CMM] 1.2 K/CMM (04/18/17 12:20 AM) 1.0 K/CMM (04/17/17 3:54 AM) 0.8 K/CMM *LOW* (04/16/17 12:03 PM) Lymphocytes # [1.0-5.5 K/CMM] 0.7 K/CMM (04/18/17 12:20 AM) 0.8 K/CMM (04/17/17 3:54 AM) 0.4 K/CMM (04/16/17 12:03 PM) Monocytes # [0.0-0.8 K/CMM] 0.2 K/CMM (04/18/17 12:20 AM) 0.2 K/CMM (04/17/17 3:54 AM) 0.2 K/CMM (04/16/17 12:03 PM) Eosinophils # [0.0-0.5 K/CMM] 0.1 K/CMM (04/18/17 12:20 AM) 0.1 K/CMM (04/17/17 3:54 AM) 0.1 K/CMM (04/16/17 12:03 PM) Basophils # [0.0-0.2 K/CMM] 18.6 seconds *HI* (04/18/17 12:20 AM) 13.5 seconds (04/17/17 3:54 AM) 13.9 seconds (04/16/17 12:03 PM) PT [12.0-14.7 seconds] 1.52 *HI* (04/18/17 12:20 AM) 1.01 (04/17/17 3:54 AM) 1.05 (04/16/17 12:03 PM) INR [0.85-1.17] 35.3 seconds (04/18/17 12:20 AM) 30.4 seconds (04/17/17 3:54 AM) 35.4 seconds (04/16/17 12:03 PM) PTT [22.9-35.8 seconds] Immunizations Not Given [...] No Assessment and Plan Extracted from: Title: Cardiology Attending Note Author: Kai Bell MD Date: 04/18/17 I have seen the patient in collaboration with the housestaff (resident and/or fellow). I have examined the patient independantly, and have reviewed any history, radiographic and cardiac imaging, and diagnostic testing. I agree with the findings and plan outlined in the note by the resident with the following additions/modifications: -stabilized s/p LISANDRO -respiratory issues are multifactorial, continue outpatient treatment and evaluation Extracted from: Title: CCU H&P Author: Taylor Cardozo MD Date: 04/16/17 Impression and Plan Diagnosis s/p TAVR for aortic stenosis, a-fib, HTN, COPD, CHF Mr Jordan is a 76 y/o man w/ PMH aortic stenosis, a-fib, HTN, COPD, HRrEF (55- 60% on echo 04/11/17, s/p PM/ICD placement in 2001), who presents with 3 month history of worsening shortness of breath and dyspnea on exertion, now s/p TAVR (04/16). CV # Aortic Stenosis - s/p TAVR 04/16/17 - restarted home aspirin 81, atorvastatin - on post-procedure antibiotics (cephazolin) - f/u Echo # CHF - EF 55-60% on echo 04/11/17 - s/p thoracentesis for pleural effusions on (04/09) # A-fib - was off coumadin and on lovenox in anticipation of TAVR procedure (on warfarin 5mg at home prior) - on home metoprolol 100mg daily, amiodarone 200mg BID - restart warfarin # HTN - restarted home lisinopril 40 daily, metoprolol 100mg daily - on nicardipine drip 5mL/hr Pulm #COPD - on home O2 3L at night - saturating 98% on 5L NC Neuro # Restless legs - ropinirole 0.25mg PO bedtime DVT ppx: lovenox q12 CCU/CIMU Daily Patient Safety Checklist Yes No CAD/CHF/PCI Requirements: 1. ASA X MA/CAD/PCI/CABG 2. AMY Inhibitor or ARB X CHF/DIABETES 3. Beta Justina X POST MA/CHF/PCI 4. Statin X CAD/PCI/CABG 5. DAPT post PCI? 6. Renal Protection Fluid Protocol Post-PCI? Mechanical Ventilation: 1. Restraints assessed/reordered? X 2. PUD ppx? X Blood Stream Infection Prevention: 1. Central Line necessity addressed? CAUTI Prevention: X N/A 1. Hyman necessity addressed? X N/A DVT Prevention: 1. VTE Advisor Completed on admission and DVT ppx? X Nutrition: 1. Enteral Feeding within 48hr? X Blood Glucose Control: 1. 60mg/dl < BG< 200mg/dl? X Discharge Plannin. PT/OT? X 2. Cardiac Rehab? X 3. Case Management/Social Work Consult? Extracted from: Title: Cardiothoracic Surgery Author: Monie Bailey MD Date: 04/16/17 Operative Note PATIENT NAMEWil Jordan [id number] DATE of OPERATION:04-16-17 PREOPERATIVE DIAGNOSIS:1. Severe symptomatic aortic stenosis 2. Hypertension 3. Hyperlipidemia 4. Atrial fibrillation 5. Peripheral vascular disease 6. COPD 7. GERD 8. AAA 9. STS 4.8% POSTOPERATIVE DIAGNOSIS:Same PRIMARY SURGEON:Chandrakant Bailey MD REFERRNING CARDIOLOGISTS:Shadi Izquierdo MD CARDIOLOGISTSJarad Lopez MD INFORMATION SECURITY SYSTEMS INSTRUCTOR: ANESTHESIOLOGIST:Peggy Sibley MD POSTOPERATIVE DIAGNOSIS:Same OPERATION:1. Transcatheter aortic valve replacement (TAVR) utilizing a #26 Banerjee S3 pericardial valve via RIGHT groin under conscious sedation 2. Percutaneous access of the right and left common femoral artery 3. Percutaneous access of the right and left common femoral vein 4. TTE ECHO FINDINGS: 1. Moderate calcifications in the aortic valve 2. Post deployment with trace PVL INDICATIONS:The risks and benefits were explained to the patient. The patient is HIGH RISK (STS 4.8%) candidate for open AVR and discussed at our heart valve conference. STS risk score was discussed with the patient. The patient was evaluated by Dr. Kit Dover and myself and we believe that the patient would benefit from a TAVR. PROCEDURE IN DETAIL: Further details will be dictated by Dr. Jarad Lopez as he was the business school dean. The patient was brought into the cardiac catherization lab. A time-out procedure was performed which confirmed the patient s name, MRN, and procedure to be performed. The patient was placed in the supine position on the operating table and administered conscious sedation by our anesthesiologists. The chest, abdomen and groins were prepped and draped in the usual sterile manner. Access was obtained in the right common femoral artery, as well as right common femoral vein. Preclose devices were used (Proglide) at introduction for the device delivery side. Pacing was also placed in the RIGHT common femoral vein. Heparin was given intravenously, 1 mg/ml to maintain an ACT > 250 seconds. The RIGHT common femoral artery was prepared. Subsequently, test pacing was performed and obtained as expected at 180 beats per minute. An aortic angiogram root shot was performed, noting the optimal angle for deployment of the valve. This confirmed the position already determined by CT angiogram 3-D reconstruction. Subsequently, the #26 Banerjee S3 transcatheter valve was placed into the sheath system in the RIGHT femoral artery and brought up through the aortic valve and placed in correct position. This was confirmed by the heart valve team. Rapid ventricular pacing was performed, and the valve was deployed in the aortic annulus appropriately. Post- placement VIVIAN revealed good placement of the valve with mild PVL. Subsequently, the sheaths were removed. All wounds were then closed and sterile dressings were applied. Due to the complexity of this operation requiring both Cardiac Surgery and Interventional Cardiology skill sets, both Dr. Jarad Lopez and Violet are billing as co-surgeons. I was present for the entire procedure.
--- OUTSIDE RECORDS SUMMARY | 2018-06-24 12:23 | XMS REPORT | Summary of Care ---
Author Author [facility] Organization [facility] Address Unknown Phone Unavailable Encounter CATHERINE Bolanos(SARAHY) [id number] Date(s): 09/01/17 - 09/02/17 [facility] [address] [place] [address]- [phone] Discharge Disposition: Home or Self Care Attending Physician: Henry Cordoba MD Admitting Physician: Henry Cordoba MD Vital Signs 1 2 3 Most recent to oldest [Reference Range]: 185.42 cm (09/02/17 1:29 AM) 185.42 cm (09/01/17 9:05 PM) Height 75.273 kg (09/02/17 6:16 AM) Current Weight 97.3 DegF (09/02/17 12:00 PM) 98.3 DegF (09/02/17 8:19 AM) 98.3 DegF (09/02/17 4:12 AM) Temperature Oral [96.4-99.1 DegF] 121/56 mmHg (09/02/17 12:00 PM) 149/52 mmHg *HI* (09/02/17 8:19 AM) 155/56 mmHg *HI* (09/02/17 4:12 AM) Blood Pressure [90-140/60-90 mmHg] 18 BRMIN (09/02/17 12:00 PM) 20 BRMIN (09/02/17 8:19 AM) 18 BRMIN (09/02/17 7:43 AM) Respiratory Rate [14-20 BRMIN] 57 bpm *LOW* (09/02/17 12:00 PM) 61 bpm (09/02/17 8:19 AM) 57 bpm *LOW* (09/02/17 4:12 AM) Peripheral Pulse Rate [60-100 bpm] 75.091 kg (09/02/17 1:29 AM) 68.182 kg (09/01/17 9:05 PM) Weight 21.84 m2 (09/02/17 1:29 AM) 19.83 m2 (09/01/17 9:05 PM) Body Mass Index Problem List Condition Effective Dates Status Health Status Informant Afib(Confirmed) Active CHF - Congestive Active heart failure(Confirmed) COPD(Confirmed) Active HT - Active Hypertension(Confirm ed) Allergies, Adverse Reactions, Alerts Substance Reaction Severity Status NKDA Active Medications azithromycin + Sodium Chloride 0.9% IV 250 mL 500 mg, Route: IVPB, [id number], Dosing Weight 75.091, kg, Start date: 09/02/17 5:0 0:00 USER EXPERIENCE ARCHITECT, Duration: 3 day, Stop date: 09/04/17 5:00:00 USER EXPERIENCE ARCHITECT, ABX Indication: Non- PNA Respiratory Tract Infection Notes: (Same As: Zithromax IV) Start Date: 09/02/17 Stop Date: 09/02/17 Status: Discontinued cefTRIAXone + sterile water 10 mL 1 gm, Route: IV, [id number], Dosing Weight 75.091, kg, Start date: 09/02/17 4:00:00 USER EXPERIENCE ARCHITECT, Duration: 5 day, Stop date: 09/06/17 4:00:00 USER EXPERIENCE ARCHITECT, ABX Indication: Non-PNA Respiratory Tract Infection Notes: (Same As: Rocephin).Use with 100 mL NS and infuse over 30 min MEDICA TION WASTE Product Size: 1000 mgProduct Wasted: ___ mg Start Date: 09/02/17 Stop Date: 09/02/17 Status: Discontinued DuoNeb inhalation solution 3 ml, Route: NEB, Drug Form: SOLN, Dosing Weight 75.091, kg, PRN, PRN Respirator y Protocol, Start date: 09/02/17 3:12:00 USER EXPERIENCE ARCHITECT, Duration: 30 day, Stop date: 10/02 3:11:00 USER EXPERIENCE ARCHITECT Notes: (Same as: Duoneb) Start Date: 09/02/17 Stop Date: 09/02/17 Status: Discontinued Levaquin 750 mg oral tablet 750 mg=1 tab, PO, Daily, X 5 day, # 5 tab, 0 Refill(s), Pharmacy: [facility] [id number] Start Date: 09/02/17 Stop Date: 09/07/17 Status: Ordered predniSONE 60 mg, 3 tab, Route: PO, Drug form: TAB, Daily, Dosing Weight 75.091, kg, Start date: 09/02/17 9:00:00 USER EXPERIENCE ARCHITECT, Duration: 5 day, Stop date: 09/06/17 9:00:00 USER EXPERIENCE ARCHITECT Notes: Take with food. Start Date: 09/02/17 Stop Date: 09/02/17 Status: Discontinued predniSONE 20 mg oral tablet See Special Instructions, PO, Daily, Day 1-4 - 40 mg (2 tab) daily Day 5-8 - 20 mg (1 tab) daily Day 9-12 - 10 mg (1/2 tab), X 12 day, # 12 tab, 0 Refill(s), Pharmacy: [id number] Start Date: 09/02/17 Stop Date: 09/14/17 Status: Ordered Saline Flush 0.9% 10 mL, Route: IVP, Drug Form: INJ, Dosing Weight 71.818, kg, PRN, PRN Line Flush , Start date: 09/01/17 20:46:00 USER EXPERIENCE ARCHITECT, Duration: 30 day, Stop date: 10/01/17 20:45 :00 USER EXPERIENCE ARCHITECT Notes: (Same as: BD Posiflush) Start Date: 09/01/17 Stop Date: 09/02/17 Status: Discontinued Results ELECTROLYTES Most recent to 1 2 oldest [Reference Range]: Sodium Lvl [135-145 138 mEq/L mEq/L] (09/01/17 9:22 PM) Potassium Lvl 4.2 mEq/L [3.5-5.1 mEq/L] (09/01/17 9:22 PM) Chloride Lvl [95-109 101 mEq/L mEq/L] (09/01/17 9:22 PM) CO2 [24-32 mEq/L] 32 mEq/L (09/01/17 9:22 PM) AGAP [10.0-20.0 9.2 mEq/L mEq/L] *LOW* (09/01/17 9:22 PM) CHEM PANEL Most recent to 1 2 oldest [Reference Range]: Creatinine Lvl 1.07 mg/dL [0.50-1.40 mg/dL] (09/01/17 9:22 PM) eGFR 66 mL/min/1.73m2 1 *NA* (09/01/17:22 PM) BUN [7-22 mg/dL] 16 mg/dL (09/01/17: PM) B/C Ratio [6-25] 15 (09/01/17: PM) Glucose Lvl [70-99 96 mg/dL mg/dL] (09/01/17 PM) Total Protein 6.9 g/dL [6.4-8.4 g/dL] (09/01/17 PM) Albumin Lvl [3.5-5.0 2.8 g/dL g/dL] *LOW* (09/01/17: PM) Globulin [2.7-4.2 4.1 g/dL g/dL] (09/01/17 PM) A/G Ratio [0.7-1.6] 0.7 (09/01/17: PM) Calcium Lvl 8.5 mg/dL [8.5-10.5 mg/dL] (09/01/17: PM) ALT [0-65 unit/L] 16 unit/L (09/01/17:22 PM) AST [0-37 unit/L] 16 unit/L (09/01/17: PM) Alk Phos [39-136 89 unit/L unit/L] (09/01/17: PM) Bili Total [0.2-1.3 0.7 mg/dL mg/dL] (09/01/17: PM) 1Result Comment: The eGFR is calculated [...] 2 oldest [Reference Range]: Total CK [12-191 39 unit/L 48 unit/L unit/L] (09/02/17 8:40 AM) (09/01/17 9:22 PM) CK MB [0.5-3.6 1.6 ng/mL ng/mL] (09/01/17 9:22 PM) CK MB Index 3.3 [0.0-2.5] *HI* (09/01/17 9:22 PM) Troponin-I 0.02 ng/mL <0.02 ng/mL [0.00-0.40 ng/mL] (09/02/17 8:40 AM) (09/01/17 9:22 PM) BNP [<=100 pg/mL] 561 pg/mL *HI* (09/01/17 9:22 PM) HEMATOLOGY Most recent to 1 2 oldest [Reference Range]: WBC [3.7-10.4 K/CMM] 8.6 K/CMM (09/01/17 9:22 PM) RBC [4.70-6.10 3.07 M/CMM M/CMM] *LOW* (09/01/17 9:22 PM) Hgb [14.0-18.0 g/dL] 9.8 g/dL *LOW* (09/01/17 9:22 PM) Hct [42.0-54.0 %] 28.8 % *LOW* (09/01/17:22 PM) MCV [80.0-94.0 fL] 94.1 fL *HI* (09/01/17 9:22 PM) MCH [27.0-31.0 pg] 32.0 pg *HI* (09/01/17 9:22 PM) MCHC [32.0-36.0 34.0 g/dL g/dL] (09/01/17 9:22 PM) RDW [11.5-14.5 %] 14.7 % *HI* (09/01/17 9:22 PM) Platelet [133-450 225 K/CMM K/CMM] (09/01/17 9:22 PM) MPV [7.4-10.4 fL] 7.9 fL (09/01/17 9:22 PM) Segs [45.0-75.0 %] 73.1 % (09/01/17 9:22 PM) Lymphocytes 15.0 % [20.0-40.0 %] *LOW* (09/01/17 9:22 PM) Monocytes [2.0-12.0 8.6 % %] (09/01/17 9:22 PM) Eosinophils [0.0-4.0 2.2 % %] (09/01/17 9:22 PM) Basophils [0.0-1.0 1.1 % %] *HI* (09/01/17 9:22 PM) Segs-Bands # 6.3 K/CMM [1.5-8.1 K/CMM] (09/01/17 9:22 PM) Lymphocytes # 1.3 K/CMM [1.0-5.5 K/CMM] (09/01/17 9:22 PM) Monocytes # [0.0-0.8 0.7 K/CMM K/CMM] (09/01/17 9:22 PM) Eosinophils # 0.2 K/CMM [0.0-0.5 K/CMM] (09/01/17 9:22 PM) Basophils # [0.0-0.2 0.1 K/CMM K/CMM] (09/01/17 9:22 PM) VIRAL - SEROLOGY Most recent to 1 2 oldest [Reference Range]: Influ A [Negative] Negative (09/01/17 10:42 PM) Influ B [Negative] Negative (09/01/17 10:42 PM) Immunizations Given and Recorded Vaccine Date Status [...] Days Yes; Reg Smoking Cessation Counseling Yes1 1Per patient, quit in April 2017 Assessment and Plan Extracted from: Title: UIP Hospitalist Discharge Author: Janneth Jones MD Date: 09/02/17 Summary [facility] Hospitalist Discharge Summary Code Status: None Specified=FULL CODE Admission Date: 09/01/2017 Discharge Date: 09/02/2017 Discharge Diagnosis: COPD exacerbation Consulting Physicians: Consulting Physicians: David Sorto MDOffice: Service: Medicine Discharge Condition: fair Hospital Course: This is a 76 year old M with hx of A ib on Xarelto, HTN, CHF, COPD who presented with dyspnea and shortness of breath. Of note, recently had large pleural effusion which was drained at [facility]. Pt is on home O2. He was started on steroids, duonebs, and abx with some improvement. He is feeling much better today and requesting to be discharged. Patient will be given a long steroid taper and antibiotics course and needs to follow up with PCP. Physical Exam: Physical Exam General: Awake, alert, oriented x 3, NAD HEENT: PERRLA, EOMI. MMM and intact without erythema. No conjunctival injection. No scleral icterus. Neck: Supple, full ROM Heart: RRR, normal S1, S2. No murmurs, rubs, gallops Lungs: Clear to auscultation bilaterally. Symmetric chest wall expansion. Abdomen: Soft, non-tender to palpation, non-distended. Bowel sound present in all 4 quadrants. MSK: 5/5 strength in upper and lower extremities bilaterally. No peripheral edema. Discharge Instructions: Notify your physician if: Shortness of Breath Discharge Activity: Activity: No restrictions Discharge Diet: Diet: Continue Home Diet Discharge Medications: Refer to EMR for full list of medications Discharge Follow up: Follow Up When: 2 Weeks Reason for Follow Up: Primary Care Physician follow up Time spent on discharge planning: < 30 minutes Janneth Jones MD Hospitalist [facility] Providers Extracted from: Title: Clinical Document Author: David Sorto MD Date: 09/02/17 full H&P dictated, #[id number] date/time: 09/02/2017 00:20
--- OUTSIDE RECORDS SUMMARY | 2018-06-24 12:23 | XMS REPORT | Summary of Care ---
Author Author [facility] Organization [facility] Address Unknown Phone Unavailable Encounter HQ Luis Miguel(SARAHY) [id number] Date(s): 08/04/17 - 08/12/17 [facility] [address] [employer] provided by [facility] [place] [address]- Discharge Disposition: Home or Self Care Attending Physician: Juan Ramon Lopez MD Admitting Physician: Juan Ramon Lopez MD Vital Signs 1 2 3 Most recent to oldest [Reference Range]: 185.42 cm (08/04/17 11:45 AM) Height 71.545 kg (08/12/17 4:56 AM) 71.955 kg (08/11/17 4:41 AM) 71.818 kg (08/10/17 5:24 AM) Current Weight 98.0 DegF (08/12/17 4:56 AM) 97.2 DegF (08/11/17 10:00 PM) 97.0 DegF (08/11/17 4:56 PM) Temperature Oral [96.4-99.1 DegF] 129/60 mmHg (08/12/17 12:00 PM) 116/57 mmHg (08/12/17 11:30 AM) 148/65 mmHg *HI* (08/12/17 8:00 AM) Blood Pressure [90-140/60-90 mmHg] 20 BRMIN (08/12/17 12:00 PM) 20 BRMIN (08/12/17 11:30 AM) 20 BRMIN (08/12/17 8:00 AM) Respiratory Rate [14-20 BRMIN] 71.818 kg (08/04/17 11:45 AM) Weight 20.89 m2 (08/04/17 11:45 AM) Body Mass Index Problem List Condition Effective Dates Status Health Status Informant Afib(Confirmed) Active CHF - Congestive Active heart failure(Confirmed) COPD(Confirmed) Active HT - Active Hypertension(Confirm ed) Allergies, Adverse Reactions, Alerts Substance Reaction Severity Status NKDA Active Medications acetaminophen-hydrocodone 325 mg-10 mg oral tablet See Instructions, 0.5 tab PO Daily, 0 Refill(s) Start Date: 08/04/17 Status: Ordered acetaminophen-hydrocodone 325 mg-10 mg oral tablet 0.5 tab, Route: PO, Drug Form: TAB, Dosing Weight 71.818, kg, Daily, PRN Pain Sc ore 1-3, Start date: 08/04/17 13:08: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, Duration: 30 day, Stop date: 7 13:07: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 Notes: Do not exceed 4gm/day of acetaminophen. (Same as: Crescent 325/10) Start Date: 08/04/17 Stop Date: 08/12/17 Status: Discontinued AMIODarone 200 mg, 1 tab, Route: PO, Drug form: TAB, Daily, Dosing Weight 71.818, kg, Start date: 08/05/17 9:00: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, Duration: 30 day, Stop date: 09/03/17 9:00: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 Notes: (Same as: Cordarone) Start Date: 08/05/17 Stop Date: 08/12/17 Status: Discontinued AMIODarone 200 mg oral tablet 200 mg=1 tab, PO, Daily, # 30 tab, 3 Refill(s) Start Date: 08/12/17 Status: Ordered aspirin 81 mg tablet, enteric coated 81 mg=1 tab, PO, Daily, # 100 tab, 3 Refill(s) Start Date: 08/12/17 Status: Ordered aspirin 81 mg tablet, enteric coated 81 mg, 1 tab, Route: PO, Drug form: ECTAB, Daily, Dosing Weight 71.818, kg, Star t date: 08/04/17 13:08: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, Duration: 30 day, Stop date: 09/03/17 9:00: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 Notes: Do not crush or chew.(Same As: Ecotrin) Start Date: 08/04/17 Stop Date: 08/12/17 Status: Discontinued azithromycin 500 mg, 2 tab, Route: PO, Drug form: TAB, [id number], Dosing Weight 71.818, kg, Sta rt date: 08/05/17 11:00: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, Duration: 3 day, Stop date: 08/07/17 11:00:00 CS T, ABX Indication: Other (specify in Comments) Notes: Take 1 hour before or 2 hours after meals.(Same As: Zithromax) Start Date: 08/05/17 Stop Date: 08/07/17 Status: Completed azithromycin 500 mg, Route: IVPB, Drug form: PDR/INJ, [id number], Dosing Weight 71.818, kg, Star t date: 08/05/17 10:00: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, Duration: 3 day, Stop date: 08/07/17 10:00: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 , ABX Indication: Other (specify in Comments) Notes: (Same As: Zithromax IV) Start Date: 08/05/17 Stop Date: 08/05/17 Status: Discontinued calcium gluconate + Sodium Chloride 0.9% IV 100 mL 3 gm, 30 mL, Route: IVPB, PRN, Dosing Weight 71.818, kg, PRN Abnormal Lab Result , For NON-ICU Patients Only., Start date: 08/04/17 19:22: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, Duration: 30 da y, Stop date: 09/03/17 19:21: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 Notes: WASTE: F/P - Sink; E - Municipal Trash Bin Start Date: 08/04/17 Stop Date: 08/12/17 Status: Discontinued calcium gluconate + Sodium Chloride 0.9% IV 80 mL 2 gm, 20 mL, Route: IVPB, PRN, Dosing Weight 71.818, kg, PRN Abnormal Lab Result , For NON-ICU Patients Only., Start date: 08/04/17 19:22: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, Duration: 30 da y, Stop date: 09/03/17 19:21: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 Notes: WASTE: F/P - Sink; E - Municipal Trash Bin Start Date: 08/04/17 Stop Date: 08/12/17 Status: Discontinued Diamox 250 mg, 1 tab, Route: PO, Drug form: TAB, BID, Dosing Weight 71.818, kg, Start d ate: 08/08/17 17:00: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, Duration: 2 day, Stop date: 08/10/17 9:00: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 Notes: (Same as: Diamox) Start Date: 08/08/17 Stop Date: 08/10/17 Status: Completed docusate-senna 50 mg-8.6 mg oral tablet 2 tab, Route: PO, Drug Form: TAB, Dosing Weight 71.818, kg, BID, Start date: 17:00: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, Duration: 30 day, Stop date: 09/03/17 9:00: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 Notes: (Same as Senokot-S) Equiv. to Pascale-Colace. Start Date: 08/04/17 Stop Date: 08/12/17 Status: Discontinued DuoNeb inhalation solution 3 mL, NEB, QID, PRN Wheezing, # 90 mL, 0 Refill(s) Start Date: 08/12/17 Stop Date: 09/11/17 Status: Ordered DuoNeb inhalation solution 3 mL, Route: NEB, Drug Form: SOLN, Dosing Weight 71.818, kg, QID, PRN Wheezing, Start date: 08/07/17 11:39: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, Duration: 30 day, Stop date: 09/06/17 11:38:0 0 FLOOR LAYER HELPER Notes: (Same as: Duoneb) Start Date: 08/07/17 Stop Date: 08/12/17 Status: Discontinued DuoNeb inhalation solution 3 ml, Route: NEB, Drug Form: SOLN, Dosing Weight 71.818, kg, RTID, Start date: 10/04/16 15:12: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, Stop date: 09/03/17 20:00: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 Notes: (Same as: Duoneb) Start Date: 08/04/17 Stop Date: 08/06/17 Status: Discontinued DuoNeb inhalation solution 3 mL, Route: NEB, Drug Form: SOLN, Dosing Weight 71.818, kg, RQID, Start date: 10/06/16 7:53: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, Duration: 30 day, Stop date: 09/05/17 7:00: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 Notes: (Same as: Duoneb) Start Date: 08/06/17 Stop Date: 08/06/17 Status: Discontinued furosemide 40 mg oral tablet 40 mg=1 tab, PO, Daily, # 60 tab, 2 Refill(s) Start Date: 08/12/17 Stop Date: 02/08/18 Status: Ordered heparin 5,000 unit, 1 mL, Route: SUB-Q, Drug form: INJ, Q8H, Dosing Weight 71.818, kg, S tart date: 08/10/17 8:00: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, Duration: 30 day, Stop date: 09/09/17 0:00:[address] Notes: porcine heparin Start Date: 08/10/17 Stop Date: 08/12/17 Status: Discontinued Lasix 40 mg, 1 tab, Route: PO, Drug form: TAB, Daily, Dosing Weight 71.818, kg, Start date: 08/08/17 7:43: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, Duration: 30 day, Stop date: 09/06/17 9:00: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 Notes: (Same as: Lasix) May cause GI upset. Give with food or milk. Start Date: 08/08/17 Stop Date: 08/12/17 Status: Discontinued Lasix 40 mg, 4 mL, Route: IV, Drug form: INJ, Q6H, Dosing Weight 71.818, kg, Start onel e: 08/05/17 12:00: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, Duration: 2 doses or times, Stop date: 08/05/17 18:00: 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 Notes: (Same as: Lasix) MEDICATION WASTE Product Size: 40 mgProduct Was desmond: ___ mg Start Date: 08/05/17 Stop Date: 08/05/17 Status: Completed Lasix 40 mg, 4 mL, Route: IV, Drug form: INJ, ONCE, Dosing Weight 71.818, kg, Start da te: 08/07/17 9:06: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, Stop date: 08/07/17 9:06: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 Notes: (Same as: Lasix) Start Date: 08/07/17 Stop Date: 08/07/17 Status: Completed Lasix 40 mg, 4 mL, Route: IVP, Drug form: INJ, ONCE, Dosing Weight 71.818, kg, Start d ate: 08/04/17 17:00: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, Stop date: 08/04/17 17:00: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 Notes: (Same as: Lasix) MEDICATION WASTE Product Size: 40 mgProduct Was desmond: ___ mg Start Date: 08/04/17 Stop Date: 08/04/17 Status: Completed Lasix 40 mg, 4 mL, Route: IV, Drug form: INJ, ONCE, Dosing Weight 71.818, kg, Start da te: 08/06/17 7:54: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, Stop date: 08/06/17 7:54: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 Notes: (Same as: Lasix) MEDICATION WASTE Product Size: 40 mgProduct Was desmond: ___ mg Start Date: 08/06/17 Stop Date: 08/06/17 Status: Completed Lasix 40 mg, 4 mL, Route: IVP, Drug form: INJ, ONCE, Dosing Weight 71.818, kg, Start d ate: 08/05/17 9:00: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, Stop date: 08/05/17 9:00: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 Notes: (Same as: Lasix) MEDICATION WASTE Product Size: 40 mgProduct Was desmond: _0_ mg Start Date: 08/05/17 Stop Date: 08/05/17 Status: Completed lidocaine 1% 10 mg, 1 ml, Route: SUB-Q, Drug Form: INJ, Dosing Weight 71.818, kg, ONCE, STAT, Start date: 08/07/17 14:36: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, Stop date: 08/07/17 14:36: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 Notes: (Same as: Xylocaine) Start Date: 08/07/17 Stop Date: 08/07/17 Status: Completed lisinopril 40 mg, Route: PO, Drug form: TAB, Daily, Dosing Weight 71.818, kg, Start date: 1 10/05/16 9:00: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, Duration: 30 day, Stop date: 09/03/17 9:00: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 Start Date: 08/05/17 Stop Date: 08/04/17 Status: Canceled lisinopril 40 mg, 2 tab, Route: PO, Drug form: TAB, Daily, Dosing Weight 71.818, kg, Start date: 08/04/17 13:15: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, Duration: 30 day, Stop date: 09/03/17 9:00: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 Notes: (Same as: Prinivil, Zestril) Start Date: 08/04/17 Stop Date: 08/12/17 Status: Discontinued lisinopril 20 mg oral tablet 40 mg=2 tab, PO, Daily, # 30 tab, 3 Refill(s) Start Date: 08/12/17 Status: Ordered magnesium oxide 800 mg, 2 tab, Route: PO, Drug form: TAB, PRN, Dosing Weight 71.818, kg, PRN Abn ormal Lab Result, For NON-ICU Patients Only., Start date: 08/04/17 19:22: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, Duration: 30 day, Stop date: 09/03/17 19:21: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 Notes: (Same as: Mag-Ox 400)Magnesium oxide [id number] elemental magnesiumDose= ____mg magnesium oxide (___mg elemental magnesium) Start Date: 08/04/17 Stop Date: 08/12/17 Status: Discontinued magnesium sulfate 1 gm, 100 mL, Route: IVPB, Drug form: INJ, PRN, Dosing Weight 71.818, kg, PRN Ab normal Lab Result, For NON-ICU Patients Only., Start date: 08/04/17 19:22: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 , Duration: 30 day, Stop date: 09/03/17 19:21: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 Notes: WASTE: F/P - Sink; E - Municipal Trash Bin Start Date: 08/04/17 Stop Date: 08/12/17 Status: Discontinued magnesium sulfate 2 gm, 50 mL, Route: IVPB, Drug form: INJ, PRN, Dosing Weight 71.818, kg, PRN Abn ormal Lab Result, For NON-ICU Patients Only., Start date: 08/04/17 19:22: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, Duration: 30 day, Stop date: 09/03/17 19:21: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 Notes: WASTE: F/P - Sink; E - Municipal Trash Bin Start Date: 08/04/17 Stop Date: 08/12/17 Status: Discontinued metoprolol 100 mg oral tablet, extended release 100 mg=1 tab, PO, Daily, # 30 tab, 3 Refill(s) Start Date: 08/12/17 Status: Ordered multivitamin with iron 1 tab, Route: PO, Drug Form: TAB, Dosing Weight 71.818, kg, Daily, Start date: 10/10/16 10:30: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, Duration: 30 day, Stop date: 09/08/17 9:00: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 Notes: Same as Iron/C/B12/FA/SA Start Date: 08/09/17 Stop Date: 08/12/17 Status: Discontinued Nifedical XL 30 mg, 1 tab, Route: PO, Drug form: ERTAB, Daily, Dosing Weight 71.818, kg, Star t date: 08/05/17 9:00: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, Stop date: 09/03/17 9:00: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 Notes: (Same as: Adalat CC, Procardia XL) Give on empty stomach. Take 1 hour be fore or 2 hours after meal; "Avoid grapefruit and grapefruit juice". Do not cru sh Start Date: 08/05/17 Stop Date: 08/10/17 Status: Discontinued NIFEdipine 30 mg oral tablet, extended release 30 mg, 1 tab, Route: PO, Drug form: ERTAB, Daily, Dosing Weight 71.818, kg, Star t date: 08/04/17 13:15: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, Duration: 30 day, Stop date: 09/03/17 9:00: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 Notes: (Same as: Adalat CC, Procardia XL) Give on empty stomach. Take 1 hour be fore or 2 hours after meal; "Avoid grapefruit and grapefruit juice". Do not cru sh Start Date: 08/04/17 Stop Date: 08/05/17 Status: Discontinued NIFEdipine 30 mg oral tablet, extended release 30 mg, 1 tab, Route: PO, Drug form: ERTAB, Daily, Dosing Weight 71.818, kg, Star t date: 08/05/17 9:00: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, Duration: 30 day, Stop date: 09/03/17 9:00: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 Start Date: 08/05/17 Stop Date: 08/04/17 Status: Canceled Crescent 10/325 oral tablet 1 tab, Route: PO, Drug Form: TAB, Dosing Weight 71.818, kg, ONCE, Start date: 0:25: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, Stop date: 08/08/17 0:25: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 Notes: Do not exceed 4gm/day of acetaminophen. (Same as: Crescent 325/10) Start Date: 08/08/17 Stop Date: 08/08/17 Status: Completed Crescent 10/325 oral tablet 0.5 tab, Route: PO, Drug Form: TAB, Dosing Weight 71.818, kg, ONCE, Start date: 08/06/17 22:16: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, Stop date: 08/06/17 22:16: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 Notes: Do not exceed 4gm/day of acetaminophen. (Same as: Crescent 325/10) Start Date: 08/06/17 Stop Date: 08/06/17 Status: Completed Phenergan 12.5 mg, 0.5 mL, Route: IVPB, Drug form: INJ, ONCE, Dosing Weight 71.818, kg, UT N Nausea & Vomiting, Start date: 08/09/17 18:12: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 Notes: Do not give IV push. (Same as: Phenergan) Start Date: 08/09/17 Stop Date: 08/09/17 Status: Completed Phenergan 12.5 mg, 1 tab, Route: PO, Drug form: TAB, ONCE, Dosing Weight 71.818, kg, PRN N ausea & Vomiting, Start date: 08/09/17 16:19: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 Notes: (Same as: Phenergan) Start Date: 08/09/17 Stop Date: 08/09/17 Status: Completed pneumococcal 13-valent vaccine 0.5 mL, Route: IM, Drug Form: INJ, Daily, Start date: 08/05/17 9:00: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, Dura tion: 1 doses or times, Stop date: 08/05/17 9:00: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 Notes: Shake well prior to use (Same as: Prevnar 13) Start Date: 08/05/17 Stop Date: 08/05/17 Status: Completed potassium chloride 20 mEq, 15 mL, Route: NJ, Drug form: LIQ, PRN, Dosing Weight 71.818, kg, PRN Abn ormal Lab Result, For NON-ICU Patients Only, Start date: 08/04/17 19:22: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, Duration: 30 day, Stop date: 09/03/17 19:21: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 Notes: (Same as: Potassium Chloride) Start Date: 08/04/17 Stop Date: 08/12/17 Status: Discontinued potassium chloride 10 mEq, 50 mL, Route: IVPB, Drug form: INJ, PRN, Dosing Weight 71.818, kg, PRN A bnormal Lab Result, For NON-ICU Patients Only, Start date: 08/04/17 19:22: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 , Duration: 30 day, Stop date: 09/03/17 19:21: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 Notes: (Same as: KCL) Infuse over 2 hours. Start Date: 08/04/17 Stop Date: 08/12/17 Status: Discontinued potassium chloride 20 mEq, 1 tab, Route: PO, Drug form: ERTAB, PRN, Dosing Weight 71.818, kg, PRN A bnormal Lab Result, For NON-ICU Patients Only, Start date: 08/04/17 19:22: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 , Duration: 30 day, Stop date: 09/03/17 19:21: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 Notes: (Same as: K-Dur 20)"Do Not Crush" With food and full glass of water Start Date: 08/04/17 Stop Date: 08/12/17 Status: Discontinued potassium gluconate 595 mg oral tablet PO, Daily, 1 tablet daily, 0 Refill(s) Start Date: 08/04/17 Status: Ordered potassium phosphate + Sodium Chloride 0.9% IV 250 mL 30 mmol, 10 mL, Route: IVPB, PRN, Dosing Weight 71.818, kg, PRN Abnormal Lab Res ult, For NON-ICU Patients Only., Start date: 08/04/17 19:22: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, Duration: 30 day, Stop date: 09/03/17 19:21: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 Notes: (Same as: K Phosphate.) 1 mMol phoshate has 1.47 mEq potassium Infuse o reuben 4 hours Start Date: 08/04/17 Stop Date: 08/12/17 Status: Discontinued potassium phosphate + Sodium Chloride 0.9% IV 250 mL 15 mmol, 5 mL, Route: IVPB, PRN, Dosing Weight 71.818, kg, PRN Abnormal Lab Resu lt, For NON-ICU Patients Only., Start date: 08/04/17 19:22: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, Duration: 30 day, Stop date: 09/03/17 19:21: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 Notes: (Same as: K Phosphate.) 1 mMol phoshate has 1.47 mEq potassium Infuse o reuben 4 hours Start Date: 08/04/17 Stop Date: 08/12/17 Status: Discontinued potassium phosphate-sodium phosphate 250 mg-280 mg-160 mg oral powder for recons titution 2 pkt, Route: PO, Drug Form: PDR/REC, Dosing Weight 71.818, kg, PRN, PRN Abnorma l Lab Result, For NON-ICU Patients Only, Start date: 08/04/17 19:22: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, Dura tion: 30 day, Stop date: 09/03/17 19:21: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 Notes: (Same as: Phos-NaK) Each 1.5 gm pkt has 250mg phosphorous. Mix w/2.5oz w ater and stir. Start Date: 08/04/17 Stop Date: 08/12/17 Status: Discontinued predniSONE 40 mg, 2 tab, Route: PO, Drug form: TAB, Daily, Dosing Weight 71.818, kg, Start date: 08/05/17 10:05: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, Duration: 5 doses or times, Stop date: 08/09/17 9:0 0: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 Notes: Take with food. Start Date: 08/05/17 Stop Date: 08/06/17 Status: Discontinued Reglan 10 mg oral tablet 10 mg, 1 tab, Route: PO, Drug form: TAB, ONCE, Dosing Weight 71.818, kg, Start d ate: 08/04/17 22:00: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, Stop date: 08/04/17 22:00: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 Notes: (Same as: Reglan) Take 30 min before meals Start Date: 08/04/17 Stop Date: 08/04/17 Status: Completed rivaroxaban 20 mg, 1 tab, Route: PO, Drug form: TAB, QPM, Dosing Weight 71.818, kg, Start da te: 08/04/17 17:00: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, Duration: 30 day, Stop date: 09/02/17 17:00: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 Notes: (Same as: Xarelto)Administer with food Start Date: 08/04/17 Stop Date: 08/05/17 Status: Discontinued rivaroxaban 20 mg, 1 tab, Route: PO, Drug form: TAB, QPM, Dosing Weight 71.818, kg, Start da te: 08/12/17 17:00: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, Duration: 30 day, Stop date: 09/10/17 17:00: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 Notes: (Same as: Xarelto)Administer with food Start Date: 08/12/17 Stop Date: 08/12/17 Status: Canceled rivaroxaban 20 mg oral tablet 20 mg=1 tab, PO, QPM, # 90 tab, 0 Refill(s) Start Date: 08/12/17 Stop Date: 11/10/17 Status: Ordered rOPINIRole 0.25 mg, 1 tab, Route: PO, Drug form: TAB, Bedtime, Dosing Weight 71.818, kg, St art date: 08/04/17 18:00: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, Duration: 30 day, Stop date: 09/02/17 21:00: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 Notes: (Same as: Requip) Start Date: 08/04/17 Stop Date: 08/12/17 Status: Discontinued Saline Flush 0.9% 10 ml, Route: IVP, Drug Form: INJ, Dosing Weight 71.818, kg, Q12H, Start date: 10/04/16 21:00: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, Duration: 30 day, Stop date: 09/03/17 9:00: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 Notes: (Same as: BD Posiflush) Start Date: 08/04/17 Stop Date: 08/12/17 Status: Discontinued Saline Flush 0.9% 10 ml, Route: IVP, Drug Form: INJ, Dosing Weight 71.818, kg, PRN, PRN Line Flush , Start date: 08/04/17 12:53: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, Duration: 30 day, Stop date: 09/03/17 12:52 :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 Notes: (Same as: BD Posiflush) Start Date: 08/04/17 Stop Date: 08/12/17 Status: Discontinued simvastatin 20 mg, 1 tab, Route: PO, Drug form: TAB, Bedtime, Dosing Weight 71.818, kg, Star t date: 08/04/17 21:00: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, Duration: 30 day, Stop date: 09/02/17 21:00:00 CS T Notes: (Same as: Zocor) Start Date: 08/04/17 Stop Date: 08/12/17 Status: Discontinued simvastatin 20 mg oral tablet 20 mg=1 tab, PO, Bedtime, # 30 tab, 3 Refill(s) Start Date: 08/12/17 Status: Ordered Sodium Chloride 0.9% (Bolus) IV 500 mL, 500 ml/hr, Infuse Over: 1 hr, Route: IV, 500, Drug form: INJ, ONCE, Prio rity: STAT, Dosing Weight 71.818 kg, Start date: 08/10/17 12:19: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, Stop onel e: 08/10/17 12:19: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 Start Date: 08/10/17 Stop Date: 08/10/17 Status: Completed sodium phosphate + Sodium Chloride 0.9% IV 250 mL 30 mmol, 10 mL, Route: IVPB, PRN, Dosing Weight 71.818, kg, PRN Abnormal Lab Res ult, For NON-ICU Patients Only., Start date: 08/04/17 19:22: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, Duration: 30 day, Stop date: 09/03/17 19:21: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 Start Date: 08/04/17 Stop Date: 08/12/17 Status: Discontinued sodium phosphate + Sodium Chloride 0.9% IV 250 mL 15 mmol, 5 mL, Route: IVPB, PRN, Dosing Weight 71.818, kg, PRN Abnormal Lab Resu lt, For NON-ICU Patients Only., Start date: 08/04/17 19:22: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, Duration: 30 day, Stop date: 09/03/17 19:21: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 Start Date: 08/04/17 Stop Date: 08/12/17 Status: Discontinued Spiriva 18 mcg inhalation capsule 18 microgram, 1 inhalation, Route: INHALATION, Drug form: CAP, Daily, Dosing Jose ght 71.818, kg, Start date: 08/10/17 9:00: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, Duration: 30 day, Stop date: 1 9:00: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 Notes: (Same As: Spiriva) Start Date: 08/10/17 Stop Date: 08/12/17 Status: Discontinued Spiriva 18 mcg inhalation capsule 18 microgram=1 inhalation, INHALATION, Daily, # 30 cap, 0 Refill(s) Start Date: 08/12/17 Stop Date: 10/11/17 Status: Ordered Symbicort 160/4.5 inhalation aerosol with adapter 2 inhalation, Route: INHALER, Drug Form: AERO/A, Dosing Weight 71.818, kg, RBID, Start date: 08/04/17 12:57: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, Duration: 30 day, Stop date: 09/03/17 8:00: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 Notes: (Same as: Symbicort)WASTE: Aerosol - Return to Pharmacy Start Date: 08/04/17 Stop Date: 08/12/17 Status: Discontinued Symbicort 160/4.5 inhalation aerosol with adapter 2 inhalation, INHALER, RBID, # 3 ea, 3 Refill(s) Start Date: 08/12/17 Status: Ordered Toprol-XL 100 mg oral tablet, extended release 100 mg, 1 tab, Route: PO, Drug form: ERTAB, Daily, Start date: 08/05/17 9:00: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, Duration: 30 day, Stop date: 09/03/17 9:00: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 Notes: (Same as: Toprol XL) May split tab, but do not crush. Start Date: 08/05/17 Stop Date: 08/12/17 Status: Discontinued tramadol 50 mg oral tablet 50 mg, 1 tab, Route: PO, Drug form: TAB, ONCE, Dosing Weight 71.818, kg, Start d ate: 08/08/17 8:03: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, Stop date: 08/08/17 8:03: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 Notes: Not to exceed 400mg/day. (Same As: Ultram) Start Date: 08/08/17 Stop Date: 08/08/17 Status: Completed tramadol 50 mg oral tablet 50 mg, 1 tab, Route: PO, Drug form: TAB, Q6H, Dosing Weight 71.818, kg, PRN Pain Score 1-3, Start date: 08/08/17 8:03: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, Duration: 30 day, Stop date: 09/07 8:02: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 Notes: Not to exceed 400mg/day. (Same As: Ultram) Start Date: 08/08/17 Stop Date: 08/12/17 Status: Discontinued trazodone 50 mg oral tablet 50 mg, 1 tab, Route: PO, Drug form: TAB, Bedtime, Dosing Weight 71.818, kg, PRN Insomnia, Start date: 08/04/17 12:57: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, Duration: 30 day, Stop date: 12:56: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 Notes: (Same As: Desyrel) Start Date: 08/04/17 Stop Date: 08/12/17 Status: Discontinued Vitamin D3 2,000 IntlUnit, PO, Daily, 0 Refill(s) Start Date: 08/04/17 Status: Ordered Xarelto 20 mg, 1 tab, Route: PO, Drug form: TAB, QPM, Dosing Weight 71.818, kg, Start da te: 08/08/17 17:00: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, Duration: 30 day, Stop date: 09/06/17 17:00: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 Notes: (Same as: Xarelto)Administer with food Start Date: 08/08/17 Stop Date: 08/08/17 Status: Canceled Results ELECTROLYTES 1 2 3 Most recent to oldest [Reference Range]: 140 mEq/L (08/12/17 3:56 AM) 140 mEq/L (08/11/17 5:00 AM) 139 mEq/L (08/10/17 2:41 AM) Sodium Lvl [135-145 mEq/L] 3.6 mEq/L (08/12/17 3:56 AM) 3.8 mEq/L (08/11/17 5:00 AM) 4.1 mEq/L (08/10/17 2:41 AM) Potassium Lvl [3.5-5.1 mEq/L] 105 mEq/L (08/12/17 3:56 AM) 103 mEq/L (08/11/17 5:00 AM) 100 mEq/L (08/10/17 2:41 AM) Chloride Lvl [95-109 mEq/L] 28 mEq/L (08/12/17 3:56 AM) 31 mEq/L (08/11/17 5:00 AM) 32 mEq/L (08/10/17 2:41 AM) CO2 [24-32 mEq/L] 10.6 mEq/L (08/12/17 3:56 AM) 9.8 mEq/L *LOW* (08/11/17 5:00 AM) 11.1 mEq/L (08/10/17 2:41 AM) AGAP [10.0-20.0 mEq/L] CHEM PANEL 1 2 3 Most recent to oldest [Reference Range]: 1.05 mg/dL (08/12/17 3:56 AM) 1.03 mg/dL (08/11/17 5:00 AM) 1.38 mg/dL (08/10/17 2:41 AM) Creatinine Lvl [0.50-1.40 mg/dL] 68 mL/min/1.73m2 1 *NA* (08/12/17 3:56 AM) 69 mL/min/1.73m2 2 *NA* (08/11/17 5:00 AM) 49 mL/min/1.73m2 3 *NA* (08/10/17 2:41 AM) eGFR 30 mg/dL *HI* (08/12/17 3:56 AM) 30 mg/dL *HI* (08/11/17 5:00 AM) 46 mg/dL *HI* (08/10/17 2:41 AM) BUN [7-22 mg/dL] 137 mg/dL *HI* (08/12/17 3:56 AM) 79 mg/dL (08/11/17 5:00 AM) 102 mg/dL *HI* (08/10/17 2:41 AM) Glucose Lvl [70-99 mg/dL] 6.0 g/dL *LOW* (08/08/17 3:42 AM) Total Protein [6.4-8.4 g/dL] 8.7 mg/dL (08/12/17 3:56 AM) 8.9 mg/dL (08/11/17 5:00 AM) 8.8 mg/dL (08/10/17 2:41 AM) Calcium Lvl [8.5-10.5 mg/dL] 2.9 mg/dL (08/12/17 3:56 AM) 3.2 mg/dL (08/11/17 5:00 AM) 4.4 mg/dL (08/10/17 2:41 AM) Phosphorus [2.5-4.5 mg/dL] 2.0 mg/dL (08/12/17 3:56 AM) 2.1 mg/dL (08/11/17 5:00 AM) 2.4 mg/dL (08/10/17 2:41 AM) Magnesium Lvl [1.8-2.4 mg/dL] 265 unit/L *HI* (08/08/17 3:42 AM) LDH [98-192 unit/L] <0.05 ng/mL (08/04/17 5:57 PM) Procalcitonin Lvl [0.00-0.10 ng/mL] 1Result Comment: [...] 3 Most recent to oldest [Reference Range]: 2.16 *LOW* (08/06/17 11:33 AM) CHD Risk [4.00-7.30] 158 mg/dL (08/06/17 11:33 AM) Chol [<=199 mg/dL] 68 mg/dL (08/06/17 11:33 AM) Trig [<=149 mg/dL] 73 mg/dL (08/06/17 11:33 AM) HDL [>=61 mg/dL] 71 mg/dL (08/06/17 11:33 AM) LDL (Calculated) [<=99 mg/dL] 14 *NA* (08/06/17 11:33 AM) VLDL SPECIAL CHEMISTRY 1 2 3 Most recent to oldest [Reference Range]: 5.1 % (08/06/17 11:33 AM) Hgb A1C [<=5.6 %] PARATHYROID PROFILE 1 2 3 Most recent to oldest [Reference Range]: 1.24 mMol/L (08/12/17 3:56 AM) 1.15 mMol/L (08/07/17 5:05 AM) 1.13 mMol/L (08/06/17 5:12 AM) Ca Ion WB [1.05-1.25 mMol/L] 1.22 mMol/L (08/12/17 3:56 AM) 1.17 mMol/L (08/07/17 5:05 AM) 1.14 mMol/L (08/06/17 5:12 AM) Ca Norm WB [1.05-1.25 mMol/L] DRUG SCREEN 1 2 3 Most recent to oldest [Reference Range]: Negative *NA* (08/06/17 11:33 AM) U Amph Scr [Negative] Negative *NA* (08/06/17 11:33 AM) U Daisy Scr [Negative] Negative *NA* (08/06/17 11:33 AM) U Benzodia Scr [Negative] Negative *NA* (08/06/17 11:33 AM) U Cocaine Scr [Negative] Positive *ABN* (08/06/17 11:33 AM) U Opiate Scr [Negative] Negative *NA* (08/06/17 11:33 AM) U Phencyc Scr [Negative] Negative *NA* (08/06/17 11:33 AM) U Cannab Scr [Negative] See Note (08/06/17 11:33 AM) UDS Note BODY FLUIDS 1 2 3 Most recent to oldest [Reference Range]: 102 mg/dL *NA* (08/07/17 4:29 PM) Glucose BF Pleural *NA* (08/07/17 4:29 PM) Gluc BF Type 13 mg/dL *NA* (08/07/17 4:29 PM) Trig BF Pleural *NA* (08/07/17 4:29 PM) Trig BF Type Pleural *NA* (08/07/17 4:29 PM) Prot BF Type Pleural *NA* (08/07/17 4:29 PM) LDH BF Type 3.2 g/dL *NA* (08/07/17 4:29 PM) Protein BF 113 unit/L *NA* (08/07/17 4:29 PM) LDH BF HEMATOLOGY 1 2 3 Most recent to oldest [Reference Range]: 7.5 K/CMM (08/12/17 3:56 AM) 7.5 K/CMM (08/11/17 5:00 AM) 9.5 K/CMM (08/10/17 2:41 AM) WBC [3.7-10.4 K/CMM] 3.66 M/CMM *LOW* (08/12/17 3:56 AM) 3.75 M/CMM *LOW* (08/11/17 5:00 AM) 3.89 M/CMM *LOW* (08/10/17 2:41 AM) RBC [4.70-6.10 M/CMM] 11.6 g/dL *LOW* (08/12/17 3:56 AM) 12.0 g/dL *LOW* (08/11/17 5:00 AM) 12.4 g/dL *LOW* (08/10/17 2:41 AM) Hgb [14.0-18.0 g/dL] 34.0 % *LOW* (08/12/17 3:56 AM) 35.4 % *LOW* (08/11/17 5:00 AM) 36.6 % *LOW* (08/10/17 2:41 AM) Hct [42.0-54.0 %] 92.7 fL (08/12/17 3:56 AM) 94.4 fL *HI* (08/11/17 5:00 AM) 94.0 fL (08/10/17 2:41 AM) MCV [80.0-94.0 fL] 31.7 pg *HI* (08/12/17 3:56 AM) 32.0 pg *HI* (08/11/17 5:00 AM) 32.0 pg *HI* (08/10/17 2:41 AM) MCH [27.0-31.0 pg] 34.2 g/dL (08/12/17 3:56 AM) 33.9 g/dL (08/11/17 5:00 AM) 34.0 g/dL (08/10/17 2:41 AM) MCHC [32.0-36.0 g/dL] 14.6 % *HI* (08/12/17 3:56 AM) 14.6 % *HI* (08/11/17 5:00 AM) 14.2 % (08/10/17 2:41 AM) RDW [11.5-14.5 %] 162 K/CMM (08/12/17 3:56 AM) 162 K/CMM (08/11/17 5:00 AM) 165 K/CMM (08/10/17 2:41 AM) Platelet [133-450 K/CMM] 8.5 fL (08/12/17 3:56 AM) 8.6 fL (08/11/17 5:00 AM) 9.2 fL (08/10/17 2:41 AM) MPV [7.4-10.4 fL] 64.4 % (08/12/17 3:56 AM) 66.9 % (08/11/17 5:00 AM) 72.7 % (08/10/17 2:41 AM) Segs [45.0-75.0 %] 20.0 % (08/12/17 3:56 AM) 20.7 % (08/11/17 5:00 AM) 14.8 % *LOW* (08/10/17 2:41 AM) Lymphocytes [20.0-40.0 %] 9.8 % (08/12/17 3:56 AM) 8.3 % (08/11/17 5:00 AM) 8.4 % (08/10/17 2:41 AM) Monocytes [2.0-12.0 %] 4.9 % *HI* (08/12/17 3:56 AM) 3.5 % (08/11/17 5:00 AM) 3.2 % (08/10/17 2:41 AM) Eosinophils [0.0-4.0 %] 0.9 % (08/12/17 3:56 AM) 0.6 % (08/11/17 5:00 AM) 0.9 % (08/10/17 2:41 AM) Basophils [0.0-1.0 %] 4.8 K/CMM (08/12/17 3:56 AM) 5.0 K/CMM (08/11/17 5:00 AM) 6.9 K/CMM (08/10/17 2:41 AM) Segs-Bands # [1.5-8.1 K/CMM] 1.5 K/CMM (08/12/17 3:56 AM) 1.5 K/CMM (08/11/17 5:00 AM) 1.4 K/CMM (08/10/17 2:41 AM) Lymphocytes # [1.0-5.5 K/CMM] 0.7 K/CMM (08/12/17 3:56 AM) 0.6 K/CMM (08/11/17 5:00 AM) 0.8 K/CMM (08/10/17 2:41 AM) Monocytes # [0.0-0.8 K/CMM] 0.4 K/CMM (08/12/17 3:56 AM) 0.3 K/CMM (08/11/17 5:00 AM) 0.3 K/CMM (08/10/17 2:41 AM) Eosinophils # [0.0-0.5 K/CMM] 0.1 K/CMM (08/12/17 3:56 AM) 0.1 K/CMM (08/10/17 2:41 AM) 0.1 K/CMM (08/09/17 4:42 AM) Basophils # [0.0-0.2 K/CMM] 13.0 seconds (08/10/17 8:44 AM) PT [12.0-14.7 seconds] 0.98 (08/10/17 8:44 AM) INR [0.85-1.17] Immunizations Given and Recorded Vaccine Date Status [...] 2017 Assessment and Plan Extracted from: Title: [facility] Discharge Summary Author: Vijay Cavanaugh MD Date: 08/12/17 DISCHARGE SUMMARY Name: Wil Hernandez Record Number: [id number] Admission Date: 08/04/2017 Discharge Date: 08/12/2017 Admit Attending: Dr. Lopez Discharge Attending: Dr. Lopez Admission Diagnoses: CHF exacerbation COPD exacerbation R pleural effusion s/p TAVR COPD (on 3L O2) Afib (on xarelto) Discharge Diagnoses: CHF exacerbation COPD exacerbation s/p TAVR COPD (on 3L O2) Afib (on xarelto) Procedures: Thoracentesis w/ pig tail drain 08/07/17 Chief Complaint: SOB Hospital course: Mr Hernandez, 76/M with a PMH of aortic stenosis s/p TAVR 04/2017, Paroxysmal A.fib (on amiodarone and Rivaroxaban at home), COPD (on home O2, 3L), CHF (55-60% EF, s/p PM/ICD placement in 2004 for erratic heart rhythm) and HTN presented to an OSH for worsening SOB at exertion and at rest for the last 5 days. At OSH, patient given methylpred, duonebs, furosemide, and morphine and was transferred here for HLOC. On admission, patient was admitted for CHF and COPD exacerbation. For COPD exacerbation, patient was treated appropriately with prednisone, azithromycin and duonebs. For CHF exacerbation, patient was started on Lasix IV. CXR showed recurrent R pleural effusion. Pulm was consulted and did thoracentesis w/ pig drain (08/07). Drain put out 3.1L. Pig drain was taken out on 08/11. Patient was told to follow up with Dr. Roman for pulm nodules found on CTA. At time of discharge, patient was feeling much better. Discharge condition: Fair Dicharge to: Home Recent signficant physical findings: Vital Signs: Vital Signs (last 24 hrs) Last Charted Temp Oral96.7 DegF (SEP 19 05:12) Heart Rate Jelniq36 bpm (SEP 1954) Resp Rate L 11BRMIN (SEP 19) JSP331 mmHg (SEP 19:00) DBP68 mmHg (SEP 19:) YmK007 % (SEP 19 06:00) General- NAD, hemodynamically stable HEENT- normocephalic, JOHN, moist mucus membranes CVS- s1/s2 wnl, no murmurs, no edema, no JVD Chest- CTAB, no wheezing Abdomen- soft, NT/ND, +bs Skin- no rashes Neuro- AAOx4, no focal deficits Discharge therapy: Medications: Discharge Medications simvastatin 20 mg oral tablet: 20 mg, 1 tab, PO, Bedtime, 30 tab, 3 Refill(s) Ordered by: Vijay Cavanaugh MD - 08/12/2017 11:11 furosemide 40 mg oral tablet: 40 mg, 1 tab, PO, Daily, for 60 day, 60 tab, 2 Refill(s) Ordered by: Vijay Cavanaugh MD - 08/12/2017 11:08 DuoNeb inhalation solution: 3 mL, NEB, QID, for 30 day, PRN: Wheezing, 90 mL, 0 Refill(s) Ordered by: Vijay Cavanaugh MD - 08/12/2017 11:08 rivaroxaban 20 mg oral tablet: 20 mg, 1 tab, PO, QPM, for 90 day, 90 tab, 0 Refill(s) Ordered by: Vijay Cavanaugh MD - 08/12/2017 11:08 Spiriva 18 mcg inhalation capsule: 18 microgram, 1 inhalation, INHALATION, Daily, for 60 day, 30 cap, 0 Refill(s) Ordered by: Vijay Cavanaugh MD - 08/12/2017 11:09 aspirin 81 mg tablet, enteric coated: 81 mg, 1 tab, PO, Daily, 100 tab, 3 Refill(s) Ordered by: Vijay Cavanaugh MD - 08/12/2017 11:07 Symbicort 160/4.5 inhalation aerosol with adapter: 2 inhalation, INHALER, RBID, 3 ea, 3 Refill(s) Ordered by: Vijay Cavanaugh MD - 08/12/2017 11:07 lisinopril 20 mg oral tablet: 40 mg, 2 tab, PO, Daily, 30 tab, 3 Refill(s) Ordered by: Vijay Cavanaguh MD - 08/12/2017 11:07 metoprolol 100 mg oral tablet, extended release: 100 mg, 1 tab, PO, Daily, 30 tab, 3 Refill(s) Ordered by: Vijay Cavanaugh MD - 08/12/2017 11:08 AMIODarone 200 mg oral tablet: 200 mg, 1 tab, PO, Daily, 30 tab, 3 Refill(s) Ordered by: Vijay Cavanaugh MD - 08/12/2017 11:07 Diet : Heart Healthy Diet Activity: As tolerated Follow up : Follow up with Dr. Roman in pulm clinic Vijay Cavanaugh, PGY-2 [facility], Internal Medicine I saw and examined patient with the resident, Dr. Cavanaugh. Agree with management and plans for discharge as we discussed. Extracted from: Title: [facility] Progress Note Author: Randell Ventura MD Date: 08/12/17 [place] [facility] Progress Note Today s Date: 08/12/17 Reason for Consult/Chief Complaint: Hypoxemia, dyspnea, Right transudative pleural effusion Events: -Currently 95% on RA. Sleeping comfortable. Denies any significant dyspnea. Review of Systems: Constit: Denies Fever Night sweats HEENT: Denies Headaches Dysphagia Pulm: per Events CV: per Events GI: Denies Abd pain Nausea Vomiting : Denies Hematuria Dysuria MS: Denies Myalgias Fall Neuro: Denies Numbness/Tingling Syncope Skin: Denies New rashes Hemo/Lymph: Denies Jaundice Bleeding Physical Exam: VitalsTmp(F)Tmp(C)[id number] 08/12 12:00 129/[id number] 2.0L/m--- 08/12 11:30 116/[id number]--------- 08/12 10:00 95------ 08/12 09:10 92------ 08/12 08:00 148/[id number]------ 24 Hr Tmax: 98.0F (36.67c) at 08/12 04:56Vital Signs are the last 5 in the past 48 hours. 24 Hr Tmin: 97.0F (36.11c) at 08/11 16:56Weights are the last 5 in 60 days, plus initial. DateWt(kg)Wt(lb)Ht(cm)Ht(in)MethodBMIBSA 08/12 71.55 157.40Measured 08/11 71.95 158.30Measured 08/10 71.82 158.00Measured 08/08 87.27 192.00Measured 08/07 90.55 199.20Measured 08/04 (initial) 71.82 158.00Measured 20.91.92 85.42 73.00Stated (no point of care glucose results charted in last 24 hours) I/O Intake OutputBalance 08/12/20177a-3p 10.00 0.00 10.00As of 12:47 3p-11p 0.00 0.00 0.00 11p-7a 0.00 0.00 0.00 Totals 10.00 0.00 10.00 08/11/20177a-3p 25.00 0.00 25.00 3p-11p 70.00 0.00 70.00 11p-7a 0.00 0.00 0.00 Totals 95.00 0.00 95.00 08/10/20177a-3p 510.00 400.00 110.00 3p-11p 110.00 630.00 -520.00 11p-7a 150.00 475.00 -325.00 Totals 770.00 1505.00 -735.00 Gen: AAOx3; NAD Neuro: No focal deficits appreciated HEENT: PERRL; EOMI; No scleral icterus CV/Pulses: RRR; 2+ peripheral pulses Pulm: Decreased breath sounds at the bases right greater than left; No wheezing; R pigtail chest tube partially out with no appreciable side port visible GI: BS (+); Soft; NTND : Deferred MS: Tone intact Skin/Ext: No changes in lesions; 1+ pitting edema Labs: new labs reviewed. Labs Most Recent Results Previous Results Previous Results Previous Results WBC 7.5 (AUG 12) 7.5 (AUG 11) 9.5 (AUG 10) 8.4 (AUG 09) Hgb L 11.6 (AUG 12) L 12.0 (AUG 11) L 12.4 (AUG 10) L 11.9 (AUG 09) Hct L 34.0 (AUG 12) L 35.4 (AUG 11) L 36.6 (AUG 10) L 35.3 (AUG 09) Plt 162 (AUG 12) 162 (AUG 11) 165 (AUG 10) 188 (AUG 09) Na 140 (AUG 12) 140 (AUG 11) 139 (AUG 10) 137 (AUG 09) K 3.6 (AUG 12) 3.8 (AUG 11) 4.1 (AUG 10) 4.1 (AUG 09) CO2 28 (AUG 12) 31 (AUG 11) 32 (AUG 10) H 35 (AUG 09) Cl 105 (AUG 12) 103 (AUG 11) 100 (AUG 10) 99 (AUG 09) Cr 1.05 (AUG 12) 1.03 (AUG 11) 1.38 (AUG 10) 1.07 (AUG 09) BUN H 30 (AUG 12) H 30 (AUG 11) H 46 (AUG 10) H 36 (AUG 09) Glucose Random H 137 (AUG 12) 79 (AUG 11) H 102 (AUG 10) 78 (AUG 09) Mg 2.0 (AUG 12) 2.1 (AUG 11) 2.4 (AUG 10) 2.1 (AUG 09) Phos 2.9 (AUG 12) 3.2 (AUG 11) 4.4 (AUG 10) 3.4 (AUG 09) Ca 8.7 (AUG 12) 8.9 (AUG 11) 8.8 (AUG 10) 8.9 (AUG 09) PT 13.0 (AUG 10) -- -- -- INR 0.98 (AUG 10) -- -- -- Radiographs/studies: reviewed. CT-chest w/o contrast (08/11/17): 1. Decreased size of the multiloculated right-sided [...] aorta and all of the coronary arteries. Assessment and Plan: Problem List: * Recurrent large right transudative pleural effusion status post pigtail placement (08/08/17), removed (08/11/17) * Decompensated HFpEF (55-60%) * Afib * GOLD class C/D COPD (FEV1 1.09L - 32% predicted)/Emphysema * Pulmonary nodules * Right hydropneumothorax * RLL consolidation * Metabolic alkalosis - Aortic stenosis s/p TAVR (04/2017) Plan: -Chest tube removed on 08/11/17. May have a trapped lung. Will continue to monitor daily CXR. -Opacity on CT seen in the RLL could be atelectasis from recent chest tube. Follow clinically, no antibiotics indicated at this time unless has fevers. -Need repeat CT-chest in 3-6 months to follow the pulmonary nodules and resolution of this hydropneumothorax. -Can follow up with Dr. Israel Roman in [place] [facility] 4-6 weeks after discharge. -Continue Symbicort and Spiriva. -Continue Lasix. -Continue weaning O2 supplement Prophylaxis: -DVT ppx: Cont rivaroxaban. This note was dictated by [employer] speech recognition software. Please excuse any district claims manager errors. Randell Ventura M.D. [place] [facility] Faculty MSO # [id number] Pager # [phone] Extracted from: Title: [facility] Consult H&P * Author: Natali Ortiz Date: 08/06/17 Vital Signs (last 24 hrs) Last Charted Temp Oral 97.4 DegF (AUG 06 16:38) Heart Rate Apical 63 bpm (AUG 06 18:00) Resp Rate 18 BRMIN (AUG 06 18:00) SBP 125 mmHg (AUG 06 18:00) DBP 60 mmHg (AUG 06 18:00) SpO2 94 % (AUG 06 18:00) , Measurements from flowsheet : Measurements 08/06/2017 05:28 Weight Collection Method Measured Current Weight 72.545 kg Weight Difference Percent 0.314 % 08/05/2017 07:32 Weight Collection Method Measured Current Weight 72.318 kg Weight Difference Percent -4.959 % General: Alert and oriented, No acute distress. Eye: Pupils are equal, round and reactive to light. HENT: Normocephalic. Neck: Supple, Non-tender. Labs Most Recent Results Previous Results Previous Results Previous Results WBC H 17.9 (AUG 06) H 17.3 (AUG 05) 6.8 (AUG 04) -- Hgb L 12.3 (AUG 06) L 11.4 (AUG 05) L 11.7 (AUG 04) -- Hct L 35.8 (AUG 06) L 33.3 (AUG 05) L 34.2 (AUG 04) -- Plt 200 (AUG 06) 187 (AUG 05) 185 (AUG 04) -- Na 141 (AUG 06) 141 (AUG 05) 141 (AUG 04) -- K 4.0 (AUG 06) 4.2 (AUG 05) 4.1 (AUG 04) -- CO2 C 40 (AUG 06) H 37 (AUG 05) H 37 (AUG 04) -- Cl 96 (AUG 06) 99 (AUG 05) 99 (AUG 04) -- Cr 1.09 (AUG 06) 1.04 (AUG 05) 1.30 (AUG 04) -- BUN H 37 (AUG 06) H 23 (AUG 05) 17 (AUG 04) -- Glucose Random H 107 (AUG 06) H 107 (AUG 05) H 191 (AUG 04) -- Mg 2.1 (AUG 06) 1.9 (AUG 05) L 1.7 (AUG 04) -- Phos 4.1 (AUG 06) 4.3 (AUG 05) 3.0 (AUG 04) -- Ca 8.9 (AUG 06) 8.8 (AUG 05) 8.7 (AUG 04) -- Impression and Plan diastolic HF exacerbation right pleural effusion AFIB COPD s/p TAVR Patient reports history of recurrent right pleural effusion, for which he has undergone thoracentesis twice with in the last year. Last thoracentesis was performed on 04/09 and had 1L fluid removed at time pleural fluid analysis was consistent with transduate. Will obtain CT chest to fully assess pleural and consider placement of pleural catether for further management of pleural effusion,continue to hold xarelto. Patient denies any wheezing or increased sputum production, dyspnea likely secondary to pleural effusion. Low suspicion for COPD exacerbation, will d/c prednisone and cont. symbicort and supplemental oxygen. Cont. diuresis to keep net negative. Addendum [facility] Attending by Ramon, I have seen and examined the patient with SECURITIES CONSULTANT Natali Ortiz, I agree with her [place] assessment and plan. Jeet MAURO I have independently examined the patient and reviewed the laboratory and radiologic data. on patient witih pleurisy and noted decreased breath sounds in right lower lobe 08/06/2017 noted large pleural effusion on bedside ultrasound 22:29 CT chest to be done to rule out entrapped lung plan for holding Xarelto and pigtail catheter placment on right Extracted from: Title: [facility] Admission H & P Author: Elio Harris MD Date: 08/04/17 Impression and Plan Mr Hernandez, 76/M with a PMH of aortic stenosis s/p TAVR 04/2017, Paroxysmal A.fib (on amiodarone and Rivaroxaban at home), COPD (on home O2, 3L), CHF (55-60% EF, s/p PM/ICD placement in 2004 for erratic heart rhythm) and HTN presented to an OSH for worsening SOB at exertion and at rest for the last 5 days, likely COPD exacerbation vs CHF exacerbation. Acute on Chronic Hypoxic Respiratory Failure - likely secondary to CHf exacerbation vs COPD exacerbation. - patient is a smoker - BNP of 619 today from OSH - got lasix 40mg IV over there, increased UOP after diuresis, going to repeat lasix 40 iv here for gentle diuresis - CXR from OSH images reviewd, shows large right sided plerual effusion and small left sided effusion, pulmonary edema +, cardiomegaly. - also recieved methylprednisone and albuterol breathing treatment at OSH. - CHF, LV Diastolic Dysfunction with preserved EF -restarted home meds -on lisinopril 40 mg daily -metoprolol 100mg daily -simvastatin 20 daily -nifedipine 30mg daily -will continue diuresis here, pt has some pedal edema. -TTE done, result awaited COPD -starting duonebs today -uses home O2, 3L/min, starting in hospital 3L by NC -no h/o fever or increased sputum production, holding Abx HTN -restarting home meds, lisinopril, simvastatin, nifedipine, metoprolol -Goal MAPs ~70. A.fib -on amiodarone at home for paroxysmal A.fib, rate controlled -was taken off warfarin for supratherapeutic INR 2 months ago, has been on once daily dosing of rivaroxaban. -[id number] score=4,--- 6.7% risk of stroke/TIE/Thromboembolism Aortic Stenosis -got TAVR here about 3 months ago -pending Echo for eval Diet: heart Healthy Bowel regimen: docussate/senna DVT- on rivaroxaban CCU/[facility] Daily Patient Safety Checklist Yes No CAD/CHF/PCI Requirements: 1. ASA x NM/CAD/PCI/CABG 2. AMY Inhibitor or ARB x CHF/DIABETES 3. Beta Justina x POST NM/CHF/PCI 4. Statin x CAD/PCI/CABG 5. DAPT post PCI? 6. Renal Protection Fluid Protocol Post-PCI? Mechanical Ventilation: 1. Restraints assessed/reordered? x 2. PUD ppx? x Blood Stream Infection Prevention: 1. Central Line necessity addressed? Not Req _ vasoactive agents, _ TPN, _loss of venous access CAUTI Prevention: 1. Hyman necessity addressed? x _ complete bedrest, _ urinary retention,_ DVT Prevention: 1. VTE Advisor Completed on admission and DVT ppx? x Nutrition: 1. Enteral Feeding within 48hr? x Blood Glucose Control: 1. 60mg/dl < BG< 200mg/dl? x Discharge Plannin. PT/OT? x 2. Cardiac Rehab? x 3. Case Management/Social Work Consult? x Elio Harris MD PGY-1 Internal Medicine [facility]
--- OUTSIDE RECORDS SUMMARY | 2018-06-24 12:23 | XMS REPORT | Summary of Care ---
Author Author [facility] Organization [facility] Address Unknown Phone Unavailable Encounter CATHERINE Bolanos(SARAHY) [id number] Date(s): 01/07/18 - 01/08/18 [facility] [address] [employer] provided by [facility] [place] [address]- Discharge Disposition: Home or Self Care Attending Physician: Jarad Lopez MD Admitting Physician: Jarad Lopez MD Referring Physician: Jarad Lopez MD Vital Signs 1 2 3 Most recent to oldest [Reference Range]: 185.42 cm (01/07/18 5:54 AM) Height 98 DegF (01/08/18 12:08 AM) 97.5 DegF (01/07/18 8:00 PM) Temperature Oral [96.4-99.1 DegF] 138/63 mmHg (01/08/18 6:00 PM) 144/69 mmHg *HI* (01/08/18 5:00 PM) 141/65 mmHg *HI* (01/08/18 4:43 PM) Blood Pressure [90-140/60-90 mmHg] 16 BRMIN (01/08/18 6:00 PM) 14 BRMIN (01/08/18 5:00 PM) 20 BRMIN (01/08/18 4:43 PM) Respiratory Rate [14-20 BRMIN] 75.455 kg (01/07/18 5:54 AM) Weight 21.95 m2 (01/07/18 5:54 AM) Body Mass Index Problem List Condition [...] Duration: 30 day, Stop date: 02/06/18 9:00:00 CDT Notes: (Same as: Cordarone) Start Date: 01/08/18 Stop Date: 01/08/18 Status: Discontinued ANES fentaNYL 25 microgram, 0.5 mL, Route: IVP, Drug form: INJ, Q5Min, Dosing Weight 75.455, k g, PRN Pain Score 4-6, Priority: Routine, Start date: 01/07/18 9:30:00 CDT, Dura tion: 4 doses or times, Stop date: 01/07/18 17:00:00 CDT Notes: (Same as: Sublimaze) Preservative free. Start Date: 01/07/18 Stop Date: 01/07/18 Status: Completed ANES flumazenil 0.2 mg, 2 mL, Route: IVP, Drug form: INJ, PRN, Dosing Weight 75.455, kg, PRN Maximino zodiazepine Reversal, Initial dose, Start date: 01/07/18 9:30:00 CDT, Duration: 30 day, Stop date: 02/06/18 9:29:00 CDT Notes: (Same as: Romazicon) Start Date: 01/07/18 Stop Date: 01/07/18 Status: Discontinued ANES hydrALAZINE 10 mg, 0.5 mL, Route: IVP, Drug form: INJ, Q20Min, Dosing Weight 75.455, kg, PRN Elevated BP, Start date: 01/07/18 9:30:00 CDT, Duration: 2 doses or times, Stop date: 01/07/18 17:00:00 CDT Notes: (Same as: Apresoline)Push over 5 minutes Start Date: 01/07/18 Stop Date: 01/07/18 Status: Completed ANES labetalol 10 mg, 2 mL, Route: IVP, Drug form: INJ, Q5Min, Dosing Weight 75.455, kg, PRN El evated BP, Start date: 01/07/18 9:30:00 CDT, Duration: 5 doses or times, Stop da te: 01/07/18 17:00:00 CDT Start Date: 01/07/18 Stop Date: 01/07/18 Status: Completed ANES naloxone 0.4 mg, 1 mL, Route: IVP, Drug form: INJ, Q2MIN, Dosing Weight 75.455, kg, PRN N arcotic Reversal, Start date: 01/07/18 9:30:00 CDT, Duration: 8 doses or times, Stop date: 01/07/18 17:00:00 CDT Notes: (Same as: Narcan) Start Date: 01/07/18 Stop Date: 01/07/18 Status: Completed ANES ondansetron 4 mg, 2 mL, Route: IVP, Drug form: INJ, ONCE, Dosing Weight 75.455, kg, PRN Naus ea & Vomiting, Start date: 01/07/18 9:30:00 CDT Notes: (Same as: Fili) MEDICATION WASTE Product Size: 4 mgProduct Was desmond: ___ mg Start Date: 01/07/18 Stop Date: 01/07/18 Status: Discontinued aspirin 81 mg tablet, enteric coated 81 mg=1 tab, PO, Daily, # 30 tab, 3 Refill(s), Pharmacy: [phone] Start Date: 01/08/18 Stop Date: 05/08/18 Status: Ordered aspirin 81 mg tablet, enteric coated 81 mg, 1 tab, Route: PO, Drug form: ECTAB, Daily, Dosing Weight 75.455, kg, Star t date: 01/08/18 9:00:00 CDT, Duration: 30 day, Stop date: 02/06/18 9:00:00 CDT Notes: Do not crush or chew.(Same As: Ecotrin) Start Date: 01/08/18 Stop Date: 01/08/18 Status: Discontinued buPROPion 150 mg, 1 tab, Route: PO, Drug form: ERTAB, BID, Dosing Weight 75.455, kg, Start date: 01/07/18 17:00:00 CDT, Duration: 30 day, Stop date: 02/06/18 9:00:00 CDT Notes: (Same as: Wellbutrin XL)"Do Not Crush" Start Date: 01/07/18 Stop Date: 01/08/18 Status: Discontinued buPROPion 150 mg/12 hours (SR) oral tablet, extended release 150 mg=1 tab, PO, BID, # 180 tab, 0 Refill(s) Start Date: 01/07/18 Status: Ordered calcium gluconate + Sodium Chloride 0.9% IV 70 mL 3 gm, 30 mL, Route: IVPB, PRN, Dosing Weight 75.455, kg, PRN Abnormal Lab Result , For NON-ICU Patients Only., Start date: 01/07/18 12:48:00 CDT, Duration: 30 da y, Stop date: 02/06/18 12:47:00 CDT Notes: WASTE: F/P - Sink; E - Municipal Trash Bin Start Date: 01/07/18 Stop Date: 01/08/18 Status: Discontinued calcium gluconate + Sodium Chloride 0.9% IV 80 mL 2 gm, 20 mL, Route: IVPB, PRN, Dosing Weight 75.455, kg, PRN Abnormal Lab Result , For NON-ICU Patients Only., Start date: 01/07/18 12:48:00 CDT, Duration: 30 da y, Stop date: 02/06/18 12:47:00 CDT Notes: WASTE: F/P - Sink; E - Municipal Trash Bin Start Date: 01/07/18 Stop Date: 01/08/18 Status: Discontinued ceFAZolin 2 gm, Route: IVPB, ONCALL, Dosing Weight 75.091, kg, Start date: 01/07/18 6:00:0 0 CDT, Duration: 1 doses or times, ABX Indication: Surgical Prophylaxis Notes: (Same As: Kai Shah) MEDICATION WASTE Product Size: 1000 mgP roduct Wasted: ___ mg Start Date: 01/07/18 Stop Date: 01/07/18 Status: Completed Centrum Silver Men's 1 tab, PO, Daily, 0 Refill(s) Start Date: 01/07/18 Status: Ordered Centrum Silver Men's 1 tab, Route: PO, Drug Form: TAB, Dosing Weight 75.455, kg, Daily, Start date: 0 01/08/18 9:00:00 CDT, Duration: 30 day, Stop date: 02/06/18 9:00:00 CDT Notes: (Same as:Thera-M, Theragran-M)WASTE: F/P - Black; E - Municipal Trash Bin Give with food. Start Date: 01/08/18 Stop Date: 01/08/18 Status: Discontinued DuoNeb inhalation solution 3 mL, Route: NEB, Drug Form: SOLN, Dosing Weight 75.455, kg, RQID, PRN Wheezing, Start date: 01/07/18 12:43:00 CDT, Duration: 30 day, Stop date: 02/06/18 12:42: 00 CDT Notes: (Same as: Duoneb) Start Date: 01/07/18 Stop Date: 01/08/18 Status: Discontinued heparin 5,000 unit, 1 mL, Route: SUB-Q, Drug form: INJ, Q12H, Dosing Weight 75.455, kg, Start date: 01/07/18 21:00:00 CDT, Duration: 30 day, Stop date: 02/06/18 9:00:00 CDT Notes: porcine heparin Start Date: 01/07/18 Stop Date: 01/07/18 Status: Discontinued lisinopril 40 mg, 2 tab, Route: PO, Drug form: TAB, Daily, Dosing Weight 75.455, kg, Start date: 01/08/18 9:00:00 CDT, Duration: 30 day, Stop date: 02/06/18 9:00:00 CDT Notes: (Same as: Prinivil, Zestril) Start Date: 01/08/18 Stop Date: 01/08/18 Status: Discontinued magnesium oxide 800 mg, 2 tab, Route: PO, Drug form: TAB, PRN, Dosing Weight 75.455, kg, PRN Abn ormal Lab Result, For NON-ICU Patients Only., Start date: 01/07/18 12:48:00 CDT, Duration: 30 day, Stop date: 02/06/18 12:47:00 CDT Notes: (Same as: Mag-Ox 400)Magnesium oxide [id number] elemental magnesiumDose= ____mg magnesium oxide (___mg elemental magnesium) Start Date: 01/07/18 Stop Date: 01/08/18 Status: Discontinued magnesium sulfate 2 gm, 50 mL, Route: IVPB, Drug form: INJ, PRN, Dosing Weight 75.455, kg, PRN Abn ormal Lab Result, For NON-ICU Patients Only., Start date: 01/07/18 12:48:00 CDT, Duration: 30 day, Stop date: 02/06/18 12:47:00 CDT Notes: WASTE: F/P - Sink; E - Municipal Trash Bin Start Date: 01/07/18 Stop Date: 01/08/18 Status: Discontinued magnesium sulfate 1 gm, 100 mL, Route: IVPB, Drug form: INJ, PRN, Dosing Weight 75.455, kg, PRN Ab normal Lab Result, For NON-ICU Patients Only., Start date: 01/07/18 12:48:00 CDT , Duration: 30 day, Stop date: 02/06/18 12:47:00 CDT Notes: WASTE: F/P - Sink; E - Municipal Trash Bin Start Date: 01/07/18 Stop Date: 01/08/18 Status: Discontinued pneumococcal 23-valent vaccine 0.5 mL, Route: IM, Drug Form: INJ, ONCALL, Start date: 01/07/18 7:00:00 CDT, Dur ation: 1 doses or times Notes: (Same as: Pneumovax 23) Refrigerate Start Date: 01/07/18 Stop Date: 01/08/18 Status: Discontinued potassium chloride 20 mEq, 1 tab, Route: PO, Drug form: ERTAB, PRN, Dosing Weight 75.455, kg, PRN A bnormal Lab Result, For NON-ICU Patients Only, Start date: 01/07/18 12:48:00 CDT , Duration: 30 day, Stop date: 02/06/18 12:47:00 CDT Notes: (Same as: K-Dur 20)"Do Not Crush"For patients unable to swallow tablet, d issolve in one half glass of water. Allow about 2 minutes for the tablets to dis integrate. Stir before giving to prepare slurry and administer.Please exclude Pa tients with feeding tube less than 14 [place] ([place]obhoff, J-tube etc) and pediat td and patients. With food and full glass of water Start Date: 01/07/18 Stop Date: 01/08/18 Status: Discontinued potassium chloride 10 mEq, 50 mL, Route: IVPB, Drug form: INJ, PRN, Dosing Weight 75.455, kg, PRN A bnormal Lab Result, For NON-ICU Patients Only, Start date: 01/07/18 12:48:00 CDT , Duration: 30 day, Stop date: 02/06/18 12:47:00 CDT Notes: (Same as: KCL) Infuse over 2 hours. Start Date: 01/07/18 Stop Date: 01/08/18 Status: Discontinued potassium chloride 20 mEq, 15 mL, Route: NJ, Drug form: LIQ, PRN, Dosing Weight 75.455, kg, PRN Abn ormal Lab Result, For NON-ICU Patients Only, Start date: 01/07/18 12:48:00 CDT, Duration: 30 day, Stop date: 02/06/18 12:47:00 CDT Notes: (Same as: Potassium Chloride) Start Date: 01/07/18 Stop Date: 01/08/18 Status: Discontinued potassium phosphate + Sodium Chloride 0.9% IV 250 mL 15 mmol, 5 mL, Route: IVPB, PRN, Dosing Weight 75.455, kg, PRN Abnormal Lab Resu lt, For NON-ICU Patients Only., Start date: 01/07/18 12:48:00 CDT, Duration: 30 day, Stop date: 02/06/18 12:47:00 CDT Notes: (Same as: K Phosphate.) 1 mMol phoshate has 1.47 mEq potassium Infuse o reuben 4 hours Start Date: 01/07/18 Stop Date: 01/08/18 Status: Discontinued potassium phosphate + Sodium Chloride 0.9% IV 250 mL 30 mmol, 10 mL, Route: IVPB, PRN, Dosing Weight 75.455, kg, PRN Abnormal Lab Res ult, For NON-ICU Patients Only., Start date: 01/07/18 12:48:00 CDT, Duration: 30 day, Stop date: 02/06/18 12:47:00 CDT Notes: (Same as: K Phosphate.) 1 mMol phoshate has 1.47 mEq potassium Infuse o reuben 4 hours Start Date: 01/07/18 Stop Date: 01/08/18 Status: Discontinued potassium phosphate-sodium phosphate 250 mg-280 mg-160 mg oral powder for recons titution 2 pkt, Route: PO, Drug Form: PDR/REC, Dosing Weight 75.455, kg, PRN, PRN Abnorma l Lab Result, For NON-ICU Patients Only, Start date: 01/07/18 12:48:00 CDT, Dura tion: 30 day, Stop date: 02/06/18 12:47:00 CDT Notes: (Same as: Phos-NaK) Each 1.5 gm pkt has 250mg phosphorous. Mix w/2.5oz w ater and stir. Start Date: 01/07/18 Stop Date: 01/08/18 Status: Discontinued predniSONE 10 mg, 1 tab, Route: PO, Drug form: TAB, Daily, Dosing Weight 75.455, kg, Start date: 01/08/18 9:00:00 CDT, Duration: 30 day, Stop date: 02/06/18 9:00:00 CDT Notes: (Same as: PredniSONE) Take with food. Start Date: 01/08/18 Stop Date: 01/08/18 Status: Discontinued predniSONE 10 mg oral tablet 10 mg=1 tab, PO, Daily, # 30 tab, 3 Refill(s) Start Date: 01/07/18 Stop Date: 02/06/18 Status: Ordered rivaroxaban 20 mg, 1 tab, Route: PO, Drug form: TAB, QPM, Dosing Weight 75.455, kg, Start da te: 01/07/18 17:00:00 CDT, Duration: 30 day, Stop date: 02/05/18 17:00:00 CDT Notes: (Same as: Xarelto)Administer with food Start Date: 01/07/18 Stop Date: 01/07/18 Status: Discontinued rOPINIRole 0.25 mg, 1 tab, Route: PO, Drug form: TAB, Bedtime, Dosing Weight 75.455, kg, FL N Restlessness, Start date: 01/07/18 12:43:00 CDT, Duration: 30 day, Stop date: 02/06/18 12:42:00 CDT Notes: (Same as: Requip) Start Date: 01/07/18 Stop Date: 01/08/18 Status: Discontinued simvastatin 20 mg, 1 tab, Route: PO, Drug form: TAB, Bedtime, Dosing Weight 75.455, kg, Star t date: 01/07/18 21:00:00 CDT, Duration: 30 day, Stop date: 02/05/18 21:00:00 CD T Notes: (Same as: Zocor) Start Date: 01/07/18 Stop Date: 01/08/18 Status: Discontinued Sodium Chloride 0.9% (Bolus) IV 250 mL, 250 ml/hr, Infuse Over: 1 hr, Route: IV, 250, Drug form: INJ, ONCALL, Pr iority: Routine, Dosing Weight 75.091 kg, Start date: 01/07/18 6:00:00 CDT, Dura tion: 1 doses or times Start Date: 01/07/18 Stop Date: 01/07/18 Status: Completed Sodium Chloride 0.9% IV 750 mL 750 mL, Rate: 75 ml/hr, Infuse over: 10 hr, Route: IV, Dosing Weight 75.091 kg, Total Volume: 750, Start date: 01/07/18 5:54:00 CDT, Duration: 24 hr, Stop date: 01/08/18 5:53:00 CDT, 1.97, m2 Start Date: 01/07/18 Stop Date: 01/07/18 Status: Discontinued sodium phosphate + Sodium Chloride 0.9% IV 250 mL 30 mmol, 10 mL, Route: IVPB, PRN, Dosing Weight 75.455, kg, PRN Abnormal Lab Res ult, For NON-ICU Patients Only., Start date: 01/07/18 12:48:00 CDT, Duration: 30 day, Stop date: 02/06/18 12:47:00 CDT Start Date: 01/07/18 Stop Date: 01/08/18 Status: Discontinued sodium phosphate + Sodium Chloride 0.9% IV 250 mL 15 mmol, 5 mL, Route: IVPB, PRN, Dosing Weight 75.455, kg, PRN Abnormal Lab Resu lt, For NON-ICU Patients Only., Start date: 01/07/18 12:48:00 CDT, Duration: 30 day, Stop date: 02/06/18 12:47:00 CDT Start Date: 01/07/18 Stop Date: 01/08/18 Status: Discontinued Spiriva 18 mcg inhalation capsule 18 microgram, 1 inhalation, Route: INHALATION, Drug form: CAP, RDaily, Dosing We ight 75.455, kg, Start date: 01/08/18 8:00:00 CDT, Duration: 30 day, Stop date: 02/06/18 8:00:00 CDT Notes: (Same As: Spiriva) Start Date: 01/08/18 Stop Date: 01/08/18 Status: Discontinued Symbicort 160/4.5 inhalation aerosol with adapter 2 inhalation, Route: INHALER, Drug Form: AERO/A, Dosing Weight 75.455, kg, RBID, Start date: 01/07/18 13:24:00 CDT, Duration: 30 day, Stop date: 02/06/18 8:00:00 CDT Notes: (Same as: Symbicort)WASTE: Aerosol - Return to Pharmacy Start Date: 01/07/18 Stop Date: 01/08/18 Status: Discontinued Toprol-XL 100 mg oral tablet, extended release 100 mg, 1 tab, Route: PO, Drug form: ERTAB, Daily, Priority: NOW, Start date: 5:33:00 CDT, Duration: 30 day, Stop date: 02/06/18 9:00:00 CDT Notes: (Same as: Toprol XL) May split tab, but do not crush. Start Date: 01/08/18 Stop Date: 01/08/18 Status: Discontinued torsemide 20 mg, 1 tab, Route: PO, Drug form: TAB, Daily, Dosing Weight 75.455, kg, Priori ty: NOW, Start date: 01/08/18 5:33:00 CDT, Duration: 30 day, Stop date: 02/06/18 9:00:00 CDT Notes: (Same As: Demadex) Start Date: 01/08/18 Stop Date: 01/08/18 Status: Discontinued torsemide 20 mg oral tablet 20 mg=1 tab, PO, Daily, # 30 tab, 1 Refill(s) Start Date: 01/07/18 Stop Date: 02/06/18 Status: Ordered tramadol 50 mg oral tablet 50 mg=1 tab, PO, Q6H, PRN Pain, X 10 day, # 40 tab, 0 Refill(s) Start Date: 01/08/18 Stop Date: 01/18/18 Status: Ordered trazodone 50 mg oral tablet 50 mg, 1 tab, Route: PO, Drug form: TAB, Bedtime, Dosing Weight 75.455, kg, PRN Insomnia, Start date: 01/07/18 12:43:00 CDT, Duration: 30 day, Stop date: 12:42:00 CDT Notes: (Same As: Desyrel) Start Date: 01/07/18 Stop Date: 01/08/18 Status: Discontinued Tylenol 650 mg, 2 tab, Route: PO, Drug form: TAB, Q6H, Dosing Weight 75.455, kg, PRN Andrade n Score 1-3, Start date: 01/07/18 20:03:00 CDT, Duration: 30 day, Stop date: 20:02:00 CDT Notes: Do not exceed 4 gm/day. (Same as: Tylenol) Start Date: 01/07/18 Stop Date: 01/08/18 Status: Discontinued Vitamin D3 2,000 IntlUnit, 1 tab, Route: PO, Drug form: TAB, Daily, Dosing Weight 75.455, k g, Start date: 01/08/18 9:00:00 CDT, Duration: 30 day, Stop date: 02/06/18 9:00: 00 CDT Notes: (Same as: Vitamin D3) Start Date: 01/08/18 Stop Date: 01/08/18 Status: Discontinued warfarin 5 mg, 1 tab, Route: PO, Drug form: TAB, ONCE, Dosing Weight 75.455, kg, Start da te: 01/07/18 19:47:00 CDT, Stop date: 01/07/18 19:47:00 CDT Notes: Nurse to ensure documentation of patient education per anticoagulation po licy.Avoid large intake of vitamin-K containing foods diet.WASTE: F/P - P Waste Black; E - P Waste Black(Same As: Coumadin) Start Date: 01/07/18 Stop Date: 01/07/18 Status: Completed warfarin 5 mg, 1 tab, Route: PO, Drug form: TAB, ONCE, Dosing Weight 75.455, kg, Start da te: 01/08/18 17:15:00 CDT, Stop date: 01/08/18 17:15:00 CDT Notes: Nurse to ensure documentation of patient education per anticoagulation po licy.Avoid large intake of vitamin-K containing foods diet.WASTE: F/P - P Waste Black; E - P Waste Black(Same As: Coumadin) Start Date: 01/08/18 Stop Date: 01/08/18 Status: Completed warfarin 5 mg oral tablet 5 mg=1 tab, PO, Daily, # 30 tab, 1 Refill(s), Pharmacy: [id number] Start Date: 01/08/18 Stop Date: 03/09/18 Status: Ordered Results BLOOD BANK RESULTS 1 2 3 Most recent to oldest [Reference Range]: A POS *Unknown* (01/07/18 5:56 AM) ABO/Rh Negative (01/07/18 5:56 AM) Antibody Scrn Product available (01/07/18 5:54 AM) FFP product Product available (01/07/18 5:54 AM) RBC product ELECTROLYTES 1 2 3 Most recent to oldest [Reference Range]: 140 mEq/L (01/08/18 4:56 AM) 141 mEq/L (01/07/18 10:06 AM) 141 mEq/L (01/07/18 5:56 AM) Sodium Lvl [135-145 mEq/L] 4.3 mEq/L (01/08/18 4:56 AM) 3.6 mEq/L (01/07/18 10:06 AM) 3.9 mEq/L (01/07/18 5:56 AM) Potassium Lvl [3.5-5.1 mEq/L] 106 mEq/L (01/08/18 4:56 AM) 106 mEq/L (01/07/18 10:06 AM) 103 mEq/L (01/07/18 5:56 AM) Chloride Lvl [95-109 mEq/L] 28 mEq/L (01/08/18 4:56 AM) 27 mEq/L (01/07/18 10:06 AM) 30 mEq/L (01/07/18 5:56 AM) CO2 [24-32 mEq/L] 10.3 mEq/L (01/08/18 4:56 AM) 11.6 mEq/L (01/07/18 10:06 AM) 11.9 mEq/L (01/07/18 5:56 AM) AGAP [10.0-20.0 mEq/L] CHEM PANEL 1 2 3 Most recent to oldest [Reference Range]: 1.14 mg/dL (01/08/18 4:56 AM) 1.26 mg/dL (01/07/18 10:06 AM) 1.41 mg/dL *HI* (01/07/18 5:56 AM) Creatinine Lvl [0.50-1.40 mg/dL] 61 mL/min/1.73m2 1 *NA* (01/08/18 4:56 AM) 54 mL/min/1.73m2 2 *NA* (01/07/18 10:06 AM) 47 mL/min/1.73m2 3 *NA* (01/07/18 5:56 AM) eGFR 17 mg/dL (01/08/18 4:56 AM) 23 mg/dL *HI* (01/07/18 10:06 AM) 24 mg/dL *HI* (01/07/18 5:56 AM) BUN [7-22 mg/dL] 15 (01/08/18 4:56 AM) 17 (01/07/18 5:56 AM) B/C Ratio [6-25] 91 mg/dL (01/08/18 4:56 AM) 98 mg/dL (01/07/18 10:06 AM) 101 mg/dL *HI* (01/07/18 5:56 AM) Glucose Lvl [70-99 mg/dL] 6.8 g/dL (01/08/18 4:56 AM) 7.2 g/dL (01/07/18 5:56 AM) Total Protein [6.4-8.4 g/dL] 2.8 g/dL *LOW* (01/08/18 4:56 AM) 3.2 g/dL *LOW* (01/07/18 5:56 AM) Albumin Lvl [3.5-5.0 g/dL] 4.0 g/dL (01/08/18 4:56 AM) 4.0 g/dL (01/07/18 5:56 AM) Globulin [2.7-4.2 g/dL] 0.7 (01/08/18 4:56 AM) 0.8 (01/07/18 5:56 AM) A/G Ratio [0.7-1.6] 8.8 mg/dL (01/08/18 4:56 AM) 8.6 mg/dL (01/07/18 10:06 AM) 9.4 mg/dL (01/07/18 5:56 AM) Calcium Lvl [8.5-10.5 mg/dL] 3.2 mg/dL (01/08/18 4:56 AM) Phosphorus [2.5-4.5 mg/dL] 1.9 mg/dL (01/08/18 4:56 AM) Magnesium Lvl [1.8-2.4 mg/dL] 15 unit/L (01/08/18 4:56 AM) 16 unit/L (01/07/18 5:56 AM) ALT [0-65 unit/L] 17 unit/L (01/08/18 4:56 AM) 20 unit/L (01/07/18 5:56 AM) AST [0-37 unit/L] 107 unit/L (01/08/18 4:56 AM) 97 unit/L (01/07/18 5:56 AM) Alk Phos [39-136 unit/L] 0.9 mg/dL (01/08/18 4:56 AM) 0.7 mg/dL (01/07/18 5:56 AM) Bili Total [0.2-1.3 mg/dL] 1Result Comment: The [...] 3 Most recent to oldest [Reference Range]: 1.14 mMol/L (01/08/18 4:56 AM) Ca Ion WB [1.05-1.25 mMol/L] 1.11 mMol/L (01/08/18 4:56 AM) Ca Norm WB [1.05-1.25 mMol/L] HEMATOLOGY 1 2 3 Most recent to oldest [Reference Range]: 7.0 K/CMM (01/08/18 4:56 AM) 5.7 K/CMM (01/07/18 10:06 AM) 6.9 K/CMM (01/07/18 5:56 AM) WBC [3.7-10.4 K/CMM] 3.46 M/CMM *LOW* (01/08/18 4:56 AM) 3.08 M/CMM *LOW* (01/07/18 10:06 AM) 3.38 M/CMM *LOW* (01/07/18 5:56 AM) RBC [4.70-6.10 M/CMM] 9.8 g/dL *LOW* (5/2/18 4:56 AM) 8.7 g/dL *LOW* (01/07/18 10:06 AM) 9.5 g/dL *LOW* (01/07/18 5:56 AM) Hgb [14.0-18.0 g/dL] 29.9 % *LOW* (01/08/18 4:56 AM) 26.9 % *LOW* (01/07/18 10:06 AM) 29.1 % *LOW* (01/07/18 5:56 AM) Hct [42.0-54.0 %] 86.6 fL (01/08/18 4:56 AM) 87.1 fL (01/07/18 10:06 AM) 86.2 fL (01/07/18 5:56 AM) MCV [80.0-94.0 fL] 28.4 pg (01/08/18 4:56 AM) 28.2 pg (01/07/18 10:06 AM) 28.2 pg (01/07/18 5:56 AM) MCH [27.0-31.0 pg] 32.8 g/dL (01/08/18 4:56 AM) 32.4 g/dL (01/07/18 10:06 AM) 32.7 g/dL (01/07/18 5:56 AM) MCHC [32.0-36.0 g/dL] 17.8 % *HI* (01/08/18 4:56 AM) 17.8 % *HI* (01/07/18 10:06 AM) 17.7 % *HI* (01/07/18 5:56 AM) RDW [11.5-14.5 %] 8.0 fL (01/08/18 4:56 AM) 7.8 fL (01/07/18 10:06 AM) 7.6 fL (01/07/18 5:56 AM) MPV [7.4-10.4 fL] 193 K/CMM (01/08/18 4:56 AM) 180 K/CMM (01/07/18 10:06 AM) 209 K/CMM (01/07/18 5:56 AM) Platelet [133-450 K/CMM] 66.9 % (01/08/18 4:56 AM) 57.8 % (01/07/18 10:06 AM) 58.3 % (01/07/18 5:56 AM) Segs [45.0-75.0 %] 19.0 % *LOW* (01/08/18 4:56 AM) 25.3 % (01/07/18 10:06 AM) 24.9 % (01/07/18 5:56 AM) Lymphocytes [20.0-40.0 %] 8.9 % (01/08/18 4:56 AM) 10.0 % (01/07/18 10:06 AM) 10.9 % (01/07/18 5:56 AM) Monocytes [2.0-12.0 %] 3.8 % (01/08/18 4:56 AM) 4.8 % *HI* (01/07/18 10:06 AM) 4.0 % (01/07/18 5:56 AM) Eosinophils [0.0-4.0 %] 1.4 % *HI* (01/08/18 4:56 AM) 2.1 % *HI* (01/07/18 10:06 AM) 1.9 % *HI* (01/07/18 5:56 AM) Basophils [0.0-1.0 %] 4.7 K/CMM (01/08/18 4:56 AM) 3.3 K/CMM (01/07/18 10:06 AM) 4.0 K/CMM (01/07/18 5:56 AM) Segs-Bands # [1.5-8.1 K/CMM] 1.3 K/CMM (01/08/18 4:56 AM) 1.4 K/CMM (01/07/18 10:06 AM) 1.7 K/CMM (01/07/18 5:56 AM) Lymphocytes # [1.0-5.5 K/CMM] 0.6 K/CMM (01/08/18 4:56 AM) 0.6 K/CMM (01/07/18 10:06 AM) 0.8 K/CMM (01/07/18 5:56 AM) Monocytes # [0.0-0.8 K/CMM] 0.3 K/CMM (01/08/18 4:56 AM) 0.3 K/CMM (01/07/18 10:06 AM) 0.3 K/CMM (01/07/18 5:56 AM) Eosinophils # [0.0-0.5 K/CMM] 0.1 K/CMM (01/08/18 4:56 AM) 0.1 K/CMM (01/07/18 10:06 AM) 0.1 K/CMM (01/07/18 5:56 AM) Basophils # [0.0-0.2 K/CMM] 16.3 seconds *HI* (01/08/18 11:44 AM) 19.6 seconds *HI* (01/07/18 5:56 AM) PT [12.0-14.7 seconds] 1.30 *HI* (01/08/18 11:44 AM) 1.65 *HI* (01/07/18 5:56 AM) INR [0.85-1.17] 311 seconds *NA* (01/07/18 8:47 AM) 269 seconds *NA* (01/07/18 8:36 AM) POC Activated Clotting Time 40.8 seconds *HI* (01/07/18 5:56 AM) PTT [22.9-35.8 seconds] Immunizations Given and Recorded Vaccine Date Status [...] Reg Smoking Cessation Counseling Yes1 entered on: 01/07/18 1Per patient, quit in April 2017 Assessment and Plan Extracted from: Title: CCU History and Physical Author: Mahamed Pozo MD Date: 01/07/18 Patient: RANJEET JORDAN Age: 77 years Sex: Male : 1940 Associated Diagnoses: None Author: Mahamed Pozo MD Basic Information Source of history: Self. History of Present Illness 77 year old male w/ Diastolic HF, HTN, s/p PPM, s/p TAVR, COPD on home O2 (2L) and Afib s/p Watchman procedure 01/07 who is being admitted for overnight monitoring post procedure for complications. He reports that in the preceeding 1-2 weeks he has been in his usual state of health and has not noted any new symptoms. He tolerated the procedure well and states that he is only having some 4/10 pain in the R groin at the site of the procdure as well as some right shoulder pain that is present from a fall at home ~4 days prior. Review of Systems Constitutional: No fever, No chills, No fatigue. Eye: No recent visual problem, No double vision, No visual disturbances. Ear/Nose/Mouth/Throat: No decreased hearing, No sore throat. Respiratory: No shortness of breath, No cough, No sputum production. Cardiovascular: No chest pain, No palpitations, No peripheral edema. Gastrointestinal: No nausea, No vomiting, No abdominal pain. Genitourinary: No dysuria, No hematuria. Hematology/Lymphatics: No bruising tendency. Endocrine: No heat intolerance. Musculoskeletal: No back pain, No muscle pain, No claudication. Integumentary: No rash, No pruritus. Neurologic: Alert and oriented X4, No confusion. Psychiatric: No anxiety, No depression. Health Status Allergies: Allergic Reactions (Selected) Severity Not Documented NKDA- No reactions were documented., Allergies (1) ActiveReaction NKDANone Documented Current medications: (Selected) Inpatient Medications Ordered AMIODarone: 200 mg, 1 tab, PO, Daily Centrum Silver Men's: 1 tab, PO, Daily DuoNeb inhalation solution: 3 mL, NEB, RQID, PRN: Wheezing Spiriva 18 mcg inhalation capsule: 18 microgram, 1 inhalation, INHALATION, RDaily Symbicort 160/4.5 inhalation aerosol with adapter: 2 inhalation, INHALER, RBID Toprol-XL 100 mg oral tablet, extended release: 100 mg, 1 tab, PO, Daily Vitamin D3: 2,000 IntlUnit, 1 tab, PO, Daily aspirin 81 mg tablet, enteric coated: 81 mg, 1 tab, PO, Daily buPROPion: 150 mg, 1 tab, PO, BID calcium gluconate + Sodium Chloride 0.9% IV 70 mL: 3 gm, 30 mL, 66.67 ml/hr, IVPB, PRN, PRN: Abnormal Lab Result calcium gluconate + Sodium Chloride 0.9% IV 80 mL: 2 gm, 20 mL, 100 ml/hr, IVPB, PRN, PRN: Abnormal Lab Result lisinopril: 40 mg, 2 tab, PO, Daily magnesium oxide: 800 mg, 2 tab, PO, PRN, PRN: Abnormal Lab Result magnesium sulfate: 1 gm, 100 mL, 100 ml/hr, IVPB, PRN, PRN: Abnormal Lab Result magnesium sulfate: 2 gm, 50 mL, 25 ml/hr, IVPB, PRN, PRN: Abnormal Lab Result pneumococcal 23-valent vaccine: 0.5 mL, IM, ONCALL potassium chloride: 10 mEq, 50 mL, 50 ml/hr, IVPB, PRN, PRN: Abnormal Lab Result potassium chloride: 20 mEq, 1 tab, PO, PRN, PRN: Abnormal Lab Result potassium chloride: 20 mEq, 15 mL, NJ, PRN, PRN: Abnormal Lab Result potassium phosphate + Sodium Chloride 0.9% IV 250 mL: 15 mmol, 5 mL, 63.75 ml/hr, IVPB, PRN, PRN: Abnormal Lab Result potassium phosphate + Sodium Chloride 0.9% IV 250 mL: 30 mmol, 10 mL, 65 ml/hr, IVPB, PRN, PRN: Abnormal Lab Result potassium phosphate-sodium phosphate 250 mg-280 mg-160 mg oral powder for reconstitution: 2 pkt, PO, PRN, PRN: Abnormal Lab Result predniSONE: 10 mg, 1 tab, PO, Daily rOPINIRole: 0.25 mg, 1 tab, PO, Bedtime, PRN: Restlessness rivaroxaban: 20 mg, 1 tab, PO, QPM simvastatin: 20 mg, 1 tab, PO, Bedtime sodium phosphate + Sodium Chloride 0.9% IV 250 mL: 15 mmol, 5 mL, 63.75 ml/hr, IVPB, PRN, PRN: Abnormal Lab Result sodium phosphate + Sodium Chloride 0.9% IV 250 mL: 30 mmol, 10 mL, 65 ml/hr, IVPB, PRN, PRN: Abnormal Lab Result torsemide: 20 mg, 1 tab, PO, Daily trazodone 50 mg oral tablet: 50 mg, 1 tab, PO, Bedtime, PRN: Insomnia Prescriptions Suspended AMIODarone 200 mg oral tablet: 200 mg, 1 tab, PO, Daily, 30 tab, 3 Refill(s) DuoNeb inhalation solution: 3 mL, NEB, QID, for 30 day, PRN: Wheezing, 90 mL, 0 Refill(s) Spiriva 18 mcg inhalation capsule: 18 microgram, 1 inhalation, INHALATION, Daily, for 60 day, 30 cap, 0 Refill(s) Symbicort 160/4.5 inhalation aerosol with adapter: 2 inhalation, INHALER, RBID, 3 ea, 3 Refill(s) aspirin 81 mg tablet, enteric coated: 81 mg, 1 tab, PO, Daily, 100 tab, 3 Refill(s) furosemide 40 mg oral tablet: 40 mg, 1 tab, PO, Daily, for 60 day, 60 tab, 2 Refill(s) lisinopril 20 mg oral tablet: 40 mg, 2 tab, PO, Daily, 30 tab, 3 Refill(s) metoprolol 100 mg oral tablet, extended release: 100 mg, 1 tab, PO, Daily, 30 tab, 3 Refill(s) rOPINIRole 0.25 mg oral tablet: 0.25 mg, 1 tab, PO, Bedtime, 30 tab, 3 Refill(s) rivaroxaban 20 mg oral tablet: 20 mg, 1 tab, PO, QPM, for 90 day, 90 tab, 0 Refill(s) simvastatin 20 mg oral tablet: 20 mg, 1 tab, PO, Bedtime, 30 tab, 3 Refill(s) trazodone 50 mg oral tablet: 50 mg, 1 tab, PO, Bedtime, PRN: Insomnia, 30 tab, 3 Refill(s) Documented Medications Suspended Centrum Silver Men's: 1 tab, PO, Daily, 0 Refill(s) Vitamin D3: 2,000 IntlUnit, PO, Daily, 0 Refill(s) acetaminophen-hydrocodone 325 mg-10 mg oral tablet: See Instructions, 0.5 tab PO Daily, 0 Refill(s) buPROPion 150 mg/12 hours (SR) oral tablet, extended release: 150 mg, 1 tab, PO, BID, 180 tab, 0 Refill(s) potassium gluconate 595 mg oral tablet: PO, Daily, 1 tablet daily, 0 Refill(s) predniSONE 10 mg oral tablet: 10 mg, 1 tab, PO, Daily, for 30 day, 30 tab, 3 Refill(s) torsemide 20 mg oral tablet: 20 mg, 1 tab, PO, Daily, for 30 day, 30 tab, 1 Refill(s), Medications (30) Active Scheduled: (14) AMIODarone 200 mg TAB 200 mg 1 tab, PO, Daily aspirin 81 mg ECT 81 mg 1 tab, PO, Daily Budesonide/Formoterol 160-4.5 microgram 6gm AERO/A inh 2 inhalation, INHALER, RBID buPROPion XL 150 mg tab 150 mg 1 tab, PO, BID cholecalciferol 2000 IU Tab (Vitamin D3) 2,000 IntlUnit 1 tab, PO, Daily lisinopril 20 mg TAB 40 mg 2 tab, PO, Daily metoprolol succinate 100 mg ERT 100 mg 1 tab, PO, Daily multiple vit Thera w/Min TAB 1 tab, PO, Daily pneumococcal 23-polyvalent vaccine SOLN 0.5 mL, IM, ONCALL predniSONE 10 mg TAB 10 mg 1 tab, PO, Daily rivaroxaban 20 mg TAB 20 mg 1 tab, PO, QPM simvastatin 20 mg TAB 20 mg 1 tab, PO, Bedtime tiotropium bromide 18 microgram INH cap 5's 18 microgram 1 inhalation, INHALATION, RDaily torsemide 20 mg TAB 20 mg 1 tab, PO, Daily Continuous: (0) PRN: (16) albuterol-ipratropium 2.5 mg-0.5 mg/3 ml CAMRELINA 3 mL, NEB, RQID calcium gluconate 100mg/ml 10ml VL + sodium chloride 0.9% INJ 70 mL 3 gm 30 mL, IVPB, PRN calcium gluconate 100mg/ml 10ml VL + sodium chloride 0.9% INJ 80 mL 2 gm 20 mL, IVPB, PRN magnesium oxide (242 mg elemental) tab 800 mg 2 tab, PO, PRN magnesium sulfate 1gm/100ml D5W premix 1 gm 100 mL, IVPB, PRN magnesium sulfate 2 gm/H20 50ml soln 2 gm 50 mL, IVPB, PRN potassium chloride 10 mEq/50 ml PB 10 mEq 50 mL, IVPB, PRN potassium chloride 20 mEq ERT 20 mEq 1 tab, PO, PRN potassium chloride 20mEq/15ml LIQ ud 20 mEq 15 mL, NJ, PRN potassium phosphate 3mmol/1ml 15ml VL + sodium chloride 0.9% INJ 250 mL 15 mmol 5 mL, IVPB, PRN potassium phosphate 3mmol/1ml 15ml VL + sodium chloride 0.9% INJ 250 mL 30 mmol 10 mL, IVPB, PRN potassium phosphate-sodium phosphate 1.5 gm pkt 2 pkt, PO, PRN rOPINIRole 0.25 mg TAB 0.25 mg 1 tab, PO, Bedtime sodium phosphate 3 mmol/1 ml 15 ml vial + sodium chloride 0.9% INJ 250 mL 15 mmol 5 mL, IVPB, PRN sodium phosphate 3 mmol/1 ml 15 ml vial + sodium chloride 0.9% INJ 250 mL 30 mmol 10 mL, IVPB, PRN trazodone 50 mg TAB 50 mg 1 tab, PO, Bedtime Problem list: All Problems Afib / SNOMED CT [id number] / Confirmed CHF - Congestive heart failure / SNOMED CT 367568444 / Confirmed COPD / SNOMED CT 20152180 / Confirmed HT - Hypertension / SNOMED CT 070812837 / Confirmed, Active Problems (4) Afib CHF - Congestive heart failure COPD HT - Hypertension Histories Past Medical History: Active HT - Hypertension ([id number]) Afib ([id number]) CHF - Congestive heart failure (254648008) COPD (55354390) Family History: Heart disease Father High blood pressure Father Procedure history: MVR - Mitral valve replacement ([id number]) on 04/09/2017 at 76 Years. Knee replacement ([id number]). AVR - Aortic valve replacement ([id number]). Social History Social & Psychosocial Habits Alcohol 10/09/2015 Use: Current Type: Beer Frequency: 1-2 times per month Previous treatment: None Has alcohol use interfered with work or home life? No Do you ever drink more than intended? No Has anyone been hurt or at risk by your drinking? No Ready to change: No Concerns about alcohol use in household: No Substance Abuse 10/09/2015 Use: None Tobacco 01/07/2018 Use: Former smoker Type: Cigarettes Ready to change: Yes Concerns about tobacco use in household: Yes Exposure to Tobacco Smoke None Cigarette Smoking Last 365 Days Yes Reg Smoking Cessation Counseling Yes Comment: Per patient, quit in April 2017 - 08/04/2017 12:00 - Echo Chi RN . Physical Examination VS/Measurements Vital Signs (last 24 hrs) Last Charted Heart Rate Rpsuub72 bpm (JANUARY 07 18:45) Resp Rate 17 BRMIN (JANUARY 07 18:45) SBPH 146mmHg (JANUARY 07 18:45) DBP67 mmHg (JANUARY 07 18:45) PeO702 % (JANUARY 07 18:45) Wrruxa31.455 kg (JANUARY 07 05:54) Floqpe405.42 cm (JANUARY 07 05:54) BMI21.95 (JANUARY 07 05:54) , Measurements from flowsheet : Measurements 01/07/2018 05:55 Heparin Dosing Weight (kg) 75.45 01/07/2018 05:54 Height 185.42 cm Height Collection Method Stated Weight 75.455 kg Dosing Weight Difference Percent 0.485 % Dosing Weight Collection Method Measured Body Surface Area 1.9714 m2 Body Mass Index 21.95 m2 General: Alert and oriented, No acute distress. Eye: Pupils are equal, round and reactive to light, Extraocular movements are intact, Normal conjunctiva. HENT: Normocephalic, Normal hearing, Oral mucosa is moist. Neck: Supple, Non-tender, No jugular venous distention. Respiratory: Lungs are clear to auscultation, Respirations are non-labored, Breath sounds are equal. Cardiovascular: Normal rate, Regular rhythm, Good pulses equal in all extremities, No edema. Gastrointestinal: Soft, Non-tender, Non-distended. Genitourinary: No costovertebral angle tenderness. Musculoskeletal Normal range of motion. Normal strength. Sutures in place in R groin from procedure w/o bruising or bleeding. Neurologic: Alert, Oriented. Cognition and Speech: Oriented, Speech clear and coherent. Psychiatric: Cooperative, Appropriate mood & affect, Normal judgment. Review / Management Results review: Labs (Last four charted values) WBC 5.7(JANUARY 07)6.9(JANUARY 07) Hgb L 8.7(JANUARY 07)L 9.5(JANUARY 07) Hct L 26.9(JANUARY 07)L 29.1(JANUARY 07) Plt 180(JANUARY 07)209(JANUARY 07) Na 141(JANUARY 07)141(JANUARY 07) K 3.6(JANUARY 07)3.9(JANUARY 07) CO2 27(JANUARY 07)30(JANUARY 07) Cl 106(JANUARY 07)103(JANUARY 07) Cr 1.26(JANUARY 07)H 1.41(JANUARY 07) BUN H 23(JANUARY 07)H 24(JANUARY 07) Glucose Random 98(JANUARY 07)H 101(JANUARY 07) Ca 8.6(JANUARY 07)9.4(JANUARY 07) PT H 19.6(JANUARY 07) INR H 1.65(JANUARY 07) PTT H 40.8(JANUARY 07). Impression and Plan 77 year old w/ Diastolic HF, HTN, Afib on Xarelto, s/p PPM, s/p TAVR and COPD on Home O2 (2L) who was admitted today for Watchmen procedure Neuro: #Pain control -Tylenol PRN CV: #Afib s/p Watchmen -Watchmen performed 01/[address] Lopez -DC Xarelto and switch to Coumadin for discharge -Amiodarone 200mg daily -Follow up CXR pending #Chronic Diastolic HF -ASA -Metoprolol Succ 100mg daily -Lisinopril 20mg daily -Torsemide 20mg daily #HLD -simvastatin 20mg daily Resp: #COPD on Home O2 -at baseline 2L currently -Symbicort -Spiriva Renal: -no active issues GI #GERD -will continue to monitor, not currently on medication at home Endo: -no active issues ID: -no active issues DVT Ppx: On warfarin Diet: Cardiac Diet Full Code Dispo: Plan for DC in AM CCU/CIMU Daily Patient Safety Checklist Yes No Mechanical Ventilation? x 1. Sedation level addressed? _ 2. Sedation holiday performed if indicated? _ 3. Adequate pain control? _ 4. Delirium assessment done and addressed? _ 5. Restraints assessed/reordered? _ _ 6. PUD ppx? _ _ Blood Stream Infection Prevention: 1.Central Line necessity addressed? _ 2.Central Line duration > 5 days? _ _ CAUTI Prevention: 1. Hyman necessity addressed? _ x 2. Hyman duration > 3 days? _ DVT Prevention: 1. VTE Advisor Completed on admission? _x _ 2.DVT ppx? _x _ warfarin Nutrition 1. Enteral Feeding within 48h? x _ Blood Glucose Control 1. 60 mg/dl< BG < 200mg/dl? _x _ CAD/CHF/PCI Requirements: 1.ASA post [place]? _x _ 2.ACEi + BB in CHF? x _ 3. Statinin CAD? _x _ 4. DAPT post-PCI? _ _na 5. Renal Protection Fluid Protocol Post-PCI? _ _na Discharge Planning 1. PT/OT? x _ 2. Cardiac Rehab? x _ 3. Case Management/Social Work Consult? _ _x Addendum I have seen the patient in collaboration with the housestaff (resident and/or fellow). I by have examined the patient independently, and have reviewed any history, radiographic and Ray, cardiac imaging, and diagnostic testing. I agree with the findings and plan outlined in Kai the note by the resident with the following additions/modifications: Kenny MAURO -s/p Yash procedure yesterday on -finally urinated spontaneously s/p Hyman removal 01/08/2018 -d/c home on ASA plus OAC 18:46 Addendum error: comment about urination/Hyman does not apply to this patient by Kai Bell MD on 01/08/2018 18:49 Extracted from: Title: Yash Author: Dayron Soliz Date: 01/07/18 Rudolph MAURO Date of Procedure: 01/07/2018 Interventional Cardiology: Jarad Lopez MD. Antonio Magana MD Fellow: Dayron Siegel MD Procedures Performed: 1. Transcatheter closure of the left atrial appendage with Watchman left atrial appendage occluder 30 mm device. 2. Trans-septal puncture through an intact inter-atrial septum 3. Left atrial appendage angiogram Medications: General anesthesia provided by Dr. Garcia Indication for Procedure: Mr. Jordan is a 76 years old man with history of atrial fibrillation, s/p TAVR, HTN, dHF, HLD, PVD, Carotid stenosis, s/p PPM, COPD on home O2. was referred for Watchman closure of Left atrial appendage. CHADSVASC 4, HASBLED 4. Description of Procedure: Following informed consent, the patient was brought to the cardiac catheterization laboratory and placed under general anesthesia by Dr. Garcia A transesophageal echocardiographic probe was advanced into the mid-esophagus with baseline images including left atrial appendage size measurement and color flow Doppler performed. There was no evidence of left atrial or LA appendage thrombus and therefore the decision was made to proceed with the procedure. A 5F micropuncture kit was used, and two venous accesses were obtained in the right femoral vein, along with a 6F right femoral artery access. A 6F pigtail catheter was advanced through the arterial sheath, and positioned in the non-coronary cusp. The interatrial septal puncture was performed under the fluoroscopy and VIVIAN guidance. A 0.032-inch Oxly guidewire was advanced into the superior vena cava and a Brand sheath was advanced up to the SVC, and wire was removed. An 18-gauge Cook puncture needle was advanced into the introducer with the needle tip remaining inside the guiding sheath. Under VIVIAN and fluoroscopic guidance, the sheath was slowly and carefully pulled back into the right atrium. This procedure was repeated several times until identification of an optimal site of septal puncture which was in the inferior-posterior region of the septum. Then, the trans-septal puncture was successfully performed at that location. After confirming entry in to the left atrium, a stiff 0.014-inch guidewire was advanced through the needle in to the left superior pulmonary vein. The sheath was advanced over this wire into the left superior pulmonary vein, and the dilator and the wire were removed. At this point, the patient was anticoagulated with heparin by injecting heparin in to the left atrium. ACT was then intermittently monitored and maintained in the therapeutic range. A 0.035-inch Amplatz Superstiff wire (1 cm flexible tip) was advanced in the left upper pulmonary vein through the Brand sheath, and this sheath was exchanged out for a 14-[place] Watchman access sheath, which was placed in the left upper pulmonary vein. A 6-[place] pigtail catheter was advanced into the sheath over the super- stiff wire, and the wire was then removed. Under fluoroscopic and echocardiographic guidance, Dr. Magana helped with positioning the pigtail catheter selectively in the left atrial appendage and multiple angiographic images were obtained. Dr. Magana helped with advacning the Watchman access sheath into the left atrial appendage over the pigtail catheter up to the tip of the appendage, and the pigtail catheter was then removed. Based on VIVIAN and fluoroscopic findings, we decided to implant a 30 mm Watchman Left Atrial Occluder device. This device was properly prepped, and advanced in to the access sheath up to the distal tip. The device was successfully deployed in the left atrial appendage under fluoroscopic and echocardiographic guidance using the standard technique. A "tug-test" was performed confirming stability of the device. After confirming stability of the device, no significant leak, and appropriate compression of the device, it was released. The 14-[place] sheath and 4-[place] venous sheaths were removed and hemostasis was achieved using a figure- 8 stitch. Complications: None Total amount of contrast: 120 cc Visipaque contrast Total fluoroscopic time: 16.9 min Device Used: Watchman left atrial appendage occluder 30 mm device Compression Diameter Post-Release on VIVIAN: Maximum: 25 mm; Minimum: 23 mm Summary: Successful placement of Watchman left atrial appendage occluder 30 mm device in the left atrial appendage with excellent seal, and no hay-device leak.
--- OUTSIDE RECORDS SUMMARY | 2018-06-24 12:24 | XMS REPORT | Summary of Care ---
Author Author [facility] Organization [facility] Address Unknown Phone Unavailable Encounter CATHERINE Bolanos(SARAHY) [id number] Date(s): 01/07/18 - 01/08/18 [facility] [address] [employer] provided by [facility] [place] [address]- Encounter Diagnosis Unspecified atrial fibrillation (Final) - Chronic diastolic (congestive) heart failure (Final) - Presence of prosthetic heart valve (Final) - Chronic obstructive pulmonary disease, unspecified (Final) - Dependence on supplemental oxygen (Final) - Encounter for examination for normal comparison and control in clinical research program (Final) - Peripheral vascular disease, unspecified (Final) - Occlusion and stenosis of unspecified carotid artery (Final) - Hypertensive heart disease with heart failure (Final) - Hyperlipidemia, unspecified (Final) - Nicotine dependence, cigarettes, uncomplicated (Final) - Gastro-esophageal reflux disease without esophagitis (Final) - retirement (current) use of anticoagulants (Final) - Other jail (current) drug therapy (Final) - Presence of unspecified artificial knee joint (Final) - Discharge Disposition: Home or Self Care Attending [...] Daily, # 30 tab, 3 Refill(s), Pharmacy: [facility] [id number] Start Date: 01/08/18 Stop Date: 05/08/18 Status: [...] Stop date: 02/06/18 9:00:00 CDT Notes: (Same as:Portia-MHerman-M)WASTE: F/P - Black; E - Municipal Trash [...] CDT Notes: (Same as: Mag-Ox 400)Magnesium oxide 469ad=[id number] elemental magnesiumDose= ____mg magnesium oxide (___mg elemental [...] tients with feeding tube less than 14 Cymraes (Dobhoff, J-tube etc) and pediat td and [...] form: TAB, Bedtime, Dosing Weight 75.455, kg, SC N Restlessness, Start date: 01/07/18 12:43:00 CDT, [...] Daily, # 30 tab, 1 Refill(s), Pharmacy: [id number] Start Date: 01/08/18 Stop Date: 03/09/18 Status: [...] AM) RBC [4.70-6.10 M/CMM] 9.8 g/dL *LOW* (01/08/18 4:56 AM) 8.7 g/dL *LOW* (01/07/18 10:06 [...] 2017 Assessment and Plan Extracted from: Title: Discharge Summary Author: Kai Bell MD Date: 01/08/18 Discharge Summary Date of Admission Patient was admitted on 01/07/2018 Date of Discharge Patient was discharged on 01/08/2018 Consulting Services Consulting Physicians: (none on file) Admission Diagnosis Watchmen procedure Discharge Diagnoses [facility] Mr. Wil Jordan is a 77 year old male with a past medical history significant for HFpEF, HTN, permanent pacemaker, TAVR, COPD (on 2L home O2), and atrial fibrillation who was admitted to the CCU after have a Watchmen device placed on 01/07/18. The patient was observed overnight with no complications. His pain was well controlled and he had no complaints. He tolerated a diet and ambulation well. On 01/08/18, his sutures were removed and the patient had moderate bleeding from the procedure site. Pressure was held to the area for 10 minutes stopping the bleeding after which gauze and tegaderm were placed. Because the patient was hemodynamically stable, had no complaints and felt well, and follow up was organized, it was decided he was ready for discharge. The patient was discharged home on 01/08/18 with follow up appointments with his PCP and with Dr. Head as well as new prescriptions for aspirin and warfarin. [facility] for [facility]R checks. Physical Exam General: Alert and oriented, No acute distress. [...] Musculoskeletal Normal range of motion. Normal strength. Gauze and tegaderm overlying procedure site, sutures removed Neurologic: Alert, Oriented. Cognition and Speech: Oriented, Speech clear and coherent. Psychiatric: Cooperative, Appropriate mood & affect, Normal judgment. Pertinent Labs no labs Discharge Medications Home acetaminophen-hydrocodone 325 mg-10 mg oral tablet, See Instructions buPROPion 150 mg/12 hours (SR) oral tablet, extended release, 150 mg, 1 tab, PO, BID Centrum Silver Men's, 1 tab, PO, Daily predniSONE 10 mg oral tablet, 10 mg, 1 tab, PO, Daily torsemide 20 mg oral tablet, 20 mg, 1 tab, PO, Daily Vitamin D3, 2000 IntlUnit, PO, Daily Prescriptions AMIODarone 200 mg oral tablet, 200 mg, 1 tab, PO, Daily, 3 refills aspirin 81 mg tablet, enteric coated, 81 mg, 1 tab, PO, Daily, 3 refills lisinopril 20 mg oral tablet, 40 mg, 2 tab, PO, Daily, 3 refills metoprolol 100 mg oral tablet, extended release, 100 mg, 1 tab, PO, Daily, 3 refills rOPINIRole 0.25 mg oral tablet, 0.25 mg, 1 tab, PO, Bedtime, 3 refills simvastatin 20 mg oral tablet, 20 mg, 1 tab, PO, Bedtime, 3 refills Spiriva 18 mcg inhalation capsule, 18 microgram, 1 inhalation, INHALATION, Daily Symbicort 160/4.5 inhalation aerosol with adapter, 2 inhalation, INHALER, RBID, 3 refills tramadol 50 mg oral tablet, 50 mg, 1 tab, PO, Q6H, PRN trazodone 50 mg oral tablet, 50 mg, 1 tab, PO, Bedtime, PRN, 3 refills warfarin 5 mg oral tablet, 5 mg, 1 tab, PO, Daily, 1 refills Procedures from this Encounter Watchmen device placement Pending Studies INR checks Activity Level Activity as tolerated Discharge Diet Heart Healthy Diet Follow Up Appointments Dr. Head in 2 weeks [facility] on 01/10/18 PCP in 2 weeks Disposition Home Time Spent on Discharge 40 minutes Signature Line Henry Perez MD Electronically Signed: 01/09/18 08:07 Kai Bell MD Electronically Signed: 01/09/18 12:44 Extracted from: Title: CCU History and Physical Author: Mahamed Pozo MD Date: 01/07/18 Patient: WIL JORDAN Age: 77 years Sex: Male : [...] PRN: (16) albuterol-ipratropium 2.5 mg-0.5 mg/3 ml CARMELINA 3 mL, NEB, RQID calcium gluconate 100mg/ml [...] list: All Problems Afib / SNOMED CT [id number] / Confirmed CHF - Congestive heart failure / SNOMED CT 815799735 / Confirmed COPD / SNOMED CT 70899526 / Confirmed HT - Hypertension / SNOMED CT 240501237 / Confirmed, Active Problems (4) Afib CHF - Congestive heart failure COPD HT - Hypertension Histories Past Medical History: Active HT - Hypertension ([id number]) Afib ([id number]) CHF - Congestive heart failure (447839876) COPD (01866199) Family History: Heart disease Father High blood pressure Father Procedure history: MVR - Mitral valve replacement ([id number]) on 04/09/2017 at 76 Years. Knee replacement ([id number]). AVR - Aortic valve replacement ([id number]). Social History Social & Psychosocial Habits Alcohol [...] (last 24 hrs) Last Charted Heart Rate Zzajfx22 bpm (JANUARY 07 18:45) Resp Rate 17 BRMIN (JANUARY 07 18:45) SBPH 146mmHg (JANUARY 07 18:45) DBP67 mmHg (JANUARY 07 18:45) CkU052 % (JANUARY 07 18:45) Qmduwf98.455 kg (JANUARY 07 05:54) Hlcdgs544.42 cm (JANUARY 07 05:54) BMI21.95 (JANUARY 07 [...] Watchmen -Watchmen performed 01/[address] Lopez -DRE Coffman and switch to Coumadin for discharge -Amiodarone [...] 200mg/dl? _x _ CAD/CHF/PCI Requirements: 1.ASA post [place]? _x _ 2.ACEi + BB in CHF? [...] the fluoroscopy and VIVIAN guidance. A 0.032-inch [place] guidewire was advanced into the superior vena [...] this sheath was exchanged out for a 14-Cymraes Watchman access sheath, which was placed in the left upper pulmonary vein. A 6-[place] pigtail catheter was advanced into the sheath [...] of the device, it was released. The 14-Cymraes sheath and 4-Cymraes venous sheaths were removed and hemostasis was [...]
--- OUTSIDE RECORDS SUMMARY | 2018-06-24 12:24 | XMS REPORT ---
Author Author [facility] Organization [facility] Address Unknown Phone Unavailable Care Team Providers Care Frame Polisher Name Role Phone Alex SALINAS Unavailable Unavailable Aretha SOSA Unavailable Unavailable Payers Payer Name Policy Type Policy Number Effective Date Expiration Date Problems This patient has no known problems. Allergies, Adverse Reactions, Alerts Allergy Name Allergy Type Status Severity Reaction(s) Onset Date Inactive Date Treating Clinician Comments codeine DA Active [place] 2018-06-17 00:00:00 codeine DA Active [place] 2011-03-27 00:00:00 Medications This patient has no known medications. Results Test Description Test Time Test Comments Text Results Atomic Results Result Comments LUMBAR 3 VIEW 2018-06-17 14:09:00 [place] [address] Patient Name: RANJEET GIRON MR #: [id number] : 1940 Age/Sex: 77/M Req #: [id number] Adm Physician: Ordered by: STEVE FUENTES SHIPPING PROCESSOR Report #: [id number] Location: ER Room/Bed: Procedure: [id number] DX/LUMBAR 3 VIEW Exam Date: 06/17/18 Exam Time: 1335 REPORT STATUS: Signed Radiographs of the lumbar spine - 3 views HISTORY: Pain. Fall. COMPARISON: None available. FINDINGS: Bones: No acute displaced fracture. Mild scoliosis concave to the left centered at L3. Joints: Scattered degenerative change most pronounced at the lower lumbar spine. Soft tissues: The soft tissues appear unremarkable. IMPRESSION: Scattered degenerative change most pronounced at the lower lumbar spine. Signed by: Dr. Aylin Cordova M.D. on 06/17/2018 2:11 PM Dictated By: AYLIN CORDOVA MD, MD 141 Transcribed By: AMPARO on 06/17/18 141 COPY TO: STEVE FUENTES NP CT CERVICAL SPINE WO 2018-06-17 14:03:00 [place] [address] Patient Name: RANJEET GIRON MR #: [id number] : 1940 Age/Sex: 77/M Req #: [id number] Adm Physician: Ordered by: STEVE FUENTES NP Report #: [id number] Location: ER Room/Bed: Procedure: [id number] CT/CT CERVICAL SPINE WO Exam Date: 06/17/18 Exam Time: 1335 REPORT STATUS: Signed EXAMINATION: Head and cervical spine CT without contrast. HISTORY: Status post fall, trauma, head and neck pain COMPARISON: None. TECHNIQUE: Multidetector axial images were obtained without contrast from the foramen magnum to the vertex and through the cervical spine. The images were reconstructed using brain and bone algorithms. Thin section brain images were reformatted into coronal and sagittal planes. Dose modulation, iterative reconstruction, and/or weight based adjustment of the mA/kV was utilized to reduce the radiation dose to as low as reasonably achievable. HEAD CT FINDINGS: Skull: No lytic or blastic lesions. No fractures. Parenchyma: A few scattered white matter hypodensities, most likely age appropriate minimal chronic microvascular ischemic changes. No mass, hemorrhage or CT evidence of acute vascular insult. Brain volume: Normal for age. Ventricles: No hydrocephalus or displacement. Arteries: No density suggestive of thrombus. Dural sinuses: No abnormal density. Extra-axial spaces: No abnormal density. Foramen magnum: No mass, Chiari malformation, or basilar invagination. Sella: No obvious mass. Paranasal/mastoid sinuses: Imaged portions unremarkable. CERVICAL SPINE CT FINDINGS: Alignment:Normal lordosis. Subtle right-sided curvature. Soft tissues: Normal. Vertebrae: Acute not significantly displaced transverse fracture line through the base of the dens extending to the right body of the C2 (type III). Degenerative changes: C1-C2: Degenerative changes without stenoses C2-C3: Uncovertebral and facet arthrosis without significant stenoses C3-C4: Disc osteophyte compresses formation, uncovertebral and facet arthrosis. Moderate spinal canal and foraminal stenoses worst on the right. C4-C5: Disc osteophyte complex formation, bilateral uncovertebral and facet arthrosis. Moderate spinal canal and severe left foraminal stenosis. C5-C6: Disc osteophyte compresses formation, uncovertebral and facet arthrosis. Moderately severe foraminal stenosis worst on the left. Moderately severe spinal canal stenosis C6- C7: Disc osteophyte complex formation, uncovertebral and facet arthroses. Mild spinal canal and moderate foraminal stenoses. C7-T1: Mild facet arthrosis is minimal right without stenosis Incidental findings: Prominent degenerative changes of the bilateral TMJs. IMPRESSION: Head CT: 1. No acute postraumatic intracranial hemorrhage. 2. Mild chronic microvascular ischemic changes. Cervical spine CT: 1. Acute nondisplaced fracture through the base of the dens extending to the right body of C2 (type III). 2. Chronic degenerative changes as described. Note: Acute post traumatic spinal cord, vascular or ligamentous injury cannot adequately be assessed with CT. The findings were discussed with the ER ADELINE Fuentes on 06/17/18 at 2:10 PM Signed by: Dr. Kendall King M.D. on 06/17/2018 2:14 PM Dictated By: KENDALL KING MD 13 Transcribed By: AMPARO on 06/17/181413 COPY TO: STEVE FUENTES NP CT BRAIN WO 2018-06-17 14:03:00 [place] [address] Patient Name: RANJEET GIRON MR #: [id number] : 1940 Age/Sex: 77/M Req #: [id number] Adm Physician: Ordered by: STEVE FUENTES NP Report #: [id number] Location: ER Room/Bed: Procedure: [id number] CT/CT BRAIN WO Exam Date: 06/17/18 Exam Time: 1335 REPORT STATUS: Signed EXAMINATION: Head and cervical spine CT without contrast. HISTORY: Status post fall, trauma, head and neck pain COMPARISON: None. TECHNIQUE: Multidetector axial images were obtained without contrast from the foramen magnum to the vertex and through the cervical spine. The images were reconstructed using brain and bone algorithms. Thin section brain images were reformatted into coronal and sagittal planes. Dose modulation, iterative reconstruction, and/or weight based adjustment of the mA/kV was utilized to reduce the radiation dose to as low as reasonably achievable. HEAD CT FINDINGS: Skull: No lytic or blastic lesions. No fractures. Parenchyma: A few scattered white matter hypodensities, most likely age appropriate minimal chronic microvascular ischemic changes. No mass, hemorrhage or CT evidence of acute vascular insult. Brain volume: Normal for age. Ventricles: No hydrocephalus or displacement. Arteries: No density suggestive of thrombus. Dural sinuses: No abnormal density. Extra-axial spaces: No abnormal density. Foramen magnum: No mass, Chiari malformation, or basilar invagination. Sella: No obvious mass. Paranasal/mastoid sinuses: Imaged portions unremarkable. CERVICAL SPINE CT FINDINGS: Alignment:Normal lordosis. Subtle right-sided curvature. Soft tissues: Normal. Vertebrae: Acute not significantly displaced transverse fracture line through the base of the dens extending to the right body of the C2 (type III). Degenerative changes: C1-C2: Degenerative changes without stenoses C2-C3: Uncovertebral and facet arthrosis without significant stenoses C3-C4: Disc osteophyte compresses formation, uncovertebral and facet arthrosis. Moderate spinal canal and fo raminal stenoses worst on the right. C4-C5: Disc osteophyte complex formation, bilateral uncovertebral and facet arthrosis. Moderate spinal canal and severe left foraminal stenosis. C5-C6: Disc osteophyte compresses formation, uncovertebral and facet arthrosis. Moderately severe foraminal stenosis worst on the left. Moderately severe spinal canal stenosis C6- C7: Disc osteophyte complex formation, uncovertebral and facet arthroses. Mild spinal canal and moderate foraminal stenoses. C7-T1: Mild facet arthrosis is minimal right without stenosis Incidental findings: Prominent degenerative changes of the bilateral TMJs. IMPRESSION: Head CT: 1. No acute postraumatic intracranial hemorrhage. 2. Mild chronic microvascular ischemic changes. Cervical spine CT: 1. Acute nondisplaced fracture through the base of the dens extending to the right body of C2 (type III). 2. Chronic degenerative changes as described. Note: Acute post traumatic spinal cord, vascular or ligamentous injury cannot adequately be assessed with CT. The findings were discussed with the ER SHIPPING PROCESSOR Britni Fuentes on 06/17/18 at 2:10 PM Signed by: Dr. Kendall King M.D. on 06/17/2018 2:14 PM Dictated By: KENDALL KING MD 141 Transcribed By: AMPARO on 06/17/18 1414 COPY TO: STEVE FUENTES SHIPPING PROCESSOR [facility] (PORTABLE) [place] [address] Patient Name: RANJEET GIRON MR #: [id number] : 1940 Age/Sex: 76/M Req #: [id number] [facility] Physician: Ordered by: WILBERTO SOSA MD Report #: [id number] Location: ER Room/Bed: Procedure: [id number] DX/CHEST SINGLE (PORTABLE) Exam Date: Exam Time: REPORT STATUS: Signed EXAM: CHEST SINGLE (PORTABLE), AP 1 view DATE: 08/04/2017 5:27 AM Time stamp on exam: 0538 hours INDICATION: Shortness of breath COMPARISON: AP view of the chest November 06, 2016 FINDINGS: LINES/TUBES: Left approach cardiac device LUNGS: Pulmonary edema PLEURA: Moderate right and small left pleural effusions HEART AND MEDIASTINUM: Cardiomegaly BONES AND SOFT TISSUES: No acute findings. Old right clavicle fracture stabilized with plate and screw device IMPRESSION: Cardiomegaly, pulmonary edema and bilateral pleural effusions, right greater than left. Signed by: Dr. Florian Flores M.D. on 08/04/2017 6:28 AM Dictated By: FLORIAN FLORES MD 7 Transcribed By: AMPARO on 08/04/17627 COPY TO: WILBERTO SOSA MD
--- OUTSIDE RECORDS SUMMARY | 2018-06-24 12:24 | XMS REPORT | Summary of Care ---
Author Author [facility] Organization [facility] Address Unknown Phone Unavailable Encounter HQ Luis Miguel(SARAHY) [id number] Date(s): 02/25/18 - 02/25/18 [facility] [address], [place] [address] [phone] Discharge Disposition: Home or Self Care Attending Physician: Jarad Lopez MD Referring Physician: Jarad Lopez MD Vital Signs 1 2 3 Most recent to oldest [Reference Range]: 185.42 cm (02/25/18 1:37 PM) Height 114/82 mmHg (02/25/18 3:50 PM) 115/64 mmHg (02/25/18 3:45 PM) 112/57 mmHg (02/25/18 3:40 PM) Blood Pressure [90-140/60-90 mmHg] 21 BRMIN *HI* (02/25/18 3:50 PM) 23 BRMIN *HI* (02/25/18 3:45 PM) 22 BRMIN *HI* (02/25/18 3:40 PM) Respiratory Rate [14-20 BRMIN] 65 kg (02/25/18 1:37 PM) Weight 18.91 m2 (02/25/18 1:37 PM) Body Mass Index Problem List Condition [...] Type Response Substance Abuse Use: None. Alcohol Past, Type Beer. Frequency: 1-2 times per month. [...] Reg Smoking Cessation Counseling Yes1 entered on: 02/25/18 1Per patient, quit in April 2017 Assessment and Plan No data available for this section
== END 2018-06-17 16:45 | disposition short-term general hospital (02) ==
LOC: ER 12:37
DX: S12.112A Nondisplaced Type II dens fracture, initial encounter for closed fracture (principal); S16.1XXA Strain of muscle, fascia and tendon at neck level, initial encounter; W06.XXXA Fall from bed, initial encounter; Y93.89 Activity, other specified; Y92.013 Bedroom of single-family (private) house as the place of occurrence of the external cause; I10 Essential (primary) hypertension; I34.1 Nonrheumatic mitral (valve) prolapse; Z95.0 Presence of cardiac pacemaker; Z87.891 Personal history of nicotine dependence
CPT/HCPCS: 36415; 70450; 72100; 72125; 80048; 85025; 85610; 85730; 99285